=== PATIENT | male | born 1940 | race Caucasian/White ===

== ENCOUNTER → 2016-12-19 | Outpatient (CLI) | payer MEDICARE, BC ==
[~2016-12-19] MED LIST: ASPI-110 PO; ASPI81CH CHEW; ATOR1TAB18 PO; BENZ100 PO; CARV12.52 PO; COMMODE 3-IN-11 MIS; Cefuroxime PO; FURO40TA PO; GETGO ROLLING W1 MI1; LACT PO; LEVO112T2 PO; LIPI80TA PO; LISI-519 PO; MAGO400T PO; MIRTA15 PO; PLAV75TA29 PO; POTA-163 PO; POTA10TA8 PO; PROM25TA10 PO; PROT40TA PO; REME15TA PO; Shower Chair; VANC500I3 PO; VITA10002 PO; WHEEMIS3
[2016-12-19 13:26] LABS: BICARBONATE 29.2 MEQ/L (21.0-32.0)
== END ==
LOC: CLAB 12:43
PROVIDERS: ATTEND Internal Medicine Interventional Cardiology
DX: I25.5 Ischemic cardiomyopathy (principal)
CPT/HCPCS: 36415; 80048

== ENCOUNTER → 2017-02-26 | Outpatient (CLI) | payer MEDICARE, BC ==
[2017-02-26 13:52] LABS: BICARBONATE 28.6 MEQ/L (21.0-32.0); POTASSIUM 4.4 MEQ/L (3.5-5.1)
== END ==
LOC: CLAB 13:00
PROVIDERS: ATTEND Internal Medicine Interventional Cardiology
DX: I50.9 Heart failure, unspecified (principal)
CPT/HCPCS: 36415; 80048

== ENCOUNTER 2017-04-24 22:41 | Emergency (ER) | payer MEDICARE, BC ==
[~2017-04-24 22:41] MED LIST changes: -ASPI81CH CHEW; -ATOR1TAB18 PO; -BENZ100 PO; -Cefuroxime PO; -LISI-519 PO; -MIRTA15 PO; -POTA-163 PO; -PROM25TA10 PO
[2017-04-24 22:47] VITALS: BP 148/95; PULSE 158; RESP 32; O2SAT 98
[2017-04-24] MEDS ORDERED: POTA-163 PO (22:59)
[2017-04-24 23:00] VITALS: BP 162/104; PULSE 152; RESP 28; O2SAT 98
[2017-04-24] MEDS ORDERED: MIRTA15 PO (23:02)
[2017-04-24] MEDS ORDERED: ASPI81CH CHEW (23:02)
[2017-04-24] MEDS ORDERED: ATOR1TAB18 PO (23:02)
[2017-04-24] MEDS ORDERED: LISI-519 PO (23:02)
[2017-04-24] MEDS ORDERED: PROM25TA10 PO (23:03)
--- NOTE | 2017-04-24 23:09 | PD ---
HPI Chief Complaint: General Weakness Time Seen by Provider: 23:04 Travel History International Travel<30 days: No Contact w/Intl Traveler<30days: No Traveled to known affect area: No History of Present Illness HPI This patient complains of generalized weakness. Duration one day. Severity is moderate. He has no chest pain or palpitations or syncope or headache. Symptoms have no alleviating factors. He arrives in [facility] with RVR with a rate of 160. He has a defibrillator but has not fired. PFSH Past Medical History Arthritis: No Asthma: No Autoimmune Disease: No Anxiety: No Depression: No Heart Rhythm Problems: Yes Cancer: Yes (Skin) Cardiovascular Problems: Yes (GA) High Cholesterol: Yes Chemotherapy: No Chest Pain: Yes Congestive Heart Failure: Yes COPD: No Cerebrovascular Accident: No Diabetes: Yes (DIET CONTROLLED) Patient Takes Glucophage: No Endocrine: Yes Gastrointestinal Disorders: Yes GERD: No Genitourinary: Yes (INCONTINENCE) Headaches: Yes Hiatal Hernia: No Hypertension: Yes Immune Disorder: No Implanted Vascular Access Dvce: Yes Kidney Stones: No Musculoskeletal: No Neurologic: No Psychiatric: No Reproductive: No Respiratory: Yes Migraines: No Radiation Therapy: No Renal Failure: No Seizures: No Sickle Cell Disease: No Sleep Apnea: No Thyroid Disease: No Ulcer: No Past Surgical History Abdominal Surgery: Yes (APPENDECTOMY) AICD: Yes (04/2016) Arteriovenous Shunt: No Cardiac Surgery: Yes (CABG X4// AICD 04/2016) Coronary Artery Bypass Graft: Yes Coronary Stent: Yes ("ABOUT 20 YRS AGO") Ear Surgery: No Endocrine Surgery: Yes (GALL BLADDER) Eye Surgery: Yes (CATARACTS) Genitourinary Surgery: No Gynecologic Surgery: No Insulin Pump: No Joint Replacement: No Neurologic Surgery: Yes (GRAPHICS SOFTWARE ENGINEER Shunt) Oral Surgery: No Pacemaker: No Thoracic Surgery: No Other Surgery: Yes Social History Alcohol Use: No Tobacco Use: No (QUIT 35 YRS AGO) Substance Use: No Allergies-Medications (Allergen,Severity, Reaction): Coded Allergies: *MDRO Multi-Drug Resistant Organism (Verified Adverse Reaction, Unknown, ) ESBL K. 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) Reported Meds & Prescriptions Reported Meds & Active Scripts Active Vitamin B-12 (Cyanocobalamin) 1,000 Mcg Tab 1,000 Mcg PO DAILY Levothyroxine (Levothyroxine Sodium) 112 Mcg Tab 112 Mcg PO DAILY Furosemide 40 Mg Tab 40 Mg PO DAILY Plavix (Clopidogrel Bisulfate) 75 Mg Tab 75 Mg PO DAILY Carvedilol 12.5 Mg Tab 12.5 Mg PO BID Reported Phenergan (Promethazine HCl) 25 Mg Tablet 25 Mg PO HS Lisinopril 5 Mg Tab 5 Mg PO HS Mirtazapine 15 Mg Tab 15 Mg PO HS Atorvastatin (Atorvastatin Calcium) 80 Mg Tab 80 Mg PO HS Aspirin 81 Mg Chew 81 Mg CHEW HS Potassium Chloride ER (Potassium Chloride) 20 Meq Tab 20 Meq PO BID Review of Systems General / Constitutional: No: Fever Eyes: No: Visual changes HENT: No: Headaches Cardiovascular: Positive: Irregular Rhythm, Tachycardia, No: Chest Pain or Discomfort Respiratory: No: Shortness of Breath Gastrointestinal: No: Abdominal Pain Genitourinary: No: Dysuria Musculoskeletal: Positive: Weakness, No: Pain Skin: No Rash Neurologic: Positive: Weakness Psychiatric: No: Depression Endocrine: No: Polydipsia Hematologic/Lymphatic: No: Easy Bruising Physical Exam Narrative GENERAL: Well-nourished, well-developed patient in no apparent distress. SKIN: Focused skin assessment reveals no rash and nodules. Skin is Warm and dry. HEAD: Atraumatic. Normocephalic. EYES: Pupils equal and round. No scleral icterus. No injection or drainage. ENT: No nasal bleeding or discharge. Mucous membranes pink and moist. NECK: Trachea midline. No JVD. CARDIOVASCULAR: Irregularly irregular rhythm. No murmur appreciated. Heart rate 160 RESPIRATORY: No accessory muscle use. Clear to auscultation. Breath sounds equal bilaterally. GASTROINTESTINAL: Abdomen soft, non-tender, nondistended. Hepatic and splenic margins not palpable. MUSCULOSKELETAL: No obvious deformities. No clubbing. No cyanosis. No edema. NEUROLOGICAL: Awake and alert. No obvious cranial nerve deficits. Motor grossly within normal limits. Normal speech. PSYCHIATRIC: Appropriate mood and affect; insight and judgment normal. Data Data Last Documented VS Vital Signs Date Time Temp Pulse Resp B/P Pulse Ox O2 Delivery O2 Flow Rate FiO2 04/25/17 01:35 136 20 147/78 98 Nasal Cannula 2 Orders Iv Access Insert/Monitor (04/24/17 23:04) Complete Blood Count With Diff (04/24/17 23:04) Basic Metabolic Panel (Bmp) (04/24/17 23:04) Prothrombin Time / Inr (Pt) (04/24/17 23:04) Act Partial Throm Time (Ptt) (04/24/17 23:04) Electrocardiogram (04/24/17 ) Diltiazem Inj (Cardizem Inj) (04/24/17 23:15) Sodium Chlorid 0.9% 500 Ml Inj (Ns 500 M (04/25/17 01:30) Diltiazem Inj (Cardizem Inj) (04/25/17 01:30) Labs Laboratory Tests Test 04/24/17 23:10 White Blood Count 15.2 TH/MM3 Red Blood Count 4.68 MIL/MM3 Hemoglobin 13.6 GM/DL Hematocrit 41.6 % Mean Corpuscular Volume 88.9 FL Mean Corpuscular Hemoglobin 29.1 PG Mean Corpuscular Hemoglobin 32.7 % Concent Red Cell Distribution Width 16.6 % Platelet Count 129 TH/MM3 Mean Platelet Volume 12.0 FL Neutrophils (%) (Auto) 74.3 % Lymphocytes (%) (Auto) 12.9 % Monocytes (%) (Auto) 12.3 % Eosinophils (%) (Auto) 0.0 % Basophils (%) (Auto) 0.5 % Neutrophils # (Auto) 11.3 TH/MM3 Lymphocytes # (Auto) 2.0 TH/MM3 Monocytes # (Auto) 1.9 TH/MM3 Eosinophils # (Auto) 0.0 TH/MM3 Basophils # (Auto) 0.1 TH/MM3 CBC Comment DIFF FINAL Differential Comment Prothrombin Time 16.7 SEC Prothromb Time International 1.5 RATIO Ratio Activated Partial 24.5 SEC Thromboplast Time Sodium Level 141 MEQ/L Potassium Level 5.1 MEQ/L Chloride Level 110 MEQ/L Carbon Dioxide Level 16.1 MEQ/L Anion Gap 15 MEQ/L Blood Urea Nitrogen 52 MG/DL Creatinine 2.14 MG/DL Estimat Glomerular Filtration 30 ML/MIN Rate Random Glucose 214 MG/DL Calcium Level 8.4 MG/DL [facility] Medical Decision Making Medical Screen Exam Complete: Yes Emergency Medical Condition: Yes Medical Record Reviewed: Yes Differential Diagnosis A. fib with RVR, SVT, A. fib Narrative Course I have reviewed the patient's electronic medical record. I reviewed his discharge summary from rehabilitation which was 6 months ago. He is very complicated medical history with coronary disease and coronary bypass grafting and a defibrillator and cardiomyopathy and also has history of NPH with ventricular shunt Patient is not having any headache or specific neurologic complaint His neurologic exam is normal He is in A. fib with RVR Extended cardiac monitoring reveals A. fib with a rate of 160 I reviewed his EKG which shows A. fib with RVR IV placed I gave him 20 mg IV Cardizem Heart rate improved and went down into the 120s CBC normal Metabolic profile shows some azotemia I gave him some normal saline IV bolus I gave him a second dose of 15 mg IV Cardizem On recheck he is feeling much improved and wants to go home. He feels fine he says. His heart rate is now regular and rate of 100 I've advised him to call his primary physician and drawer liner morning to set up follow-up times and return if he worsens. Critical Care Narrative Aggregate critical care time was 40 minutes. Time to perform other separately billable procedures was not included in the critical care time. My time did not include minutes spent treating any other patients simultaneously or on activities that did not directly contribute to the patient's treatment. The services I provided to this patient were to treat and/or prevent clinically significant deterioration that could result in: Cardiopulmonary arrest, myocardial injury, pulmonary edema I provided critical care services requiring my management, as noted below: Chart data review, documentation time, medication orders and management, vital sign assessments/reviewing monitor data, ordering and reviewing lab tests, ordering and interpreting/reviewing x-rays and diagnostic studies, care of the patient and discussion of the patient with the admitting physicians. Diagnosis Primary Impression: Atrial fibrillation with RVR Additional Impressions: Renal insufficiency Dehydration, mild Additional Instructions: Call primary physician and drawer liner for follow-up Return if you worsen Med/Other Pt SpecificInfo: Other Disposition: DISCHARGE HOME Condition: Stable Reed Hugo MD Apr 24, 2017 23:08
[2017-04-24 23:15] VITALS: BP 163/76; PULSE 102; RESP 28; O2SAT 94
[2017-04-24] MEDS ORDERED: DILTIAZEM HCL 25 MG/5 ML VIAL IV ONE (23:15)
[2017-04-24 23:25] LABS: AUTOMATED NEUTROPHIL # 11.3 TH/MM3 (1.8-7.7); BASOPHIL # 0.1 TH/MM3 (0-0.2); BASOPHIL % 0.5 % (0.0-2.0); HEMATOCRIT 41.6 % (39.0-51.0); HEMO FLAGS DIFF FINAL; LYMPH % 12.9 % (9.0-44.0); MEAN CELL VOLUME 88.9 FL (80.0-100.0); MEAN CORPUSCULAR HEMOGLOBIN 29.1 PG (27.0-34.0); MEAN CORPUSCULAR HGB CONC 32.7 % (32.0-36.0); MONO % 12.3 % (0.0-8.0); NEUT % 74.3 % (16.0-70.0); PLATELET COUNT 129 TH/MM3 (150-450); RED BLOOD COUNT 4.68 MIL/MM3 (4.50-5.90); RED CELL DISTRIBUTION WIDTH 16.6 % (11.6-17.2); WHITE BLOOD COUNT 15.2 TH/MM3 (4.0-11.0)
[2017-04-24 23:36] LABS: APTT (PATIENT) 24.5 SEC (24.3-30.1); INTERNATIONAL NORMALIZED RATIO 1.5 RATIO; PROTHROMBIN TIME - PATIENT 16.7 SEC (9.8-11.6)
[2017-04-24 23:40] VITALS: BP 123/76; PULSE 103; RESP 24; O2SAT 98
[2017-04-24 23:42] LABS: BICARBONATE 16.1 MEQ/L (21.0-32.0); POTASSIUM 5.1 MEQ/L (3.5-5.1)
[2017-04-25 00:15] VITALS: BP 125/94; PULSE 102; RESP 16; O2SAT 98
[2017-04-25] MEDS ORDERED: SODIUM CHLORID 0.9% 500 ML INJ 500 ML IV SCH (01:30)
[2017-04-25] MEDS ORDERED: DILTIAZEM HCL 25 MG/5 ML VIAL IV ONE (01:30)
[2017-04-25 01:35] VITALS: BP 147/78; PULSE 136; RESP 20; O2SAT 98
--- NOTE | 2017-04-25 15:27 | EKG ---
Date Performed: 04/24/2017 Time Performed: 22:48:15 PTAGE: 77 years EKG: ATRIAL FIBRILLATION WITH RAPID VENTRICULAR RESPONSE MODERATE INTRAVENTRICULAR CONDUCTION DE LAY NONSPECIFIC ST & T-WAVE ABNORMALITY Compared to previous tracing, the patient has developed atria l fibrillation with a rapid ventricular response. The associated inferolateral ST segment changes are new. Clinical correlation is advised ABNORMAL ECG PREVIOUS TRACING : 09/24/2016 16.55 DOCTOR: Rupali Eaton Interpretating Date/Time 04/25/2017 15:26:27
== END 2017-04-25 03:17 | disposition home or self-care (01) ==
LOC: NEPC 22:41
DX: I48.91 Unspecified atrial fibrillation (principal); R00.0 Tachycardia, unspecified; N28.9 Disorder of kidney and ureter, unspecified; E86.0 Dehydration; E78.00 Pure hypercholesterolemia, unspecified; I25.2 Old myocardial infarction; I50.9 Heart failure, unspecified; E11.9 Type 2 diabetes mellitus without complications; I10 Essential (primary) hypertension
CPT/HCPCS: 80048; 85025; 85610; 85730; 93005; 96361; 96374; 96376; 99291; J7040

== ENCOUNTER 2017-04-25 11:58 | Inpatient (IN) | payer MEDICARE, BC ==
[2017-04-25] VITALS (7 sets, daily range): BP systolic 123–152; BP diastolic 81–98; PULSE 87–99; RESP 20–30; TEMP 98.1–99; O2SAT 96–100
[~2017-04-25] VITALS: Ht 190.5 cm; Wt 98.5 kg
[~2017-04-25 11:58] MED LIST changes: -ASPI-110 PO; +ASPI81CH CHEW; +ATOR1TAB18 PO; -COMMODE 3-IN-11 MIS; -GETGO ROLLING W1 MI1; -LACT PO; -LIPI80TA PO; +LISI-519 PO; -MAGO400T PO; +MIRTA15 PO; +POTA-163 PO; -POTA10TA8 PO; +PROM25TA10 PO; -PROT40TA PO; -REME15TA PO; -Shower Chair; -VANC500I3 PO; -WHEEMIS3
--- NOTE | 2017-04-25 12:12 | PD ---
HPI Chief Complaint: Cardiac Complaint Time Seen by Provider: 12:08 Travel History International Travel<30 days: No Contact w/Intl Traveler<30days: No Traveled to known affect area: No History of Present Illness HPI PATIENT ARRIVES C/O DEFIBRILLATOR GOING OFF TODAY JUST ABOUT 1 HOUR AGO. CARDIO IS DR TRIPP.....PT HAD JUST BEEN EVALUATED WITH LABS BUT WITHOUT IMAGING THIS MORNING AND WAS D/C FROM ER AT AROUND 4 OR 5AM. PRESENTATION THEN WAS FOR GEN WEAKNESS, DENIED FEVER/COUGH/CP/ABD PAIN/THROAT PAIN/RUNNY NOSE/ESTEBAN/N /V/D AT THIS TIME. ALSO NO PAIN CURRENTLY EITHER. PFSH Past Medical History Hx Anticoagulant Therapy: Yes (PLAVIX) Arthritis: No Asthma: No Autoimmune Disease: No Anxiety: No Depression: No Heart Rhythm Problems: Yes Cancer: Yes (Skin) Cardiovascular Problems: Yes (DEFIB IN PLACE) High Cholesterol: Yes Chemotherapy: No Chest Pain: Yes Congestive Heart Failure: Yes COPD: No Cerebrovascular Accident: No Diabetes: Yes (DIET CONTROLLED) Endocrine: Yes Gastrointestinal Disorders: Yes GERD: No Genitourinary: Yes (INCONTINENCE) Headaches: Yes Hiatal Hernia: No Hypertension: Yes Immune Disorder: No Implanted Vascular Access Dvce: Yes Kidney Stones: No Musculoskeletal: No Neurologic: No Psychiatric: No Reproductive: No Respiratory: Yes Migraines: No Radiation Therapy: No Renal Failure: No Seizures: No Sickle Cell Disease: No Sleep Apnea: No Thyroid Disease: No Ulcer: No Past Surgical History Abdominal Surgery: Yes (APPENDECTOMY) AICD: Yes (04/2016) Arteriovenous Shunt: No Cardiac Surgery: Yes (CABG X4// AICD 04/2016) Coronary Artery Bypass Graft: Yes Coronary Stent: Yes ("ABOUT 20 YRS AGO") Ear Surgery: No Endocrine Surgery: Yes (GALL BLADDER) Eye Surgery: Yes (CATARACTS) Genitourinary Surgery: No Gynecologic Surgery: No Insulin Pump: No Joint Replacement: No Neurologic Surgery: Yes (MULTIPLE GAMES DEALER Shunt) Oral Surgery: No Pacemaker: No Thoracic Surgery: No Other Surgery: Yes Social History Alcohol Use: No Tobacco Use: No (QUIT 35 YRS AGO) Substance Use: No Allergies-Medications (Allergen,Severity, Reaction): Coded Allergies: *MDRO Multi-Drug Resistant Organism (Verified Adverse Reaction, Unknown, ) ESBL K. 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) Reported Meds & Prescriptions Reported Meds & Active Scripts Active Vitamin B-12 (Cyanocobalamin) 1,000 Mcg Tab 1,000 Mcg PO DAILY Levothyroxine (Levothyroxine Sodium) 112 Mcg Tab 112 Mcg PO DAILY Furosemide 40 Mg Tab 40 Mg PO DAILY Plavix (Clopidogrel Bisulfate) 75 Mg Tab 75 Mg PO DAILY Carvedilol 12.5 Mg Tab 12.5 Mg PO BID Reported Phenergan (Promethazine HCl) 25 Mg Tablet 25 Mg PO HS Lisinopril 5 Mg Tab 5 Mg PO HS Mirtazapine 15 Mg Tab 15 Mg PO HS Atorvastatin (Atorvastatin Calcium) 80 Mg Tab 80 Mg PO HS Aspirin 81 Mg Chew 81 Mg CHEW HS Potassium Chloride ER (Potassium Chloride) 20 Meq Tab 20 Meq PO BID Review of Systems Except as stated in HPI: all other systems reviewed are Neg Cardiovascular: Positive: Palpitations (AND DEFIB 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 HEAD: Atraumatic. Normocephalic. EYES: Pupils equal and round. No scleral icterus. No injection or drainage. ENT: No nasal bleeding or discharge. Mucous membranes pink and moist. NECK: Trachea midline. No JVD. CARDIOVASCULAR: IRREGULAR rhythm. CONTROLLED RATE. RESPIRATORY: No accessory muscle use. Clear to auscultation. Breath sounds equal bilaterally. GASTROINTESTINAL: Abdomen soft, non-tender, nondistended. Hepatic and splenic margins not palpable. MUSCULOSKELETAL: Extremities without clubbing, cyanosis, or edema. No obvious deformities. NEUROLOGICAL: Awake and alert. No obvious cranial nerve deficits. Motor grossly within normal limits. Five out of 5 muscle strength in the arms and legs. Normal speech. PSYCHIATRIC: Appropriate mood and affect; insight and judgment normal. Data Data Last Documented VS Vital Signs Date Time Temp Pulse Resp B/P Pulse Ox O2 Delivery O2 Flow Rate FiO2 04/25/17 12:49 93 22 133/81 98 Nasal Cannula 2 04/25/17 12:05 99.0 Orders Electrocardiogram (04/25/17 12:32) Complete Blood Count With Diff (04/25/17 12:32) Comprehensive Metabolic Panel (04/25/17 12:32) Ckmb (Isoenzyme) Profile (04/25/17 12:32) Troponin I (04/25/17 12:32) B-Type Natriuretic Peptide (04/25/17 12:32) Prothrombin Time / Inr (Pt) (04/25/17 12:32) Act Partial Throm Time (Ptt) (04/25/17 12:32) Chest, Single Ap (04/25/17 12:32) Iv Access Insert/Monitor (04/25/17 12:32) Ecg Monitoring (04/25/17 12:32) Oximetry (04/25/17 12:32) CKMB (04/25/17 12:30) CKMB% (04/25/17 12:30) Lactic Acid Sepsis Protocol (04/25/17 13:37) Pneumococcal Urinary Antigen (04/25/17 13:37) Influenzae A/B Antigen (04/25/17 13:37) Legionella Urinary Antigen (04/25/17 13:37) Sputum Culture And Gram Stain (04/25/17 13:37) Ceftriaxone Inj (Rocephin Inj) (04/25/17 13:45) Azithromycin Inj (Zithromax Inj) (04/25/17 13:45) Urinalysis - C+S If Indicated (04/25/17 13:37) Blood Culture (04/25/17 14:11) Admit Order (Ed Use Only) (04/25/17 14:35) Labs Laboratory Tests Test 04/25/17 04/25/17 04/25/17 12:30 14:00 14:20 White Blood Count 17.0 TH/MM3 Red Blood Count 4.77 MIL/MM3 Hemoglobin 14.0 GM/DL Hematocrit 42.4 % Mean Corpuscular Volume 88.9 FL Mean Corpuscular Hemoglobin 29.3 PG Mean Corpuscular Hemoglobin 33.0 % Concent Red Cell Distribution Width 16.7 % Platelet Count 118 TH/MM3 Mean Platelet Volume 12.1 FL Neutrophils (%) (Auto) 77.9 % Lymphocytes (%) (Auto) 12.0 % Monocytes (%) (Auto) 9.4 % Eosinophils (%) (Auto) 0.2 % Basophils (%) (Auto) 0.5 % Neutrophils # (Auto) 13.2 TH/MM3 Lymphocytes # (Auto) 2.0 TH/MM3 Monocytes # (Auto) 1.6 TH/MM3 Eosinophils # (Auto) 0.0 TH/MM3 Basophils # (Auto) 0.1 TH/MM3 CBC Comment DIFF FINAL Differential Comment Prothrombin Time 17.2 SEC Prothromb Time International 1.5 RATIO Ratio Activated Partial 24.9 SEC Thromboplast Time Sodium Level 138 MEQ/L Potassium Level 5.0 MEQ/L Chloride Level 107 MEQ/L Carbon Dioxide Level 15.7 MEQ/L Anion Gap 15 MEQ/L Blood Urea Nitrogen 55 MG/DL Creatinine 2.04 MG/DL Random Glucose 234 MG/DL Calcium Level 8.6 MG/DL Total Bilirubin 3.5 MG/DL Aspartate Amino Transf 1127 U/L (AST/SGOT) Alanine Aminotransferase 1154 U/L (ALT/SGPT) Alkaline Phosphatase 149 U/L Total Creatine Kinase 362 U/L Creatine Kinase MB 5.2 NG/ML Creatine Kinase MB % 1.4 % Troponin I 0.05 NG/ML B-Type Natriuretic Peptide 1326 PG/ML Total Protein 6.4 GM/DL Albumin 3.6 GM/DL Urine Color YELLOW Urine Turbidity CLEAR Urine pH 5.5 Urine Specific [place] 1.023 Urine Protein 30 mg/dL Urine Glucose (UA) NEG mg/dL Urine Ketones NEG mg/dL Urine Occult Blood SMALL Urine Nitrite NEG Urine Bilirubin NEG Urine Urobilinogen LESS THAN 2.0 MG/DL Urine Leukocyte Esterase NEG Urine RBC LESS THAN 1 /hpf Urine WBC 1 /hpf Urine Bacteria RARE /hpf Microscopic Urinalysis Comment CULT NOT INDICATED Lactic Acid Level 3.5 mmol/L MDM Medical Decision Making Medical Screen Exam Complete: Yes Emergency Medical Condition: Yes Medical Record Reviewed: Yes Interpretation(s) NSR, 92, Q WAVE FOUND ON III/AVF BUT NO ACUTE STEMI PATTERN NOTED Differential Diagnosis DYSRHYTHMIAS V PULM EDEMA V PNA V DC V Narrative Course WITH ELEV WBC 17K, NEUTROPHILIA, RLL INFILTRATE NOTED ON CXR AND PT C/O GENERALIZED WEAKNESS I CONCLUDE THAT PNA IS THE CAUSE OF PATIENT'S MAIN COMPLAINTS...HIS DEFIBRILLATOR FIRING WILL BE ADDRESSED WITH INTERROGATION HOWEVER FAMILY NOR PATIENT KNOW WHAT BRAND THE DEFIBRILLATOR WAS AND I'VE BEEN UNSUCCESFUL AT LOCATING IT....PT STATES CARDIO IS DR TRIPP...WILL RECC ADMISSION FOR PNA AND INTERROGATION Critical Care Narrative CRITICAL CARE NOTE: With evaluation of the patient, labs, EKG, receipt of radiologic studies, administration of medications, reevaluation the patient and discussion of the patient with the admitting physicians, the total critical care time was [45] minutes. Time to perform other separately billable procedures was not included in the critical care time. Diagnosis Primary Impression: RLL PNEUMONIA Additional Impression: S/P DEFIBRILLATOR DISCHARGE Admitting Information Admitting Physician Requests: Admit Condition: Stable Paul Clemente MD Apr 25, 2017 12:12
[2017-04-25 12:56] LABS: AUTOMATED NEUTROPHIL # 13.2 TH/MM3 (1.8-7.7); BASOPHIL # 0.1 TH/MM3 (0-0.2); BASOPHIL % 0.5 % (0.0-2.0); EOSINOPHIL % 0.2 % (0.0-4.0); HEMATOCRIT 42.4 % (39.0-51.0); HEMO FLAGS DIFF FINAL; MEAN CELL VOLUME 88.9 FL (80.0-100.0); MEAN CORPUSCULAR HEMOGLOBIN 29.3 PG (27.0-34.0); MONO % 9.4 % (0.0-8.0); NEUT % 77.9 % (16.0-70.0); PLATELET COUNT 118 TH/MM3 (150-450); RED BLOOD COUNT 4.77 MIL/MM3 (4.50-5.90); RED CELL DISTRIBUTION WIDTH 16.7 % (11.6-17.2)
[2017-04-25 13:06] LABS: APTT (PATIENT) 24.9 SEC (24.3-30.1); INTERNATIONAL NORMALIZED RATIO 1.5 RATIO; PROTHROMBIN TIME - PATIENT 17.2 SEC (9.8-11.6)
--- NOTE | 2017-04-25 13:06 | RADRPT ---
EXAM DATE/TIME: 04/25/2017 12:30 [place] COMPARISON: CHEST SINGLE AP, October 04, 2016, 12:35. INDICATIONS : Chest pain and weakness. MEDICAL HISTORY : Hypertension. Congestive heart failure. Myocardial infarction. Diabetes. Irregular heartbeat. SURGICAL HISTORY : CABG. Defibrillator. 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 ENCOUNTER: Initial ACUITY: 1 day PAIN SCORE: 6/10 LOCATION: Bilateral chest FINDINGS: Stable dual-lead AICD device. Redemonstration of TEST AUTOMATION ARCHITECT shunt tubing in the right hemithorax. Median ster notomy wires with stable enlargement of the cardiac silhouette. Small right pleural effusion with ass ociated airspace disease in the right lower lobe. Likely trace left pleural effusion. Remainder of ex am is unchanged. CONCLUSION: 1. Cardiomegaly with trace positive fluid balance. 2. Trace left pleural effusion and small right pleural effusion with associated right lower lobe airs pace disease. Vaughn Javier MD on April 25, 2017 at 13:02 Board Certified Radiologist. This report was verified electronically.
[2017-04-25 13:24] LABS: ANION GAP 15 MEQ/L (5-15); BICARBONATE 15.7 MEQ/L (21.0-32.0); BLOOD UREA NITROGEN 55 MG/DL (7-18); CHLORIDE 107 MEQ/L (98-107); SODIUM (NA) 138 MEQ/L (136-145)
[2017-04-25 13:31] LABS: ALKALINE PHOSPHATASE 149 U/L (45-117); ALT (GPT) 1154 U/L (12-78); AST (GOT) 1127 U/L (15-37); CREATINE KINASE 362 U/L (39-308); TOTAL BILIRUBIN ADULT 3.5 MG/DL (0.2-1.0)
[2017-04-25 13:43] LABS: CKMB 5.2 NG/ML (0.5-3.6)
[2017-04-25] MEDS ORDERED: AZITHROMYCIN INJ 500 MG in SODIUM CHLOR 0.9% 250 ML INJ 250 ML IV ONE (13:45)
[2017-04-25] MEDS ORDERED: cefTRIAXone INJ 2,000 MG in SODIUM CHLORIDE 0.9% INJ 100 ML IV ONE (13:45)
[2017-04-25 14:59] LABS: BACTERIA, URINE RARE /hpf; BLOOD, URINE SMALL (NEG); COMMENT (UR) CULT NOT INDICATED; CULTURE IF INDICATED CULT NOT INDICATED; GLUCOSE,URINE NEG (NEG); KETONE, URINE NEG (NEG); NITRITE,URINE NEG (NEG); PH, URINE 5.5 (5.0-8.5); URINE COLOR YELLOW (YELLW/STRAW)
[2017-04-25] MEDS ORDERED: MAGNESIUM HYDROXIDE SUSP 30 ML CUP PO PRN (15:45)
[2017-04-25] MEDS ORDERED: NALOXONE HCL 0.4 MG/ML AMP IV PRN (15:45)
[2017-04-25] MEDS ORDERED: LACTULOSE SYRUP 20 GM/30 ML CUP PO PRN (15:45)
[2017-04-25] MEDS ORDERED: BISACODYL 10 MG SUPP RECTAL PRN (15:45)
[2017-04-25] MEDS ORDERED: SENNOSIDES 8.6 MG TAB PO PRN (15:45)
[2017-04-25] MEDS ORDERED: ONDANSETRON HCL 4 MG/2 ML VIAL IVP PRN (15:45)
[2017-04-25] MEDS ORDERED: SODIUM CHLORIDE 0.9% FLUSH 10 ML FLUSH IV FLUSH PRN (15:45)
[2017-04-25] MEDS ORDERED: ACETAMINOPHEN 325 MG TAB PO PRN (15:45)
--- NOTE | 2017-04-25 16:23 | PD.PN.STU ---
Subjective Remarks The patient is a 77 year old male with history of CHF presenting to the ER with SOB after his defibrillator went off. The patient states it felt like he got kicked in the chest when it went off. He did not pass out when this event occurred. He did not fall or hit his head. The patient reports SOB was occurring a few days prior to his device going off today. He states that he currently has SOB and a mild cough. It is a nonproductive cough at the moment and is not causing chest discomfort. He denies chest pain, diaphoresis, visual changes, headache, abdominal pain, or fevers at this time. Also he denies any new weakness in his extremities. The patient seems to be SOB still and in distress. The patient's is in the room facilitating the history. 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) Reported Meds & Prescriptions Reported Meds & Active Scripts Active Vitamin B-12 (Cyanocobalamin) 1,000 Mcg Tab 1,000 Mcg PO DAILY Levothyroxine (Levothyroxine Sodium) 112 Mcg Tab 112 Mcg PO DAILY Furosemide 40 Mg Tab 40 Mg PO DAILY Plavix (Clopidogrel Bisulfate) 75 Mg Tab 75 Mg PO DAILY Carvedilol 12.5 Mg Tab 12.5 Mg PO BID Reported Phenergan (Promethazine HCl) 25 Mg Tablet 25 Mg PO HS Lisinopril 5 Mg Tab 5 Mg PO HS Mirtazapine 15 Mg Tab 15 Mg PO HS Atorvastatin (Atorvastatin Calcium) 80 Mg Tab 80 Mg PO HS Aspirin 81 Mg Chew 81 Mg CHEW HS Potassium Chloride ER (Potassium Chloride) 20 Meq Tab 20 Meq PO BID Objective Vitals Physical Exam: General: Agitated and dyspnea HEENT: No conjunctival changes, EYE: Extraocular movements intact Cardiovascular: s1 and s2 appreciated, RRR, No JVD, no heaves or thrills Pulmonary: Clear lungs bilaterally, labored breathing Abdominal: No pain on light palpation in all 4 quadrants, no rebound or guarding Extremities: No edema present, posterior tibal pulses palpated bilaterally Psych: Cooperative Vital Signs Date Time Temp Pulse Resp B/P Pulse Ox O2 Delivery O2 Flow Rate FiO2 04/25/17 15:00 98 22 152/98 98 Nasal Cannula 2 04/25/17 12:49 93 22 133/81 98 Nasal Cannula 2 04/25/17 12:10 97 25 123/84 96 Nasal Cannula 2 04/25/17 12:05 99.0 99 30 141/94 99 Room Air Result Diagram: 04/25/17 1230 04/25/17 1230 Imaging RLL pneumonia on CXR A/P Assessment and Plan Diagnostic Impression 1. Acute exacerbation of CHF 2. AICD firing 3. Old inferior ID on EKG 4. HTN 5. Acute Renal Failure- Prerenal 6. Shock liver 7. anticoagulation not at goal 8. Leukocytosis 9. Thrombocytopenia 10. RLL pneumonia Plan Labs Reviewed EKG reviewed CXR reviewed IV ABX (Ceftriaxone & azithromycin) for RLL pneumonia probable Cardiology Consult for AICD & CHF Awaiting Urine Cultures Continue Home medications Lasix Patient seen and examined as above with medical student RN at bedside Chart reviewed including medications labs and radiological data and notes some of the previous notes records reviewed Discussed with the ER physician Above note and plan of care reviewed with medical student Discussed with patient and at bedside in detail Will continue antibiotic for probable pneumonia Repeat chest x-ray AP lateral in the morning Continue home medication including Lasix Cardiology consult Labs for morning Will monitor LFTs. Transaminitis may be a congestive hepatopathy Condition guarded prognosis guarded Marco Wheeler Apr 25, 2017 16:23 Enrico Ha MD Apr 25, 2017 17:04
[2017-04-25 16:43] LABS: LACTIC ACID GHOST NOT REPORTABLE
[2017-04-25] MEDS: PANTOPRAZOLE SOD 20 MG DELAYED RELEASE TAB PO SCH (18:18)
[2017-04-25] MEDS: CYANOCOBALAMIN 1,000 MCG TAB PO SCH (18:18)
[2017-04-25] MEDS: CLOPIDOGREL 75 MG TAB PO SCH (18:18)
[2017-04-25] MEDS: FUROSEMIDE 40 MG TAB PO SCH (18:18)
[2017-04-25] MEDS: LEVOTHYROXINE SODIUM 112 MCG TAB PO SCH (20:00)
--- NOTE | 2017-04-25 20:24 | MB ---
cc: PALOMO SIMENTAL DATE OF CONSULTATION: 04/25/2017. REASON FOR CONSULTATION: HISTORY OF PRESENT ILLNESS: Mr. Reilly is a 77-year-old white male with a history of congestive heart failure, coronary artery disease, myocardial infarction, coronary artery bypass, ischemic cardiomyopathy and a [employer] defibrillator placement. He was shocked by his defibrillator this morning. He has had increased shortness of breath and generalized weakness recently. He denies any chest pain. He was seen in the emergency room and was diagnosed with pneumonia. Evaluation of the defibrillator shows atrial tachycardia in the 190s and this was converted to sinus rhythm with an ICD shock. PAST MEDICAL HISTORY: Past medical history is positive for: 1. Congestive heart failure. 2. Coronary artery disease. 3. Inferior wall myocardial infarction. 4. Right coronary artery stenting. 5. Coronary bypass. 6. Ischemic cardiomyopathy. 7. Atrial flutter. 8. Ventricular tachycardia arrest. 9. Diabetes mellitus. 10. Hydrocephalus status post shunt placement. 11. [employer] dual-chamber defibrillator placement. 12. Dyslipidemia. 13. Moderate mitral regurgitation. 14. Mild tricuspid regurgitation. 15. Resolute stent placement to the right coronary artery in 03/2016. MEDICATIONS AT HOME: 1. Aspirin. 2. Plavix. 3. Carvedilol. 4. Klor-Con. 5. Synthroid. 6. Furosemide. 7. Lisinopril. 8. Mirtazapine. 9. Atorvastatin. 10. Vitamin B12. 11. Magnesium. ALLERGIES: NONE. SOCIAL HISTORY: The patient does not smoke but did smoke in the past. He does not drink alcohol. He is . FAMILY HISTORY: Family history is positive for heart disease. REVIEW OF SYSTEMS: The review of systems is otherwise negative. PHYSICAL EXAMINATION: VITAL SIGNS: Blood pressure 123/85, pulse 95 and regular. HEAD, EYES, EARS, NOSE, THROAT: Negative. NECK: 2+ carotid upstrokes, no bruits. LUNGS: Clear. HEART: Regular rate and rhythm with no murmurs, rubs or gallops. ABDOMEN: Abdomen soft. No bruits. EXTREMITIES: With mild edema. 1+ distal pulses. NEUROLOGIC: Grossly nonfocal. EKGS: EKG was reviewed and showed normal sinus rhythm, left atrial enlargement, interventricular conduction delay and old inferior wall myocardial infarction. LABS: Hemoglobin 14.0. Potassium 5.0, creatinine 2.04 (His baseline was 1.2). AST 1127, ALT 1154. CK 362. CK-MB 5.2. Troponin 0.05. BNP 1326. INTERROGATION OF THE DEFIBRILLATOR: Episodes of atrial tachycardia at the rate of 190 beats per minute treated with attempted therapy with ATP and eventual cardioversion with a single ICD shock. There was normal function of the defibrillator. DIAGNOSIS: 1. ICD shock. 2. Acute exacerbation of chronic systolic congestive heart failure. 3. Ischemic cardiomyopathy with moderate left ventricular systolic function (an ejection fraction of 35%). 4. Coronary artery disease with history of myocardial infarction and coronary bypass and coronary stenting. 5. Acute renal insufficiency. 6. Paroxysmal atrial tachycardia. 7. Paroxysmal atrial flutter. 8. History of ventricular tachycardia. 9. Diabetes mellitus. 10. History of hydrocephalus, status post shunt placement. 11. Normal function of [employer] dual-chamber defibrillator. DISPOSITION: Mr. Reilly will monitored on telemetry. He was appropriately shocked for fast atrial tachycardia. His and is consistent with acute congestive heart failure. He has had significant exacerbation of his renal function. I recommend renal evaluation. I will follow him for cardiology during his hospitalization. Will also see him back for follow up in our office as an outpatient after discharge. MD CARLOS Baugh/BRIGIDO /7:27 PM /8:12 PM
[2017-04-25] MEDS: PROMETHAZINE HCL 25 MG TAB PO SCH (21:11)
[2017-04-25] MEDS: DOCUSATE SODIUM 50 MG/SENNA 8.6 MG TAB PO SCH (21:11)
[2017-04-25] MEDS: HEPARIN SODIUM - SQ 10,000 UNITS/ML VIAL SQ SCH (21:11)
[2017-04-25] MEDS: CARVEDILOL 12.5 MG TAB PO SCH (21:11)
[2017-04-25] MEDS: ASPIRIN 81 MG CHEW TAB CHEW SCH (21:11)
[2017-04-25] MEDS: MIRTAZAPINE 15 MG TAB PO SCH (21:12)
[2017-04-25] MEDS: LISINOPRIL 5 MG TAB PO SCH (21:12)
[2017-04-25] MEDS: SODIUM CHLORIDE 0.9% FLUSH 10 ML FLUSH IV FLUSH SCH (21:12)
[2017-04-25] MEDS: ATORVASTATIN 80 MG TAB PO SCH (21:12)
[2017-04-25] MEDS: POTASSIUM CHLORIDE 20 MEQ CONTROLLED RELEASE TAB PO SCH (21:12)
[2017-04-25] MEDS ORDERED: SODIUM CHLOR 0.9% 1000 ML INJ 1,000 ML IV ONE (23:30)
[2017-04-26] VITALS (14 sets, daily range): BP systolic 93–139; BP diastolic 59–89; PULSE 64–80; RESP 18–32; TEMP 97.2–98; O2SAT 91–100
[2017-04-26 02:37] LABS: AUTOMATED NEUTROPHIL # 10.8 TH/MM3 (1.8-7.7); BASOPHIL # 0.1 TH/MM3 (0-0.2); BASOPHIL % 0.5 % (0.0-2.0); EOSINOPHIL % 0.1 % (0.0-4.0); HEMATOCRIT 39.5 % (39.0-51.0); LYMPH % 11.9 % (9.0-44.0); LYMPHOCYTE # 1.6 TH/MM3 (1.0-4.8); MEAN CELL VOLUME 88.5 FL (80.0-100.0); MEAN CORPUSCULAR HEMOGLOBIN 29.1 PG (27.0-34.0); MEAN CORPUSCULAR HGB CONC 32.9 % (32.0-36.0); MONO % 9.6 % (0.0-8.0); NEUT % 77.9 % (16.0-70.0); PLATELET COUNT 85 TH/MM3 (150-450); RED BLOOD COUNT 4.46 MIL/MM3 (4.50-5.90); RED CELL DISTRIBUTION WIDTH 16.7 % (11.6-17.2); WHITE BLOOD COUNT 13.8 TH/MM3 (4.0-11.0)
[2017-04-26 02:39] LABS: HEMO FLAGS AUTO DIFF
[2017-04-26 02:48] LABS: MAGNESIUM 2.1 MG/DL (1.5-2.5); POTASSIUM 4.6 MEQ/L (3.5-5.1)
[2017-04-26 03:11] LABS: BANDS 2 % (0-6); CORRECTED NUCLEATED RBC 1 /100 WBC (0-0); NEUTROPHIL # MANUAL DIFF 11.3 TH/MM3 (1.8-7.7); POLYS (SEG NEUTROPHILS) 80 % (16-70); WBC DIFF SAMPLE 100
[2017-04-26 03:12] LABS: SCAN/DIFF FINAL DIFF MANUAL
[2017-04-26 03:13] LABS: PLATELET ESTIMATE SMEAR LOW (NORMAL); PLATELET MORPHOLOGY ENLARGED (NORMAL)
[2017-04-26] MEDS: LEVOTHYROXINE SODIUM 112 MCG TAB PO SCH (05:22)
[2017-04-26] MEDS: CARVEDILOL 12.5 MG TAB PO SCH ×2 (08:14→20:38)
[2017-04-26] MEDS: PANTOPRAZOLE SOD 20 MG DELAYED RELEASE TAB PO SCH (08:14)
[2017-04-26] MEDS: POTASSIUM CHLORIDE 20 MEQ CONTROLLED RELEASE TAB PO SCH ×2 (08:14→20:41)
[2017-04-26] MEDS: DOCUSATE SODIUM 50 MG/SENNA 8.6 MG TAB PO SCH ×2 (08:15→20:39)
[2017-04-26] MEDS: HEPARIN SODIUM - SQ 10,000 UNITS/ML VIAL SQ SCH ×2 (08:15→20:39)
[2017-04-26] MEDS: CYANOCOBALAMIN 1,000 MCG TAB PO SCH (08:15)
[2017-04-26] MEDS: FUROSEMIDE 40 MG TAB PO SCH (08:15)
[2017-04-26] MEDS: CLOPIDOGREL 75 MG TAB PO SCH (08:15)
[2017-04-26] MEDS: SODIUM CHLORIDE 0.9% FLUSH 10 ML FLUSH IV FLUSH SCH ×2 (08:23→20:38)
--- NOTE | 2017-04-26 08:46 | HHI.PR ---
Subjective Subjective Remarks Resting in bed dosing Responds to verbal stimuli short answers Skin is pale Afebrile Requesting to be left alone (Zahida Calderon) Review of Systems Constitutional Constitutional: Fatigue Constitutional Remarks Unable to assess except for vague answers to some symptoms. Denies any chest pain. Took oxygen off and states doesn't need it now. (Zahida Calderon) Vitals/Results Intake & Output 04/25/17 04/25/17 04/26/17 15:00 23:00 07:00 Intake Total 242 ml 850 ml Output Total 325 ml 300 ml Balance -83 ml 550 ml Intake Oral 240 ml 360 ml IV Total 2 ml 490 ml Output Urine Total 325 ml 300 ml # Bowel Movements 0 Vital Signs Vital Signs Date Time Temp Pulse Resp B/P Pulse Ox O2 Delivery O2 Flow Rate FiO2 04/26/17 08:00 97.4 76 18 109/89 97 04/26/17 04:21 Room Air 04/26/17 04:00 97.4 71 20 139/89 94 04/26/17 00:12 97.7 80 20 123/81 98 04/26/17 00:00 Room Air 04/25/17 20:10 87 04/25/17 20:00 Room Air 04/25/17 20:00 98.3 88 20 152/90 100 04/25/17 16:20 95 24 96 04/25/17 16:06 98.1 89 22 123/85 99 04/25/17 15:00 98 22 152/98 98 Nasal Cannula 2 04/25/17 12:49 93 22 133/81 98 Nasal Cannula 2 04/25/17 12:10 97 25 123/84 96 Nasal Cannula 2 04/25/17 12:05 99.0 99 30 141/94 99 Room Air (Zahida Calderon) CBC/BMP: 04/26/17 0218 04/26/17 0218 Lab Results Laboratory Tests Test 04/25/17 04/25/17 04/25/17 04/25/17 12:30 14:00 14:20 21:31 White Blood Count 17.0 TH/MM3 Red Blood Count 4.77 MIL/MM3 Hemoglobin 14.0 GM/DL Hematocrit 42.4 % Mean Corpuscular Volume 88.9 FL Mean Corpuscular Hemoglobin 29.3 PG Mean Corpuscular Hemoglobin 33.0 % Concent Red Cell Distribution Width 16.7 % Platelet Count 118 TH/MM3 Mean Platelet Volume 12.1 FL Neutrophils (%) (Auto) 77.9 % Lymphocytes (%) (Auto) 12.0 % Monocytes (%) (Auto) 9.4 % Eosinophils (%) (Auto) 0.2 % Basophils (%) (Auto) 0.5 % Neutrophils # (Auto) 13.2 TH/MM3 Lymphocytes # (Auto) 2.0 TH/MM3 Monocytes # (Auto) 1.6 TH/MM3 Eosinophils # (Auto) 0.0 TH/MM3 Basophils # (Auto) 0.1 TH/MM3 CBC Comment DIFF FINAL Differential Comment Prothrombin Time 17.2 SEC Prothromb Time International 1.5 RATIO Ratio Activated Partial 24.9 SEC Thromboplast Time Sodium Level 138 MEQ/L Potassium Level 5.0 MEQ/L Chloride Level 107 MEQ/L Carbon Dioxide Level 15.7 MEQ/L Anion Gap 15 MEQ/L Blood Urea Nitrogen 55 MG/DL Creatinine 2.04 MG/DL Random Glucose 234 MG/DL Calcium Level 8.6 MG/DL Total Bilirubin 3.5 MG/DL Aspartate Amino Transf 1127 U/L (AST/SGOT) Alanine Aminotransferase 1154 U/L (ALT/SGPT) Alkaline Phosphatase 149 U/L Total Creatine Kinase 362 U/L Creatine Kinase MB 5.2 NG/ML Creatine Kinase MB % 1.4 % Troponin I 0.05 NG/ML B-Type Natriuretic Peptide 1326 PG/ML Total Protein 6.4 GM/DL Albumin 3.6 GM/DL Urine Color YELLOW Urine Turbidity CLEAR Urine pH 5.5 Urine Specific [place] 1.023 Urine Protein 30 mg/dL Urine Glucose (UA) NEG mg/dL Urine Ketones NEG mg/dL Urine Occult Blood SMALL Urine Nitrite NEG Urine Bilirubin NEG Urine Urobilinogen LESS THAN 2.0 MG/DL Urine Leukocyte Esterase NEG Urine RBC LESS THAN 1 /hpf Urine WBC 1 /hpf Urine Bacteria RARE /hpf Microscopic Urinalysis Comment CULT NOT INDICATED Lactic Acid Level 3.5 mmol/L 5.9 mmol/L Test 04/26/17 04/26/17 02:18 08:02 White Blood Count 13.8 TH/MM3 Red Blood Count 4.46 MIL/MM3 Hemoglobin 13.0 GM/DL Hematocrit 39.5 % Mean Corpuscular Volume 88.5 FL Mean Corpuscular Hemoglobin 29.1 PG Mean Corpuscular Hemoglobin 32.9 % Concent Red Cell Distribution Width 16.7 % Platelet Count 85 TH/MM3 Mean Platelet Volume 12.1 FL Neutrophils (%) (Auto) 77.9 % Lymphocytes (%) (Auto) 11.9 % Monocytes (%) (Auto) 9.6 % Eosinophils (%) (Auto) 0.1 % Basophils (%) (Auto) 0.5 % Neutrophils # (Auto) 10.8 TH/MM3 Lymphocytes # (Auto) 1.6 TH/MM3 Monocytes # (Auto) 1.3 TH/MM3 Eosinophils # (Auto) 0.0 TH/MM3 Basophils # (Auto) 0.1 TH/MM3 CBC Comment AUTO DIFF Differential Total Cells 100 Counted Neutrophils % (Manual) 80 % Band Neutrophils % 2 % Lymphocytes % 16 % Monocytes % 2 % Neutrophils # (Manual) 11.3 TH/MM3 Nucleated Red Blood Cells 1 /100 WBC Differential Comment FINAL DIFF MANUAL Platelet Estimate LOW Platelet Morphology Comment ENLARGED Sodium Level 140 MEQ/L Potassium Level 4.6 MEQ/L Chloride Level 108 MEQ/L Carbon Dioxide Level 21.0 MEQ/L Anion Gap 11 MEQ/L Blood Urea Nitrogen 58 MG/DL Creatinine 1.95 MG/DL Estimat Glomerular Filtration 33 ML/MIN Rate Random Glucose 211 MG/DL Lactic Acid Level 3.2 mmol/L 2.5 mmol/L Calcium Level 8.4 MG/DL Phosphorus Level 3.2 MG/DL Magnesium Level 2.1 MG/DL Microbiology Microbiology 04/25/17 Legionella Antigen - Final, Complete PRESUMPTIVE NEGATIVE FOR LEGIONELLA P... 04/25/17 Streptococcus pneumoniae Antigen (M - Final, Complete PRESUMPTIVE NEGATIVE FOR STREPTOCOCCU... 04/25/17 Aerobic Blood Culture, Received Pending 04/25/17 Anaerobic Blood Culture, Received Pending 04/25/17 Aerobic Blood Culture, Received Pending 04/25/17 Anaerobic Blood Culture, Received Pending Current Medications Administered Medications Medications (Trade) Dose Ordered Sig/Saad Route PRN Reason Start Time Stop Time Status Last Admin Dose Admin Sodium Chloride (NS Flush) 2 ml BID IV FLUSH 04/25/17 21:00 04/25/17 21:12 Senna/Docusate Sodium (Coretta-Colace) 1 tab BID PO 04/25/17 21:00 04/25/17 21:11 Aspirin (Aspirin Chew) 81 mg HS CHEW 04/25/17 21:00 04/25/17 21:11 Atorvastatin Calcium (Lipitor) 80 mg HS PO 04/25/17 21:00 04/25/17 21:12 Carvedilol (Coreg) 12.5 mg BID PO 04/25/17 21:00 04/25/17 21:11 Clopidogrel Bisulfate (Plavix) 75 mg DAILY PO 04/25/17 17:00 04/25/17 18:18 Cyanocobalamin (Vitamin B12) 1,000 mcg DAILY PO 04/25/17 17:00 04/25/17 18:18 Furosemide (Lasix) 40 mg DAILY PO 04/25/17 17:00 04/25/17 18:18 Levothyroxine Sodium (Synthroid) 112 mcg DAILY@06 PO 04/25/17 20:00 04/26/17 05:22 Lisinopril (Prinivil) 5 mg HS PO 04/25/17 21:00 04/25/17 21:12 Mirtazapine (Remeron) 15 mg HS PO 04/25/17 21:00 04/25/17 21:12 Potassium Chloride (KCl) 20 meq BID PO 04/25/17 21:00 04/25/17 21:12 Promethazine HCl (Phenergan) 25 mg HS PO 04/25/17 21:00 04/25/17 21:11 Pantoprazole Sodium (Protonix) 20 mg DAILY PO 04/25/17 17:15 04/25/17 18:18 Heparin Sodium (Porcine) 5000 units 5,000 units Q12HR SQ 04/25/17 21:00 04/25/17 21:11 Sodium Chloride (NS 1000 ml Inj) 1,000 ml @ 70 mls/hr [id number] ONCE IV 04/25/17 23:30 04/26/17 13:47 04/25/17 23:29 (Zahida Calderon) Physical Exam General General Appearance: Well Developed, Comfortable, Pale (Zahida Calderon) Eyes Eye Exam: Pupils Equal (Zahida Calderon) Ears & Nose Ears & Nose Exam: Nasal Mucosa [place] (pale) (Zahida Calderon) Throat Throat Exam: Oral Mucosa [place] & Moist (pale) (Zahida Calderon. UNBUNDLER) Neck Neck Exam: Neck Supple (Zahida Calderon. UNBUNDLER) Pulmonary Resp Exam: Decreased Bases, Diminished Breath Sounds, Poor Inspiratory Effort ( low volumes) (Zahida Calderon. UNBUNDLER) Cardiology CV Exam: Normal Sinus Rhythm (normal sinus rhythm now), Arrhythmia (on admission) CV Remarks Telemetry (Zahida Calderon. UNBUNDLER) Gastrointestinal/Abdomen GI Exam: Soft, Non-Tender, Bowel Sounds Hypoactive (soft but active) (Zahida Calderon. UNBUNDLER) Musculoskeletal MS Exam: Joints Intact, Atrophy (Zahida Calderon. UNBUNDLER) Integumentary Skin Exam: Clear, Warm, Dry, Intact (Zahida Calderon. UNBUNDLER) Extremeties Extremities Exam: No Edema (minimal trace), Pedal Pulses Palpable (extremities warm) (Zahida Calderon. UNBUNDLER) Neurologic Neuro Exam: Awake Neuro Remarks Speech is slow, probable mild altered mental status, disoriented to place and situation (Zahida Calderon. UNBUNDLER) Assessment/Plan Assessment/Plan Vital signs monitored, normal trends for now Labs monitored noted elevated BNP level has significant cardiac vascular disease Lactic acid level decreased to 3.2, will monitor to continue to trend down Pneumonia, leukocytosis is responding to antibiotic therapy decreased 13.8 Continue empiric antibiotic, oxygen as needed,(currently patient has taken off) , and says he did needed Atrial tachycardia 190s on adm., ICD shock X 1, converted to SR, patient denies any chest pain Acute exacerbation of chronic systolic congestive heart failure. Appreciate cardiac input with medical management Ischemic cardiomyopathy with moderate left ventricular systolic function (an ejection fraction of 35%). Appreciate cardiology consult and assistance with medical management Coronary artery disease with history of myocardial infarction and coronary bypass and coronary stenting., Normal function of [employer] dual-chamber defibrillator. Acute renal insufficiency. Gentle hydration, mucous membranes are still dry we' ll continue to maintain fluids for now but monitor for any acute shortness of breath or symptoms of heart failure Diabetes mellitus, Accu-Cheks before meals and at bedtime with sliding scale, monitor blood sugars and insulin management History of hydrocephalus, status post shunt placement., Medical management Patient does have pleasant confusion state , speech is slow, affect flat and requested not to be bothered. Will monitor obvious symptoms with this treatment regimen (Zahida Calderon) Assessment/Plan pt seen and examined as above labs and meds reviewed marie cardiology input jack pt and at bedside jack chávez about plan of care plan for nephrology consult [facility] activity jack rn (Enrico Ha MD) Zahida Calderon Apr 26, 2017 08:46 Enrico Ha MD Apr 26, 2017 09:55
[2017-04-26] MEDS ORDERED: PNEUMOCOCCAL POLYVALENT INJ 25 MCG/0.5 ML SYR IM ONE (10:00)
[2017-04-26] MEDS ORDERED: INFLUENZA VIRUS VACCINE (QUADRIVALENT) 0.5 ML SYR IM ONE (10:00)
[2017-04-26] MEDS: RESP: ALBUTEROL 2.5 MG/IPRATROPIUM 0.5 MG NEB (PRN) NEB (15:13)
[2017-04-26] MEDS: AZITHROMYCIN INJ 500 MG in SODIUM CHLOR 0.9% 250 ML INJ 250 ML IV SCH (15:29)
[2017-04-26] MEDS: cefTRIAXone INJ 1,000 MG in SODIUM CHLORIDE 0.9% INJ 100 ML IV SCH (15:30)
--- NOTE | 2017-04-26 16:23 | EKG ---
Date Performed: 04/25/2017 Time Performed: 12:56:20 PTAGE: 77 years EKG: Sinus rhythm POSSIBLE LEFT ATRIAL ENLARGEMENT INTRAVENTRICULAR CONDUCTION DELAY POSSIBLE INFERIOR MYOCARDIAL INFA RCTION ABNORMAL ECG Compared to PREVIOUS TRACING , patient has now converted to sinus rhythm. PREVIOUS TRACIN 7 [id number] DOCTOR: Nita Steiner Interpretating Date/Time 04/26/2017 16:22:39
--- NOTE | 2017-04-26 16:24 | PD.CONS ---
HPI Consult Requested By Reason for Consult Acute renal insufficiency. Primary Care Physician Odette Marques M.D. History of Present Illness This patient is a 77-year-old male with a history of multiple medical problems including a history of ischemic heart disease an ejection fraction said to be 35 %, congestive heart failure, atrial flutter, defibrillator placement present with a history of increasing shortness of breath and history of defibrillator firing. On reviewing previous records patient's serum creatinine level has been fluctuating over the last several months noted to have been 1.25 back in February, with a previous level of 1.10 December 2016. On presentation on this occasion creatinine level was 2.14 improving to 1.95 date of consultation. Patient indicated that his shortness of breath has improved since admission. Denies using NSAIDs for analgesia. Indicating that he has had urinary hesitancy and mentioned that his urine has been somewhat pink a few days prior to admission. He follows with Dr. Barksdale the urologist as an outpatient. Specific urological records not available to me. Review of Systems Constitutional: DENIES: Diaphoretic episodes, Fatigue, Fever, Weight gain, Weight loss, Chills, Dizziness, Change in appetite, Night Sweats Eyes: DENIES: Blurred vision, Diplopia, Eye inflammation, Eye pain, Vision loss , Photosensitivity, Double Vision Cardiovascular: COMPLAINS OF: Dyspnea on Exertion, Lower Extremity Edema, DENIES: Chest pain, Palpitations, Syncope, PND, Orthopnea, Claudication Gastrointestinal: DENIES: Abdominal pain, Black stools, Bloody stools, Constipation, Diarrhea, Nausea, Vomiting, Difficulty Swallowing, Anorexia Genitourinary: COMPLAINS OF: Hematuria, DENIES: Urinary frequency, Urinary incontinence, Urgency, Dysuria, Nocturia, Penile Discharge, Testicular Pain, Testicular Swelling Musculoskeletal: COMPLAINS OF: Joint pain, DENIES: Muscle aches, Stiffness, Joint Swelling, Back pain, Neck pain Psychiatric: DENIES: Anxiety, Confusion Past Family Social History Allergies: Coded Allergies: *MDRO Multi-Drug Resistant Organism (Verified Adverse Reaction, Unknown, ) ESBL K. 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 Reported Medications Reported Meds & Active Scripts Active Vitamin B-12 (Cyanocobalamin) 1,000 Mcg Tab 1,000 Mcg PO DAILY Levothyroxine (Levothyroxine Sodium) 112 Mcg Tab 112 Mcg PO DAILY Furosemide 40 Mg Tab 40 Mg PO DAILY Plavix (Clopidogrel Bisulfate) 75 Mg Tab 75 Mg PO DAILY Carvedilol 12.5 Mg Tab 12.5 Mg PO BID Reported Phenergan (Promethazine HCl) 25 Mg Tablet 25 Mg PO HS Lisinopril 5 Mg Tab 5 Mg PO HS Mirtazapine 15 Mg Tab 15 Mg PO HS Atorvastatin (Atorvastatin Calcium) 80 Mg Tab 80 Mg PO HS Aspirin 81 Mg Chew 81 Mg CHEW HS Potassium Chloride ER (Potassium Chloride) 20 Meq Tab 20 Meq PO BID Active Ordered Medications Current Medications Ceftriaxone Sodium 2000 mg/ Sodium Chloride 100 ml @ 200 mls/hr ONCE ONCE IV Last administered on 04/25/17 14:44; Start 04/25/17 at 13:45; Stop 04/25/17 at 14:14; Status DC Azithromycin/ Sodium Chloride (Zithromax Inj/ NS 250 ml Inj) 250 ml @ 250 mls/ hr ONCE ONCE IV Last administered on 04/25/17 14:56; Start 04/25/17 at 13:45 ; Stop 04/25/17 at 14:44; Status DC Sodium Chloride (NS Flush) 2 ml UNSCH PRN IV FLUSH FLUSH AFTER USING IV ACCESS ; Start 04/25/17 at 15:45 Sodium Chloride (NS Flush) 2 ml BID IV FLUSH Last administered on 04/25/17 21: 12; Start 04/25/17 at 21:00 Acetaminophen (Tylenol) 650 mg Q4H PRN PO TEMP > 100.4; Start 04/25/17 at 15:45 Ondansetron HCl (Zofran Inj) 4 mg Q6H PRN IVP NAUSEA OR VOMITING; Start at 15:45 Naloxone HCl (Narcan Inj) 0.4 mg UNSCH PRN IV SEE LABEL COMMENTS; Start at 15:45 Senna/Docusate Sodium (Coretta-Colace) 1 tab BID PO Last administered on 08:15; Start 04/25/17 at 21:00 Magnesium Hydroxide (Milk Of Magnesia Liq) 30 ml Q12H PRN PO MILD - MODERATE CONSTIPATION; Start 04/25/17 at 15:45 Sennosides (Senokot) 17.2 mg Q12H PRN PO MODERATE - SEVERE CONSTIPATION; Start 04/25/17 at 15:45 Bisacodyl (Dulcolax Supp) 10 mg DAILY PRN RECTAL SEVERE CONSITIPATION; Start at 15:45 Lactulose (Lactulose Liq) 30 ml DAILY PRN PO SEVERE CONSITIPATION; Start at 15:45 Aspirin (Aspirin Chew) 81 mg HS CHEW Last administered on 04/25/17 21:11; Start 04/25/17 at 21:00 Atorvastatin Calcium (Lipitor) 80 mg HS PO Last administered on 04/25/17 21:12 ; Start 04/25/17 at 21:00 Carvedilol (Coreg) 12.5 mg BID PO Last administered on 04/26/17 08:14; Start 04/25/17 at 21:00 Clopidogrel Bisulfate (Plavix) 75 mg DAILY PO Last administered on 04/26/17 08 :15; Start 04/25/17 at 17:00 Cyanocobalamin (Vitamin B12) 1,000 mcg DAILY PO Last administered on 04/26/17 08:15; Start 04/25/17 at 17:00 Furosemide (Lasix) 40 mg DAILY PO Last administered on 04/26/17 08:15; Start 04/25/17 at 17:00 Levothyroxine Sodium (Synthroid) 112 mcg DAILY@06 PO Last administered on 05:22; Start 04/25/17 at 20:00 Lisinopril (Prinivil) 5 mg HS PO Last administered on 04/25/17 21:12; Start at 21:00 Mirtazapine (Remeron) 15 mg HS PO Last administered on 04/25/17 21:12; Start 04/25/17 at 21:00 Potassium Chloride (KCl) 20 meq BID PO Last administered on 04/26/17 08:14; Start 04/25/17 at 21:00 Promethazine HCl 25 mg 25 mg HS PO Last administered on 04/25/17 21:11; Start 04/25/17 at 21:00 Ceftriaxone Sodium 1000 mg/ Sodium Chloride 100 ml @ 200 mls/hr Q24H IV Last administered on 04/26/17 15:30; Start 04/26/17 at 14:00 Azithromycin/ Sodium Chloride (Zithromax Inj/ NS 250 ml Inj) 250 ml @ 250 mls/ hr Q24H IV Last administered on 04/26/17 15:29; Start 04/26/17 at 15:00 Pantoprazole Sodium (Protonix) 20 mg DAILY PO Last administered on 04/26/17 08 :14; Start 04/25/17 at 17:15 Heparin Sodium (Porcine) (Heparin Inj) 5,000 units Q12HR SQ Last administered on 04/26/17 08:15; Start 04/25/17 at 21:00 Pneumococcal Polyvalent Vaccine (Pneumovax-23 Inj) 25 mcg ONCE ONCE IM Last administered on 04/26/17 08:25; Start 04/26/17 at 10:00; Stop 04/26/17 at 10:01 ; Status DC Influenza Virus Vaccine 0.5 ml 0.5 ml ONCE ONCE IM ; Start 04/26/17 at 10:00; Stop 04/26/17 at 10:01; Status DC Sodium Chloride (NS 1000 ml Inj) 1,000 ml @ 70 mls/hr [id number] ONCE IV Last administered on 04/25/17 23:29; Start 04/25/17 at 23:30; Stop 04/26/17 at 13:47 ; Status DC Albuterol/ Ipratropium (Duoneb Neb) 1 ampule Q4HR NEB PRN NEB SHOB/WHEEZING Last administered on 04/26/17 15:13; Start 04/26/17 at 14:45 Family History Noncontributory to current complaint. Social History As per H&P. Physical Exam Vital Signs Vital Signs Date Time Temp Pulse Resp B/P Pulse Ox O2 Delivery O2 Flow Rate FiO2 04/26/17 15:13 91 Nasal Cannula 2.00 04/26/17 13:38 98 Nasal Cannula 2.00 04/26/17 12:00 97.5 70 18 122/75 97 04/26/17 08:38 Nasal Cannula 2.00 04/26/17 08:38 73 04/26/17 08:00 97.4 76 18 109/89 97 6/23/17 04:21 Room Air 04/26/17 04:00 97.4 71 20 139/89 94 04/26/17 00:12 97.7 80 20 123/81 98 04/26/17 00:00 Room Air 04/25/17 20:10 87 04/25/17 20:00 Room Air 04/25/17 20:00 98.3 88 20 152/90 100 04/25/17 16:20 95 24 96 Physical Exam GENERAL: Elderly somewhat debilitated appearing male lying in bed not in respiratory distress currently. SKIN: Warm and dry. HEAD: Normocephalic. EYES: No scleral icterus. No injection or drainage. NECK: Supple, trachea midline. No JVD or lymphadenopathy. CARDIOVASCULAR: Regular rate and rhythm without murmurs, gallops, or rubs. RESPIRATORY: Breath sounds equal bilaterally. No accessory muscle use. GASTROINTESTINAL: Abdomen soft, non-tender, nondistended. MUSCULOSKELETAL: No cyanosis, 1+ pitting edema ankles and feet. BACK: . No CVA tenderness. Laboratory Laboratory Tests Test 04/25/17 04/26/17 04/26/17 21:31 02:18 08:02 Lactic Acid Level 5.9 3.2 2.5 White Blood Count 13.8 Red Blood Count 4.46 Hemoglobin 13.0 Hematocrit 39.5 Mean Corpuscular Volume 88.5 Mean Corpuscular Hemoglobin 29.1 Mean Corpuscular Hemoglobin 32.9 Concent Red Cell Distribution Width 16.7 Platelet Count 85 Mean Platelet Volume 12.1 Neutrophils (%) (Auto) 77.9 Lymphocytes (%) (Auto) 11.9 Monocytes (%) (Auto) 9.6 Eosinophils (%) (Auto) 0.1 Basophils (%) (Auto) 0.5 Neutrophils # (Auto) 10.8 Lymphocytes # (Auto) 1.6 Monocytes # (Auto) 1.3 Eosinophils # (Auto) 0.0 Basophils # (Auto) 0.1 CBC Comment AUTO DIFF Differential Total Cells 100 Counted Neutrophils % (Manual) 80 Band Neutrophils % 2 Lymphocytes % 16 Monocytes % 2 Neutrophils # (Manual) 11.3 Nucleated Red Blood Cells 1 Differential Comment FINAL DIFF MANUAL Platelet Estimate LOW Platelet Morphology Comment ENLARGED Sodium Level 140 Potassium Level 4.6 Chloride Level 108 Carbon Dioxide Level 21.0 Anion Gap 11 Blood Urea Nitrogen 58 Creatinine 1.95 Estimat Glomerular Filtration 33 Rate Random Glucose 211 Calcium Level 8.4 Phosphorus Level 3.2 Magnesium Level 2.1 Date/Time Procedure Status Source Growth 04/25/17 14:20 Aerobic Blood Culture - Preliminary Resulted Blood Peripheral NO GROWTH IN 1 DAY 04/25/17 14:20 Anaerobic Blood Culture - Preliminary Resulted Blood Peripheral NO GROWTH IN 1 DAY 04/25/17 14:00 Legionella Antigen - Final Complete Urine Random Urine PRESUMPTIVE NEGATIVE FOR LEGIONELLA P... 04/25/17 14:00 Streptococcus pneumoniae Antigen (M - Final Complete Urine Random Urine PRESUMPTIVE NEGATIVE FOR STREPTOCOCCU... Result Diagram: 04/26/17 0218 04/26/17 0218 Imaging Last 48 hours Impressions Chest X-Ray 04/25/17 1232 Signed Impressions: Service Date/Time: , April 25, 2017 12:30 - CONCLUSION: 1. Cardiomegaly with trace positive fluid balance. 2. Trace left pleural effusion and small right pleural effusion with associated right lower lobe airspace disease. Vaughn Javier MD Assessment and Plan Problem List: (1) Acute kidney injury Plan: Suspect acute on chronic renal sufficiency. The acute component I believe may be related to cardiac decompensation with a component of cardiorenal syndrome. Patient's creatinine level has improved since of presentation. Would continue diuresis and will increase furosemide to twice a day dosing. Continue INDIRA inhibitor for the present pending review of renal indices. Is indicated for afterload reduction. Renal ultrasound to exclude occult obstruction. The patient was counseled regarding status of his renal function and pathogenesis as well as need to avoid NSAIDs for analgesia in the future in view of his history of congestive heart failure. Medications should be adjusted for the patient's estimated GFR if clinically indicated. Avoid agents with significant potential for nephrotoxicity possible including NSAIDs for analgesia, iodine contrast agents. Gadolinium is contraindicated if the GFR is below 30. (2) CHF (congestive heart failure) Plan: As above. (3) Diabetes Plan: Management per primary care physician. Beth Becerril MD Apr 26, 2017 16:24
--- NOTE | 2017-04-26 18:09 | PD.CARD.PN ---
Subjective Subjective Remarks Increased dyspnea, no CP this PM, CXR c/w pneumonia Objective Medications Current Medications Medications (Trade) Dose Ordered Sig/Saad Route Start Time Stop Time Status Last Admin (NS Flush) 2 ml UNSCH PRN IV FLUSH 04/25/17 15:45 (NS Flush) 2 ml BID IV FLUSH 04/25/17 21:00 04/25/17 21:12 (Tylenol) 650 mg Q4H PRN PO 04/25/17 15:45 (Zofran Inj) 4 mg Q6H PRN IVP 04/25/17 15:45 (Narcan Inj) 0.4 mg UNSCH PRN IV 04/25/17 15:45 (Coretta-Colace) 1 tab BID PO 04/25/17 21:00 04/26/17 08:15 (Milk Of Magnesia Liq) 30 ml Q12H PRN PO 04/25/17 15:45 (Senokot) 17.2 mg Q12H PRN PO 04/25/17 15:45 (Dulcolax Supp) 10 mg DAILY PRN RECTAL 04/25/17 15:45 (Lactulose Liq) 30 ml DAILY PRN PO 04/25/17 15:45 (Aspirin Chew) 81 mg HS CHEW 04/25/17 21:00 04/25/17 21:11 (Lipitor) 80 mg HS PO 04/25/17 21:00 04/25/17 21:12 (Coreg) 12.5 mg BID PO 04/25/17 21:00 04/26/17 08:14 (Plavix) 75 mg DAILY PO 04/25/17 17:00 04/26/17 08:15 (Vitamin B12) 1,000 mcg DAILY PO 04/25/17 17:00 04/26/17 08:15 (Synthroid) 112 mcg DAILY@06 PO 04/25/17 20:00 04/26/17 05:22 (Prinivil) 5 mg HS PO 04/25/17 21:00 04/25/17 21:12 (Remeron) 15 mg HS PO 04/25/17 21:00 04/25/17 21:12 (KCl) 20 meq BID PO 04/25/17 21:00 04/26/17 08:14 Promethazine HCl 25 mg 25 mg HS PO 04/25/17 21:00 04/25/17 21:11 Ceftriaxone Sodium 1000 mg/ Sodium Chloride 100 ml @ 200 mls/hr Q24H IV 04/26/17 14:00 04/26/17 15:30 (Zithromax Inj/ NS 250 ml Inj) 250 ml @ 250 mls/hr Q24H IV 04/26/17 15:00 04/26/17 15:29 (Protonix) 20 mg DAILY PO 04/25/17 17:15 04/26/17 08:14 (Heparin Inj) 5,000 units Q12HR SQ 04/25/17 21:00 04/26/17 08:15 (Lasix) 40 mg BID PO 04/26/17 21:00 Vital Signs / I&O Vital Signs Date Time Temp Pulse Resp B/P Pulse Ox O2 Delivery O2 Flow Rate FiO2 04/26/17 17:45 98 Simple Mask 6.00 04/26/17 17:30 98 Simple Mask 6.00 04/26/17 16:00 98.0 68 18 129/82 100 04/26/17 15:14 74 32 93/60 98 04/26/17 15:13 91 Nasal Cannula 2.00 04/26/17 13:38 98 Nasal Cannula 2.00 04/26/17 12:00 97.5 70 18 122/75 97 04/26/17 08:38 Nasal Cannula 2.00 04/26/17 08:38 73 04/26/17 08:00 97.4 76 18 109/89 97 04/26/17 04:21 Room Air 04/26/17 04:00 97.4 71 20 139/89 94 04/26/17 00:12 97.7 80 20 123/81 98 04/26/17 00:00 Room Air 04/25/17 20:10 87 04/25/17 20:00 Room Air 04/25/17 20:00 98.3 88 20 152/90 100 I/O 04/25/17 04/25/17 04/25/17 04/26/17 04/26/17 04/26/17 07:00 15:00 23:00 07:00 15:00 23:00 Intake Total 242 ml 850 ml 480 ml 127 ml Output Total 325 ml 300 ml 325 ml Balance -83 ml 550 ml 155 ml 127 ml Intake Oral 240 ml 360 ml 480 ml IV Total 2 ml 490 ml 127 ml Output Urine Total 325 ml 300 ml 325 ml # Bowel Movements 0 0 Physical Exam GENERAL: In mild resp distress SKIN: Warm and dry. HEAD: Normocephalic. EYES: No scleral icterus. No injection or drainage. NECK: Supple, trachea midline. No JVD or lymphadenopathy. CARDIOVASCULAR: Regular rate and rhythm without murmurs, gallops, or rubs. RESPIRATORY: Breath sounds equal bilaterally. No accessory muscle use. Decreased BS at bases, few rhonchi. GASTROINTESTINAL: Abdomen soft, non-tender, nondistended. MUSCULOSKELETAL: No cyanosis, or edema. Laboratory Laboratory Tests Test 04/25/17 04/26/17 04/26/17 21:31 02:18 08:02 Lactic Acid Level 5.9 mmol/L 3.2 mmol/L 2.5 mmol/L White Blood Count 13.8 TH/MM3 Red Blood Count 4.46 MIL/MM3 Hemoglobin 13.0 GM/DL Hematocrit 39.5 % Mean Corpuscular Volume 88.5 FL Mean Corpuscular Hemoglobin 29.1 PG Mean Corpuscular Hemoglobin 32.9 % Concent Red Cell Distribution Width 16.7 % Platelet Count 85 TH/MM3 Mean Platelet Volume 12.1 FL Neutrophils (%) (Auto) 77.9 % Lymphocytes (%) (Auto) 11.9 % Monocytes (%) (Auto) 9.6 % Eosinophils (%) (Auto) 0.1 % Basophils (%) (Auto) 0.5 % Neutrophils # (Auto) 10.8 TH/MM3 Lymphocytes # (Auto) 1.6 TH/MM3 Monocytes # (Auto) 1.3 TH/MM3 Eosinophils # (Auto) 0.0 TH/MM3 Basophils # (Auto) 0.1 TH/MM3 CBC Comment AUTO DIFF Differential Total Cells 100 Counted Neutrophils % (Manual) 80 % Band Neutrophils % 2 % Lymphocytes % 16 % Monocytes % 2 % Neutrophils # (Manual) 11.3 TH/MM3 Nucleated Red Blood Cells 1 /100 WBC Differential Comment FINAL DIFF MANUAL Platelet Estimate LOW Platelet Morphology Comment ENLARGED Sodium Level 140 MEQ/L Potassium Level 4.6 MEQ/L Chloride Level 108 MEQ/L Carbon Dioxide Level 21.0 MEQ/L Anion Gap 11 MEQ/L Blood Urea Nitrogen 58 MG/DL Creatinine 1.95 MG/DL Estimat Glomerular Filtration 33 ML/MIN Rate Random Glucose 211 MG/DL Calcium Level 8.4 MG/DL Phosphorus Level 3.2 MG/DL Magnesium Level 2.1 MG/DL Imaging Last Impressions Chest X-Ray 04/25/17 1232 Signed Impressions: Service Date/Time: April 12:30 - CONCLUSION: 1. Cardiomegaly with trace positive fluid balance. 2. Trace left pleural effusion and small right pleural effusion with associated right lower lobe airspace disease. Vaughn Javier MD Assessment and Plan Problem List: (1) CHF (congestive heart failure) (2) Ischemic cardiomyopathy (3) Renal insufficiency (4) CAD (coronary artery disease) (5) ICD (implantable cardioverter-defibrillator) discharge (6) Atrial tachycardia (7) S/P MALLET CUTTER shunt Assessment and Plan Continue tx for CHF including diuresis. Continue tx for suspected pneumonia. Continue monitoring, recent shock for AT. Monitor renal fx, seen by Dr. Becerril, renal insufficiency felt to be related to cardiorenal syndrome rather than dehydration. Increase activity. Josesito Jimenez MD Apr 26, 2017 18:09
[2017-04-26 18:29] LABS: BLOOD GAS BASE EXCESS -11.3 mmol/L (-2-2); BLOOD GAS CARBOXYHEMOGLOBIN 1.2 % (0-4); BLOOD GAS HCO3 13 mmol/L (22-26); BLOOD GAS METHEMOGLOBIN 0.9 % (0-2); BLOOD GAS O2 HGB SATURATION 96 % (90-100); BLOOD GAS OXYGEN CONTENT 18.2 Vol % (12.0-20.0); BLOOD GAS PCO2 20 mmHg (38-42); BLOOD GAS PO2 127 mmHg (61-120); BLOOD GAS TOTAL HGB 13.3 G/DL (12.0-16.0); TEMP CORR TO 98.6
[2017-04-26 18:30] LABS: CRITICAL VALUE YES; DRAW SITE RT RADIAL; LITER FLOW 6 L/M; NUMBER OF ARTERIAL PUNCTURES 2; OXYGEN DEVICE SM; STAT YES; ULNAR PULSE PRESENT
[2017-04-26] MEDS ORDERED: FUROSEMIDE 20 MG/2 ML VIAL IV PUSH ONE (18:30)
--- NOTE | 2017-04-26 18:42 | RADRPT ---
EXAM DATE/TIME: 04/26/2017 17:34 [facility] COMPARISON: CHEST SINGLE AP, April 25, 2017, 12:30. INDICATIONS : Short of breath MEDICAL HISTORY : Hypertension. Congestive heart failure. Myocardial infarction. Diabetes SURGICAL HISTORY : CABG. ASTRO TECHNICIAN shunt ENCOUNTER: Subsequent ACUITY: 3 days PAIN SCORE: Non-responsive. LOCATION: Bilateral chest FINDINGS: A single portable frontal view of the chest shows enlargement of the right pleural effusion. A tiny l eft effusion is stable. A right basilar consolidation is stable. Heart is moderately enlarged. Dual-l ead pacing device overlies the left chest. Median sternotomy wires and right-sided catheter likely re lated to a ASTRO TECHNICIAN shunt noted. CONCLUSION: 1. Slight increase in the right pleural effusion. 2. Stable tiny left effusion. 3. Stable right lower lobe infiltrate. 4. Cardiomegaly. Deon Huynh Jr., MD on April 26, 2017 at 18:39 Board Certified Radiologist. This report was verified electronically.
--- NOTE | 2017-04-26 18:53 | PD.CONS ---
HPI Service Critical Care Medicine Consult Requested By [facility] Reason for Consult Hypoxemic Respiratory Failure Primary Care Physician Odette Marques M.D. History of Present Illness 77 y/o man with long-0standing ischemic cardiomyopathy presented through ED with severe SOB. ICD has shocked him once for SVT at 190. Patient is lethargic now and labs consistent with decompensated systolic failure, including hepatic dysfunction and accumulating base deficit. Although heart failure is operative at present the right lower lung process appears to be pneumonia, considerably exacerbating his distress. Review of Systems Endocrine: DENIES: Heat/cold intolerance, Polydipsia, Polyuria, Polyphagia Respiratory: COMPLAINS OF: Shortness of breath Cardiovascular: COMPLAINS OF: Palpitations, Lower Extremity Edema, Orthopnea Musculoskeletal: DENIES: Joint pain, Muscle aches, Stiffness, Joint Swelling, Back pain, Neck pain Integumentary: DENIES: Abnormal pigmentation, Nail changes, Pruritus, Rash Hematologic/lymphatic: DENIES: Bruising, Lymphadenopathy Immunologic/allergic: DENIES: Eczema, Urticaria Past Family Social History Allergies: Coded Allergies: *MDRO Multi-Drug Resistant Organism (Verified Adverse Reaction, Unknown, ) ESBL K. 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) Past Medical History Past Medical History Hx Anticoagulant Therapy: Yes (PLAVIX) Arthritis: No Asthma: No Autoimmune Disease: No Anxiety: No Depression: No Heart Rhythm Problems: Yes Cancer: Yes (Skin) Cardiovascular Problems: Yes (DEFIB IN PLACE) High Cholesterol: Yes Chemotherapy: No Chest Pain: Yes Congestive Heart Failure: Yes COPD: No Cerebrovascular Accident: No Diabetes: Yes (DIET CONTROLLED) Endocrine: Yes Gastrointestinal Disorders: Yes GERD: No Genitourinary: Yes (INCONTINENCE) Headaches: Yes Hiatal Hernia: No Hypertension: Yes Immune Disorder: No Implanted Vascular Access Dvce: Yes Kidney Stones: No Musculoskeletal: No Neurologic: No Psychiatric: No Reproductive: No Respiratory: Yes Migraines: No Radiation Therapy: No Renal Failure: No Seizures: No Sickle Cell Disease: No Sleep Apnea: No Thyroid Disease: No Ulcer: No Past Surgical History Abdominal Surgery: Yes (APPENDECTOMY) AICD: Yes (04/2016) Arteriovenous Shunt: No Cardiac Surgery: Yes (CABG X4// AICD 04/2016) Coronary Artery Bypass Graft: Yes Coronary Stent: Yes ("ABOUT 20 YRS AGO") Ear Surgery: No Endocrine Surgery: Yes (GALL BLADDER) Eye Surgery: Yes (CATARACTS) Genitourinary Surgery: No Gynecologic Surgery: No Insulin Pump: No Joint Replacement: No Neurologic Surgery: Yes (INTAKE WORKER Shunt) Oral Surgery: No Pacemaker: No Thoracic Surgery: No Other Surgery: Yes Social History Alcohol Use: No Tobacco Use: No (QUIT 35 YRS AGO) Substance Use: No Allergies-Medications Allergies-Medications (Allergen,Severity, Reaction): Coded Allergies: *MDRO Multi-Drug Resistant Organism (Verified Adverse Reaction, Unknown, ) ESBL K. 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) Reported Meds & Prescriptions Reported Meds & Active Scripts Active Vitamin B-12 (Cyanocobalamin) 1,000 Mcg Tab 1,000 Mcg PO DAILY Levothyroxine (Levothyroxine Sodium) 112 Mcg Tab 112 Mcg PO DAILY Furosemide 40 Mg Tab 40 Mg PO DAILY Plavix (Clopidogrel Bisulfate) 75 Mg Tab 75 Mg PO DAILY Carvedilol 12.5 Mg Tab 12.5 Mg PO BID Reported Phenergan (Promethazine HCl) 25 Mg Tablet 25 Mg PO HS Lisinopril 5 Mg Tab 5 Mg PO HS Mirtazapine 15 Mg Tab 15 Mg PO HS Atorvastatin (Atorvastatin Calcium) 80 Mg Tab 80 Mg PO HS Aspirin 81 Mg Chew 81 Mg CHEW HS Potassium Chloride ER (Potassium Chloride) 20 Meq Tab 20 Meq PO BID Physical Exam Vital Signs Vital Signs Date Time Temp Pulse Resp B/P Pulse Ox O2 Delivery O2 Flow Rate FiO2 04/26/17 18:00 99 Simple Mask 6.00 04/26/17 18:00 73 102/59 99 04/26/17 17:45 98 Simple Mask 6.00 04/26/17 17:30 98 Simple Mask 6.00 04/26/17 16:00 98.0 68 18 129/82 100 04/26/17 15:14 74 32 93/60 98 04/26/17 15:13 91 Nasal Cannula 2.00 04/26/17 13:38 98 Nasal Cannula 2.00 04/26/17 12:00 97.5 70 18 122/75 97 04/26/17 08:38 Nasal Cannula 2.00 04/26/17 08:38 73 04/26/17 08:00 97.4 76 18 109/89 97 04/26/17 04:21 Room Air 04/26/17 04:00 97.4 71 20 139/89 94 04/26/17 00:12 97.7 80 20 123/81 98 04/26/17 00:00 Room Air 04/25/17 20:10 87 04/25/17 20:00 Room Air 04/25/17 20:00 98.3 88 20 152/90 100 Physical Exam P 88, BP 102/60, R 22, Sats 88% Head: Normal. Neck: Supple, airway unobstructed. Lungs: Clear aside from light wheezes right side. Heart: NL S1S2, + JVD. Abdomen: Benign, soft. Extremities: Well perfused. 1+ edema lower legs. Neuro: Anxious. Follows commands. Laboratory Laboratory Tests Test 04/25/17 04/26/17 04/26/17 04/26/17 21:31 02:18 08:02 18:20 Lactic Acid Level 5.9 3.2 2.5 White Blood Count 13.8 Red Blood Count 4.46 Hemoglobin 13.0 Hematocrit 39.5 Mean Corpuscular Volume 88.5 Mean Corpuscular Hemoglobin 29.1 Mean Corpuscular Hemoglobin 32.9 Concent Red Cell Distribution Width 16.7 Platelet Count 85 Mean Platelet Volume 12.1 Neutrophils (%) (Auto) 77.9 Lymphocytes (%) (Auto) 11.9 Monocytes (%) (Auto) 9.6 Eosinophils (%) (Auto) 0.1 Basophils (%) (Auto) 0.5 Neutrophils # (Auto) 10.8 Lymphocytes # (Auto) 1.6 Monocytes # (Auto) 1.3 Eosinophils # (Auto) 0.0 Basophils # (Auto) 0.1 CBC Comment AUTO DIFF Differential Total Cells 100 Counted Neutrophils % (Manual) 80 Band Neutrophils % 2 Lymphocytes % 16 Monocytes % 2 Neutrophils # (Manual) 11.3 Nucleated Red Blood Cells 1 Differential Comment FINAL DIFF MANUAL Platelet Estimate LOW Platelet Morphology Comment ENLARGED Sodium Level 140 Potassium Level 4.6 Chloride Level 108 Carbon Dioxide Level 21.0 Anion Gap 11 Blood Urea Nitrogen 58 Creatinine 1.95 Estimat Glomerular Filtration 33 Rate Random Glucose 211 Calcium Level 8.4 Phosphorus Level 3.2 Magnesium Level 2.1 Blood Gas Puncture Site RT RADIAL Blood Gas Patient Temperature 98.6 Blood Gas HCO3 13 Blood Gas Base Excess -11.3 Blood Gas Oxygen Saturation 96 Arterial Blood pH 7.41 Arterial Blood Partial 20 Pressure CO2 Arterial Blood Partial 127 Pressure O2 Arterial Blood Oxygen Content 18.2 Arterial Blood 1.2 Carboxyhemoglobin Arterial Blood Methemoglobin 0.9 Blood Gas Hemoglobin 13.3 Oxygen Delivery Device SM Blood Gas Liter Flow 6 Date/Time Procedure Status Source Growth 04/25/17 14:20 Aerobic Blood Culture - Preliminary Resulted Blood Peripheral NO GROWTH IN 1 DAY 04/25/17 14:20 Anaerobic Blood Culture - Preliminary Resulted Blood Peripheral NO GROWTH IN 1 DAY 04/25/17 14:00 Legionella Antigen - Final Complete Urine Random Urine PRESUMPTIVE NEGATIVE FOR LEGIONELLA P... 04/25/17 14:00 Streptococcus pneumoniae Antigen (M - Final Complete Urine Random Urine PRESUMPTIVE NEGATIVE FOR STREPTOCOCCU... Result Diagram: 04/26/1721704/26/17217 Assessment and Plan Assessment and Plan Assessment: 1. Hypoxemic Respiratory Failure. 2. Acute on chronic systolic heart failure. 3. CKD with TRAM. 4. Right lower lobe pneumonia.. 5. SVT. 6. ICD with shock X 1 for SVT 190. Plan: 1. NRBM 100%. 2. Aggressive iv diuretic therapy. 3. Broad abx coverage pending cultures. 4. Chemical GI Px. 5. Chemical DVT Px. 6. Strict I&O. 7. PT. Overall impression: Critically ill with exacerbated systolic heart failure compounded by pneumonia. It will be tough to keep him off a ventilator. LFTs, bicarb consistent with shock state. He may require short-term milrinone if perfusion does not improve, but reluctant to use inotrope after recent SVT. Follow closely. Prognosis guarded. Critical care 44 mins Ant Green MD Apr 26, 2017 18:53
[2017-04-26] MEDS: FUROSEMIDE 40 MG/4 ML VIAL IV PUSH SCH (20:38)
[2017-04-26] MEDS: PROMETHAZINE HCL 25 MG TAB PO SCH (20:39)
[2017-04-26] MEDS: ATORVASTATIN 80 MG TAB PO SCH (20:39)
[2017-04-26] MEDS: ASPIRIN 81 MG CHEW TAB CHEW SCH (20:39)
[2017-04-26] MEDS: LISINOPRIL 5 MG TAB PO SCH (20:39)
[2017-04-26] MEDS: MIRTAZAPINE 15 MG TAB PO SCH (20:39)
[2017-04-26] MEDS ORDERED: FUROSEMIDE 40 MG TAB PO SCH (21:00)
[2017-04-26] MEDS ORDERED: CHLORHEXIDINE GLUCONATE 2 % 1 PACK (2 CLOTHS)(extra cloths) TOPICAL PRN (23:45)
[2017-04-27] VITALS (15 sets, daily range): BP systolic 101–130; BP diastolic 60–86; PULSE 30–72; RESP 18–28; TEMP 96.8–98; O2SAT 96–100
--- NOTE | 2017-04-27 00:13 | RADRPT ---
EXAM DATE/TIME: 04/26/2017 22:33 [facility] COMPARISON: No previous studies available for comparison. INDICATIONS : Increased BUN/Creatinine. MEDICAL HISTORY : Myocardial infarction. Congestive heart failure. Hypercholesterolemia. Headaches. Coronary artery dis ease. Anticoagulant therapy, Plavix. Afib. Hypertension. Gall bladder disease. Diabetes. Measles. Blo od transfusion. C.diff. VRE. SURGICAL HISTORY : CABG. Coronary artery stent. Cholecystectomy. Internal defibrillator. Appendectomy. MINIATURE TRAIN DRIVER shunt. Eye angeline ольга. ENCOUNTER: Initial ACUITY: 1 day PAIN SCORE: 0/10 LOCATION: Bilateral flank MEASUREMENTS: RIGHT KIDNEY: 11.5 x 5.5 x 5.6 cm LEFT KIDNEY: 12.8 x 5.3 x 5.8 cm FINDINGS: Kidneys are slightly increased in echogenicity. No mass or hydronephrosis. Echogenic focus in left ki dney lower pole measures 12 mm and may be related nonobstructing calculus. Simple cyst upper pole anurag sures 12 x 12 x 12 mm. Bilateral pleural effusions. Urinary bladder unremarkable. No masses identifie d. CONCLUSION: 1. Echogenic kidneys which can be seen with medical renal disease. 2. Possible nonobstructing calculus in the lower pole left kidney measuring 12 mm. 3. Simple cyst left kidney. 4. Bilateral pleural effusions. Cortez Jung MD on April 27, 2017 at 0:10 Board Certified Radiologist. This report was verified electronically.
[2017-04-27] MEDS: CHLORHEXIDINE GLUCONATE 2 % 1 PACK (2 CLOTHS)(taper/protocol) TOPICAL SCH (04:00)
[2017-04-27] MEDS: LEVOTHYROXINE SODIUM 112 MCG TAB PO SCH (06:04)
--- NOTE | 2017-04-27 07:51 | PD.CARD.PN ---
Subjective Subjective Remarks Breathing better today. Slept well. Denies CP. Objective Medications Current Medications Medications (Trade) Dose Ordered Sig/Saad Route PRN Reason Start Time Stop Time Status Last Admin Dose Admin Sodium Chloride (NS Flush) 2 ml UNSCH PRN IV FLUSH FLUSH AFTER USING IV ACCESS 04/25/17 15:45 04/26/17 20:38 Sodium Chloride (NS Flush) 2 ml BID IV FLUSH 04/25/17 21:00 04/26/17 20:38 Acetaminophen (Tylenol) 650 mg Q4H PRN PO TEMP > 100.4 04/25/17 15:45 Ondansetron HCl (Zofran Inj) 4 mg Q6H PRN IVP NAUSEA OR VOMITING 04/25/17 15:45 Naloxone HCl (Narcan Inj) 0.4 mg UNSCH PRN IV SEE LABEL COMMENTS 04/25/17 15:45 Senna/Docusate Sodium (Coretta-Colace) 1 tab BID PO 04/25/17 21:00 04/26/17 20:39 Magnesium Hydroxide (Milk Of Magnesia Liq) 30 ml Q12H PRN PO MILD - MODERATE CONSTIPATION 04/25/17 15:45 Sennosides (Senokot) 17.2 mg Q12H PRN PO MODERATE - SEVERE CONSTIPATION 04/25/17 15:45 Bisacodyl (Dulcolax Supp) 10 mg DAILY PRN RECTAL SEVERE CONSITIPATION 04/25/17 15:45 Lactulose (Lactulose Liq) 30 ml DAILY PRN PO SEVERE CONSITIPATION 04/25/17 15:45 Aspirin (Aspirin Chew) 81 mg HS CHEW 04/25/17 21:00 04/26/17 20:39 Atorvastatin Calcium (Lipitor) 80 mg HS PO 04/25/17 21:00 04/26/17 20:39 Carvedilol (Coreg) 12.5 mg BID PO 04/25/17 21:00 04/26/17 20:38 Clopidogrel Bisulfate (Plavix) 75 mg DAILY PO 04/25/17 17:00 04/26/17 08:15 Cyanocobalamin (Vitamin B12) 1,000 mcg DAILY PO 04/25/17 17:00 04/26/17 08:15 Levothyroxine Sodium (Synthroid) 112 mcg DAILY@06 PO 04/25/17 20:00 04/27/17 06:04 Lisinopril (Prinivil) 5 mg HS PO 04/25/17 21:00 04/26/17 20:39 Mirtazapine (Remeron) 15 mg HS PO 04/25/17 21:00 04/26/17 20:39 Potassium Chloride (KCl) 20 meq BID PO 04/25/17 21:00 04/26/17 20:41 Promethazine HCl 25 mg 25 mg HS PO 04/25/17 21:00 04/26/17 20:39 Ceftriaxone Sodium 1000 mg/ Sodium Chloride 100 ml @ 200 mls/hr Q24H IV 04/26/17 14:00 04/26/17 15:30 Azithromycin/ Sodium Chloride (Zithromax Inj/ NS 250 ml Inj) 250 ml @ 250 mls/hr Q24H IV 04/26/17 15:00 04/26/17 15:29 Pantoprazole Sodium (Protonix) 20 mg DAILY PO 04/25/17 17:15 04/26/17 08:14 Heparin Sodium (Porcine) (Heparin Inj) 5,000 units Q12HR SQ 04/25/17 21:00 04/26/17 20:39 Furosemide (Lasix Inj) 40 mg Q12H IV PUSH 04/26/17 20:00 04/26/17 20:38 Miscellaneous Information Patient in critical care unit? Ass... [id number] .XX 04/26/17 23:45 04/26/17 23:45 Chlorhexidine Gluconate (Chlorhexidine 2% Cloth) 3 pack DAILY@04 TOPICAL 04/27/17 04:00 05/01/17 04:01 04/27/17 04:00 Chlorhexidine Gluconate (Chlorhexidine 2% Cloth) 3 pack UNSCH PRN TOPICAL HYGIENIC CARE 04/26/17 23:45 05/01/17 23:44 Vital Signs / I&O Vital Signs Date Time Temp Pulse Resp B/P Pulse Ox O2 Delivery O2 Flow Rate FiO2 04/27/17 06:00 65 04/27/17 04:00 97.8 30 28 124/72 99 04/27/17 04:00 100 Nasal Cannula 3.00 04/27/17 04:00 62 04/27/17 02:00 63 04/27/17 00:00 58 04/27/17 00:00 99 Nasal Cannula 3.00 04/27/17 00:00 98.0 58 18 103/60 98 04/26/17 22:00 64 04/26/17 21:00 100 Nasal Cannula 3.00 04/26/17 20:52 100 Nasal Cannula 3.00 04/26/17 20:00 97.2 64 19 102/60 99 04/26/17 20:00 99 Simple Mask 5.00 04/26/17 20:00 64 04/26/17 18:30 Simple Mask 4.00 04/26/17 18:00 99 Simple Mask 6.00 04/26/17 18:00 73 102/59 99 04/26/17 17:45 98 Simple Mask 6.00 04/26/17 17:30 98 Simple Mask 6.00 04/26/17 16:00 98.0 68 18 129/82 100 04/26/17 15:14 74 32 93/60 98 04/26/17 15:13 91 Nasal Cannula 2.00 04/26/17 13:38 98 Nasal Cannula 2.00 04/26/17 12:00 97.5 70 18 122/75 97 04/26/17 08:38 Nasal Cannula 2.00 04/26/17 08:38 73 04/26/17 08:00 97.4 76 18 109/89 97 I/O 04/26/17 04/26/17 04/26/17 04/27/17 04/27/17 04/27/17 07:00 15:00 23:00 07:00 15:00 23:00 Intake Total 850 ml 480 ml 227 ml 100 ml Output Total 300 ml 325 ml 250 ml 1450 ml Balance 550 ml 155 ml -23 ml -1350 ml Intake Oral 360 ml 480 ml 100 ml 100 ml IV Total 490 ml 127 ml 0 ml Output Urine Total 300 ml 325 ml 250 ml 1450 ml # Bowel Movements 0 0 0 0 Physical Exam VSS, afebrile. No JVD Lungs CTA. decreased BS at bases. Heart RRR Ext: No C/C/E Neuro: non-focal. Laboratory Laboratory Tests Test 04/26/17 04/26/17 04/26/17 08:02 18:20 18:40 Lactic Acid Level 2.5 mmol/L Blood Gas Puncture Site RT RADIAL Blood Gas Patient Temperature 98.6 Blood Gas HCO3 13 mmol/L Blood Gas Base Excess -11.3 mmol/L Blood Gas Oxygen Saturation 96 % Arterial Blood pH 7.41 Arterial Blood Partial 20 mmHg Pressure CO2 Arterial Blood Partial 127 mmHg Pressure O2 Arterial Blood Oxygen Content 18.2 Vol % Arterial Blood 1.2 % Carboxyhemoglobin Arterial Blood Methemoglobin 0.9 % Blood Gas Hemoglobin 13.3 G/DL Oxygen Delivery Device SM Blood Gas Liter Flow 6 L/M Nasal Screen MRSA (PCR) MRSA NOT DETECTED Imaging Last 48 hours Impressions Renal Ultrasound 04/26/17 0000 Signed Impressions: Service Date/Time: Wednesday, April 26, 2017 22:33 - CONCLUSION: 1. Echogenic kidneys which can be seen with medical renal disease. 2. Possible nonobstructing calculus in the lower pole left kidney measuring 12 mm. 3. Simple cyst left kidney. 4. Bilateral pleural effusions. Cortez Jung MD Chest X-Ray 04/26/17 0000 Signed Impressions: Service Date/Time: Wednesday, April 26, 2017 17:34 - CONCLUSION: 1. Slight increase in the right pleural effusion. 2. Stable tiny left effusion. 3. Stable right lower lobe infiltrate. 4. Cardiomegaly. Deon Huynh Jr., MD Chest X-Ray 04/25/17 1232 Signed Impressions: Service Date/Time: April 12:30 - CONCLUSION: 1. Cardiomegaly with trace positive fluid balance. 2. Trace left pleural effusion and small right pleural effusion with associated right lower lobe airspace disease. Vaughn Javier MD Assessment and Plan Problem List: (1) CHF (congestive heart failure) Assessment and Plan: Improving (2) Ischemic cardiomyopathy (3) Renal insufficiency (4) CAD (coronary artery disease) (5) ICD (implantable cardioverter-defibrillator) discharge (6) Atrial tachycardia (7) S/P APPRAISAL ANALYST shunt Assessment and Plan CHF improving. Patient more comfortable today. Continue IV diuresis. Follow renal function. Rx underlying infection. Following with you over weekend. Mynor Flores MD Apr 27, 2017 07:51
--- NOTE | 2017-04-27 08:00 | HHI.CCPN ---
Subjective Remarks/Hospital Course 77 y/o man with long-standing ischemic cardiomyopathy presented through ED with severe SOB. ICD has shocked him once for SVT at 190. Patient is lethargic now and labs consistent with decompensated systolic failure, including hepatic dysfunction and accumulating base deficit. Although heart failure is operative at present the right lower lung process appears to be pneumonia, considerably exacerbating his distress. SUBJ 04/27: Patient feels like his breathing has improved subjectively. He is on nasal cannula. Remains slightly lethargic. No ICD discharge. Bedside ultrasound shows small pleural effusion on the right side with consolidation. Currently receiving Rocephin and azithromycin Objective Vital Signs Date Time Temp Pulse Resp B/P Pulse Ox O2 Delivery O2 Flow Rate FiO2 04/27/17 06:00 65 04/27/17 04:00 97.8 28 124/72 99 04/27/17 04:00 Nasal Cannula 3.00 Intake and Output 04/26/17 04/26/17 04/27/17 08:00 16:00 00:00 Intake Total 850 ml 607 ml 100 ml Output Total 300 ml 325 ml 250 ml Balance 550 ml 282 ml -150 ml Result Diagram: 04/26/17 0218 04/26/17 0218 Other Results Microbiology Date/Time Procedure Status Source Growth 04/25/17 14:00 Legionella Antigen - Final Complete Urine Random Urine PRESUMPTIVE NEGATIVE FOR LEGIONELLA P... 04/25/17 14:00 Streptococcus pneumoniae Antigen (M - Final Complete Urine Random Urine PRESUMPTIVE NEGATIVE FOR STREPTOCOCCU... Laboratory Tests Test 04/26/17 18:20 Blood Gas Puncture Site RT RADIAL Blood Gas Patient Temperature 98.6 Blood Gas HCO3 13 mmol/L (22-26) Blood Gas Base Excess -11.3 mmol/L (-2-2) Blood Gas Oxygen Saturation 96 % (90-100) Arterial Blood pH 7.41 (7.380-7.420) Arterial Blood Partial 20 mmHg (38-42) Pressure CO2 Arterial Blood Partial 127 mmHg Pressure O2 (61-120) Arterial Blood Oxygen Content 18.2 Vol % (12.0-20.0) Arterial Blood 1.2 % (0-4) Carboxyhemoglobin Arterial Blood Methemoglobin 0.9 % (0-2) Blood Gas Hemoglobin 13.3 G/DL (12.0-16.0) Oxygen Delivery Device SM Blood Gas Liter Flow 6 L/M Objective Remarks GEN: Elderly male lying in bed Head: Normal. Neck: Supple, airway unobstructed. Lungs: Mild wheezes right side. Bedside ultrasound shows small right effusion and consolidation Heart: NL S1S2, + JVD. Abdomen: Benign, soft. Extremities: Well perfused. 1+ edema lower legs. Neuro: Awake alert oriented no focal deficits A/P Assessment and Plan Assessment: Hypoxemic Respiratory Failure. Acute on chronic systolic heart failure. CKD with TRAM. Right lower lobe pneumonia.. SVT. ICD with shock X 1 for SVT 190. Plan: -NRBM 100%-currently weaned down to nasal cannula -Aggressive iv diuretic therapy. IV Lasix 40 mg every 12 -Broad abx coverage pending cultures with Rocephin and azithromycin -PT OOB, EzPAP, Acapella, -Heart healthy diet -Out of bed up to chair -Check CBC CMP today, check CXR -Bedside ultrasound shows small right pleural effusion and right consolidation -Chemical GI Px. Chemical DVT Px. -Strict I&O. -Hold lisinopril due to TRAM Overall impression: Critically ill with exacerbated systolic heart failure compounded by pneumonia bicarb consistent with shock state. Consider short-term milrinone if perfusion does not improve, but recent SVT. Follow closely. Prognosis guarded. Level 2 CCM will continue to follow with primary service Larisa Wilde MD Apr 27, 2017 08:00
[2017-04-27] MEDS: DOCUSATE SODIUM 50 MG/SENNA 8.6 MG TAB PO SCH ×2 (08:29→20:27)
[2017-04-27] MEDS: CYANOCOBALAMIN 1,000 MCG TAB PO SCH (08:29)
[2017-04-27] MEDS: FUROSEMIDE 40 MG/4 ML VIAL IV PUSH SCH ×3 (08:29→20:25)
[2017-04-27] MEDS: CLOPIDOGREL 75 MG TAB PO SCH (08:29)
[2017-04-27] MEDS: PANTOPRAZOLE SOD 20 MG DELAYED RELEASE TAB PO SCH (08:29)
[2017-04-27] MEDS: SODIUM CHLORIDE 0.9% FLUSH 10 ML FLUSH IV FLUSH SCH ×2 (08:29→20:27)
[2017-04-27] MEDS: POTASSIUM CHLORIDE 20 MEQ CONTROLLED RELEASE TAB PO SCH ×2 (08:29→20:26)
[2017-04-27] MEDS: CARVEDILOL 12.5 MG TAB PO SCH ×2 (08:29→20:27)
[2017-04-27] MEDS: HEPARIN SODIUM - SQ 10,000 UNITS/ML VIAL SQ SCH ×2 (08:30→20:26)
--- NOTE | 2017-04-27 08:32 | RADRPT ---
EXAM DATE/TIME: 04/27/2017 08:11 [facility] COMPARISON: CHEST SINGLE AP, April 26, 2017, 17:34. INDICATIONS : Short of breath. MEDICAL HISTORY : Hypertension. Congestive heart failure. Myocardial infarction. Diabetes. SURGICAL HISTORY : CABG. LABORATORY ANALYST shunt ENCOUNTER: [facility]ela ACUITY: 4 - 6 days PAIN SCORE: 0/10 LOCATION: Bilateral chest FINDINGS: A single view of the chest demonstrates no significant changes with the appearance of the heart or georgi ngs. There is a small right-sided effusion which is stable. The left lung is clear. There is some ate lectasis in the right lung base. The heart size is stable. There is no evidence of pneumothorax. The pacemaker is overlying the left chest. There is evidence of previous cardiothoracic surgery.. CONCLUSION: No significant interval change. Ryan Infante MD on April 27, 2017 at 8:29 Board Certified Radiologist. This report was verified electronically.
--- NOTE | 2017-04-27 11:43 | HHI.NPPN ---
Subjective History of Present Illness This patient is a 77-year-old male with a history of multiple medical problems including a history of ischemic heart disease an ejection fraction said to be 35 %, congestive heart failure, atrial flutter, defibrillator placement present with a history of increasing shortness of breath and history of defibrillator firing. On reviewing previous records patient's serum creatinine level has been fluctuating over the last several months noted to have been 1.25 back in February, with a previous level of 1.10 December 2016. On presentation on this occasion creatinine level was 2.14 improving to 1.95 date of consultation. Patient indicated that his shortness of breath has improved since admission. Denies using NSAIDs for analgesia. Indicating that he has had urinary hesitancy and mentioned that his urine has been somewhat pink a few days prior to admission. He follows with Dr. Friedman, urology, as an outpatient. Specific urological records not available to me. Interval History The patient states he is feeling much better today. Sitting up in chair. present in the room. No new complaints. (Candida Rooney) Objective Data Data 04/26/17 04/27/17 19:00 07:00 Intake Total 607 ml 200 ml Output Total 325 ml 1700 ml Balance 282 ml -1500 ml Intake Oral 480 ml 200 ml IV Total 127 ml 0 ml Output Urine Total 325 ml 1700 ml # Bowel Movements 0 0 Vital Signs Date Time Temp Pulse Resp B/P Pulse Ox O2 Delivery O2 Flow Rate FiO2 04/27/17 10:00 72 04/27/17 08:28 96 04/27/17 08:00 96.8 71 22 130/86 98 04/27/17 08:00 97 Room Air 04/27/17 08:00 71 04/27/17 06:00 65 04/27/17 04:00 97.8 30 28 124/72 99 04/27/17 04:00 100 Nasal Cannula 3.00 04/27/17 04:00 62 04/27/17 02:00 63 04/27/17 00:00 58 04/27/17 00:00 99 Nasal Cannula 3.00 04/27/17 00:00 98.0 58 18 103/60 98 04/26/17 22:00 64 04/26/17 21:00 100 Nasal Cannula 3.00 04/26/17 20:52 100 Nasal Cannula 3.00 04/26/17 20:00 97.2 64 19 102/60 99 04/26/17 20:00 99 Simple Mask 5.00 04/26/17 20:00 64 04/26/17 18:30 Simple Mask 4.00 04/26/17 18:00 99 Simple Mask 6.00 04/26/17 18:00 73 102/59 99 04/26/17 17:45 98 Simple Mask 6.00 04/26/17 17:30 98 Simple Mask 6.00 04/26/17 16:00 98.0 68 18 129/82 100 04/26/17 15:14 74 32 93/60 98 04/26/17 15:13 91 Nasal Cannula 2.00 04/26/17 13:38 98 Nasal Cannula 2.00 04/26/17 12:00 97.5 70 18 122/75 97 (Candida Rooney) -: 04/26/17 0218 04/26/17 0218 Imaging Last Impressions Chest X-Ray 04/27/17 0000 Signed Impressions: Service Date/Time: Thursday, April 27, 2017 08:11 - CONCLUSION: No significant interval change. Ryan Infante MD Renal Ultrasound 04/26/17 0000 Signed Impressions: Service Date/Time: Wednesday, April 26, 2017 22:33 - CONCLUSION: 1. Echogenic kidneys which can be seen with medical renal disease. 2. Possible nonobstructing calculus in the lower pole left kidney measuring 12 mm. 3. Simple cyst left kidney. 4. Bilateral pleural effusions. Cortez Jung MD Medication Review Current Medications Medications (Trade) Dose Ordered Sig/Saad Route Start Time Stop Time Status Last Admin (NS Flush) 2 ml UNSCH PRN IV FLUSH 04/25/17 15:45 04/26/17 20:38 (NS Flush) 2 ml BID IV FLUSH 04/25/17 21:00 04/27/17 08:29 (Tylenol) 650 mg Q4H PRN PO 04/25/17 15:45 (Zofran Inj) 4 mg Q6H PRN IVP 04/25/17 15:45 (Narcan Inj) 0.4 mg UNSCH PRN IV 04/25/17 15:45 (Coretta-Colace) 1 tab BID PO 04/25/17 21:00 04/27/17 08:29 (Milk Of Magnesia Liq) 30 ml Q12H PRN PO 04/25/17 15:45 (Senokot) 17.2 mg Q12H PRN PO 04/25/17 15:45 (Dulcolax Supp) 10 mg DAILY PRN RECTAL 04/25/17 15:45 (Lactulose Liq) 30 ml DAILY PRN PO 04/25/17 15:45 (Aspirin Chew) 81 mg HS CHEW 04/25/17 21:00 04/26/17 20:39 (Lipitor) 80 mg HS PO 04/25/17 21:00 04/26/17 20:39 (Coreg) 12.5 mg BID PO 04/25/17 21:00 04/27/17 08:29 (Plavix) 75 mg DAILY PO 04/25/17 17:00 04/27/17 08:29 (Vitamin B12) 1,000 mcg DAILY PO 04/25/17 17:00 04/27/17 08:29 (Synthroid) 112 mcg DAILY@06 PO 04/25/17 20:00 04/27/17 06:04 (Prinivil) 5 mg HS PO 04/25/17 21:00 Hold 04/26/17 20:39 (Remeron) 15 mg HS PO 04/25/17 21:00 04/26/17 20:39 (KCl) 20 meq BID PO 04/25/17 21:00 04/27/17 08:29 Promethazine HCl 25 mg 25 mg HS PO 04/25/17 21:00 04/26/17 20:39 Ceftriaxone Sodium 1000 mg/ Sodium Chloride 100 ml @ 200 mls/hr Q24H IV 04/26/17 14:00 04/26/17 15:30 (Zithromax Inj/ NS 250 ml Inj) 250 ml @ 250 mls/hr Q24H IV 04/26/17 15:00 04/26/17 15:29 (Protonix) 20 mg DAILY PO 04/25/17 17:15 04/27/17 08:29 (Heparin Inj) 5,000 units Q12HR SQ 04/25/17 21:00 04/26/17 20:39 (Lasix Inj) 40 mg Q12H IV PUSH 04/26/17 20:00 04/27/17 08:45 Miscellaneous Information Patient in critical care unit? Ass... Q361D .XX 04/26/17 23:45 04/26/17 23:45 (Chlorhexidine 2% Cloth) 3 pack DAILY@04 TOPICAL 04/27/17 04:00 05/01/17 04:01 04/27/17 04:00 (Chlorhexidine 2% Cloth) 3 pack UNSCH PRN TOPICAL 04/26/17 23:45 05/01/17 23:44 (Candida Rooney) Physical Exam General Appearance: Well Developed, Comfortable (Candida Rooney PA) Eyes Eye Exam: Pupils Equal (Candida Rooney) Ears & Nose Ears & Nose Exam: Nasal Mucosa Tularosa (Candida Rooney PA) Throat Throat Exam: Oral Mucosa [place] & Moist (Candida Rooney PA) Neck Neck Exam: Neck Supple (Candida Rooney PA) Pulmonary Resp Exam: Decreased Bases, Diminished Breath Sounds (Candida Rooney) Cardiology CV Exam: Regular, Normal Sinus Rhythm (Candida Rooney) Gastrointestinal/Abdomen GI Exam: Soft, Non-Tender (Candida Rooney PA) Musculoskeletal MS Exam: Joints Intact (Candida Rooney) Integumentary Skin Exam: Clear, Warm (Candida Rooney PA) Extremeties Extremities Exam: Trace Edema (Candida Rooney PA) Neurologic Neuro Exam: Alert, Awake (Candida Rooney) Psychiatric Psych Exam: Appropriate Responses (Candida Rooney) Assessment/Plan Problem List: (1) Acute kidney injury Plan: Suspect acute on chronic renal sufficiency. The acute component I believe may be related to cardiac decompensation with a component of cardiorenal syndrome. Patient's creatinine level has improved since of presentation. Would continue diuresis and will increase furosemide to twice a day dosing. Continue INDIRA inhibitor for the present pending review of renal indices which indicated for afterload reduction. Renal US reviewed and showed no obstruction Labs pending at time of rounding. UOP improved The patient was counseled regarding status of his renal function and pathogenesis as well as need to avoid NSAIDs for analgesia in the future in view of his history of congestive heart failure. Medications should be adjusted for the patient's estimated GFR if clinically indicated. Avoid agents with significant potential for nephrotoxicity possible including NSAIDs for analgesia, iodine contrast agents. Gadolinium is contraindicated if the GFR is below 30. (2) CHF (congestive heart failure) Plan: Continue on diuretics as ordered (3) Diabetes Plan: Management per primary care physician. (Candida Rooeny) Plan Continue diuresis as ordered. Creatinine level is slowly improving. Component of cardiorenal syndrome is considered to be present at this time. Patient also has a vitamin D deficiency with secondary hyperparathyroidism. Vitamin D supplementation as ordered. The exam, history, and the medical decision-making described in the above note were completed with the assistance of the CON. I reviewed and agree with the findings presented. I attest that I had a [id number] encounter with the patient on the same day, and personally performed and documented my assessment and findings in the medical record. (Beth Becerril MD) Candida Rooney Apr 27, 2017 11:43 Beth Becerril MD Apr 27, 2017 19:25
--- NOTE | 2017-04-27 12:18 | HHI.PR ---
Subjective Subjective Remarks Awake alert Sitting up in chair today in the ICU setting side Respirations between 18 and 24 during my assessment Skin color pale (Zahida Calderon) Review of Systems Constitutional Constitutional: Fatigue Constitutional Remarks 10 point ROS done. Active diuresis, much more alert today in conversational, in the ICU setting positives noted (Zahida Calderon) Pulmonary Respiratory: Coughing (occasional), Shortness of Breath (mild and with exertion ) (Zahida Calderon) Genitourinary Remarks [place] with active diuresis (Zahida Calderon) Musculoskeletal MS: Weakness (gradual improvement), Swelling (mild lower extremity edema) ( Zahida Calderon) Psychiatric Psychiatric: Normal Mood, Anxiety (mild) (Zahida Calderon) Vitals/Results Intake & Output 04/26/17 04/26/17 04/27/17 15:00 23:00 07:00 Intake Total 480 ml 227 ml 100 ml Output Total 325 ml 250 ml 1450 ml Balance 155 ml -23 ml -1350 ml Intake Oral 480 ml 100 ml 100 ml IV Total 127 ml 0 ml Output Urine Total 325 ml 250 ml 1450 ml # Bowel Movements 0 0 0 Vital Signs Vital Signs Date Time Temp Pulse Resp B/P Pulse Ox O2 Delivery O2 Flow Rate FiO2 04/27/17 10:00 72 04/27/17 08:28 96 04/27/17 08:00 96.8 71 22 130/86 98 04/27/17 08:00 97 Room Air 04/27/17 08:00 71 04/27/17 06:00 65 04/27/17 04:00 97.8 30 28 124/72 99 04/27/17 04:00 100 Nasal Cannula 3.00 04/27/17 04:00 62 04/27/17 02:00 63 04/27/17 00:00 58 04/27/17 00:00 99 Nasal Cannula 3.00 04/27/17 00:00 98.0 58 18 103/60 98 04/26/17 22:00 64 04/26/17 21:00 100 Nasal Cannula 3.00 04/26/17 20:52 100 Nasal Cannula 3.00 04/26/17 20:00 97.2 64 19 102/60 99 04/26/17 20:00 99 Simple Mask 5.00 04/26/17 20:00 64 04/26/17 18:30 Simple Mask 4.00 04/26/17 18:00 99 Simple Mask 6.00 04/26/17 18:00 73 102/59 99 04/26/17 17:45 98 Simple Mask 6.00 04/26/17 17:30 98 Simple Mask 6.00 04/26/17 16:00 98.0 68 18 129/82 100 04/26/17 15:14 74 32 93/60 98 04/26/17 15:13 91 Nasal Cannula 2.00 04/26/17 13:38 98 Nasal Cannula 2.00 (Zahida Calderon) CBC/BMP: 04/26/17 0218 04/26/17 0218 Lab Results Laboratory Tests Test 04/26/17 04/26/17 18:20 18:40 Blood Gas Puncture Site RT RADIAL Blood Gas Patient Temperature 98.6 Blood Gas HCO3 13 mmol/L Blood Gas Base Excess -11.3 mmol/L Blood Gas Oxygen Saturation 96 % Arterial Blood pH 7.41 Arterial Blood Partial 20 mmHg Pressure CO2 Arterial Blood Partial 127 mmHg Pressure O2 Arterial Blood Oxygen Content 18.2 Vol % Arterial Blood 1.2 % Carboxyhemoglobin Arterial Blood Methemoglobin 0.9 % Blood Gas Hemoglobin 13.3 G/DL Oxygen Delivery Device SM Blood Gas Liter Flow 6 L/M Nasal Screen MRSA (PCR) MRSA NOT DETECTED Imaging Remarks Last Impressions Chest X-Ray 04/27/17 0000 Signed Impressions: Service Date/Time: Thursday, April 27, 2017 08:11 - CONCLUSION: No significant interval change. Ryan Infante MD Renal Ultrasound 04/26/17 0000 Signed Impressions: Service Date/Time: Wednesday, April 26, 2017 22:33 - CONCLUSION: 1. Echogenic kidneys which can be seen with medical renal disease. 2. Possible nonobstructing calculus in the lower pole left kidney measuring 12 mm. 3. Simple cyst left kidney. 4. Bilateral pleural effusions. Cortez Jung MD Current Medications Administered Medications Medications (Trade) Dose Ordered Sig/Saad Route PRN Reason Start Time Stop Time Status Last Admin Dose Admin Sodium Chloride (NS Flush) 2 ml UNSCH PRN IV FLUSH FLUSH AFTER USING IV ACCESS 04/25/17 15:45 04/26/17 20:38 Sodium Chloride (NS Flush) 2 ml BID IV FLUSH 04/25/17 21:00 04/27/17 08:29 Senna/Docusate Sodium (Coretta-Colace) 1 tab BID PO 04/25/17 21:00 04/27/17 08:29 Aspirin (Aspirin Chew) 81 mg HS CHEW 04/25/17 21:00 04/26/17 20:39 Atorvastatin Calcium (Lipitor) 80 mg HS PO 04/25/17 21:00 04/26/17 20:39 Carvedilol (Coreg) 12.5 mg BID PO 04/25/17 21:00 04/27/17 08:29 Clopidogrel Bisulfate (Plavix) 75 mg DAILY PO 04/25/17 17:00 04/27/17 08:29 Cyanocobalamin (Vitamin B12) 1,000 mcg DAILY PO 04/25/17 17:00 04/27/17 08:29 Levothyroxine Sodium (Synthroid) 112 mcg DAILY@06 PO 04/25/17 20:00 04/27/17 06:04 Lisinopril (Prinivil) 5 mg HS PO 04/25/17 21:00 Hold 04/26/17 20:39 Mirtazapine (Remeron) 15 mg HS PO 04/25/17 21:00 04/26/17 20:39 Potassium Chloride (KCl) 20 meq BID PO 04/25/17 21:00 04/27/17 08:29 Promethazine HCl 25 mg 25 mg HS PO 04/25/17 21:00 04/26/17 20:39 Ceftriaxone Sodium 1000 mg/ Sodium Chloride 100 ml @ 200 mls/hr Q24H IV 04/26/17 14:00 04/26/17 15:30 Azithromycin/ Sodium Chloride (Zithromax Inj/ NS 250 ml Inj) 250 ml @ 250 mls/hr Q24H IV 04/26/17 15:00 04/26/17 15:29 Pantoprazole Sodium (Protonix) 20 mg DAILY PO 04/25/17 17:15 04/27/17 08:29 Heparin Sodium (Porcine) (Heparin Inj) 5,000 units Q12HR SQ 04/25/17 21:00 04/26/17 20:39 Furosemide (Lasix Inj) 40 mg Q12H IV PUSH 04/26/17 20:00 04/27/17 08:45 Miscellaneous Information Patient in critical care unit? Ass... Q361D .XX 04/26/17 23:45 04/26/17 23:45 Chlorhexidine Gluconate (Chlorhexidine 2% Cloth) 3 pack DAILY@04 TOPICAL 04/27/17 04:00 05/01/17 04:01 04/27/17 04:00 (Zahida Calderon) Physical Exam General General Appearance: Well Developed, Comfortable (Zahida CalderonP) Eyes Eye Exam: Pupils Equal (Zahida Calderon) Ears & Nose Ears & Nose Exam: Nasal Mucosa [place] (Zahida CalderonP) Throat Throat Exam: Oral Mucosa [place] & Moist (Zahida CalderonP) Neck Neck Exam: Neck Supple (Zahida CalderonP) Pulmonary Resp Exam: Decreased Bases, Diminished Breath Sounds, Poor Inspiratory Effort ( low volumes) (Zahida CalderonP) Cardiology CV Exam: Regular, Normal Sinus Rhythm CV Remarks ECG monitoring (Zahida CalderonP) Gastrointestinal/Abdomen GI Exam: Soft, Non-Tender (Zahida CalderonP) Genitourinary Exam: Clear Urine (orange clear via [place]) (Zahida CalderonP) Musculoskeletal MS Exam: Joints Intact (Zahida Calderon) Integumentary Skin Exam: Clear, Warm (Zahida Calderon) Extremeties Extremities Exam: Trace Edema (Zahida CalderonP) Neurologic Neuro Exam: Alert, Awake Neuro Remarks Speech is slow, much clear, she responsive today to verbal stimuli, AMS has resolved (Zahida CalderonP) Psychiatric Psych Exam: Appropriate Responses (Zahida Calderon) Assessment/Plan Assessment/Plan Assessment/Plan Vital signs monitored, respiratory rate shows low volumes and labile respirations dependent on any activity Labs monitored noted elevated BNP level, Lactic acid level decreased to 3.2, currently receiving IV Lasix with active diuresis, proximally 500 cc in [place] bag from this a.m. Pneumonia, leukocytosis is responding to antibiotic therapy decreased 13.8 Continue empiric antibiotic, oxygen O2 per nasal cannula, duo nebs Blood cultures show no growth so far Atrial tachycardia 190s on adm., ICD shock X 1, converted to SR, patient denies any chest pain. Continuous monitoring sinus rhythm Acute exacerbation of chronic systolic congestive heart failure. Appreciate cardiac input with medical management. Patient placed on IV Lasix 40 every 12, active diuresis Sided to monitor in ICU setting for closer observation. in room. A still feeling fairly weak but breathing much better over the past 12 hours. Still has decreased breath sounds in right mid and lower base. Ischemic cardiomyopathy with moderate left ventricular systolic function (an ejection fraction of 35%). Appreciate cardiology consult and assistance with medical management Coronary artery disease with history of myocardial infarction and coronary bypass and coronary stenting., Normal function of [employer] dual-chamber defibrillator. Pending treated for CHF Acute renal insufficiency. Gentle hydration, mucous membranes are still dry we' ll continue to maintain fluids for now but monitor for any acute shortness of breath or symptoms of heart failure Diabetes mellitus, added back Accu-Cheks before meals and at bedtime with sliding scale, monitor blood sugars and insulin management. Hyperglycemia noted History of hydrocephalus, status post shunt placement., Medical management Patient does have pleasant confusion state , speech is slow, affect flat and requested not to be bothered. Will monitor obvious symptoms with this treatment regimen Bowel regimen, patient thinks he has had no BM in 3-4 days will add MiraLAX today Discussed with patient and his Discussed with nurse Discussed with Dr. Ha, patient seen on his behalf (Zahida Calderon) Assessment/Plan Patient seen and examined as above Plan of care discussed with [facility] Labs and medications and x-ray report reviewed Discussed with patient Condition guarded prognosis guarded (Enrico Ha MD) Zahida Calderon Apr 27, 2017 12:18 Enrico Ha MD Apr 27, 2017 13:21
[2017-04-27 12:21] LABS: AUTOMATED NEUTROPHIL # 6.8 TH/MM3 (1.8-7.7); BASOPHIL % 0.3 % (0.0-2.0); EOSINOPHIL # 0.4 TH/MM3 (0-0.4); EOSINOPHIL % 4.4 % (0.0-4.0); HEMATOCRIT 41.8 % (39.0-51.0); HEMO FLAGS DIFF FINAL; LYMPH % 16.1 % (9.0-44.0); LYMPHOCYTE # 1.6 TH/MM3 (1.0-4.8); MEAN CELL VOLUME 92.4 FL (80.0-100.0); MEAN CORPUSCULAR HEMOGLOBIN 29.1 PG (27.0-34.0); MEAN CORPUSCULAR HGB CONC 31.6 % (32.0-36.0); MONO % 9.4 % (0.0-8.0); NEUT % 69.8 % (16.0-70.0); PLATELET COUNT 100 TH/MM3 (150-450); RED BLOOD COUNT 4.52 MIL/MM3 (4.50-5.90); RED CELL DISTRIBUTION WIDTH 17.5 % (11.6-17.2); WHITE BLOOD COUNT 9.8 TH/MM3 (4.0-11.0)
[2017-04-27] MEDS ORDERED: GLUCAGON 1 MG/ML VIAL OTHER PRN (12:30)
[2017-04-27] MEDS ORDERED: DEXTROSE 50% IN WATER 50 ML VIAL(D50) IV PRN (12:30)
[2017-04-27] MEDS: cefTRIAXone INJ 1,000 MG in SODIUM CHLORIDE 0.9% INJ 100 ML IV SCH (13:31)
[2017-04-27] MEDS: POLYETHYLENE GLYCOL 17 GM PKG PO SCH (13:31)
[2017-04-27 13:38] LABS: BLOOD UREA NITROGEN 52 MG/DL (7-18); GLOMERULAR FILTRATION RATE 36 ML/MIN (>89)
[2017-04-27 13:39] LABS: ALKALINE PHOSPHATASE 165 U/L (45-117); ALT (GPT) 1077 U/L (12-78); ANION GAP 9 MEQ/L (5-15); AST (GOT) 471 U/L (15-37); BICARBONATE 21.7 MEQ/L (21.0-32.0); CHLORIDE 108 MEQ/L (98-107); MAGNESIUM 2.2 MG/DL (1.5-2.5); POTASSIUM 4.4 MEQ/L (3.5-5.1); SODIUM (NA) 139 MEQ/L (136-145); TOTAL BILIRUBIN ADULT 1.4 MG/DL (0.2-1.0)
[2017-04-27] MEDS: AZITHROMYCIN INJ 500 MG in SODIUM CHLOR 0.9% 250 ML INJ 250 ML IV SCH (16:39)
[2017-04-27] MEDS: INSULIN NovoLIN REGULAR SUPPLEMENTAL SCALE SQ SCH ×2 (16:40→20:27)
[2017-04-27] MEDS: RESP: ALBUTEROL 2.5 MG/IPRATROPIUM 0.5 MG NEB (PRN) NEB (17:32)
[2017-04-27] MEDS: ASPIRIN 81 MG CHEW TAB CHEW SCH (20:25)
[2017-04-27] MEDS: PROMETHAZINE HCL 25 MG TAB PO SCH (20:26)
[2017-04-27] MEDS: ATORVASTATIN 80 MG TAB PO SCH (20:26)
[2017-04-27] MEDS: MIRTAZAPINE 15 MG TAB PO SCH (20:27)
[2017-04-27] MEDS ORDERED: ERGOCALCIFEROL (VIT D2) 50,000 UNIT CAP PO SCH (21:00)
[2017-04-28] VITALS (9 sets, daily range): BP systolic 100–114; BP diastolic 62–70; PULSE 67–75; RESP 18–26; TEMP 97–97.7; O2SAT 88–98
[2017-04-28] MEDS: CHLORHEXIDINE GLUCONATE 2 % 1 PACK (2 CLOTHS)(taper/protocol) TOPICAL SCH (04:00)
[2017-04-28 05:47] LABS: AUTOMATED NEUTROPHIL # 6.3 TH/MM3 (1.8-7.7); BASOPHIL # 0.1 TH/MM3 (0-0.2); BASOPHIL % 0.6 % (0.0-2.0); EOSINOPHIL # 0.5 TH/MM3 (0-0.4); EOSINOPHIL % 4.9 % (0.0-4.0); LYMPH % 21.1 % (9.0-44.0); LYMPHOCYTE # 2.1 TH/MM3 (1.0-4.8); MEAN CELL VOLUME 88.9 FL (80.0-100.0); MEAN CORPUSCULAR HEMOGLOBIN 29.5 PG (27.0-34.0); MEAN CORPUSCULAR HGB CONC 33.1 % (32.0-36.0); MONO % 10.9 % (0.0-8.0); NEUT % 62.5 % (16.0-70.0); PLATELET COUNT 82 TH/MM3 (150-450); RED CELL DISTRIBUTION WIDTH 16.9 % (11.6-17.2); WHITE BLOOD COUNT 10.1 TH/MM3 (4.0-11.0)
[2017-04-28 05:55] LABS: HEMO FLAGS AUTO DIFF
[2017-04-28] MEDS: INSULIN NovoLIN REGULAR SUPPLEMENTAL SCALE SQ SCH ×4 (06:02→21:00)
[2017-04-28] MEDS: LEVOTHYROXINE SODIUM 112 MCG TAB PO SCH (06:02)
--- NOTE | 2017-04-28 06:21 | RADRPT ---
EXAM DATE/TIME: 04/28/2017 05:13 [place] COMPARISON: CHEST SINGLE AP, April 27, 2017, 8:11. INDICATIONS : Shortness of breath, possible pulmonary disease. MEDICAL HISTORY : Hypertension. Congestive heart failure. Myocardial infarction. Diabetes SURGICAL HISTORY : CABG. PATIENT CARE shunt ENCOUNTER: Subsequent ACUITY: 4 - 6 days PAIN SCORE: Non-responsive. LOCATION: Bilateral chest FINDINGS: A single view of the chest demonstrates small right pleural effusion and bibasilar atelectasis. Left- sided defibrillator is stable in position. Cardiomegaly and previous CABG. Osseous structures are in tact. CONCLUSION: 1. Small right pleural effusion and right basilar atelectasis. 2. Cardiomegaly and previous CABG. Cortez Jung MD on April 28, 2017 at 6:18 Board Certified Radiologist. This report was verified electronically.
[2017-04-28 06:26] LABS: ALKALINE PHOSPHATASE 153 U/L (45-117); ALT (GPT) 855 U/L (12-78); ANION GAP 9 MEQ/L (5-15); AST (GOT) 300 U/L (15-37); BLOOD UREA NITROGEN 46 MG/DL (7-18); CHLORIDE 106 MEQ/L (98-107); GLOMERULAR FILTRATION RATE 42 ML/MIN (>89); POTASSIUM 4.2 MEQ/L (3.5-5.1); SODIUM (NA) 142 MEQ/L (136-145); TOTAL BILIRUBIN ADULT 1.3 MG/DL (0.2-1.0)
[2017-04-28 06:35] LABS: OVALOCYTES 2+ (NORMAL); PLATELET ESTIMATE SMEAR LOW (NORMAL); PLATELET MORPHOLOGY NORMAL (NORMAL); SCAN/DIFF AUTO DIFF CONFIRMED
--- NOTE | 2017-04-28 07:09 | PD.CARD.PN ---
Subjective Subjective Remarks Had a good night. No CP or SOB. Objective Medications Current Medications Medications (Trade) Dose Ordered Sig/Saad Route PRN Reason Start Time Stop Time Status Last Admin Dose Admin Sodium Chloride (NS Flush) 2 ml UNSCH PRN IV FLUSH FLUSH AFTER USING IV ACCESS 04/25/17 15:45 04/26/17 20:38 Sodium Chloride (NS Flush) 2 ml BID IV FLUSH 04/25/17 21:00 04/27/17 20:27 Acetaminophen (Tylenol) 650 mg Q4H PRN PO TEMP > 100.4 04/25/17 15:45 Ondansetron HCl (Zofran Inj) 4 mg Q6H PRN IVP NAUSEA OR VOMITING 04/25/17 15:45 Naloxone HCl (Narcan Inj) 0.4 mg UNSCH PRN IV SEE LABEL COMMENTS 04/25/17 15:45 Senna/Docusate Sodium (Coretta-Colace) 1 tab BID PO 04/25/17 21:00 04/27/17 20:27 Magnesium Hydroxide (Milk Of Magnesia Liq) 30 ml Q12H PRN PO MILD - MODERATE CONSTIPATION 04/25/17 15:45 Sennosides (Senokot) 17.2 mg Q12H PRN PO MODERATE - SEVERE CONSTIPATION 04/25/17 15:45 Bisacodyl (Dulcolax Supp) 10 mg DAILY PRN RECTAL SEVERE CONSITIPATION 04/25/17 15:45 Lactulose (Lactulose Liq) 30 ml DAILY PRN PO SEVERE CONSITIPATION 04/25/17 15:45 Aspirin (Aspirin Chew) 81 mg HS CHEW 04/25/17 21:00 04/27/17 20:25 Atorvastatin Calcium (Lipitor) 80 mg HS PO 04/25/17 21:00 04/27/17 20:26 Carvedilol (Coreg) 12.5 mg BID PO 04/25/17 21:00 04/27/17 08:29 Clopidogrel Bisulfate (Plavix) 75 mg DAILY PO 04/25/17 17:00 04/27/17 08:29 Cyanocobalamin (Vitamin B12) 1,000 mcg DAILY PO 04/25/17 17:00 04/27/17 08:29 Levothyroxine Sodium (Synthroid) 112 mcg DAILY@06 PO 04/25/17 20:00 04/28/17 06:02 Lisinopril (Prinivil) 5 mg HS PO 04/25/17 21:00 Hold 04/26/17 20:39 Mirtazapine (Remeron) 15 mg HS PO 04/25/17 21:00 04/27/17 20:27 Potassium Chloride (KCl) 20 meq BID PO 04/25/17 21:00 04/27/17 20:26 Promethazine HCl 25 mg 25 mg HS PO 04/25/17 21:00 04/27/17 20:26 Ceftriaxone Sodium 1000 mg/ Sodium Chloride 100 ml @ 200 mls/hr Q24H IV 04/26/17 14:00 04/27/17 13:31 Azithromycin/ Sodium Chloride (Zithromax Inj/ NS 250 ml Inj) 250 ml @ 250 mls/hr Q24H IV 04/26/17 15:00 04/27/17 16:39 Pantoprazole Sodium (Protonix) 20 mg DAILY PO 04/25/17 17:15 04/27/17 08:29 Heparin Sodium (Porcine) (Heparin Inj) 5,000 units Q12HR SQ 04/25/17 21:00 04/27/17 20:26 Furosemide (Lasix Inj) 40 mg Q12H IV PUSH 04/26/17 20:00 04/27/17 20:25 Miscellaneous Information Patient in critical care unit? Ass... Q361D .XX 04/26/17 23:45 04/26/17 23:45 Chlorhexidine Gluconate (Chlorhexidine 2% Cloth) 3 pack DAILY@04 TOPICAL 04/27/17 04:00 05/01/17 04:01 04/28/17 04:00 Chlorhexidine Gluconate (Chlorhexidine 2% Cloth) 3 pack UNSCH PRN TOPICAL HYGIENIC CARE 04/26/17 23:45 05/01/17 23:44 Dextrose (D50w (Vial) Inj) 50 ml UNSCH PRN IV HYPOGLYCEMIA-SEE COMMENTS 04/27/17 12:30 Glucagon (Glucagon Inj) 1 mg UNSCH PRN OTHER HYPOGLYCEMIA-SEE COMMENTS 04/27/17 12:30 Polyethylene Glycol (Miralax) 17 gm DAILY PO 04/27/17 12:30 04/27/17 13:31 Ergocalciferol (Drisdol) 50,000 units Q7D PO 04/27/17 21:00 04/27/17 20:26 Vital Signs / I&O Vital Signs Date Time Temp Pulse Resp B/P Pulse Ox O2 Delivery O2 Flow Rate FiO2 04/28/17 06:00 75 04/28/17 04:00 73 04/28/17 04:00 97.2 73 26 114/64 97 04/28/17 04:00 Room Air 4.00 04/28/17 02:00 71 04/28/17 00:00 Room Air 4.00 04/28/17 00:00 67 04/28/17 00:00 97.0 70 26 108/62 88 04/27/17 22:00 67 04/27/17 20:48 100 Nasal Cannula 2.00 04/27/17 20:00 97.4 67 27 101/68 99 04/27/17 20:00 67 04/27/17 20:00 Nasal Cannula 4.00 04/27/17 18:00 70 04/27/17 17:00 69 04/27/17 16:00 100 Nasal Cannula 4.00 04/27/17 16:00 97.6 66 23 101/62 97 04/27/17 16:00 66 04/27/17 14:00 67 04/27/17 12:00 99 Nasal Cannula 2.00 04/27/17 12:00 64 04/27/17 12:00 97.9 64 24 110/65 98 04/27/17 10:00 72 04/27/17 08:28 96 04/27/17 08:00 96.8 71 22 130/86 98 04/27/17 08:00 97 Room Air 04/27/17 08:00 71 I/O 04/27/17 04/27/17 04/27/17 04/28/17 04/28/17 04/28/17 07:00 15:00 23:00 07:00 15:00 23:00 Intake Total 100 ml 555 ml 150 ml Output Total 1450 ml 1200 ml 1000 ml 400 ml Balance -1350 ml -645 ml -850 ml -400 ml Intake Oral 100 ml 480 ml 150 ml IV Total 0 ml 75 ml Output Urine Total 1450 ml 1200 ml 1000 ml 400 ml # Bowel Movements 0 0 Physical Exam VSS, afebrile. No JVD Lungs CTA. decreased BS at bases. Heart RRR Ext: No C/C/E Neuro: non-focal. Laboratory Laboratory Tests Test 04/27/17 04/27/17 04/27/17 04/28/17 11:36 11:45 14:02 05:10 White Blood Count 9.8 TH/MM3 10.1 TH/MM3 Red Blood Count 4.52 MIL/MM3 4.50 MIL/MM3 Hemoglobin 13.2 GM/DL 13.3 GM/DL Hematocrit 41.8 % 40.0 % Mean Corpuscular Volume 92.4 FL 88.9 FL Mean Corpuscular Hemoglobin 29.1 PG 29.5 PG Mean Corpuscular Hemoglobin 31.6 % 33.1 % Concent Red Cell Distribution Width 17.5 % 16.9 % Platelet Count 100 TH/MM3 82 TH/MM3 Mean Platelet Volume 11.7 FL 11.9 FL Neutrophils (%) (Auto) 69.8 % 62.5 % Lymphocytes (%) (Auto) 16.1 % 21.1 % Monocytes (%) (Auto) 9.4 % 10.9 % Eosinophils (%) (Auto) 4.4 % 4.9 % Basophils (%) (Auto) 0.3 % 0.6 % Neutrophils # (Auto) 6.8 TH/MM3 6.3 TH/MM3 Lymphocytes # (Auto) 1.6 TH/MM3 2.1 TH/MM3 Monocytes # (Auto) 0.9 TH/MM3 1.1 TH/MM3 Eosinophils # (Auto) 0.4 TH/MM3 0.5 TH/MM3 Basophils # (Auto) 0.0 TH/MM3 0.1 TH/MM3 CBC Comment DIFF FINAL AUTO DIFF Differential Comment AUTO DIFF CONFIRMED Sodium Level 139 MEQ/L 142 MEQ/L Potassium Level 4.4 MEQ/L 4.2 MEQ/L Chloride Level 108 MEQ/L 106 MEQ/L Carbon Dioxide Level 21.7 MEQ/L 27.0 MEQ/L Anion Gap 9 MEQ/L 9 MEQ/L Blood Urea Nitrogen 52 MG/DL 46 MG/DL Creatinine 1.82 MG/DL 1.59 MG/DL Estimat Glomerular Filtration 36 ML/MIN 42 ML/MIN Rate Random Glucose 238 MG/DL 149 MG/DL Calcium Level 8.2 MG/DL 8.4 MG/DL Phosphorus Level 2.4 MG/DL Magnesium Level 2.2 MG/DL Total Bilirubin 1.4 MG/DL 1.3 MG/DL Direct Bilirubin 0.4 MG/DL Aspartate Amino Transf 471 U/L 300 U/L (AST/SGOT) Alanine Aminotransferase 1077 U/L 855 U/L (ALT/SGPT) Alkaline Phosphatase 165 U/L 153 U/L Total Protein 6.3 GM/DL 6.1 GM/DL Albumin 3.2 GM/DL 3.2 GM/DL 25-Hydroxy Vitamin D Total 16.8 ng/ML Complement C3 62 MG/DL Complement C4 24 MG/DL Parathyroid Hormone (Intact) 165.5 PG/ML B-Type Natriuretic Peptide 768 PG/ML Platelet Estimate LOW Platelet Morphology Comment NORMAL Ovalocytes 2+ Imaging Last 48 hours Impressions Chest X-Ray 04/28/17 0600 Signed Impressions: Service Date/Time: Friday, April 28, 2017 05:13 - CONCLUSION: 1. Small right pleural effusion and right basilar atelectasis. 2. Cardiomegaly and previous CABG. Cortez Jung MD Chest X-Ray 04/27/17 0000 Signed Impressions: Service Date/Time: Thursday, April 27, 2017 08:11 - CONCLUSION: No significant interval change. Ryan Infante MD Assessment and Plan Problem List: (1) CHF (congestive heart failure) Assessment and Plan: Compensated. (2) Ischemic cardiomyopathy (3) Renal insufficiency (4) CAD (coronary artery disease) (5) ICD (implantable cardioverter-defibrillator) discharge (6) Atrial tachycardia (7) S/P MANAGEMENT ACCOUNTS MANAGER shunt Assessment and Plan CHF improving. Patient more comfortable today. Ok to change advisor to PO Lasix today. Follow renal function. Rx underlying infection. Dr. Jimenez will be back on Saturday. Mynor Flores MD Apr 28, 2017 07:09
[2017-04-28 07:12] LABS: TOTAL PROTEIN SPE 6.3 GM/DL (6.0-7.6)
[2017-04-28] MEDS: SODIUM CHLORIDE 0.9% FLUSH 10 ML FLUSH IV FLUSH SCH ×2 (08:26→21:28)
[2017-04-28] MEDS: FUROSEMIDE 40 MG/4 ML VIAL IV PUSH SCH (08:26)
[2017-04-28] MEDS: DOCUSATE SODIUM 50 MG/SENNA 8.6 MG TAB PO SCH ×2 (08:27→21:00)
[2017-04-28] MEDS: CLOPIDOGREL 75 MG TAB PO SCH (08:27)
[2017-04-28] MEDS: CARVEDILOL 12.5 MG TAB PO SCH ×2 (08:27→21:28)
[2017-04-28] MEDS: HEPARIN SODIUM - SQ 10,000 UNITS/ML VIAL SQ SCH ×2 (08:27→21:29)
[2017-04-28] MEDS: PANTOPRAZOLE SOD 20 MG DELAYED RELEASE TAB PO SCH (08:28)
[2017-04-28] MEDS: POTASSIUM CHLORIDE 20 MEQ CONTROLLED RELEASE TAB PO SCH ×2 (08:28→21:28)
[2017-04-28] MEDS: POLYETHYLENE GLYCOL 17 GM PKG PO SCH (08:28)
[2017-04-28] MEDS: CYANOCOBALAMIN 1,000 MCG TAB PO SCH (08:28)
--- NOTE | 2017-04-28 10:09 | HHI.CCPN ---
Subjective Remarks/Hospital Course 77 y/o man with long-standing ischemic cardiomyopathy presented through ED with severe SOB. ICD has shocked him once for SVT at 190. Patient is lethargic now and labs consistent with decompensated systolic failure, including hepatic dysfunction and accumulating base deficit. Although heart failure is operative at present the right lower lung process appears to be pneumonia, considerably exacerbating his distress. SUBJ 04/27: Patient feels like his breathing has improved subjectively. He is on nasal cannula. Remains slightly lethargic. No ICD discharge. Bedside ultrasound shows small pleural effusion on the right side with consolidation. Currently receiving Rocephin and azithromycin 04/28: Continued to improve clinically urine output excellent. Breathing comfortably on nasal cannula with good oxygen saturation. Creatinine trending down. Objective Vital Signs Date Time Temp Pulse Resp B/P Pulse Ox O2 Delivery O2 Flow Rate FiO2 04/28/17 06:00 75 04/28/17 04:00 97.2 26 114/64 97 04/28/17 04:00 Room Air 4.00 Intake and Output 04/27/17 04/27/17 04/28/17 08:00 16:00 00:00 Intake Total 100 ml 555 ml 150 ml Output Total 1450 ml 1200 ml 1000 ml Balance -1350 ml -645 ml -850 ml Result Diagram: 04/28/17 0510 04/28/17 0510 Other Results Microbiology Date/Time Procedure Status Source Growth 04/25/17 14:00 Legionella Antigen - Final Complete Urine Random Urine PRESUMPTIVE NEGATIVE FOR LEGIONELLA P... 04/25/17 14:00 Streptococcus pneumoniae Antigen (M - Final Complete Urine Random Urine PRESUMPTIVE NEGATIVE FOR STREPTOCOCCU... Objective Remarks GEN: Elderly male lying in bed, no acute distress Head: Normal. Neck: Supple, airway unobstructed. Lungs: Mild wheezes right side. Bedside ultrasound shows small right effusion and consolidation Heart: NL S1S2, + JVD. Abdomen: Benign, soft. Extremities: Well perfused. 1+ edema lower legs. Neuro: Awake alert oriented no focal deficits A/P Assessment and Plan Assessment: Hypoxemic Respiratory Failure, improving Acute on chronic systolic heart failure. CKD with TRAM. Right lower lobe pneumonia.. SVT. ICD with shock X 1 for SVT 190. Plan: -Good oxygen saturation on nasal cannula -Aggressive iv diuretic therapy. IV Lasix 40 mg every 12, change to by mouth Lasix -Broad abx coverage with Rocephin and azithromycin. Cultures negative to date -PT OOB, EzPAP, Acapella, -Heart healthy diet -Check CMP AM -Bedside ultrasound shows small right pleural effusion and right consolidation -Chemical GI Px. Chemical DVT Px. -Strict I&O. -Hold lisinopril due to TRAM Level 2 CCM will sign off. Re consult if needed. Transfer to Med surg with Tele Larisa Wilde MD Apr 28, 2017 10:09
--- NOTE | 2017-04-28 12:15 | HHI.PR ---
Subjective Subjective Remarks Resting in bed dosing, responds to verbal stimuli Lung volumes much more controlled, no shortness of breath, occasional wheeze noted Febrile Review of Systems Constitutional Constitutional: Fatigue Constitutional Remarks 10 point ROS done. Active diuresis, much more alert today in conversational, in the ICU setting positives noted Pulmonary Respiratory: Coughing (occasional), Shortness of Breath (controlled), Wheezing (mild expiratory) Genitourinary Remarks [place] with active diuresis Musculoskeletal MS: Weakness (gradual improvement), Swelling (mild lower extremity edema) Psychiatric Psychiatric: Normal Mood, Anxiety (mild) Vitals/Results Intake & Output 04/27/17 04/27/17 04/28/17 15:00 23:00 07:00 Intake Total 555 ml 150 ml Output Total 1200 ml 1000 ml 400 ml Balance -645 ml -850 ml -400 ml Intake Oral 480 ml 150 ml IV Total 75 ml Output Urine Total 1200 ml 1000 ml 400 ml # Bowel Movements 0 Vital Signs Vital Signs Date Time Temp Pulse Resp B/P Pulse Ox O2 Delivery O2 Flow Rate FiO2 04/28/17 06:00 75 04/28/17 04:00 73 04/28/17 04:00 97.2 73 26 114/64 97 04/28/17 04:00 Room Air 4.00 04/28/17 02:00 71 04/28/17 00:00 Room Air 4.00 04/28/17 00:00 67 04/28/17 00:00 97.0 70 26 108/62 88 04/27/17 22:00 67 04/27/17 20:48 100 Nasal Cannula 2.00 04/27/17 20:00 97.4 67 27 101/68 99 04/27/17 20:00 67 04/27/17 20:00 Nasal Cannula 4.00 04/27/17 18:00 70 04/27/17 17:00 69 04/27/17 16:00 100 Nasal Cannula 4.00 04/27/17 16:00 97.6 66 23 101/62 97 04/27/17 16:00 66 04/27/17 14:00 67 CBC/BMP: 04/28/17 0510 04/28/17 0510 Lab Results Laboratory Tests Test 04/27/17 04/28/17 14:02 05:10 B-Type Natriuretic Peptide 768 PG/ML White Blood Count 10.1 TH/MM3 Red Blood Count 4.50 MIL/MM3 Hemoglobin 13.3 GM/DL Hematocrit 40.0 % Mean Corpuscular Volume 88.9 FL Mean Corpuscular Hemoglobin 29.5 PG Mean Corpuscular Hemoglobin 33.1 % Concent Red Cell Distribution Width 16.9 % Platelet Count 82 TH/MM3 Mean Platelet Volume 11.9 FL Neutrophils (%) (Auto) 62.5 % Lymphocytes (%) (Auto) 21.1 % Monocytes (%) (Auto) 10.9 % Eosinophils (%) (Auto) 4.9 % Basophils (%) (Auto) 0.6 % Neutrophils # (Auto) 6.3 TH/MM3 Lymphocytes # (Auto) 2.1 TH/MM3 Monocytes # (Auto) 1.1 TH/MM3 Eosinophils # (Auto) 0.5 TH/MM3 Basophils # (Auto) 0.1 TH/MM3 CBC Comment AUTO DIFF Differential Comment AUTO DIFF CONFIRMED Platelet Estimate LOW Platelet Morphology Comment NORMAL Ovalocytes 2+ Sodium Level 142 MEQ/L Potassium Level 4.2 MEQ/L Chloride Level 106 MEQ/L Carbon Dioxide Level 27.0 MEQ/L Anion Gap 9 MEQ/L Blood Urea Nitrogen 46 MG/DL Creatinine 1.59 MG/DL Estimat Glomerular Filtration 42 ML/MIN Rate Random Glucose 149 MG/DL Calcium Level 8.4 MG/DL Total Bilirubin 1.3 MG/DL Aspartate Amino Transf 300 U/L (AST/SGOT) Alanine Aminotransferase 855 U/L (ALT/SGPT) Alkaline Phosphatase 153 U/L Total Protein 6.1 GM/DL Albumin 3.2 GM/DL Physical Exam General General Appearance: Well Developed, Comfortable Eyes Eye Exam: Pupils Equal, Pupils Reactive Ears & Nose Ears & Nose Exam: Nasal Mucosa [place] Throat Throat Exam: Oral Mucosa [place] & Moist Neck Neck Exam: Neck Supple Pulmonary Resp Exam: Decreased Bases, Diminished Breath Sounds, Poor Inspiratory Effort ( low volumes) Resp Remarks Mild expiratory wheezes noted, continue by mouth Lasix Cardiology CV Exam: Regular, Normal Sinus Rhythm CV Remarks Telemetry on transfer Gastrointestinal/Abdomen GI Exam: Soft, Non-Tender Genitourinary Exam: Clear Urine (orange clear via [place]) Musculoskeletal MS Exam: Joints Intact Integumentary Skin Exam: Clear, Warm Extremeties Extremities Exam: Trace Edema Neurologic Neuro Exam: Alert, Awake Neuro Remarks Speech is slow, much clear, she responsive today to verbal stimuli, AMS has resolved Psychiatric Psych Exam: Appropriate Responses Assessment/Plan Assessment/Plan Vital signs monitored, much more controlled respiratory rate, adequate volumes, febrile Labs reviewed , acute kidney injury mild improvement, still persist, LFTs have been elevated but decreased trends for now, thrombocytopenia , mild changes but no acute bleeding noted Pneumonia with leukocytosis Continue empiric antibiotic, oxygen O2 per nasal cannula, duo nebs Blood cultures negative so far Atrial tachycardia 190s on adm., ICD shock X 1, converted to SR, patient denies any chest pain. Continuous monitoring sinus rhythm, no acute dysrhythmias noted Acute exacerbation of chronic systolic congestive heart failure. Appreciate cardiac input with medical management. Patient responded well with IV Lasix congestive heart failure stabilized, patient has been transitioned to 40 mg of Lasix by mouth twice a day, continue to monitor strict I&O. We will transfer out of the intensive care setting to telemetry medical floor. Ischemic cardiomyopathy with moderate left ventricular systolic function (an ejection fraction of 35%). Appreciate cardiology consult and assistance with medical management Coronary artery disease with history of myocardial infarction and coronary bypass and coronary stenting., Normal function of [employer] dual-chamber defibrillator. Pending treated for CHF Acute renal insufficiency. Tinea to monitor and hold lisinopril for now Diabetes mellitus, added back Accu-Cheks before meals and at bedtime with sliding scale, monitor blood sugars and insulin management. Hyperglycemia noted History of hydrocephalus, status post shunt placement., Medical management Patient oriented and understands current medical situation, sleeping this a.m. without shortness of breath. Will transition to telemetry medical floor, continued to monitor any changes in his mental status Thrombocytopenia monitor labs, no acute bleeding noted Elevated liver enzymes, trending down on labs, etiology?, monitor, meds? Bowel regimen, MiraLAX started yesterday positive results Discussed with patient Discussed with nurse Discussed with Dr. Ha, patient seen on his behalf Zahida Calderon Apr 28, 2017 12:15
[2017-04-28] MEDS: cefTRIAXone INJ 1,000 MG in SODIUM CHLORIDE 0.9% INJ 100 ML IV SCH (15:15)
[2017-04-28] MEDS: AZITHROMYCIN INJ 500 MG in SODIUM CHLOR 0.9% 250 ML INJ 250 ML IV SCH (15:16)
[2017-04-28] MEDS: RESP: ALBUTEROL 2.5 MG/IPRATROPIUM 0.5 MG NEB (SCH) NEB ×3 (15:49→23:34)
[2017-04-28 16:40] LABS: BLOOD GAS BASE EXCESS -0.8 mmol/L (-2-2); BLOOD GAS CARBOXYHEMOGLOBIN 1.3 % (0-4); BLOOD GAS HCO3 22 mmol/L (22-26); BLOOD GAS METHEMOGLOBIN 0.4 % (0-2); BLOOD GAS O2 HGB SATURATION 96 % (90-100); BLOOD GAS OXYGEN CONTENT 17.5 Vol % (12.0-20.0); BLOOD GAS PCO2 26 mmHg (38-42); BLOOD GAS PO2 92 mmHG (61-120); BLOOD GAS TOTAL HGB 12.9 G/DL (12.0-16.0); TEMP CORR TO 98.6
[2017-04-28 16:46] LABS: CRITICAL VALUE YES; FIO2 21 %
[2017-04-28 16:47] LABS: DRAW SITE RT RADIAL; NUMBER OF ARTERIAL PUNCTURES 1; ULNAR PULSE PRESENT
[2017-04-28 16:48] LABS: STAT NO
[2017-04-28] MEDS: FUROSEMIDE 40 MG TAB PO SCH (18:00)
--- NOTE | 2017-04-28 19:30 | HHI.NPPN ---
Subjective History of Present Illness This patient is a 77-year-old male with a history of multiple medical problems including a history of ischemic heart disease an ejection fraction said to be 35 %, congestive heart failure, atrial flutter, defibrillator placement present with a history of increasing shortness of breath and history of defibrillator firing. On reviewing previous records patient's serum creatinine level has been fluctuating over the last several months noted to have been 1.25 back in February, with a previous level of 1.10 December 2016. On presentation on this occasion creatinine level was 2.14 improving to 1.95 date of consultation. Patient indicated that his shortness of breath has improved since admission. Denies using NSAIDs for analgesia. Indicating that he has had urinary hesitancy and mentioned that his urine has been somewhat pink a few days prior to admission. He follows with Dr. Friedman, urology, as an outpatient. Specific urological records not available to me. Interval History Patient resting comfortably and appears alert. No complaints. Objective Data Data 04/27/17 04/28/17 19:00 07:00 Intake Total 555 ml 150 ml Output Total 1200 ml 1400 ml Balance -645 ml -1250 ml Intake Oral 480 ml 150 ml IV Total 75 ml Output Urine Total 1200 ml 1400 ml # Bowel Movements 0 Vital Signs Date Time Temp Pulse Resp B/P Pulse Ox O2 Delivery O2 Flow Rate FiO2 04/28/17 16:00 97.4 70 18 100/63 98 04/28/17 15:57 94 21 04/28/17 12:00 97.7 67 18 114/63 98 04/28/17 12:00 Room Air 4.00 04/28/17 08:00 Room Air 4.00 04/28/17 06:00 75 04/28/17 04:00 73 04/28/17 04:00 97.2 73 26 114/64 97 04/28/17 04:00 Room Air 4.00 04/28/17 02:00 71 04/28/17 00:00 Room Air 4.00 04/28/17 00:00 67 04/28/17 00:00 97.0 70 26 108/62 88 04/27/17 22:00 67 04/27/17 20:48 100 Nasal Cannula 2.00 04/27/17 20:00 97.4 67 27 101/68 99 04/27/17 20:00 67 04/27/17 20:00 Nasal Cannula 4.00 -: 04/28/17 0510 04/28/17 0510 Physical Exam General Appearance: Well Developed, Comfortable Eyes Eye Exam: Pupils Equal, Pupils Reactive Ears & Nose Ears & Nose Exam: Nasal Mucosa [place] Throat Throat Exam: Oral Mucosa [place] & Moist Neck Neck Exam: Neck Supple Pulmonary Resp Exam: Decreased Bases, Diminished Breath Sounds, Poor Inspiratory Effort ( low volumes) Cardiology CV Exam: Regular, Normal Sinus Rhythm Gastrointestinal/Abdomen GI Exam: Soft, Non-Tender Genitourinary Exam: Clear Urine (orange clear via [place]) Musculoskeletal MS Exam: Joints Intact Integumentary Skin Exam: Clear, Warm Extremeties Extremities Exam: Trace Edema Neurologic Neuro Exam: Alert, Awake Psychiatric Psych Exam: Appropriate Responses Assessment/Plan Problem List: (1) Acute kidney injury Plan: Acute on chronic renal insufficiency. Improvement with diuresis consistent with cardiorenal syndrome. Cardiology note reviewed. Agree with change to by mouth diuretics. The patient was counseled regarding status of his renal function and pathogenesis as well as need to avoid NSAIDs for analgesia in the future in view of his history of congestive heart failure. At this point in time we'll sign off. Please call if necessary. Medications should be adjusted for the patient's estimated GFR if clinically indicated. Avoid agents with significant potential for nephrotoxicity possible including NSAIDs for analgesia, iodine contrast agents. Gadolinium is contraindicated if the GFR is below 30. (2) CHF (congestive heart failure) Plan: Continue on diuretics as ordered (3) Diabetes Plan: Management per primary care physician. Plan Continue diuresis as ordered. Creatinine level is slowly improving. Component of cardiorenal syndrome is considered to be present at this time. Patient also has a vitamin D deficiency with secondary hyperparathyroidism. Vitamin D supplementation as ordered. The exam, history, and the medical decision-making described in the above note were completed with the assistance of the PAMan. I reviewed and agree with the findings presented. I attest that I had a [id number] encounter with the patient on the same day, and personally performed and documented my assessment and findings in the medical record. Beth Becerril MD Apr 28, 2017 19:30
[2017-04-28] MEDS: MIRTAZAPINE 15 MG TAB PO SCH (21:27)
[2017-04-28] MEDS: ATORVASTATIN 80 MG TAB PO SCH (21:28)
[2017-04-28] MEDS: PROMETHAZINE HCL 25 MG TAB PO SCH (21:28)
[2017-04-28] MEDS: ASPIRIN 81 MG CHEW TAB CHEW SCH (21:28)
[2017-04-29] VITALS (8 sets, daily range): BP systolic 91–129; BP diastolic 66–98; PULSE 65–94; RESP 16–20; TEMP 97–98.4; O2SAT 95–100
[2017-04-29] MEDS: RESP: ALBUTEROL 2.5 MG/IPRATROPIUM 0.5 MG NEB (SCH) NEB ×6 (03:26→23:26)
[2017-04-29] MEDS: CHLORHEXIDINE GLUCONATE 2 % 1 PACK (2 CLOTHS)(taper/protocol) TOPICAL SCH (04:00)
[2017-04-29] MEDS: LEVOTHYROXINE SODIUM 112 MCG TAB PO SCH (06:18)
[2017-04-29] MEDS: INSULIN NovoLIN REGULAR SUPPLEMENTAL SCALE SQ SCH ×4 (06:18→22:16)
[2017-04-29] MEDS: POLYETHYLENE GLYCOL 17 GM PKG PO SCH (09:00)
[2017-04-29] MEDS: PANTOPRAZOLE SOD 20 MG DELAYED RELEASE TAB PO SCH (10:07)
[2017-04-29] MEDS: FUROSEMIDE 40 MG TAB PO SCH ×2 (10:07→18:00)
[2017-04-29] MEDS: DOCUSATE SODIUM 50 MG/SENNA 8.6 MG TAB PO SCH ×2 (10:07→21:00)
[2017-04-29] MEDS: CYANOCOBALAMIN 1,000 MCG TAB PO SCH (10:07)
[2017-04-29] MEDS: POTASSIUM CHLORIDE 20 MEQ CONTROLLED RELEASE TAB PO SCH ×2 (10:08→22:13)
[2017-04-29] MEDS: CLOPIDOGREL 75 MG TAB PO SCH (10:08)
[2017-04-29] MEDS: CARVEDILOL 12.5 MG TAB PO SCH ×2 (10:08→22:13)
[2017-04-29] MEDS: SODIUM CHLORIDE 0.9% FLUSH 10 ML FLUSH IV FLUSH SCH ×2 (10:08→22:15)
[2017-04-29] MEDS: HEPARIN SODIUM - SQ 10,000 UNITS/ML VIAL SQ SCH (10:09)
--- NOTE | 2017-04-29 13:40 | PD.CARD.PN ---
Subjective Subjective Remarks No CP or SOB, feels much better, no ICD shocks or arrhythmias Objective Medications Current Medications Medications (Trade) Dose Ordered Sig/Saad Route Start Time Stop Time Status Last Admin (NS Flush) 2 ml UNSCH PRN IV FLUSH 04/25/17 15:45 04/26/17 20:38 (NS Flush) 2 ml BID IV FLUSH 04/25/17 21:00 04/29/17 10:08 (Tylenol) 650 mg Q4H PRN PO 04/25/17 15:45 (Zofran Inj) 4 mg Q6H PRN IVP 04/25/17 15:45 (Narcan Inj) 0.4 mg UNSCH PRN IV 04/25/17 15:45 (Coretta-Colace) 1 tab BID PO 04/25/17 21:00 04/29/17 10:07 (Milk Of Magnesia Liq) 30 ml Q12H PRN PO 04/25/17 15:45 (Senokot) 17.2 mg Q12H PRN PO 04/25/17 15:45 (Dulcolax Supp) 10 mg DAILY PRN RECTAL 04/25/17 15:45 (Lactulose Liq) 30 ml DAILY PRN PO 04/25/17 15:45 (Aspirin Chew) 81 mg HS CHEW 04/25/17 21:00 04/28/17 21:28 (Lipitor) 80 mg HS PO 04/25/17 21:00 04/28/17 21:28 (Coreg) 12.5 mg BID PO 04/25/17 21:00 04/29/17 10:08 (Plavix) 75 mg DAILY PO 04/25/17 17:00 04/29/17 10:08 (Vitamin B12) 1,000 mcg DAILY PO 04/25/17 17:00 04/29/17 10:07 (Synthroid) 112 mcg DAILY@06 PO 04/25/17 20:00 04/29/17 06:18 (Prinivil) 5 mg HS PO 04/25/17 21:00 Hold 04/26/17 20:39 (Remeron) 15 mg HS PO 04/25/17 21:00 04/28/17 21:27 (KCl) 20 meq BID PO 04/25/17 21:00 04/29/17 10:08 Promethazine HCl 25 mg 25 mg HS PO 04/25/17 21:00 04/28/17 21:28 Ceftriaxone Sodium 1000 mg/ Sodium Chloride 100 ml @ 200 mls/hr Q24H IV 04/26/17 14:00 04/28/17 15:15 (Zithromax Inj/ NS 250 ml Inj) 250 ml @ 250 mls/hr Q24H IV 04/26/17 15:00 04/28/17 15:16 (Protonix) 20 mg DAILY PO 04/25/17 17:15 04/29/17 10:07 (Heparin Inj) 5,000 units Q12HR SQ 04/25/17 21:00 04/29/17 10:09 Miscellaneous Information Patient in critical care unit? Ass... Q361D .XX 04/26/17 23:45 04/26/17 23:45 (Chlorhexidine 2% Cloth) 3 pack DAILY@04 TOPICAL 04/27/17 04:00 05/01/17 04:01 04/28/17 04:00 (Chlorhexidine 2% Cloth) 3 pack UNSCH PRN TOPICAL 04/26/17 23:45 05/01/17 23:44 (D50w (Vial) Inj) 50 ml UNSCH PRN IV 04/27/17 12:30 (Glucagon Inj) 1 mg UNSCH PRN OTHER 04/27/17 12:30 (Miralax) 17 gm DAILY PO 04/27/17 12:30 04/27/17 13:31 (Drisdol) 50,000 units Q7D PO 04/27/17 21:00 04/27/17 20:26 (Lasix) 40 mg BID@,18 PO 04/28/17 18:00 04/29/17 10:07 Vital Signs / I&O Vital Signs Date Time Temp Pulse Resp B/P Pulse Ox O2 Delivery O2 Flow Rate FiO2 04/29/17 12:00 97.0 66 18 129/72 100 04/29/17 08:00 97.0 67 18 111/75 95 04/29/17 04:00 97.6 66 18 115/70 98 04/29/17 04:00 Room Air 04/29/17 00:00 Room Air 04/29/17 00:00 98.0 65 18 108/98 99 04/28/17 20:15 67 04/28/17 20:00 97.7 69 18 108/70 98 04/28/17 20:00 Room Air 04/28/17 16:00 97.4 70 18 100/63 98 04/28/17 15:57 94 21 I/O 04/28/17 04/28/17 04/28/17 04/29/17 04/29/17 04/29/17 07:00 15:00 23:00 07:00 15:00 23:00 Intake Total 480 ml 240 ml 240 ml Output Total 400 ml 1225 ml 600 ml 700 ml Balance -400 ml -745 ml -360 ml -460 ml Intake Oral 480 ml 240 ml 240 ml IV Total 0 ml Output Urine Total 400 ml 1225 ml 600 ml 700 ml # Bowel Movements 1 1 1 Physical Exam GENERAL: In NAD SKIN: Warm and dry. HEAD: Normocephalic. EYES: No scleral icterus. No injection or drainage. NECK: Supple, trachea midline. No JVD or lymphadenopathy. CARDIOVASCULAR: Regular rate and rhythm without murmurs, gallops, or rubs. RESPIRATORY: Breath sounds equal bilaterally. No accessory muscle use. Clear. GASTROINTESTINAL: Abdomen soft, non-tender, nondistended. MUSCULOSKELETAL: No cyanosis, or edema. Laboratory Laboratory Tests Test 04/28/17 16:24 Blood Gas Puncture Site RT RADIAL Blood Gas Patient Temperature 98.6 Blood Gas HCO3 22 mmol/L Blood Gas Base Excess -0.8 mmol/L Blood Gas Oxygen Saturation 96 % Arterial Blood pH 7.53 Arterial Blood Partial 26 mmHg Pressure CO2 Arterial Blood Partial 92 mmHG Pressure O2 Arterial Blood Oxygen Content 17.5 Vol % Arterial Blood 1.3 % Carboxyhemoglobin Arterial Blood Methemoglobin 0.4 % Blood Gas Hemoglobin 12.9 G/DL Blood Gas Inspired Oxygen 21 % Imaging Last Impressions Chest X-Ray 04/28/17 0600 Signed Impressions: Service Date/Time: Friday, April 28, 2017 05:13 - CONCLUSION: 1. Small right pleural effusion and right basilar atelectasis. 2. Cardiomegaly and previous CABG. Cortez Jung MD Renal Ultrasound 04/26/17 0000 Signed Impressions: Service Date/Time: Wednesday, April 26, 2017 22:33 - CONCLUSION: 1. Echogenic kidneys which can be seen with medical renal disease. 2. Possible nonobstructing calculus in the lower pole left kidney measuring 12 mm. 3. Simple cyst left kidney. 4. Bilateral pleural effusions. 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 Continue tx for CHF including diuresis, switched to PO furosemide. Continue monitoring, recent shock for AT, no recurrence. Monitor renal fx, seen by Dr. Becerril, renal insufficiency felt to be related to cardiorenal syndrome rather than dehydration. Stays in bed, will increase activity today. Josesito Jimenez MD Apr 29, 2017 13:40
[2017-04-29] MEDS: cefTRIAXone INJ 1,000 MG in SODIUM CHLORIDE 0.9% INJ 100 ML IV SCH (14:41)
[2017-04-29] MEDS: AZITHROMYCIN INJ 500 MG in SODIUM CHLOR 0.9% 250 ML INJ 250 ML IV SCH (15:21)
--- NOTE | 2017-04-29 15:47 | HHI.PR ---
Subjective Subjective Remarks no cp no firing of AICD no sob no fever weakness improving wants to get out and be more active per pt, weak, could not ambulate past the door pt. wants to go home Review of Systems Constitutional Constitutional Remarks 12 point ros completed, negative except as noted above Vitals/Results Intake & Output 04/28/17 04/28/17 04/29/17 15:00 23:00 07:00 Intake Total 480 ml 240 ml 240 ml Output Total 1225 ml 600 ml 700 ml Balance -745 ml -360 ml -460 ml Intake Oral 480 ml 240 ml 240 ml IV Total 0 ml Output Urine Total 1225 ml 600 ml 700 ml # Bowel Movements 1 1 1 Vital Signs Vital Signs Date Time Temp Pulse Resp B/P Pulse Ox O2 Delivery O2 Flow Rate FiO2 04/29/17 12:00 97.0 66 18 129/72 100 04/29/17 12:00 Room Air 4.00 21 04/29/17 08:00 97.0 67 18 111/75 95 04/29/17 08:00 Room Air 4.00 21 04/29/17 04:00 97.6 66 18 115/70 98 04/29/17 04:00 Room Air 04/29/17 00:00 Room Air 04/29/17 00:00 98.0 65 18 108/98 99 04/28/17 20:15 67 04/28/17 20:00 97.7 69 18 108/70 98 04/28/17 20:00 Room Air 04/28/17 16:00 97.4 70 18 100/63 98 04/28/17 15:57 94 21 CBC/BMP: 04/28/17 0510 04/28/17 0510 Lab Results Laboratory Tests Test 04/28/17 16:24 Blood Gas Puncture Site RT RADIAL Blood Gas Patient Temperature 98.6 Blood Gas HCO3 22 mmol/L Blood Gas Base Excess -0.8 mmol/L Blood Gas Oxygen Saturation 96 % Arterial Blood pH 7.53 Arterial Blood Partial 26 mmHg Pressure CO2 Arterial Blood Partial 92 mmHG Pressure O2 Arterial Blood Oxygen Content 17.5 Vol % Arterial Blood 1.3 % Carboxyhemoglobin Arterial Blood Methemoglobin 0.4 % Blood Gas Hemoglobin 12.9 G/DL Blood Gas Inspired Oxygen 21 % Physical Exam General General Appearance: Well Developed, Comfortable Eyes Eye Exam: Pupils Equal, Pupils Reactive Ears & Nose Ears & Nose Exam: Nasal Mucosa [place] Throat Throat Exam: Oral Mucosa [place] & Moist Neck Neck Exam: Neck Supple Pulmonary Resp Exam: Decreased Bases, Diminished Breath Sounds, Poor Inspiratory Effort ( low volumes) Cardiology CV Exam: Regular, Normal Sinus Rhythm Gastrointestinal/Abdomen GI Exam: Soft, Non-Tender, Non-Distended Musculoskeletal MS Exam: Joints Intact Integumentary Skin Exam: Clear, Warm, Dry Extremeties Extremities Exam: Pedal Pulses Palpable, Trace Edema Neurologic Neuro Exam: Alert, Awake, Oriented, Speech Clear, Moving All Extremities, No Focal Deficits Psychiatric Psych Exam: Appropriate Responses VTE Prophylaxis VTE Prophylaxis Meds: Heparin PUD Prophylasis PUD Prophylaxis: Protonix Assessment/Plan Assessment/Plan 1. Acute exacerbation of CHF 2. AICD firing 3. 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 HTN 5. Acute Renal Failure- Prerenal 6. Shock liver 7. anticoagulation not at goal 8. Leukocytosis 9. Thrombocytopenia 10. RLL pneumonia 11. DM II Plan CHF, AICD shock, cardiomyopathy (EF 35), CAD continue with PO Lasix, BB INDIRA on hold due to renal dysfunction appreciate card input TRAM appreciate nephrology input renal function improving avoid nephrotoxic agents may resume Lisinopril soon as renal function improves Transaminitis, LFTs trending down, poss. sec. to hepatorenal syndrome from CHF repeat LFTs hold statins for now Liver US Hepatitis profile in am PNA WBC improving change to PO abx cultures negative continue oxygen, duonebs DM II continue with Accu-Cheks before meals and at bedtime with sliding scale History of hydrocephalus, status post shunt placement PT for eval and tx, OOB with assistance Thrombocytopenia Plat stable no bleeding hold Heparin CM consult for dc planning, [facility] vs SN[facility] PT eval, oob with assistance Labs in am SCDs for DVT prophylaxis Heparin on hold for now Poss dc tomorrow home vs snf D/W RN D/W pt D/W Dr. Ha This patient was seen by myself and Dr. Ha, this note is written on his behalf Bridget Kaba Apr 29, 2017 15:47
--- NOTE | 2017-04-29 15:48 | HHI.FF ---
Face to Face Verification Diagnosis: (1) CHF (congestive heart failure) (2) Acute kidney injury (3) Atrial tachycardia Physical Therapy Order: Evaluate and Treat Home Health Nursing Order: Medical education Signs/symptoms of disease process CHF education Nursing assessment with vital signs Sandblast Operator Order: To Evaluate: Support services Order: To Provide: Community services I have seen patient Mac Reilly on 04/29/17. My clinical findings support the need for the requested home health care services because: Patient has SOB Deconditioned w/ increased weakness Need for psychosocial assistance Impaired cognition/judgement I certify that my clinical findings support that this patient is homebound because: Unsteady gait/balance Need for psychosocial assistance Poor cardiac reserve Bridget Kaba [facility] Apr 29, 2017 15:48
[2017-04-29] MEDS: PROMETHAZINE HCL 25 MG TAB PO SCH (21:00)
[2017-04-29] MEDS: ASPIRIN 81 MG CHEW TAB CHEW SCH (22:12)
[2017-04-29] MEDS: MIRTAZAPINE 15 MG TAB PO SCH (22:14)
[2017-04-29] MEDS: CEFUROXIME AXETIL 250 MG TAB PO SCH (22:15)
--- NOTE | 2017-04-29 22:40 | RADRPT ---
EXAM DATE/TIME: 04/29/2017 21:34 [place] COMPARISON: No previous studies available for comparison. INDICATIONS : Increased lab values. MEDICAL HISTORY : Parkinson's. Myocardial infarction. Congestive heart failure. Normal pressure hydrocephalus. CAD. Hyp ercholesterolemia. Chest pain. Afib. Dyspnea. Hematuria. Diabetes. Anticoagulant therapy, Plavix. Cdi ff. VRE (urine). SURGICAL HISTORY : CABG. Coronary artery stent. Pacemaker. [employer] shunt. Appendectomy. Cholecystectomy. Blood transfusions. ENCOUNTER: Initial ACUITY: 4-6 days PAIN SCORE: 4/10 LOCATION: Bilateral upper quadrant MEASUREMENTS: LIVER: 17.4 cm length COMMON DUCT: 2 mm RIGHT KIDNEY: 9.5 x 5.5 x 5.9 cm SPLEEN: 10.9 cm length FINDINGS: LIVER: The liver is mildly prominent with mildly increased echotexture without focal lesion or ductal dilata tion. A small right pleural effusion is noted. COMMON DUCT: No intraluminal mass or stone visualized. GALLBLADDER: Status post cholecystectomy. PANCREAS: The visualized portions are within normal limits. RIGHT KIDNEY: No hydronephrosis, stone or mass. SPLEEN: No focal lesion. CONCLUSION: 1. Status post cholecystectomy. 2. The liver is mildly increased in echogenicity most characteristic of fatty infiltration. The liver is also mildly prominent. 3. Small right pleural effusion. Waldemar Alicia MD on April 29, 2017 at 22:35 Board Certified Radiologist. This report was verified electronically.
[2017-04-30] VITALS: BP 121/74; PULSE 70; RESP 16; TEMP 97.7; O2SAT 96
[2017-04-30 04:00] VITALS: BP 118/76; PULSE 66; RESP 18; TEMP 97.2; O2SAT 97
[2017-04-30] MEDS: CHLORHEXIDINE GLUCONATE 2 % 1 PACK (2 CLOTHS)(taper/protocol) TOPICAL SCH (04:00)
[2017-04-30] MEDS: RESP: ALBUTEROL 2.5 MG/IPRATROPIUM 0.5 MG NEB (SCH) NEB ×3 (04:10→12:37)
[2017-04-30] MEDS: LEVOTHYROXINE SODIUM 112 MCG TAB PO SCH (05:29)
[2017-04-30] MEDS: INSULIN NovoLIN REGULAR SUPPLEMENTAL SCALE SQ SCH ×2 (06:03→12:07)
[2017-04-30 08:00] VITALS: BP 135/71; PULSE 65; RESP 20; TEMP 97.5; O2SAT 94
[2017-04-30 08:14] VITALS: O2SAT 96
[2017-04-30] MEDS: DOCUSATE SODIUM 50 MG/SENNA 8.6 MG TAB PO SCH (09:00)
[2017-04-30] MEDS: POLYETHYLENE GLYCOL 17 GM PKG PO SCH (09:00)
[2017-04-30] MEDS: CLOPIDOGREL 75 MG TAB PO SCH (09:12)
[2017-04-30] MEDS: POTASSIUM CHLORIDE 20 MEQ CONTROLLED RELEASE TAB PO SCH (09:12)
[2017-04-30] MEDS: CARVEDILOL 12.5 MG TAB PO SCH (09:12)
[2017-04-30] MEDS: CYANOCOBALAMIN 1,000 MCG TAB PO SCH (09:12)
[2017-04-30] MEDS: FUROSEMIDE 40 MG TAB PO SCH (09:12)
[2017-04-30] MEDS: PANTOPRAZOLE SOD 20 MG DELAYED RELEASE TAB PO SCH (09:13)
[2017-04-30] MEDS: SODIUM CHLORIDE 0.9% FLUSH 10 ML FLUSH IV FLUSH SCH (09:13)
[2017-04-30 09:16] LABS: ALBUMIN SPE 4.09 GM/DL (3.50-5.00); ALPHA 1 GLOBULIN 0.23 GM/DL (0.11-0.29); ALPHA 2 GLOBULIN 0.67 GM/DL (0.22-1.00); BETA GLOBULINS (SPE) 0.58 GM/DL (0.53-1.03)
[2017-04-30] MEDS: CEFUROXIME AXETIL 250 MG TAB PO SCH (10:29)
[2017-04-30] MEDS ORDERED: BENZONATATE 100 MG CAP PO PRN (10:30)
[2017-04-30 11:07] LABS: ALKALINE PHOSPHATASE 195 U/L (45-117); ALT (GPT) 562 U/L (12-78); ANION GAP 7 MEQ/L (5-15); AST (GOT) 139 U/L (15-37); BICARBONATE 29.6 MEQ/L (21.0-32.0); BLOOD UREA NITROGEN 34 MG/DL (7-18); CHLORIDE 104 MEQ/L (98-107); GLOMERULAR FILTRATION RATE 44 ML/MIN (>89); POTASSIUM 4.4 MEQ/L (3.5-5.1); SODIUM (NA) 141 MEQ/L (136-145); TOTAL BILIRUBIN ADULT 1.4 MG/DL (0.2-1.0)
[2017-04-30 12:00] VITALS: BP 138/90; PULSE 70; RESP 20; TEMP 97.9; O2SAT 96
--- NOTE | 2017-04-30 13:05 | HHI.PR ---
Subjective Subjective Remarks no cp no firing of AICD no sob no fever at times dizzy when getting out of bed and feeling tired pt. deconditioned however he is adamant to go home with hhc tearful, states she will get help from a friend to assist in addition to hhc and pt (Bridget Kaba) Review of Systems Constitutional Constitutional Remarks 12 point ros completed, negative except as noted above (Bridget Kaba) Vitals/Results Intake & Output 04/29/17 04/29/17 04/30/17 15:00 23:00 07:00 Intake Total 480 ml 240 ml Output Total 800 ml 250 ml 200 ml Balance -320 ml -250 ml 40 ml Intake Oral 480 ml 240 ml IV Total 0 ml Output Urine Total 800 ml 250 ml 200 ml # Bowel Movements 1 Vital Signs Vital Signs Date Time Temp Pulse Resp B/P Pulse Ox O2 Delivery O2 Flow Rate FiO2 04/30/17 12:00 97.9 70 20 138/90 96 04/30/17 08:30 Room Air 04/30/17 08:14 96 21 04/30/17 08:00 97.5 65 20 135/71 94 04/30/17 04:00 97.2 66 18 118/76 97 04/30/17 00:00 97.7 70 16 121/74 96 04/29/17 20:12 98 Nasal Cannula 21 04/29/17 20:00 Room Air 3.00 04/29/17 20:00 98.4 74 16 126/77 95 04/29/17 20:00 72 04/29/17 16:00 97.0 94 20 91/66 98 04/29/17 16:00 Room Air (Bridget Kaba) CBC/BMP: 04/28/17 0510 04/30/17 0859 Lab Results Laboratory Tests Test 04/30/17 08:59 Sodium Level 141 MEQ/L Potassium Level 4.4 MEQ/L Chloride Level 104 MEQ/L Carbon Dioxide Level 29.6 MEQ/L Anion Gap 7 MEQ/L Blood Urea Nitrogen 34 MG/DL Creatinine 1.53 MG/DL Estimat Glomerular Filtration 44 ML/MIN Rate Random Glucose 158 MG/DL Calcium Level 8.8 MG/DL Total Bilirubin 1.4 MG/DL Aspartate Amino Transf 139 U/L (AST/SGOT) Alanine Aminotransferase 562 U/L (ALT/SGPT) Alkaline Phosphatase 195 U/L Total Protein 6.6 GM/DL Albumin 3.4 GM/DL Hepatitis A IgM Antibody NEGATIVE Hepatitis B Surface Antigen NEGATIVE Hepatitis B Core IgM Antibody NEGATIVE Hepatitis C Antibody NEGATIVE (Bridget Kaba. SENIOR BIOINFORMATICS SPECIALIST) Physical Exam General General Appearance: Well Developed, Comfortable (Bridget Kaba G. SENIOR BIOINFORMATICS SPECIALIST) Eyes Eye Exam: Pupils Equal, Pupils Reactive (Bridget Kaba. SENIOR BIOINFORMATICS SPECIALIST) Ears & Nose Ears & Nose Exam: Nasal Mucosa [place] (Bridget Kaba G. SENIOR BIOINFORMATICS SPECIALIST) Throat Throat Exam: Oral Mucosa [place] & Moist (Bridget Kaba G. SENIOR BIOINFORMATICS SPECIALIST) Neck Neck Exam: Neck Supple (Bridget Kaba. SENIOR BIOINFORMATICS SPECIALIST) Pulmonary Resp Exam: Decreased Bases, Diminished Breath Sounds, Poor Inspiratory Effort ( low volumes) (Bridget Kaba G. SENIOR BIOINFORMATICS SPECIALIST) Cardiology CV Exam: Regular, Normal Sinus Rhythm (Bridget Kaba G. SENIOR BIOINFORMATICS SPECIALIST) Gastrointestinal/Abdomen GI Exam: Soft, Non-Tender, Non-Distended (Bridget Kaba G. SENIOR BIOINFORMATICS SPECIALIST) Musculoskeletal MS Exam: Joints Intact (Bridget Kaba. SENIOR BIOINFORMATICS SPECIALIST) Integumentary Skin Exam: Clear, Warm, Dry (Bridget Kaba. SENIOR BIOINFORMATICS SPECIALIST) Extremeties Extremities Exam: Pedal Pulses Palpable, Trace Edema (Bridget Kaba G. SENIOR BIOINFORMATICS SPECIALIST) Neurologic Neuro Exam: Alert, Awake, Oriented, Speech Clear, Moving All Extremities, No Focal Deficits (Bridget Kaba G. SENIOR BIOINFORMATICS SPECIALIST) Psychiatric Psych Exam: Appropriate Responses (Bridget Kaba G. SENIOR BIOINFORMATICS SPECIALIST) VTE Prophylaxis VTE Prophylaxis Meds: Heparin (Bridget Kaba G. SENIOR BIOINFORMATICS SPECIALIST) PUD Prophylasis PUD Prophylaxis: Protonix (Bridget Kaba G. SENIOR BIOINFORMATICS SPECIALIST) Assessment/Plan Assessment/Plan 1. Acute exacerbation of CHF 2. AICD firing 3. 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 HTN 5. Acute Renal Failure- Prerenal 6. Shock liver 7. anticoagulation not at goal 8. Leukocytosis 9. Thrombocytopenia 10. RLL pneumonia 11. DM II Plan CHF, AICD shock, cardiomyopathy (EF 35), CAD continue with PO Lasix, BB resume INDIRA appreciate card input TRAM appreciate nephrology input renal function improving avoid nephrotoxic agents ok to resume Lisinopril Transaminitis, LFTs trending down, poss. sec. to hepatorenal syndrome from CHF LFTs trending down hold statins for now Liver US results noted Hepatitis profile negative PNA WBC improving on PO abx cultures negative continue oxygen, duonebs DM II continue with Accu-Cheks before meals and at bedtime with sliding scale History of hydrocephalus, status post shunt placement PT for eval and tx, OOB with assistance Thrombocytopenia Plat stable no bleeding hold Heparin CM consult for dc planning, HHC vs SNF recommended SNF, pt adamant to go home d/w , she will have a friend assist in addition to HHC with PT stable for dc, no sob, no cp, no more shocks from AICD. Discharge home f/u cardiology, PCP diet-heart healthy Activity-as tolerated repeat LFTs in one week D/W RN D/W pt and D/W CM D/W Dr. Ha This patient was seen by myself and Dr. Ha, this note is written on his behalf (Bridget Kaba) Assessment/Plan Vision seen and examined as above next line labs reviewed Plan of care discussed with SENIOR BIOINFORMATICS SPECIALIST Discussed with Patient Agree with above plan of care (Enrico Ha MD) Bridget Kaba Apr 30, 2017 13:05 Enrico Ha MD Apr 30, 2017 13:56
[2017-04-30] MEDS ORDERED: Cefuroxime PO (13:08)
[2017-04-30] MEDS ORDERED: BENZ100 PO (13:08)
--- NOTE | 2017-04-30 13:10 | HHI.DCPOC ---
Discharge Care Plan Diagnosis: (1) PNA (pneumonia) (2) CHF (congestive heart failure) Your Health Problems Are: Chest Pain Shortness of Breath Goals to Promote Your Health * To prevent worsening of your condition and complications * To maintain your health at the optimal level Directions to Meet Your Goals Take your medications as prescribed Follow your dietary instruction Follow activity as directed Keep your appointments as scheduled Take your immunizations and boosters as scheduled If your symptoms worsen call your PCP, if no PCP go to Urgent Care Center or Emergency Room Smoking is Dangerous to Your Health. Avoid second hand smoke Call the 24-hour hour crisis hotline for domestic abuse at Bridget Kaba. [facility] Apr 30, 2017 13:10
--- NOTE | 2017-04-30 13:57 | PD.CARD.PN ---
Subjective Subjective Remarks No CP or SOB, c/o being inactive in bed Objective Medications Current Medications Medications (Trade) Dose Ordered Sig/Saad Route Start Time Stop Time Status Last Admin (NS Flush) 2 ml UNSCH PRN IV FLUSH 04/25/17 15:45 04/26/17 20:38 (NS Flush) 2 ml BID IV FLUSH 04/25/17 21:00 04/30/17 09:13 (Tylenol) 650 mg Q4H PRN PO 04/25/17 15:45 (Zofran Inj) 4 mg Q6H PRN IVP 04/25/17 15:45 (Narcan Inj) 0.4 mg UNSCH PRN IV 04/25/17 15:45 (Coretta-Colace) 1 tab BID PO 04/25/17 21:00 04/29/17 10:07 (Milk Of Magnesia Liq) 30 ml Q12H PRN PO 04/25/17 15:45 (Senokot) 17.2 mg Q12H PRN PO 04/25/17 15:45 (Dulcolax Supp) 10 mg DAILY PRN RECTAL 04/25/17 15:45 (Lactulose Liq) 30 ml DAILY PRN PO 04/25/17 15:45 (Aspirin Chew) 81 mg HS CHEW 04/25/17 21:00 04/29/17 22:12 (Coreg) 12.5 mg BID PO 04/25/17 21:00 04/30/17 09:12 (Plavix) 75 mg DAILY PO 04/25/17 17:00 04/30/17 09:12 (Vitamin B12) 1,000 mcg DAILY PO 04/25/17 17:00 04/30/17 09:12 (Synthroid) 112 mcg DAILY@06 PO 04/25/17 20:00 04/30/17 05:29 (Prinivil) 5 mg HS PO 04/25/17 21:00 Hold 04/26/17 20:39 (Remeron) 15 mg HS PO 04/25/17 21:00 04/29/17 22:14 (KCl) 20 meq BID PO 04/25/17 21:00 04/30/17 09:12 (Phenergan) 25 mg HS PO 04/25/17 21:00 04/28/17 21:28 (Protonix) 20 mg DAILY PO 04/25/17 17:15 04/30/17 09:13 Miscellaneous Information Patient in critical care unit? Ass... Q361D .XX 04/26/17 23:45 04/26/17 23:45 (Chlorhexidine 2% Cloth) 3 pack DAILY@04 TOPICAL 04/27/17 04:00 05/01/17 04:01 04/28/17 04:00 (Chlorhexidine 2% Cloth) 3 pack UNSCH PRN TOPICAL 04/26/17 23:45 05/01/17 23:44 (D50w (Vial) Inj) 50 ml UNSCH PRN IV 04/27/17 12:30 (Glucagon Inj) 1 mg UNSCH PRN OTHER 04/27/17 12:30 (Miralax) 17 gm DAILY PO 04/27/17 12:30 04/27/17 13:31 (Drisdol) 50,000 units Q7D PO 04/27/17 21:00 04/27/17 20:26 (Lasix) 40 mg BID@18 PO 04/28/17 18:00 04/30/17 09:12 (Ceftin) 250 mg Q12HR PO 04/29/17 21:00 04/30/17 10:29 (Tessalon) 100 mg TID PRN PO 04/30/17 10:30 04/30/17 10:29 Vital Signs / I&O Vital Signs Date Time Temp Pulse Resp B/P Pulse Ox O2 Delivery O2 Flow Rate FiO2 04/30/17 12:00 97.9 70 20 138/90 96 04/30/17 08:30 Room Air 04/30/17 08:14 96 21 04/30/17 08:00 97.5 65 20 135/71 94 04/30/17 08:00 65 04/30/17 04:00 97.2 66 18 118/76 97 04/30/17 00:00 97.7 70 16 121/74 96 04/29/17 20:12 98 Nasal Cannula 21 04/29/17 20:00 Room Air 3.00 04/29/17 20:00 98.4 74 16 126/77 95 04/29/17 20:00 72 04/29/17 16:00 97.0 94 20 91/66 98 04/29/17 16:00 Room Air I/O 04/29/17 04/29/17 04/29/17 04/30/17 04/30/17 04/30/17 07:00 15:00 23:00 07:00 15:00 23:00 Intake Total 240 ml 480 ml 240 ml Output Total 700 ml 800 ml 250 ml 200 ml Balance -460 ml -320 ml -250 ml 40 ml Intake Oral 240 ml 480 ml 240 ml IV Total 0 ml Output Urine Total 700 ml 800 ml 250 ml 200 ml # Bowel Movements 1 1 Physical Exam GENERAL: In NAD SKIN: Warm and dry. HEAD: Normocephalic. EYES: No scleral icterus. No injection or drainage. NECK: Supple, trachea midline. No JVD or lymphadenopathy. CARDIOVASCULAR: Regular rate and rhythm without murmurs, gallops, or rubs. RESPIRATORY: Breath sounds equal bilaterally. No accessory muscle use. Clear. GASTROINTESTINAL: Abdomen soft, non-tender, nondistended. MUSCULOSKELETAL: No cyanosis, or edema. Laboratory Laboratory Tests Test 04/30/17 08:59 Sodium Level 141 MEQ/L Potassium Level 4.4 MEQ/L Chloride Level 104 MEQ/L Carbon Dioxide Level 29.6 MEQ/L Anion Gap 7 MEQ/L Blood Urea Nitrogen 34 MG/DL Creatinine 1.53 MG/DL Estimat Glomerular Filtration 44 ML/MIN Rate Random Glucose 158 MG/DL Calcium Level 8.8 MG/DL Total Bilirubin 1.4 MG/DL Aspartate Amino Transf 139 U/L (AST/SGOT) Alanine Aminotransferase 562 U/L (ALT/SGPT) Alkaline Phosphatase 195 U/L Total Protein 6.6 GM/DL Albumin 3.4 GM/DL Hepatitis A IgM Antibody NEGATIVE Hepatitis B Surface Antigen NEGATIVE Hepatitis B Core IgM Antibody NEGATIVE Hepatitis C Antibody NEGATIVE Imaging Last Impressions Liver Ultrasound 04/29/17 0000 Signed Impressions: Service Date/Time: Saturday, April 29, 2017 21:34 - CONCLUSION: 1. Status post cholecystectomy. 2. The liver is mildly increased in echogenicity most characteristic of fatty infiltration. The liver is also mildly prominent. 3. Small right pleural effusion. Waldemar Alicia MD Chest X-Ray 04/28/17 0600 Signed Impressions: Service Date/Time: Friday, April 28, 2017 05:13 - CONCLUSION: 1. Small right pleural effusion and right basilar atelectasis. 2. Cardiomegaly and previous CABG. Cortez Jung MD Renal Ultrasound 04/26/17 0000 Signed Impressions: Service Date/Time: Wednesday, April 26, 2017 22:33 - CONCLUSION: 1. Echogenic kidneys which can be seen with medical renal disease. 2. Possible nonobstructing calculus in the lower pole left kidney measuring 12 mm. 3. Simple cyst left kidney. 4. Bilateral pleural effusions. Cortez Jung MD Assessment and Plan Problem List: (1) CHF (congestive heart failure) (2) Ischemic cardiomyopathy (3) Renal insufficiency (4) CAD (coronary artery disease) (5) ICD (implantable cardioverter-defibrillator) discharge (6) Atrial tachycardia (7) S/P [employer] E[employer]OMIST shunt Assessment and Plan Remains stable. Continue tx for CHF including diuresis with PO furosemide. Continue monitoring, recent shock for AT, no recurrence. Monitor renal fx, seen by Dr. Becerril, renal insufficiency felt to be related to cardiorenal syndrome rather than dehydration, responded to diuresis. Increase activity, recommend PT , d/w pt and his nurse. Josesito Jimenez MD Apr 30, 2017 13:57
[2017-05-01 03:52] LABS: KAPPA/LAMBDA FREE 1.26 (0.26-1.65)
--- NOTE | 2017-05-01 15:55 | HHI.DS ---
Discharge Summary Admission Date Apr 26, 2017 at 18:11 Discharge Date: Apr 30, 2017 Admitting Diagnosis RLL PNA S/P DEFIBRILLATOR DISCHARGE (1) CHF (congestive heart failure) (2) ICD (implantable cardioverter-defibrillator) discharge (3) CAD (coronary artery disease) (4) Diabetes (5) Ischemic cardiomyopathy (6) PNA (pneumonia) (7) Transaminitis (8) Impaired mobility and activities of daily living CBC/BMP: 04/28/17 0510 04/30/17 0859 Significant Findings Laboratory Tests Test 04/28/17 04/30/17 16:24 08:59 Arterial Blood pH 7.53 (7.380-7.420) Arterial Blood Partial 26 mmHg (38-42) Pressure CO2 Blood Urea Nitrogen 34 MG/DL (7-18) Creatinine 1.53 MG/DL (0.60-1.30) Estimat Glomerular Filtration 44 ML/MIN (>89) Rate Random Glucose 158 MG/DL (74-106) Total Bilirubin 1.4 MG/DL (0.2-1.0) Aspartate Amino Transf 139 U/L (15-37) (AST/SGOT) Alanine Aminotransferase 562 U/L (12-78) (ALT/SGPT) Alkaline Phosphatase 195 U/L (45-117) Imaging Last Impressions Liver Ultrasound 04/29/17 0000 Signed Impressions: Service Date/Time: Saturday, April 29, 2017 21:34 - CONCLUSION: 1. Status post cholecystectomy. 2. The liver is mildly increased in echogenicity most characteristic of fatty infiltration. The liver is also mildly prominent. 3. Small right pleural effusion. Waldemar Alicia MD Chest X-Ray 04/28/17 0600 Signed Impressions: Service Date/Time: Friday, April 28, 2017 05:13 - CONCLUSION: 1. Small right pleural effusion and right basilar atelectasis. 2. Cardiomegaly and previous CABG. Cortez Jung MD Renal Ultrasound 04/26/17 0000 Signed Impressions: Service Date/Time: Wednesday, April 26, 2017 22:33 - CONCLUSION: 1. Echogenic kidneys which can be seen with medical renal disease. 2. Possible nonobstructing calculus in the lower pole left kidney measuring 12 mm. 3. Simple cyst left kidney. 4. Bilateral pleural effusions. Cortez Jung MD Hospital Course The patient is a 77 year old male with history of CHF presenting to the ER with SOB after his defibrillator went off. The patient states it felt like he got kicked in the chest when it went off. He did not pass out when this event occurred. He did not fall or hit his head. The patient reported SOB was occurring a few days prior to his device going off today. He stated that he currently had SOB and a mild cough. It was nonproductive cough at the moment and is not causing chest discomfort. He denied chest pain, diaphoresis, visual changes, headache, abdominal pain, or fevers at this time. Also he denied any new weakness in his extremities. The patient seemed to be SOB still and in distress. The patient's is in the room facilitated the history. Was evaluated, laboratory work up done. CXR also showed right lower process consistent with PNA Initially admitted to ICU, CCM consulted. Started on antibiotics. Was diuresed. Cardiology consulted. Initially in TRAM, renal function improved slowly, making urine Was continued on beta blockers. Cardiology recommended to continue diuretics. INDIRA inhibitor put on hold due to renal dysfunction didn't eventually restarted. EF per cardiology report was 35%. Nephrology was consulted to follow renal function. Nephrotoxic agents were avoided. Was noted with transaminitis, possibly secondary to hepatorenal syndrome from CHF. Statins were put on hold. Liver ultrasound done, results noted. Hepatitis profile negative. LFTs started to trend down. Patient was transferred out of ICU, physical therapy was ordered. Patient was changed to oral antibiotics, WBC started trending down. Was continued on oxygen and DuoNeb's when necessary. Blood sugar stable, managed with Accu- Cheks and before meal and bedtime insulin sliding scale Was noted with thrombocytopenia, platelets were followed, no active bleeding. Patient with History of hydrocephalus, status post shunt placement. Therapy assistance with mobility, patient at times dizzy with poor balance. Recommended rehabilitation however he insisted on going home. CM consult for dc planning, HHC vs SNF recommended SNF, pt adamant to go home d/w , she will have a friend assist in addition to HHC with PT stable for dc, no sob, no cp, no more shocks from AICD. Discharged home f/u cardiology, PCP diet-heart healthy Activity-as tolerated repeat LFTs in one week Pt Condition on Discharge: Stable Discharge Disposition: Disch w/ Home Health Serv Discharge Instructions DIET: Follow Instructions for: Heart Healthy Diet Activities you can perform: Weight Bearing as Sherwin Other Activity Instructions: fall precautions Follow up Referrals: Cardiology with Josesito Jimenez MD PCP Follow-up - 1 Week New Medications: Benzonatate (Tessalon Perles) 100 Mg Cap 100 MG PO TID PRN COUGH #21 Ref 0 CAP ([Cefuroxime]) 250 MG TAB 250 MG PO Q12HR Infection #14 Ref 0 TAB Continued Medications: Aspirin (Aspirin) 81 Mg Chew 81 MG CHEW HS Ref 0 TAB Atorvastatin (Atorvastatin) 80 Mg Tab 80 MG PO HS Cholesterol Management #30 Ref 0 TAB Carvedilol (Carvedilol) 12.5 Mg Tab 12.5 MG PO BID #60 Ref 0 TAB Clopidogrel (Plavix) 75 Mg Tab 75 MG PO DAILY Blood Clot Prevention #30 Ref 0 TAB Cyanocobalamin (Vitamin B-12) 1,000 Mcg Tab 1000 MCG PO DAILY #30 TAB Furosemide (Furosemide) 40 Mg Tab 40 MG PO DAILY #30 Ref 0 TAB Levothyroxine (Levothyroxine) 112 Mcg Tab 112 MCG PO DAILY Thyroid #30 Ref 0 TAB Lisinopril (Lisinopril) 5 Mg Tab 5 MG PO HS Blood Pressure Management #30 Ref 0 TAB Mirtazapine (Mirtazapine) 15 Mg Tab 15 MG PO HS Depression Control #30 Ref 0 TAB Potassium Chloride ER (Potassium Chloride ER) 20 Meq Tab 20 MEQ PO BID Electrolyte Replacement #60 Ref 0 TAB Promethazine (Phenergan) 25 Mg Tablet 25 MG PO HS Nausea/Vomiting #1 Ref 0 TAB Bridget Kaba May 01, 2017 15:55
== END 2017-04-30 16:00 | disposition home or self-care (01) | DRG 291 ==
LOC: NEPC 11:58 → NEDA 14:37 → INTOOBSV 14:37 → N04B 16:45 → HIME 04-26 18:09 → OBSVTOIN 04-26 18:11 → N04B 04-28 12:04
PROVIDERS: ADMIT Specialist; ATTEND Specialist
DX: I13.0 Hypertensive heart and chronic kidney disease with heart failure and stage 1 through stage 4 chronic kidney disease, or unspecified chronic kidney disease (principal); J18.9 Pneumonia, unspecified organism; J96.91 Respiratory failure, unspecified with hypoxia; K72.00 Acute and subacute hepatic failure without coma; K76.7 Hepatorenal syndrome; D69.6 Thrombocytopenia, unspecified; N17.9 Acute kidney failure, unspecified; E11.22 Type 2 diabetes mellitus with diabetic chronic kidney disease; G91.2 (Idiopathic) normal pressure hydrocephalus; I50.23 Acute on chronic systolic (congestive) heart failure; I47.1 Supraventricular tachycardia; E11.65 Type 2 diabetes mellitus with hyperglycemia; I08.1 Rheumatic disorders of both mitral and tricuspid valves; I25.5 Ischemic cardiomyopathy; I25.10 Atherosclerotic heart disease of native coronary artery without angina pectoris; E78.5 Hyperlipidemia, unspecified; E03.9 Hypothyroidism, unspecified; N18.9 Chronic kidney disease, unspecified; E55.9 Vitamin D deficiency, unspecified; I25.2 Old myocardial infarction; Z95.1 Presence of aortocoronary bypass graft; Z95.5 Presence of coronary angioplasty implant and graft; Z98.2 Presence of cerebrospinal fluid drainage device; Z95.810 Presence of automatic (implantable) cardiac defibrillator; Z87.891 Personal history of nicotine dependence
CPT/HCPCS: 36600; 71010; 76705; 76775; 76937; 80048; 80053; 80074; 81001; 82248; 82306; 82550; 82552; 82805; 82948; 83605; 83735; 83880; 83883; 83970; 84100; 84165; 84484; 85007; 85025; 85027; 85610; 85730; 86160; 87040; 87449; 87641; 90732; 93005; 94150; 94640; 94664; 94667; 99291; G0378; J0456; J0696; J1644; J1940; J7030; J7050; Q0169

== ENCOUNTER 2017-11-25 13:45 | Emergency (ER) | payer MEDICARE, BC ==
[~2017-11-25] VITALS: Ht 193 cm; Wt 107.0 kg
[~2017-11-25 13:45] MED LIST changes: +ASPI-516 CHEW; -ASPI81CH CHEW; -ATOR1TAB18 PO; +ATOR80TA45 PO; +BENZ100 PO; +Cefuroxime PO
[2017-11-25 14:36] VITALS: PULSE 94; RESP 22; TEMP 98.3; O2SAT 98
[2017-11-25 14:49] VITALS: BP 174/100; PULSE 95
--- NOTE | 2017-11-25 15:21 | PD ---
HPI Chief Complaint: Cardiac Complaint Time Seen by Provider: 14:57 Travel History International Travel<30 days: No Contact w/Intl Traveler<30days: No Traveled to known affect area: No History of Present Illness HPI 77-year-old male presents to the emergency department today after his defibrillator went off about 1:30 PM patient arrived via [facility]. States he has a [employer] pacemaker defibrillator. States he was sitting up eating brunch today when he felt his defibrillator go off. Patient denies chest pain, shortness breath, nausea, vomiting, diarrhea, abdominal pain. States that has fired previously, approximately one year ago. He has had this fire about a year and a half. He follows Dr. Jimenez in cardiology. [facility] Past Medical History Hx Anticoagulant Therapy: Yes Arthritis: No Asthma: No Atrial Fibrillation: Yes Autoimmune Disease: No Anxiety: No Depression: No Heart Rhythm Problems: Yes (a fib) Cancer: No Cardiovascular Problems: Yes High Cholesterol: Yes Chemotherapy: No Chest Pain: Yes Congestive Heart Failure: Yes COPD: No Cerebrovascular Accident: No Diabetes: Yes Patient Takes Glucophage: Yes Diminished Hearing: No Endocrine: No Gastrointestinal Disorders: Yes GERD: No Genitourinary: No Headaches: Yes Hiatal Hernia: No Hypertension: Yes Immune Disorder: No Implanted Vascular Access Dvce: Yes (L CHEST WALL) Kidney Stones: No Musculoskeletal: No Neurologic: Yes Psychiatric: No Reproductive: No Respiratory: Yes Migraines: No Myocardial Infarction: Yes Radiation Therapy: No Renal Failure: No Seizures: No Sickle Cell Disease: No Sleep Apnea: No Thyroid Disease: No Ulcer: No ?: Not Past Surgical History Abdominal Surgery: Yes (gallbladder removal, appendix removal) AICD: Yes Appendectomy: Yes Arteriovenous Shunt: No Cardiac Surgery: Yes (pacer, bypassX4, stent) Cholecystectomy: Yes Coronary Artery Bypass Graft: Yes Coronary Stent: Yes Ear Surgery: No Endocrine Surgery: No Eye Surgery: Yes Genitourinary Surgery: No Gynecologic Surgery: No Insulin Pump: No Joint Replacement: No Neurologic Surgery: Yes (REBAR BENDER shunt) Oral Surgery: Yes Pacemaker: Yes ([employer]) Thoracic Surgery: Yes Other Surgery: Yes Social History Alcohol Use: No Tobacco Use: Yes (35 yrs ago) Substance Use: No Allergies-Medications (Allergen,Severity, Reaction): Coded Allergies: *MDRO Multi-Drug Resistant Organism (Verified Adverse Reaction, Unknown, ) ESBL K. 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) Reported Meds & Prescriptions Reported Meds & Active Scripts Active Carvedilol 25 Mg Tab 25 Mg PO BID 30 Days Vitamin B-12 (Cyanocobalamin) 1,000 Mcg Tab 1,000 Mcg PO DAILY Levothyroxine (Levothyroxine Sodium) 112 Mcg Tab 112 Mcg PO DAILY Furosemide 40 Mg Tab 40 Mg PO DAILY Plavix (Clopidogrel Bisulfate) 75 Mg Tab 75 Mg PO DAILY Carvedilol 12.5 Mg Tab 12.5 Mg PO BID Reported Lisinopril 5 Mg Tab 5 Mg PO HS Mirtazapine 15 Mg Tab 15 Mg PO HS Atorvastatin (Atorvastatin Calcium) 80 Mg Tab 80 Mg PO HS Aspirin 81 Mg Chew 81 Mg CHEW HS Potassium Chloride ER (Potassium Chloride) 20 Meq Tab 20 Meq PO BID Review of Systems Except as stated in HPI: all other systems reviewed are Neg Physical Exam Narrative GENERAL: Well-nourished in no apparent distress, resting comfortably in bed SKIN: Focused skin assessment warm/dry. HEAD: Atraumatic. Normocephalic. EYES: Pupils equal and round. No scleral icterus. No injection or drainage. ENT: No nasal bleeding or discharge. Mucous membranes pink and moist. NECK: Trachea midline. No JVD. CARDIOVASCULAR: Regular rate and rhythm. No murmur appreciated. RESPIRATORY: No accessory muscle use. Clear to auscultation. Breath sounds equal bilaterally. Left chest wall- defib in place without erythema or ecchymosis GASTROINTESTINAL: Abdomen soft, non-tender, nondistended. Hepatic and splenic margins not palpable. No CVA tenderness MUSCULOSKELETAL: No obvious deformities. No clubbing. No cyanosis. No edema. No pedal edema NEUROLOGICAL: Awake and alert. No obvious cranial nerve deficits. Motor grossly within normal limits. Normal speech. PSYCHIATRIC: Appropriate mood and affect; insight and judgment normal. Data Data Last Documented VS Vital Signs Date Time Temp Pulse Resp B/P (MAP) Pulse Ox O2 Delivery O2 Flow Rate FiO2 11/25/17 17:22 11/25/17 14:49 95 11/25/17 14:36 98.3 22 98 Orders Orders Complete Blood Count With Diff (11/25/17 15:15) Comprehensive Metabolic Panel (11/25/17 15:15) Prothrombin Time / Inr (Pt) (11/25/17 15:15) Act Partial Throm Time (Ptt) (11/25/17 15:15) Troponin I (11/25/17 15:15) Electrocardiogram (11/25/17 ) Thyroid Stimulating Hormone (11/25/17 16:11) Ed Discharge Order (11/25/17 16:38) Labs Laboratory Tests Test 11/25/17 15:20 White Blood Count 9.3 TH/MM3 Red Blood Count 4.47 MIL/MM3 Hemoglobin 14.2 GM/DL Hematocrit 41.5 % Mean Corpuscular Volume 92.8 FL Mean Corpuscular Hemoglobin 31.7 PG Mean Corpuscular Hemoglobin Concent 34.2 % Red Cell Distribution Width 14.5 % Platelet Count 194 TH/MM3 Mean Platelet Volume 10.2 FL Neutrophils (%) (Auto) 70.7 % Lymphocytes (%) (Auto) 19.9 % Monocytes (%) (Auto) 5.5 % Eosinophils (%) (Auto) 3.4 % Basophils (%) (Auto) 0.5 % Neutrophils # (Auto) 6.6 TH/MM3 Lymphocytes # (Auto) 1.9 TH/MM3 Monocytes # (Auto) 0.5 TH/MM3 Eosinophils # (Auto) 0.3 TH/MM3 Basophils # (Auto) 0.0 TH/MM3 CBC Comment DIFF FINAL Differential Comment Prothrombin Time 10.5 SEC Prothromb Time International Ratio 1.0 RATIO Activated Partial Thromboplast Time 24.1 SEC Blood Urea Nitrogen 18 MG/DL Creatinine 1.43 MG/DL Random Glucose 190 MG/DL Total Protein 6.6 GM/DL Albumin 3.2 GM/DL Calcium Level 8.6 MG/DL Alkaline Phosphatase 84 U/L Aspartate Amino Transf (AST/SGOT) 31 U/L Alanine Aminotransferase (ALT/SGPT) 16 U/L Total Bilirubin 0.8 MG/DL Sodium Level 143 MEQ/L Potassium Level 5.0 MEQ/L Chloride Level 110 MEQ/L Carbon Dioxide Level 27.5 MEQ/L Anion Gap 6 MEQ/L Estimat Glomerular Filtration Rate 48 ML/MIN Troponin I LESS THAN 0.02 NG/ML Thyroid Stimulating Hormone 3rd Gen 8.630 uIU/ML MDM Medical Decision Making Medical Screen Exam Complete: Yes Emergency Medical Condition: Yes Differential Diagnosis ICD discharge, STEMI, NSTEMI, costochondritis Narrative Course 77-year-old male presents to the emergency department today after his defibrillator went off about 1:30 PM patient arrived via [place]. States he has a [employer] pacemaker defibrillator. States he was sitting up eating brunch today when he felt his defibrillator go off. Patient denies chest pain, shortness breath, nausea, vomiting, diarrhea, abdominal pain. States that has fired previously, approximately one year ago. He has had this fire about a year and a half. He follows Dr. Jimenez in cardiology. Vital signs stable patient slightly tachycardic about 95, blood pressure 175/ 100. Laboratory Tests Test 11/25/17 15:20 White Blood Count 9.3 TH/MM3 Red Blood Count 4.47 MIL/MM3 Hemoglobin 14.2 GM/DL Hematocrit 41.5 % Mean Corpuscular Volume 92.8 FL Mean Corpuscular Hemoglobin 31.7 PG Mean Corpuscular Hemoglobin Concent 34.2 % Red Cell Distribution Width 14.5 % Platelet Count 194 TH/MM3 Mean Platelet Volume 10.2 FL Neutrophils (%) (Auto) 70.7 % Lymphocytes (%) (Auto) 19.9 % Monocytes (%) (Auto) 5.5 % Eosinophils (%) (Auto) 3.4 % Basophils (%) (Auto) 0.5 % Neutrophils # (Auto) 6.6 TH/MM3 Lymphocytes # (Auto) 1.9 TH/MM3 Monocytes # (Auto) 0.5 TH/MM3 Eosinophils # (Auto) 0.3 TH/MM3 Basophils # (Auto) 0.0 TH/MM3 CBC Comment DIFF FINAL Differential Comment Prothrombin Time 10.5 SEC Prothromb Time International Ratio 1.0 RATIO Activated Partial Thromboplast Time 24.1 SEC Blood Urea Nitrogen 18 MG/DL Creatinine 1.43 MG/DL Random Glucose 190 MG/DL Total Protein 6.6 GM/DL Albumin 3.2 GM/DL Calcium Level 8.6 MG/DL Alkaline Phosphatase 84 U/L Aspartate Amino Transf (AST/SGOT) 31 U/L Alanine Aminotransferase (ALT/SGPT) 16 U/L Total Bilirubin 0.8 MG/DL Sodium Level 143 MEQ/L Potassium Level 5.0 MEQ/L Chloride Level 110 MEQ/L Carbon Dioxide Level 27.5 MEQ/L Anion Gap 6 MEQ/L Estimat Glomerular Filtration Rate 48 ML/MIN Troponin I LESS THAN 0.02 NG/ML Thyroid Stimulating Hormone 3rd Gen 8.630 uIU/ML Does not appear that patient had a cardiac event today other than an episode of SVT according to the [employer] rep. It appears that his episode had a heart rate of 222 bpm and was promptly defibrillated into sinus rhythm. Patient continues to be pain-free and denies shortness of breath. Dr. Jacques and I had an extensive discussion with the patient and regarding the cause of this. TSH ordered to evaluate for thyroid function as he does take levothyroxine. I advised them to follow up with the primary care physician regarding this finding. I spoke with Dr. Murdock nurse Bisi, RAÚL she states that he will be seen in the office tomorrow or Saturday. We will increase his carvedilol to 25 BID. I advised patient to return to the emergency department for worsening or persistent symptoms. Follow-up with a dry yard worker this week. Follow-up with primary care physician within a few days. Diagnosis Primary Impression: ICD (implantable cardioverter-defibrillator) discharge Referrals: [facility] [employer] Operator Primary Care Physician Additional Instructions: Call Dr. Murdock office today for an appointment tomorrow or Saturday. Increased carvedilol to 25mg BID. If you develop chest pain or shortness of breath, return to the emergency department. Follow up with your primary care office within 1 week for thyroid hormone level. Scripts Carvedilol (Carvedilol) 25 Mg Tab 25 MG PO BID for 30 Days, #60 TAB 0 Refills Prov: Fariba Dao 11/25/17 Disposition: 01 DISCHARGE HOME Condition: Stable Fariba Dao Nov 25, 2017 15:21
[2017-11-25 15:40] LABS: AUTOMATED NEUTROPHIL # 6.6 TH/MM3 (1.8-7.7); BASOPHIL % 0.5 % (0.0-2.0); EOSINOPHIL # 0.3 TH/MM3 (0-0.4); EOSINOPHIL % 3.4 % (0.0-4.0); HEMATOCRIT 41.5 % (39.0-51.0); HEMOGLOBIN 14.2 GM/DL (13.0-17.0); LYMPH % 19.9 % (9.0-44.0); LYMPHOCYTE # 1.9 TH/MM3 (1.0-4.8); MEAN CELL VOLUME 92.8 FL (80.0-100.0); MEAN CORPUSCULAR HEMOGLOBIN 31.7 PG (27.0-34.0); MEAN CORPUSCULAR HGB CONC 34.2 % (32.0-36.0); MEAN PLATELET VOLUME 10.2 FL (7.0-11.0); MONO % 5.5 % (0.0-8.0); MONOCYTE # 0.5 TH/MM3 (0-0.9); NEUT % 70.7 % (16.0-70.0); PLATELET COUNT 194 TH/MM3 (150-450); RED BLOOD COUNT 4.47 MIL/MM3 (4.50-5.90); RED CELL DISTRIBUTION WIDTH 14.5 % (11.6-17.2); WHITE BLOOD COUNT 9.3 TH/MM3 (4.0-11.0)
[2017-11-25 15:52] LABS: PROTHROMBIN TIME - PATIENT 10.5 SEC (9.8-11.6)
[2017-11-25 16:14] LABS: ALBUMIN 3.2 GM/DL (3.4-5.0); ALT (GPT) 16 U/L (12-78); AST (GOT) 31 U/L (15-37); BICARBONATE 27.5 MEQ/L (21.0-32.0); BLOOD UREA NITROGEN 18 MG/DL (7-18); CALCIUM 8.6 MG/DL (8.5-10.1); CHLORIDE 110 MEQ/L (98-107); CREATININE 1.43 MG/DL (0.60-1.30); GLOMERULAR FILTRATION RATE 48 ML/MIN (>89); GLUCOSE,RANDOM 190 MG/DL (74-106); SODIUM (NA) 143 MEQ/L (136-145)
[2017-11-25 16:15] LABS: ALKALINE PHOSPHATASE 84 U/L (45-117); TOTAL BILIRUBIN ADULT 0.8 MG/DL (0.2-1.0); TOTAL PROTEIN 6.6 GM/DL (6.4-8.2); TROPONIN I LESS THAN 0.02 NG/ML (0.02-0.05)
[2017-11-25] MEDS ORDERED: CARV25TA PO (16:39)
--- NOTE | 2017-11-26 17:44 | EKG ---
Date Performed: 11/25/2017 Time Performed: 14:49:22 PTAGE: 77 years EKG: Sinus rhythm RIGHT BUNDLE BRANCH BLOCK ABNORMAL ECG PREVIOUS TRACING : 04/25/2017 12.56 DOCTOR: Alice Gilmore Interpretating Date/Time 11/26/2017 17:37:19
== END 2017-11-25 17:23 | disposition home or self-care (01) ==
LOC: NEPC 13:45
DX: T82.897A Other specified complication of cardiac prosthetic devices, implants and grafts, initial encounter (principal); E78.00 Pure hypercholesterolemia, unspecified; I11.0 Hypertensive heart disease with heart failure; I50.9 Heart failure, unspecified; I25.2 Old myocardial infarction; I45.10 Unspecified right bundle-branch block; R94.31 Abnormal electrocardiogram [ECG] [EKG]; Z87.891 Personal history of nicotine dependence; Z95.810 Presence of automatic (implantable) cardiac defibrillator
CPT/HCPCS: 80053; 84443; 84484; 85025; 85610; 85730; 93005; 99284

== ENCOUNTER 2018-03-01 09:27 | Inpatient (IN) | payer MEDICARE, BC ==
[~2018-03-01] VITALS: Ht 193 cm; Wt 106.1 kg
[2018-03-01] VITALS (11 sets, daily range): BP systolic 134–212; BP diastolic 63–95; PULSE 55–95; RESP 17–20; TEMP 97.3–98.5; O2SAT 93–97
[~2018-03-01 09:27] MED LIST changes: -BENZ100 PO; +CARV25TA PO; -Cefuroxime PO; -PROM25TA10 PO
[2018-03-01] MEDS ORDERED: XARE15TA PO (09:49)
[2018-03-01] MEDS ORDERED: MIRTA15 PO (09:51)
[2018-03-01] MEDS ORDERED: SOTA80TA PO ×2 (09:51)
[2018-03-01] MEDS ORDERED: MAGN500T5 PO (09:51)
--- NOTE | 2018-03-01 10:09 | RADRPT ---
EXAM DATE/TIME: 03/01/2018 09:55 [facility] COMPARISON: Chest single AP April 28 2017 INDICATIONS : Chest pain and shortness of breath. MEDICAL HISTORY : Hypertension. Congestive heart failure. Myocardial infarction. Diabetes. SURGICAL HISTORY : CABG. Pacemaker. ENCOUNTER: Initial ACUITY: 1 day PAIN SCORE: 7/10 LOCATION: Bilateral chest FINDINGS: Cardiomegaly, sternotomy wires and a dual-lead pacer/ICD device again noted. EKG leads overlie the ch est. The lungs are clear. Shunt catheter tubing overlies the right neck, chest and abdomen. CONCLUSION: Clear lungs. Howard Contreras MD on March 01, 2018 at 10:06 Board Certified Radiologist. This report was verified electronically.
[2018-03-01 10:22] LABS: AUTOMATED NEUTROPHIL # 4.5 TH/MM3 (1.8-7.7); BASOPHIL # 0.1 TH/MM3 (0-0.2); BASOPHIL % 0.7 % (0.0-2.0); EOSINOPHIL # 0.4 TH/MM3 (0-0.4); EOSINOPHIL % 4.8 % (0.0-4.0); HEMATOCRIT 40.3 % (39.0-51.0); LYMPH % 29.3 % (9.0-44.0); LYMPHOCYTE # 2.3 TH/MM3 (1.0-4.8); MEAN CELL VOLUME 91.9 FL (80.0-100.0); MEAN CORPUSCULAR HEMOGLOBIN 31.8 PG (27.0-34.0); MEAN CORPUSCULAR HGB CONC 34.6 % (32.0-36.0); MONO % 7.7 % (0.0-8.0); MONOCYTE # 0.6 TH/MM3 (0-0.9); NEUT % 57.5 % (16.0-70.0); PLATELET COUNT 122 TH/MM3 (150-450); RED BLOOD COUNT 4.38 MIL/MM3 (4.50-5.90); RED CELL DISTRIBUTION WIDTH 13.9 % (11.6-17.2); WHITE BLOOD COUNT 7.7 TH/MM3 (4.0-11.0)
[2018-03-01 10:38] LABS: INTERNATIONAL NORMALIZED RATIO 1.2 RATIO; PROTHROMBIN TIME - PATIENT 12.6 SEC (9.8-11.6)
[2018-03-01 10:39] LABS: BICARBONATE 24.5 MEQ/L (21.0-32.0); BLOOD UREA NITROGEN 15 MG/DL (7-18); CALCIUM 8.8 MG/DL (8.5-10.1); CHLORIDE 109 MEQ/L (98-107); CREATININE 1.32 MG/DL (0.60-1.30); GLOMERULAR FILTRATION RATE 52 ML/MIN (>89); GLUCOSE,RANDOM 175 MG/DL (74-106); SODIUM (NA) 142 MEQ/L (136-145); TROPONIN I LESS THAN 0.02 NG/ML (0.02-0.05)
[2018-03-01] MEDS ORDERED: FUROSEMIDE 40 MG/4 ML VIAL IV PUSH ONE (11:00)
--- NOTE | 2018-03-01 11:03 | PD ---
HPI Chief Complaint: Chest Pain Time Seen by Provider: 09:42 Travel History International Travel<30 days: No Contact w/Intl Traveler<30days: No History of Present Illness HPI The patient is 77 years old and arrives by EMS. He had chest pain this morning between 7:00 and 7:30 AM shortly after he woke up. Pain was dull retrosternal and 3-4/10. No radiation. Patient also has some shortness of breath upon waking up. He denies cough. No fever reported. Patient had diarrhea this morning. In the ER there is no chest pain. Patient reports taking multiple baby aspirin this morning. PFSH Past Medical History Hx Anticoagulant Therapy: Yes Arthritis: No Asthma: No Atrial Fibrillation: Yes Autoimmune Disease: No Anxiety: No Depression: No Heart Rhythm Problems: Yes (a fib) Cancer: No Cardiovascular Problems: Yes High Cholesterol: Yes Chemotherapy: No Chest Pain: Yes Congestive Heart Failure: Yes COPD: No Cerebrovascular Accident: No Diabetes: Yes Patient Takes Glucophage: No Diminished Hearing: No Endocrine: No Gastrointestinal Disorders: Yes GERD: No Genitourinary: No Headaches: Yes Hiatal Hernia: No Hypertension: Yes Immune Disorder: No Implanted Vascular Access Dvce: Yes (L CHEST WALL) Kidney Stones: No Musculoskeletal: No Neurologic: Yes Psychiatric: No Reproductive: No Respiratory: Yes Migraines: No Myocardial Infarction: Yes Radiation Therapy: No Renal Failure: No Seizures: No Sickle Cell Disease: No Sleep Apnea: No Thyroid Disease: No Ulcer: No Past Surgical History Abdominal Surgery: Yes (gallbladder removal, appendix removal) AICD: Yes Appendectomy: Yes Arteriovenous Shunt: No Cardiac Surgery: Yes (pacer, bypassX4, stent) Cholecystectomy: Yes Coronary Artery Bypass Graft: Yes Coronary Stent: Yes Ear Surgery: No Endocrine Surgery: No Eye Surgery: Yes Genitourinary Surgery: No Gynecologic Surgery: No Insulin Pump: No Joint Replacement: No Neurologic Surgery: Yes (SUPERVISOR SMOKE CONTROL shunt) Oral Surgery: Yes Pacemaker: Yes ([employer]) Thoracic Surgery: Yes Other Surgery: Yes Social History Alcohol Use: No Tobacco Use: Yes (35 yrs ago) Substance Use: No Allergies-Medications (Allergen,Severity, Reaction): Coded Allergies: *MDRO Multi-Drug Resistant Organism (Verified Adverse Reaction, Unknown, ) ESBL K. 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) Reported Meds & Prescriptions Reported Meds & Active Scripts Active Vitamin B-12 (Cyanocobalamin) 1,000 Mcg Tab 1,000 Mcg PO DAILY Levothyroxine (Levothyroxine Sodium) 112 Mcg Tab 112 Mcg PO DAILY Furosemide 40 Mg Tab 40 Mg PO DAILY Carvedilol 12.5 Mg Tab 12.5 Mg PO BID Reported Magnesium Gluconate 27 Mg (500 Mg) Tab 500 Mg PO DAILY Mirtazapine 15 Mg Tab 15 Mg PO HS Sotalol (Sotalol HCl) 80 Mg Tab 80 Mg PO BID PRN Sotalol (Sotalol HCl) 80 Mg Tab 80 Mg PO BID PRN Xarelto (Rivaroxaban) 15 Mg Tab 15 Mg PO DAILY Lisinopril 5 Mg Tab 5 Mg PO HS Mirtazapine 15 Mg Tab 15 Mg PO HS Atorvastatin (Atorvastatin Calcium) 80 Mg Tab 80 Mg PO HS Aspirin 81 Mg Chew 81 Mg CHEW HS Potassium Chloride ER (Potassium Chloride) 20 Meq Tab 20 Meq PO BID Review of Systems Except as stated in HPI: all other systems reviewed are Neg General / Constitutional: No: Fever Physical Exam Narrative GENERAL: 77-year-old male well-nourished well-developed Vital Signs Date Time Temp Pulse Resp B/P (MAP) Pulse Ox O2 Delivery O2 Flow Rate FiO2 03/01/18 09:41 58 193/93 (126) Room Air 03/01/18 09:41 100 Room Air 2.00 03/01/18 09:34 95 212/95 (134) 97 Nasal Cannula 2.00 03/01/18 09:34 97 Nasal Cannula 2.00 03/01/18 09:31 98.5 60 18 97 SKIN: Warm and dry. HEAD: Atraumatic. Normocephalic. EYES: Pupils equal and round. No scleral icterus. No injection or drainage. ENT: No nasal bleeding or discharge. Mucous membranes pink and moist. NECK: Trachea midline. No JVD. CARDIOVASCULAR: Regular rate and rhythm. RESPIRATORY: Lungs are clear my exam. Minimal tachypnea. GASTROINTESTINAL: Abdomen soft, non-tender, nondistended. Hepatic and splenic margins not palpable. MUSCULOSKELETAL: 2+ pitting edema of the bilateral lower extremities. Moving all extremities normal without major deformity. NEUROLOGICAL: Awake and alert. No obvious cranial nerve deficits. Motor grossly within normal limits. Five out of 5 muscle strength in the arms and legs. Normal speech. PSYCHIATRIC: Appropriate mood and affect; insight and judgment normal. Data Data Last Documented VS Vital Signs Date Time Temp Pulse Resp B/P (MAP) Pulse Ox O2 Delivery O2 Flow Rate FiO2 03/01/18 09:41 58 193/93 (126) Room Air 03/01/18 09:41 100 2.00 03/01/18 09:31 98.5 18 Orders Orders Electrocardiogram (03/01/18 09:39) Complete Blood Count With Diff (03/01/18 09:39) Basic Metabolic Panel (Bmp) (03/01/18 09:39) Ckmb (Isoenzyme) Profile (03/01/18 09:39) Troponin I (03/01/18 09:39) Chest, Single Ap (03/01/18 09:39) Iv Access Insert/Monitor (03/01/18 09:39) Ecg Monitoring (03/01/18 09:39) Oxygen Administration (03/01/18 09:39) Oximetry (03/01/18 09:39) Act Partial Throm Time (Ptt) (03/01/18 09:53) B-Type Natriuretic Peptide (03/01/18 09:53) Prothrombin Time / Inr (Pt) (03/01/18 09:53) Furosemide Inj (Lasix Inj) (03/01/18 11:00) Admit Order (Ed Use Only) (03/01/18 ) Vital Signs (Adult) Q4H (03/01/18 11:22) Diet Heart Healthy (03/01/18 Lunch) Activity Oob With Assistance (03/01/18 11:22) Labs Laboratory Tests Test 03/01/18 09:40 White Blood Count 7.7 TH/MM3 Red Blood Count 4.38 MIL/MM3 Hemoglobin 14.0 GM/DL Hematocrit 40.3 % Mean Corpuscular Volume 91.9 FL Mean Corpuscular Hemoglobin 31.8 PG Mean Corpuscular Hemoglobin Concent 34.6 % Red Cell Distribution Width 13.9 % Platelet Count 122 TH/MM3 Mean Platelet Volume 11.0 FL Neutrophils (%) (Auto) 57.5 % Lymphocytes (%) (Auto) 29.3 % Monocytes (%) (Auto) 7.7 % Eosinophils (%) (Auto) 4.8 % Basophils (%) (Auto) 0.7 % Neutrophils # (Auto) 4.5 TH/MM3 Lymphocytes # (Auto) 2.3 TH/MM3 Monocytes # (Auto) 0.6 TH/MM3 Eosinophils # (Auto) 0.4 TH/MM3 Basophils # (Auto) 0.1 TH/MM3 CBC Comment DIFF FINAL Differential Comment Prothrombin Time 12.6 SEC Prothromb Time International Ratio 1.2 RATIO Activated Partial Thromboplast Time 29.9 SEC Blood Urea Nitrogen 15 MG/DL Creatinine 1.32 MG/DL Random Glucose 175 MG/DL Calcium Level 8.8 MG/DL Sodium Level 142 MEQ/L Potassium Level 4.8 MEQ/L Chloride Level 109 MEQ/L Carbon Dioxide Level 24.5 MEQ/L Anion Gap 9 MEQ/L Estimat Glomerular Filtration Rate 52 ML/MIN Total Creatine Kinase 95 U/L Troponin I LESS THAN 0.02 NG/ML B-Type Natriuretic Peptide 450 PG/ML MDM Medical Decision Making Medical Screen Exam Complete: Yes Emergency Medical Condition: Yes Medical Record Reviewed: Yes Differential Diagnosis NSTEMI, unstable angina, coronary vasospasm, PE, PTX, aortic dissection, pericarditis, myocarditis, endocarditis, PNA, esophageal disease, aneurysm, musculoskeletal etiologies, anxiety, cocaine/sympathomimetic abuse Narrative Course CBC & BMP Diagram 03/01/18 09:40 Calcium Level 8.8 Troponin is less than 0.02 EKG shows sinus rhythm at a rate of 57 w Q waves in inferior leads The BNP is 450 The patient has a CHF exacerbation with chest pain. An echo from approximately 2 years prior reveals an EF of 20-25%. I see no more recent echo on record. The patient will be admitted under the [facility] protocol for CHF. Nitropaste ordered for mild HTN at 202 systolic. Diagnosis Primary Impression: CHF (congestive heart failure) Qualified Codes: I50.9 - Heart failure, unspecified Additional Impression: Chest pain Qualified Codes: R07.9 - Chest pain, unspecified Admitting Information Admitting Physician Requests: Observation Christopher Aguilar MD Mar 01, 2018 11:03
[2018-03-01] MEDS ORDERED: NITROGLYCERIN 2% OINT 1 GM PACKET TOP ONE (12:00)
[2018-03-01 12:14] LABS: BILIRUBIN, URINE NEG (NEG); BLOOD, URINE SMALL (NEG); GLUCOSE,URINE NEG (NEG); KETONE, URINE NEG (NEG); MUCUS URINE FEW /lpf (OCC); NITRITE,URINE NEG (NEG); SQUAMOUS EPITHELIAL CELL URINE <1 /hpf (0-5); URINE COLOR YELLOW (YELLW/STRAW); URINE LEUKOCYTE ESTERASE NEG (NEG)
[2018-03-01] MEDS ORDERED: ACETAMINOPHEN 325 MG TAB PO PRN ×2 (12:30)
[2018-03-01] MEDS ORDERED: SODIUM CHLORIDE 0.9% FLUSH 10 ML FLUSH IV FLUSH PRN (12:30)
[2018-03-01] MEDS ORDERED: NALOXONE HCL 0.4 MG/ML AMP IV PUSH PRN (12:30)
[2018-03-01] MEDS ORDERED: cloNIDine HCL 0.1 MG TAB PO PRN (12:30)
[2018-03-01] MEDS: CARVEDILOL 12.5 MG TAB PO SCH ×2 (13:42→21:12)
[2018-03-01] MEDS: RIVAROXABAN 15 MG TAB PO SCH (13:42)
--- NOTE | 2018-03-01 14:19 | EKG ---
Date Performed: 03/01/2018 Time Performed: 09:34:18 PTAGE: 77 years EKG: SINUS BRADYCARDIA WITH OCCASIONAL VENTRICULAR PREMATURE COMPLEXES POSSIBLE LEFT ATRIAL ENLA RGEMENT POSSIBLE INFERIOR MYOCARDIAL INFARCTION ABNORMAL ECG INTERPRETATION BASED ON A DEFAULT AGE OF 40 YEARS NO PREVIOUS TRACING Since the previous tracing, no significant change noted DOCTOR: Morgan Aguilar Interpretating Date/Time 03/01/2018 14:17:17
--- NOTE | 2018-03-01 15:01 | HHI.HP ---
[facility] [place] Primary [place] Physician Odette Marques M.D. Admission Diagnosis CHF Exacerbation; Chest Pain Diagnoses: Chief Complaint: Chest pain, shortness of breath Travel History International Travel<30 Days: No Contact w/Intl Traveler <30 Da: No History of Present Illness The patient is a 77-year-old male with a past medical history of CAD status post CABG and stents who is presenting to the hospital with chest pain and shortness of breath. He states that at 7 AM he woke up with some shortness of breath. 15 minutes later he started to experience chest pain. He describes the chest pain as located at the sternum and he rated the severity as a 3 out of 10. He said that he took 2 baby aspirins. The chest pain lasted about half an hour. He said the shortness of breath lasted about an hour. He says he does not tend to have chest pain. He says that he does not remember the last time he had a stress test. He does follow with a automatic clipper. He said he was admitted to the hospital in November because his defibrillator fired. The patient states that he has a couple episodes a month where he feels short of breath, especially when he lays down. He notes that he has had increased swelling in his lower extremities. He has noticed increased weight gain the past couple of weeks. He tries to avoid salt in his diet. Review of Systems Except as stated in HPI: all other systems reviewed are Neg Past Family Social History Past Medical History CAD s/p CABG x 4 and stents Cardiac arrest Cardiomyopathy PUD History of diabetes PNA HTN Hyperlipidemia Chronic renal failure Hypothyroid C. 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 Ordered Medications Current Medications Medications (Trade) Dose Ordered Sig/Saad Route Start Time Stop Time Status Last Admin (Aspirin Chew) 81 mg HS CHEW 03/01/18 21:00 (Lipitor) 80 mg HS PO 03/01/18 21:00 (Vitamin B12) 1,000 mcg DAILY PO 03/02/18 09:00 (Lasix) 40 mg DAILY PO 03/02/18 09:00 (Synthroid) 112 mcg DAILY@0600 PO 03/02/18 06:00 (Prinivil) 5 mg HS PO 03/01/18 21:00 (Remeron) 15 mg HS PO 03/01/18 21:00 (KCl) 20 meq BID PO 03/01/18 21:00 (Xarelto) 15 mg DAILY PO 03/01/18 12:30 03/01/18 13:42 (Coreg) 12.5 mg BID PO 03/01/18 12:30 03/01/18 13:42 (NS Flush) 2 ml UNSCH PRN IV FLUSH 03/01/18 12:30 (NS Flush) 2 ml BID IV FLUSH 03/01/18 21:00 (Tylenol) 650 mg Q4H PRN PO 03/01/18 12:30 (Tylenol) 650 mg Q6H PRN PO 03/01/18 12:30 (Narcan Inj) 0.4 mg UNSCH PRN IV PUSH 03/01/18 12:30 (Coretta-Colace) 1 tab BID PO 03/01/18 21:00 (Catapres) 0.1 mg Q6H PRN PO 03/01/18 12:30 (Flu (Quadrivalent) Vaccine Inj) 0.5 ml ONCE ONCE IM 03/02/18 10:00 03/02/18 10:01 Family History CAD DM Social History The pt quit smoking 30 years ago. He does not drink alcohol. Physical Exam Vital Signs Vital Signs Date Time Temp Pulse Resp B/P (MAP) Pulse Ox O2 Delivery O2 Flow Rate FiO2 03/01/18 14:15 98.2 59 18 134/73 (93) 93 03/01/18 13:23 178/88 (118) 03/01/18 12:04 178/80 (112) 03/01/18 09:41 58 193/93 (126) Room Air 03/01/18 09:41 100 Room Air 2.00 03/01/18 09:34 95 212/95 (134) 97 Nasal Cannula 2.00 03/01/18 09:34 97 Nasal Cannula 2.00 03/01/18 09:31 98.5 60 18 97 Physical Exam GENERAL: This is a well-nourished, well-developed patient, in no apparent distress. SKIN: No rashes, ecchymoses or lesions. Cool and dry. HEAD: Atraumatic. Normocephalic. No temporal or scalp tenderness. EYES: Pupils equal round and reactive. Extraocular motions intact. No scleral icterus. No injection or drainage. ENT: Nose without bleeding, purulent drainage or septal hematoma. Throat without erythema, tonsillar hypertrophy or exudate. Uvula midline. Airway patent. NECK: Trachea midline. No JVD or lymphadenopathy. Supple, nontender, no meningeal signs. CARDIOVASCULAR: Grade 1 murmur appreciated. RESPIRATORY: Clear to auscultation. Breath sounds equal bilaterally. No wheezes , rales, or rhonchi. GASTROINTESTINAL: Abdomen soft, non-tender, nondistended. No hepato-splenomegaly , or palpable masses. No guarding. MUSCULOSKELETAL: Extremities with 1+ edema on the LLE, TR edema on the right. NEUROLOGICAL: Awake and alert. Cranial nerves II through XII intact. Motor and sensory grossly within normal limits. Five out of 5 muscle strength in all muscle groups. Normal speech. Laboratory Laboratory Tests Test 03/01/18 09:40 03/01/18 11:50 White Blood Count 7.7 Red Blood Count 4.38 Hemoglobin 14.0 Hematocrit 40.3 Mean Corpuscular Volume 91.9 Mean Corpuscular Hemoglobin 31.8 Mean Corpuscular Hemoglobin Concent 34.6 Red Cell Distribution Width 13.9 Platelet Count 122 Mean Platelet Volume 11.0 Neutrophils (%) (Auto) 57.5 Lymphocytes (%) (Auto) 29.3 Monocytes (%) (Auto) 7.7 Eosinophils (%) (Auto) 4.8 Basophils (%) (Auto) 0.7 Neutrophils # (Auto) 4.5 Lymphocytes # (Auto) 2.3 Monocytes # (Auto) 0.6 Eosinophils # (Auto) 0.4 Basophils # (Auto) 0.1 CBC Comment DIFF FINAL Differential Comment Prothrombin Time 12.6 Prothromb Time International Ratio 1.2 Activated Partial Thromboplast Time 29.9 Blood Urea Nitrogen 15 Creatinine 1.32 Random Glucose 175 Calcium Level 8.8 Sodium Level 142 Potassium Level 4.8 Chloride Level 109 Carbon Dioxide Level 24.5 Anion Gap 9 Estimat Glomerular Filtration Rate 52 Total Creatine Kinase 95 Troponin I LESS THAN 0.02 B-Type Natriuretic Peptide 450 Urine Color YELLOW Urine Turbidity CLEAR Urine pH 6.0 Urine Specific [place] 1.012 Urine Protein TRACE Urine Glucose (UA) NEG Urine Ketones NEG Urine Occult Blood SMALL Urine Nitrite NEG Urine Bilirubin NEG Urine Urobilinogen LESS THAN 2.0 Urine Leukocyte Esterase NEG Urine RBC 6 Urine Squamous Epithelial Cells <1 Urine Mucus FEW Microscopic Urinalysis Comment CULT NOT INDICATED Result Diagram: 03/01/1893903/01/18939 Imaging Last Impressions Chest X-Ray 03/01/18938 Signed Impressions: Service Date/Time: Thursday, March 01, 2018 09:55 - CONCLUSION: Clear lungs. MD Elda Burt VTE Risk Assessment Elda VTE Risk Assessment: Mod/High Risk (score >= 2) Caprini Risk Assessment Model Point Value = 1 Point Value = 2 Point Value = 3 Point Value = 5 Age 41-60 Minor surgery BMI > 25 kg/m2 Swollen legs Varicose veins or History of unexplained or recurrent spontaneous Oral contraceptives or hormone replacement Sepsis (< 1 month) Serious lung disease, including pneumonia (< 1 month) Abnormal pulmonary function Acute myocardial infarction Congestive heart failure (< 1 month) History of inflammatory bowel disease Medical patient at bed rest Age 61-74 Arthroscopic surgery Major open surgery (> 45 min) Laparoscopic surgery (> 45 min) Malignancy Confined to bed (> 72 hours) Immobilizing plaster cast Central venous access Age >= 75 History of VTE Family history of VTE Factor V Leiden Prothrombin [id number] Lupus anticoagulant Anticardiolipin antibodies Elevated serum homocysteine Heparin-induced thrombocytopenia Other congenital or acquired thrombophilia Stroke (< 1 month) Elective arthroplasty Hip, pelvis, or leg fracture Acute spinal cord injury (< 1 month) Prophylaxis Regimen Total Risk Factor Score Risk Level Prophylaxis Regimen 0-1 Low Early ambulation 2 Moderate Order ONE of the following: *Sequential Compression Device (SCD) *Heparin 5000 units SQ BID 3-4 Higher Order ONE of the following medications: *Heparin 5000 units SQ TID *Enoxaparin/Lovenox 40 mg SQ daily (WT < 150 kg, CrCl > 30 mL/min) *Enoxaparin/Lovenox 30 mg SQ daily (WT < 150 kg, CrCl > 10-29 mL/min) *Enoxaparin/Lovenox 30 mg SQ BID (WT < 150 kg, CrCl > 30 mL/min) AND/OR *Sequential Compression Device (SCD) 5 or more Highest Order ONE of the following medications: *Heparin 5000 units SQ TID (Preferred with Epidurals) *Enoxaparin/Lovenox 40 mg SQ daily (WT < 150 kg, CrCl > 30 mL/min) *Enoxaparin/Lovenox 30 mg SQ daily (WT < 150 kg, CrCl > 10-29 mL/min) *Enoxaparin/Lovenox 30 mg SQ BID (WT < 150 kg, CrCl > 30 mL/min) AND *Sequential Compression Device (SCD) Assessment and Plan Assessment and Plan CAD/ Acute on chronic systolic CHF exacerbation The pt had a 30 minute episode of chest pain and shortness of breath. His symptoms have resolved. He has a history of CABG and stents. He appears to be volume overloaded. BNP is elevated. CXR is stable. Does not recall his last stress test. EKG without acute ischemia. - continue to trend trops and EKGs. - monitor on telemetry. - cardiology consult requested. - Lasix 40 mg IV BID. - follow Is and Os. - oxygen as needed. - incentive spirometry. - PT eval. Atrial tachycardia Has a defibrillator in place. - continue Coreg and Sotalol. - telemetry. Renal insufficiency Creatinine appears to be at baseline. - monitor renal function while diuresing. Hyperglycemia The pt says he has a history of DM but is no longer diabetic s/t weight loss. Glucose elevated on admission. - check an A1c. - insulin sliding scale. PPx: Xarelto Code Status Full Discussed Condition With Pt, Pt's family, nurse, Dr. Aguilar Physician Certification 2 Midnight Certification Type: Admission for Inpatient Services Order for Inpatient Services The services are ordered in accordance with Medicare regulations or non- Medicare payer requirements, as applicable. In the case of services not specified as inpatient-only, they are appropriately provided as inpatient services in accordance with the 2-midnight benchmark. Estimated LOS (days): 2 days is the estimated time the patient will need to remain in the hospital, assuming treatment plan goals are met and no additional complications. Post-Hospital Plan: Home Waldemar Fitzpatrick DO Mar 01, 2018 15:01
--- NOTE | 2018-03-01 17:03 | EKG ---
Date Performed: 03/01/2018 Time Performed: 16:31:24 PTAGE: 77 years EKG: ELECTRONIC ATRIAL PACEMAKER POSSIBLE RIGHT VENTRICULAR CONDUCTION DELAY NONSPECIFIC ST & T- WAVE ABNORMALITY PREMATURE VENTRICULAR CONTRACTIONS PROLONGED QT INTERVAL ABNORMAL ECG PREVIOUS TRACING : 03/01/2018 09.34 Compared to previous tracing, now felt to be atrial paced DOCTOR: Morgan Aguilar Interpretating Date/Time 03/01/2018 17:01:38
[2018-03-01] MEDS: FUROSEMIDE 40 MG/4 ML VIAL IV PUSH SCH (17:44)
[2018-03-01] MEDS: INSULIN ASPART SUPPLEMENTAL SCALE SQ SCH ×2 (17:49→21:07)
[2018-03-01] MEDS: MIRTAZAPINE 15 MG TAB PO SCH (21:00)
[2018-03-01] MEDS: DOCUSATE SODIUM 50 MG/SENNA 8.6 MG TAB PO SCH (21:00)
[2018-03-01] MEDS ORDERED: SOTALOL HCL 80 MG TAB PO SCH (21:00)
[2018-03-01] MEDS ORDERED: CARVEDILOL 12.5 MG TAB PO SCH (21:00)
[2018-03-01] MEDS: POTASSIUM CHLORIDE 20 MEQ CONTROLLED RELEASE TAB PO SCH (21:08)
[2018-03-01] MEDS: LISINOPRIL 5 MG TAB PO SCH (21:09)
[2018-03-01] MEDS: ATORVASTATIN 80 MG TAB PO SCH (21:10)
[2018-03-01] MEDS: SOTALOL HCL 80 MG TAB PO SCH (21:10)
[2018-03-01] MEDS: SODIUM CHLORIDE 0.9% FLUSH 10 ML FLUSH IV FLUSH SCH (21:12)
[2018-03-01] MEDS: ASPIRIN 81 MG CHEW TAB CHEW SCH (21:12)
[2018-03-01 23:42] LABS: TROPONIN I LESS THAN 0.02 NG/ML (0.02-0.05)
--- NOTE | 2018-03-01 23:55 | EKG ---
Date Performed: 03/01/2018 Time Performed: 22:37:35 PTAGE: 77 years EKG: ELECTRONIC ATRIAL PACEMAKER POSSIBLE RIGHT VENTRICULAR CONDUCTION DELAY NONSPECIFIC ST & T- WAVE ABNORMALITY PROLONGED QT INTERVAL ABNORMAL ECG PREVIOUS TRACING : 03/01/2018 16.31 Since the previous tracing, no significant change noted DOCTOR: Morgan Aguilar Interpretating Date/Time 03/01/2018 23:53:42
[2018-03-02] VITALS (12 sets, daily range): BP systolic 104–163; BP diastolic 55–85; PULSE 49–63; RESP 16–20; TEMP 97.5–97.8; O2SAT 93–98
[2018-03-02] MEDS: LEVOTHYROXINE SODIUM 112 MCG TAB PO SCH (05:26)
[2018-03-02 06:14] LABS: AUTOMATED NEUTROPHIL # 3.6 TH/MM3 (1.8-7.7); BASOPHIL % 0.6 % (0.0-2.0); EOSINOPHIL # 0.4 TH/MM3 (0-0.4); EOSINOPHIL % 5.5 % (0.0-4.0); HEMATOCRIT 43.7 % (39.0-51.0); HEMOGLOBIN 15.1 GM/DL (13.0-17.0); LYMPH % 34.5 % (9.0-44.0); LYMPHOCYTE # 2.5 TH/MM3 (1.0-4.8); MEAN CELL VOLUME 91.1 FL (80.0-100.0); MEAN CORPUSCULAR HEMOGLOBIN 31.4 PG (27.0-34.0); MEAN CORPUSCULAR HGB CONC 34.5 % (32.0-36.0); MEAN PLATELET VOLUME 10.9 FL (7.0-11.0); MONO % 9.8 % (0.0-8.0); MONOCYTE # 0.7 TH/MM3 (0-0.9); NEUT % 49.6 % (16.0-70.0); PLATELET COUNT 139 TH/MM3 (150-450); RED CELL DISTRIBUTION WIDTH 13.9 % (11.6-17.2); WHITE BLOOD COUNT 7.3 TH/MM3 (4.0-11.0)
[2018-03-02 06:58] LABS: ALBUMIN 3.7 GM/DL (3.4-5.0); ALKALINE PHOSPHATASE 77 U/L (45-117); ALT (GPT) 18 U/L (12-78); AST (GOT) 18 U/L (15-37); BICARBONATE 28.6 MEQ/L (21.0-32.0); BLOOD UREA NITROGEN 18 MG/DL (7-18); CALCIUM 9.1 MG/DL (8.5-10.1); CHLORIDE 105 MEQ/L (98-107); CREATININE 1.33 MG/DL (0.60-1.30); GLOMERULAR FILTRATION RATE 52 ML/MIN (>89); GLUCOSE,RANDOM 132 MG/DL (74-106); SODIUM (NA) 143 MEQ/L (136-145); TOTAL BILIRUBIN ADULT 1.1 MG/DL (0.2-1.0); TOTAL PROTEIN 6.6 GM/DL (6.4-8.2)
[2018-03-02] MEDS: INSULIN ASPART SUPPLEMENTAL SCALE SQ SCH ×4 (08:00→20:42)
[2018-03-02] MEDS: SODIUM CHLORIDE 0.9% FLUSH 10 ML FLUSH IV FLUSH SCH ×2 (08:55→20:42)
[2018-03-02] MEDS: POTASSIUM CHLORIDE 20 MEQ CONTROLLED RELEASE TAB PO SCH ×2 (08:57→20:44)
[2018-03-02] MEDS: SOTALOL HCL 80 MG TAB PO SCH ×2 (08:59→20:45)
[2018-03-02] MEDS: DOCUSATE SODIUM 50 MG/SENNA 8.6 MG TAB PO SCH ×2 (08:59→20:45)
[2018-03-02] MEDS: CARVEDILOL 12.5 MG TAB PO SCH ×2 (08:59→20:45)
[2018-03-02] MEDS ORDERED: NON-FORMULARY DRUG (Magnesium Gluconate 500 MG) PO SCH (09:00)
[2018-03-02] MEDS ORDERED: FUROSEMIDE 40 MG TAB PO SCH (09:00)
[2018-03-02] MEDS: CYANOCOBALAMIN 1,000 MCG TAB PO SCH (09:00)
[2018-03-02] MEDS: RIVAROXABAN 15 MG TAB PO SCH (09:03)
[2018-03-02] MEDS: FUROSEMIDE 40 MG/4 ML VIAL IV PUSH SCH ×2 (09:56→17:58)
[2018-03-02] MEDS ORDERED: INFLUENZA VIRUS VACCINE (QUADRIVALENT) 0.5 ML SYR IM ONE (10:00)
[2018-03-02 13:04] LABS: HEMOGLOBIN A1C 7.8 % (4.3-6.0)
--- NOTE | 2018-03-02 14:13 | HHI.PR ---
Subjective Remarks feels better no chest discomfort or shortness of breath on further questioning- d/w on the phone- supposed to be on Furosemide 40 mg po bid- not taking it "makes him pee " Objective Vitals Vital Signs Date Time Temp Pulse Resp B/P (MAP) Pulse Ox O2 Delivery O2 Flow Rate FiO2 03/02/18 08:52 57 20 163/85 (111) 93 03/02/18 08:02 97.7 49 20 152/79 (103) 94 03/02/18 04:00 97.6 49 16 118/61 (80) 93 03/02/18 03:56 54 03/02/18 00:11 56 03/02/18 00:00 97.7 50 18 115/58 (77) 93 03/01/18 20:24 95 21 03/01/18 20:10 59 03/01/18 20:00 97.9 58 20 134/73 (93) 96 03/01/18 16:00 97.3 55 17 141/63 (89) 95 03/01/18 15:00 55 03/01/18 14:15 98.2 59 18 134/73 (93) 93 I/O 03/01/18 03/01/18 03/01/18 03/02/18 03/02/18 03/02/18 07:00 15:00 23:00 07:00 15:00 23:00 Intake Total 240 ml Output Total 700 ml 900 ml Balance -700 ml -660 ml Intake Oral 240 ml Output Urine Total 700 ml 900 ml # Bowel Movements 0 Result Diagram: 03/02/18 0527 03/02/18 0527 Imaging Last Impressions Chest X-Ray 03/01/18 0939 Signed Impressions: Service Date/Time: Thursday, March 01, 2018 09:55 - CONCLUSION: Clear lungs. Hwoard Contreras MD Objective Remarks awake and alert, no acute distress anicteric lungs- no rales irregular rhythm abdomen soft, nontender extremities tr pretibial edema, good peripheral pulses, no calf swelling A/P Assessment and Plan 77 years old emale Acute CHf with known ischemic cardiomyopathy- Non compliance with Furosemide medications- d/w on phone - still has a bottle from 01/2018- full troponins negative . BNP is elevated. CXR is stable. - monitor on telemetry. - cardiology consulted- known to Dr. Jimenez - Lasix 40 mg -bid- change to po in am - advise compliance and DC - follow Is and Os. - oxygen as needed. - incentive spirometry. - PT eval. Atrial Fibrillation- rate controlled Has a defibrillator in place. - continue Coreg and Sotalol. - telemetry. Renal insufficiency- improved Creatinine appears to be at baseline. - monitor renal function while diuresing. Hyperglycemia The pt says he has a history of DM but is no longer diabetic s/t weight loss. Glucose elevated on admission. - check an A1c. - insulin sliding scale. PPx: Xarelto Possible DC tomorrow am d/w Increase activity- out of bed and ambulate around room Colt Phoenix MD Mar 02, 2018 14:13
--- NOTE | 2018-03-02 17:07 | MB ---
cc: Urban Perry DO DATE: 03/02/2018 PRIMARY ACCOUNTANT CERTIFIED PUBLIC: Josesito Jimenez MD IMPRESSIONS: 1. Chest discomfort. The patient is ruled out for acute myocardial infarction, cannot exclude recurrent angina. 2. History of atherosclerotic heart disease, history of coronary artery bypass grafting surgery x 4. He also has a history of percutaneous coronary intervention since that time with at least 1 stent in his right coronary artery. 3. Hypertension. 4. Dilated cardiomyopathy with complex ventricular arrhythmias. The patient has a [employer] implantable cardioverter-defibrillator. 5. History of congestive heart failure. 6. History of diabetes with weight loss. The patient is not requiring therapy at this point. 7. Peptic ulcer disease. 8. History of pneumonia. 9. Hypertension. 10. Dyslipidemia. 11. History of supraventricular tachycardia with apparent inappropriate shock in the past. 12. Hypothyroidism, on replacement therapy. 13. History of Clostridium difficile infection. 14. Normal pressure hydrocephalus. RECOMMENDATIONS: The patient is ruled out for acute myocardial infarction, had no real EKG changes, so he did have a prolonged episode of chest pain lasting 30 minutes. Would recommend reviewing office records. The patient tells me he cannot remember when he had a stress test done last doctor. Dr. Jimenez will follow up with the patient. At this point in time, I would continue his same medications without interruption. He appears to be hemodynamically stable. HISTORY OF PRESENT ILLNESS: The patient is a 77-year-old male admitted to the hospital with chest pain. This was described as left midsternal with some mild shortness of breath, but no diaphoresis, water brash or pyrosis. It occurred when he was not really doing anything physical. Lasted approximately 1/2 hour. In the emergency room, EKG was apparently unremarkable. He has a history of coronary artery disease noted in the opening remarks, history of coronary artery bypass grafting surgery and a history of a cath and PCI since that time. He cannot recall when he last had a catheterization or a stress test. Records indicate that he may have had a stent placed in the RCA in 2016. He has multiple risk factors. He does not currently smoke. PAST SURGICAL HISTORY: Includes cataract surgery, coronary artery bypass grafting surgery, cholecystectomy, appendectomy and placement of LOADING INSPECTOR shunt for hydrocephalus. He has been diagnosed with heart failure. He does not know his ejection fraction. He has not been admitted with heart failure in the past several years. MEDICATIONS: At the time of admission include aspirin 81 daily, Lipitor 80 daily, vitamins, Lasix 40 daily, levothyroxine 112 daily, Prinivil (lisinopril) 5 daily, Remeron 15 daily, potassium 20 daily, Xarelto 15 daily, carvedilol 12.5 b.i.d. ALLERGIES: HE HAS NO DEFINITE ALLERGIES TO MEDICATIONS. REVIEW OF SYSTEMS: He denies a history of seizure or stroke. No history of asthma, bronchitis, or emphysema. He has a history of peptic ulcer disease. No recent GI bleeding on Xarelto. There is no history of liver disease. He appears to have mild renal insufficiency with a clearance of about 55. He has had no syncope. No recent ICD shocks. He has had no dizzy spells. No lower extremity edema, PND or orthopnea. He is somewhat sedentary, but has had no change in his functional capacity. PHYSICAL EXAMINATION: GENERAL: At this time demonstrates an alert, oriented male, sitting up in a chair, breathing room air. He is not dyspneic, nor tachypneic. VITAL SIGNS: Blood pressure 118/60, and he appears to be in a sinus rhythm with a heart rate of 55-60. HEENT: Anicteric sclerae. NECK: Jugular venous pressures are normal. No definite bruits. LUNGS: Clear lung chambers anteriorly and laterally. CARDIAC: He has a regular rate and rhythm. No definite gallops are noted. There is a II/ systolic ejection murmur. No rubs. ABDOMEN: Soft, nontender. EXTREMITIES: Free of cyanosis, clubbing, edema. DIAGNOSTIC DATA: A chest x-ray demonstrates postoperative mediastinal changes, presence of a right-sided LOADING INSPECTOR shunt with an ICD. There is cardiomegaly. Lung chambers are clear with no infiltrates or effusions noted. PERTINENT LABORATORY STUDIES: Cardiac enzymes are normal x 3. BNP was 450. Most recent electrolytes 142, 4.8, 109, 24 with a BUN of 15, creatinine of 1.32, GFR of about 52. Random glucose 175. Hemoglobin A1c not performed. Most recent labs: White cell count 7300, hematocrit 44, platelet count 139. Most recent 12-lead electrocardiogram demonstrates an atrially paced rhythm, PVCs, intraventricular conduction delay, nonspecific ST-T changes. During spontaneous rhythm, there appears to be left axis deviation. DISCUSSION: This is a 77-year-old male with an ischemic cardiomyopathy, history of atherosclerotic heart disease, admitted to the hospital with prolonged episode of chest pain. He is ruled out for acute myocardial infarction with negative biomarkers and EKG not demonstrating any significant changes. Recommendations are as noted above. DO MARVA Qiu/ZACH , 03:55 PM , 05:06 PM
[2018-03-02] MEDS: LISINOPRIL 5 MG TAB PO SCH (20:42)
[2018-03-02] MEDS: ATORVASTATIN 80 MG TAB PO SCH (20:43)
[2018-03-02] MEDS: ASPIRIN 81 MG CHEW TAB CHEW SCH (20:44)
[2018-03-02] MEDS: MIRTAZAPINE 15 MG TAB PO SCH (20:45)
[2018-03-03] VITALS (9 sets, daily range): BP systolic 101–154; BP diastolic 55–75; PULSE 51–62; RESP 17–18; TEMP 97.2–98; O2SAT 95–98
[2018-03-03] MEDS: LEVOTHYROXINE SODIUM 112 MCG TAB PO SCH (05:32)
[2018-03-03] MEDS: SOTALOL HCL 80 MG TAB PO SCH (07:52)
[2018-03-03] MEDS: CARVEDILOL 12.5 MG TAB PO SCH (07:52)
[2018-03-03] MEDS: FUROSEMIDE 40 MG/4 ML VIAL IV PUSH SCH (07:52)
[2018-03-03] MEDS: DOCUSATE SODIUM 50 MG/SENNA 8.6 MG TAB PO SCH (07:53)
[2018-03-03] MEDS: POTASSIUM CHLORIDE 20 MEQ CONTROLLED RELEASE TAB PO SCH (07:53)
[2018-03-03] MEDS: CYANOCOBALAMIN 1,000 MCG TAB PO SCH (07:53)
[2018-03-03] MEDS: RIVAROXABAN 15 MG TAB PO SCH (07:53)
[2018-03-03] MEDS: SODIUM CHLORIDE 0.9% FLUSH 10 ML FLUSH IV FLUSH SCH (07:54)
[2018-03-03] MEDS: INSULIN ASPART SUPPLEMENTAL SCALE SQ SCH ×3 (08:00→17:00)
--- NOTE | 2018-03-03 08:15 | HHI.PR ---
Subjective Remarks now diuresing well no chest pain ro discomfort- but took two of us to get her to a chair Objective Vitals Vital Signs Date Time Temp Pulse Resp B/P (MAP) Pulse Ox O2 Delivery O2 Flow Rate FiO2 03/03/18 04:00 54 03/03/18 03:54 97.9 53 17 139/66 (90) 95 03/03/18 00:58 98.0 55 17 140/67 (91) 95 03/03/18 00:01 55 03/02/18 21:32 97.8 63 17 104/55 (71) 98 03/02/18 20:33 21 03/02/18 20:00 60 03/02/18 16:02 97.8 52 20 154/74 (100) 96 03/02/18 12:02 97.5 49 20 159/70 (99) 95 03/02/18 12:00 56 03/02/18 08:52 57 20 163/85 (111) 93 I/O 03/02/18 03/02/18 03/02/18 03/03/18 03/03/18 03/03/18 07:00 15:00 23:00 07:00 15:00 23:00 Intake Total 240 ml 380 ml Output Total 900 ml 800 ml 625 ml Balance -660 ml -420 ml -625 ml Intake Oral 240 ml 380 ml Output Urine Total 900 ml 800 ml 625 ml # Voids 6 2 # Bowel Movements 0 1 0 Result Diagram: 03/02/18 0527 03/02/18 0527 Imaging Last Impressions Chest X-Ray 03/01/18 0939 Signed Impressions: Service Date/Time: Thursday, March 01, 2018 09:55 - CONCLUSION: Clear lungs. Howard Contreras MD Objective Remarks awake and alert, no acute distress anicteric lungs- no rales, decrease breath sounds, no wheezes irregular rhythm abdomen soft, nontender extremities- no edema, good peripheral pulses, no calf swelling A/P Assessment and Plan 77 years old emale Acute CHf with known ischemic cardiomyopathy- Non compliance with Furosemide medications- d/w on phone - still has a bottle from 01/2018- full- "pee all day and night" - states not taking this because he pees all night- d/w with him - decrease and change to once a day a am and monitor troponins negative . BNP is elevated. CXR is stable. - monitor on telemetry. - cardiology consulted- known to Dr. Jimenez - Lasix 40 mg IV -bid- change to po once daily 40 mg .po dialy - follow Is and Os. - oxygen as needed. - incentive spirometry. - PT eval. daily- generalized weakness Atrial Fibrillation- rate controlled Has a defibrillator in place. - continue Coreg and Sotalol. - telemetry.--cardiology ff- known to Dr. Jimenez Renal insufficiency- improved Creatinine appears to be at baseline. - monitor renal function while diuresing. DM- a1C - 7.8 The pt says he has a history of DM but is no longer diabetic s/t weight loss. Glucose elevated on admission. - insulin sliding scale. change to ADA diet - dietitian consult PPx: Tram [facility] planning- needs SNF vs home with home PT Increase activity- out of bed and ambulate around room- - PT at home- in the process of transitioning him to a cane but looks deconditioned- will need SNF Colt Phoenix MD Mar 03, 2018 08:15
[2018-03-03] MEDS ORDERED: FUROSEMIDE 40 MG TAB PO SCH (09:00)
[2018-03-03 10:41] LABS: BICARBONATE 25.6 MEQ/L (21.0-32.0); CALCIUM 9.2 MG/DL (8.5-10.1); CREATININE 1.67 MG/DL (0.60-1.30)
--- NOTE | 2018-03-03 11:08 | HHI.FF ---
Face to Face Verification Diagnosis: (1) CAD (coronary artery disease) (2) Ischemic cardiomyopathy Physical Therapy Order: Evaluate and Treat Occupational Therapy Order: Improve ADL, Gross motor coordination Home Health Nursing Order: Medical education Signs/symptoms of disease process CHF education Nursing assessment with vital signs I have seen patient Mac Reilly on 03/03/18. My clinical findings support the need for the requested home health care services because: Patient has SOB Deconditioned w/ increased weakness Need for psychosocial assistance I certify that my clinical findings support that this patient is homebound because: Poor cardiac reserve Colt Phoenix MD Mar 03, 2018 11:08
[2018-03-03 11:09] LABS: FREE T3 2.85 PG/ML (2.18-3.98); FREE T4 1.3 NG/DL (0.76-1.46)
[2018-03-03] MEDS ORDERED: WALKER WHEELS/F1 MIS (15:13)
--- NOTE | 2018-03-03 17:35 | PD.CARD.PN ---
Subjective Subjective Remarks No CP or SOB, feels better, getting out of bed Objective Medications Current Medications Medications (Trade) Dose Ordered Sig/Saad Route Start Time Stop Time Status Last Admin (Aspirin Chew) 81 mg HS CHEW 03/01/18 21:00 03/02/18 20:44 (Lipitor) 80 mg HS PO 03/01/18 21:00 03/01/18 21:10 (Vitamin B12) 1,000 mcg DAILY PO 03/02/18 09:00 03/03/18 07:53 (Synthroid) 112 mcg DAILY@0600 PO 03/02/18 06:00 03/03/18 05:32 (Prinivil) 5 mg HS PO 03/01/18 21:00 03/02/18 20:42 (Remeron) 15 mg HS PO 03/01/18 21:00 (KCl) 20 meq BID PO 03/01/18 21:00 03/03/18 07:53 (Xarelto) 15 mg DAILY PO 03/01/18 12:30 03/03/18 07:53 (Coreg) 12.5 mg BID PO 03/01/18 12:30 03/03/18 07:52 (NS Flush) 2 ml UNSCH PRN IV FLUSH 03/01/18 12:30 (NS Flush) 2 ml BID IV FLUSH 03/01/18 21:00 03/03/18 07:54 (Tylenol) 650 mg Q4H PRN PO 03/01/18 12:30 (Tylenol) 650 mg Q6H PRN PO 03/01/18 12:30 (Narcan Inj) 0.4 mg UNSCH PRN IV PUSH 03/01/18 12:30 (Coretta-Colace) 1 tab BID PO 03/01/18 21:00 (Catapres) 0.1 mg Q6H PRN PO 03/01/18 12:30 (Betapace) 40 mg BID PO 03/01/18 21:00 03/03/18 07:52 (NovoLOG SUPPLEMENTAL SCALE) 1 ACHS SLIDING SCALE SQ 03/01/18 17:00 03/03/18 17:00 (Lasix) 40 mg DAILY PO 03/03/18 09:00 Vital Signs / I&O Vital Signs Date Time Temp Pulse Resp B/P (MAP) Pulse Ox O2 Delivery O2 Flow Rate FiO2 03/03/18 16:38 98 Room Air 03/03/18 16:37 56 03/03/18 12:05 97.2 62 18 117/67 (84) 98 03/03/18 12:00 62 03/03/18 12:00 98 Room Air 03/03/18 08:10 97.7 56 18 154/75 (101) 97 03/03/18 04:00 54 03/03/18 03:54 97.9 53 17 139/66 (90) 95 03/03/18 00:58 98.0 55 17 140/67 (91) 95 03/03/18 00:01 55 03/02/18 21:32 97.8 63 17 104/55 (71) 98 03/02/18 20:33 21 03/02/18 20:00 60 I/O 03/02/18 03/02/18 03/02/18 03/03/18 03/03/18 03/03/18 06:59 14:59 22:59 06:59 14:59 22:59 Intake Total 240 ml 380 ml Output Total 900 ml 800 ml 625 ml Balance -660 ml -420 ml -625 ml Intake Oral 240 ml 380 ml Output Urine Total 900 ml 800 ml 625 ml # Voids 6 2 # Bowel Movements 0 1 0 Physical Exam GENERAL: In NAD SKIN: Warm and dry. HEAD: Normocephalic. EYES: No scleral icterus. No injection or drainage. NECK: Supple, trachea midline. No JVD or lymphadenopathy. CARDIOVASCULAR: Regular rate and rhythm without murmurs, gallops, or rubs. RESPIRATORY: Breath sounds equal bilaterally. No accessory muscle use. GASTROINTESTINAL: Abdomen soft, non-tender, nondistended. MUSCULOSKELETAL: No cyanosis, trace edema. Laboratory Laboratory Tests Test 03/03/18 10:00 Blood Urea Nitrogen 23 MG/DL Creatinine 1.67 MG/DL Random Glucose 223 MG/DL Calcium Level 9.2 MG/DL Sodium Level 137 MEQ/L Potassium Level 4.4 MEQ/L Chloride Level 104 MEQ/L Carbon Dioxide Level 25.6 MEQ/L Anion Gap 7 MEQ/L Estimat Glomerular Filtration Rate 40 ML/MIN Free Thyroxine 1.30 NG/DL Free Triiodothyronine (T3) pg/dL 2.85 PG/ML Assessment and Plan Problem List: (1) Chest pain ICD Codes: R07.9 - Chest pain, unspecified Status: Acute (2) CAD (coronary artery disease) ICD Codes: I25.10 - Atherosclerotic heart disease of three affiliated coronary artery without angina pectoris Status: Chronic (3) Ischemic cardiomyopathy ICD Codes: I25.5 - Ischemic cardiomyopathy Status: Acute (4) CHF (congestive heart failure) ICD Codes: I50.9 - Heart failure, unspecified Status: Chronic (5) Renal insufficiency ICD Codes: N28.9 - Disorder of kidney and ureter, unspecified Status: Acute (6) Diabetes ICD Codes: E11.9 - Type 2 diabetes mellitus without complications Status: Chronic (7) NPH (normal pressure hydrocephalus) ICD Codes: G91.2 - (Idiopathic) normal pressure hydrocephalus Status: Acute (8) S/P implantation of automatic cardioverter/defibrillator (AICD) ICD Codes: Z95.810 - Presence of automatic (implantable) cardiac defibrillator Status: Chronic (9) S/P BIOMEDICAL TECHNICIAN shunt ICD Codes: Z98.2 - Presence of cerebrospinal fluid drainage device Status: Acute Assessment and Plan No recurrent CP. No arrhythmias. Cardiac enzymes negative. Continue current program with the tx for CAD and aggressive cardiac risk factor modification. Continue tx for CHF. OK to discharge home from cardiac standpoint. Will schedule f/u in our office shortly after discharge. Problem Qualifiers (1) Chest pain: Qualified Codes: R07.9 - Chest pain, unspecified (2) CHF (congestive heart failure): Qualified Codes: I50.9 - Heart failure, unspecified Josesito Jimenez MD Mar 03, 2018 17:35
--- NOTE | 2018-03-03 18:25 | HHI.DS ---
Discharge Summary Admission Date Mar 01, 2018 at 12:26 Discharge Date: Mar 03, 2018 Admitting Diagnosis CHF Exacerbation; Chest Pain (1) Ischemic cardiomyopathy ICD Code: I25.5 - Ischemic cardiomyopathy Diagnosis: Principal Status: Acute (2) Atrial fibrillation with RVR ICD Code: I48.91 - Unspecified atrial fibrillation Diagnosis: Principal Status: Acute Procedures none Brief History - From Admission The patient is a 77-year-old male with a past medical history of CAD status post CABG and stents who is presenting to the hospital with chest pain and shortness of breath. He states that at 7 AM he woke up with some shortness of breath. 15 minutes later he started to experience chest pain. He describes the chest pain as located at the sternum and he rated the severity as a 3 out of 10. He said that he took 2 baby aspirins. The chest pain lasted about half an hour. He said the shortness of breath lasted about an hour. He says he does not tend to have chest pain. He says that he does not remember the last time he had a stress test. He does follow with a slasher tender. He said he was admitted to the hospital in November because his defibrillator fired. The patient states that he has a couple episodes a month where he feels short of breath, especially when he lays down. He notes that he has had increased swelling in his lower extremities. He has noticed increased weight gain the past couple of weeks. He tries to avoid salt in his diet. CBC/BMP: 03/02/18 0527 03/03/18 1000 Significant Findings Laboratory Tests Test 03/01/18 09:40 03/01/18 11:50 03/01/18 17:06 03/01/18 22:18 Red Blood Count 4.38 MIL/MM3 (4.50-5.90) Platelet Count 122 TH/MM3 (150-450) Eosinophils (%) (Auto) 4.8 % (0.0-4.0) Prothrombin Time 12.6 SEC (9.8-11.6) Creatinine 1.32 MG/DL (0.60-1.30) Random Glucose 175 MG/DL (74-106) Chloride Level 109 MEQ/L (98-107) Estimat Glomerular Filtration Rate 52 ML/MIN (>89) Troponin I LESS THAN 0.02 NG/ML LESS THAN 0.02 NG/ML LESS THAN 0.02 NG/ML B-Type Natriuretic Peptide 450 PG/ML (0-100) Urine Occult Blood SMALL (NEG) Urine RBC 6 /hpf (0-3) Urine Mucus FEW /lpf (OCC) Hemoglobin A1c 7.8 % (4.3-6.0) Test 03/02/18 05:27 03/03/18 10:00 Platelet Count 139 TH/MM3 (150-450) Monocytes (%) (Auto) 9.8 % (0.0-8.0) Eosinophils (%) (Auto) 5.5 % (0.0-4.0) Creatinine 1.33 MG/DL (0.60-1.30) 1.67 MG/DL (0.60-1.30) Random Glucose 132 MG/DL (74-106) 223 MG/DL (74-106) Total Bilirubin 1.1 MG/DL (0.2-1.0) Estimat Glomerular Filtration Rate 52 ML/MIN (>89) 40 ML/MIN (>89) Thyroid Stimulating Hormone 3rd Gen 7.690 uIU/ML (0.358-3.740) Blood Urea Nitrogen 23 MG/DL (7-18) Imaging Last Impressions Chest X-Ray 03/01/18 0956 Signed Impressions: Service Date/Time: Thursday, March 01, 2018 09:55 - CONCLUSION: Clear lungs. Howard Contreras MD PE at Discharge awake and alert, no acute distress anicteric lungs- no rales, decrease breath sounds, no wheezes irregular rhythm abdomen soft, nontender extremities- no edema, good peripheral pulses, no calf swelling Pt update on day of discharge afebrile laying flat, no leg swelling counselled extensively with at [facility] Hospital Course 77 years old emale Acute CHf with known ischemic cardiomyopathy- Non compliance with Furosemide medications- d/w on phone - still has a bottle from 01/2018- full- "pee all day and night" - states not taking this because he pees all night- d/w with him - decrease and change to once a day a am and monitor troponins negative . BNP is elevated. CXR is stable. - monitor on telemetry. - cardiology consulted- known to Dr. Jimenez - Lasix 40 mg IV -bid- change to po once daily 40 mg .po dialy - follow Is and Os. - oxygen as needed. - incentive spirometry. - PT eval. daily- generalized weakness Atrial Fibrillation- rate controlled Has a defibrillator in place. - continue Coreg and Sotalol. - telemetry.--cardiology ff- known to Dr. Jimenez Renal insufficiency- improved Creatinine appears to be at baseline. - monitor renal function while diuresing. DM- a1C - 7.8 The pt says he has a history of DM but is no longer diabetic s/t weight loss. Glucose elevated on admission. - insulin sliding scale. change to ADA diet - dietitian consult PPx: Tram [facility] planning- SNF vs home with home PT Increase activity- out of bed and ambulate around room- - PT at home- in the process of transitioning him to a cane but looks deconditioned- will need SNF Pt Condition on Discharge: Stable Discharge Disposition: Disch w/ Home Health Serv Discharge Time: > 30 minutes Discharge Instructions DIET: Follow Instructions for: Heart Healthy Diet Activities you can perform: Weight Bearing as Sherwin Activities to Avoid: Strenuous Activity Follow up Referrals: Cardiology - 3-5 Days with Josesito Jimenez MD New Orders: BASIC METABOLIC PROF - 03/06/18 TSH 3RD GEN - 4 Weeks New Medications: Walker with Front Wheels (Walker with Front Wheels) 1 Mis Mis EA .XX DIRECTED, #1 0 Refills Continued Medications: Aspirin (Aspirin) 81 Mg Chew 81 MG CHEW HS, TAB 0 Refills Atorvastatin (Atorvastatin) 80 Mg Tab 80 MG PO HS for Cholesterol Management, #30 TAB 0 Refills Carvedilol (Carvedilol) 12.5 Mg Tab 12.5 MG PO BID, #60 TAB 0 Refills Cyanocobalamin (Vitamin B-12) 1,000 Mcg Tab 1000 MCG PO DAILY, #30 TAB Furosemide (Furosemide) 40 Mg Tab 40 MG PO DAILY, #30 TAB 0 Refills Levothyroxine (Levothyroxine) 112 Mcg Tab 112 MCG PO DAILY for Thyroid, #30 TAB 0 Refills Lisinopril (Lisinopril) 5 Mg Tab 5 MG PO HS for Blood Pressure Management, #30 TAB 0 Refills Magnesium Gluconate (Magnesium Gluconate) 27 Mg (500 Mg) Tab 500 MG PO DAILY for Nutritional Supplement, TAB 0 Refills Mirtazapine (Mirtazapine) 15 Mg Tab 15 MG PO HS for Depression Control, #30 TAB 0 Refills Potassium Chloride ER (Potassium Chloride ER) 20 Meq Tab 20 MEQ PO BID for Electrolyte Replacement, #60 TAB 0 Refills Rivaroxaban (Xarelto) 15 Mg Tab 15 MG PO DAILY for Blood Clot Prevention, TAB 0 Refills Sotalol (Sotalol) 80 Mg Tab 80 MG PO BID PRN for 1/2 TAB, #60 TAB 0 Refills Colt Phoenix MD Mar 03, 2018 18:25
== END 2018-03-03 18:53 | disposition home or self-care (01) | DRG 291 ==
LOC: NEPE 09:27 → NEDA 11:24 → OBSVTOIN 12:26 → N04B 13:29
PROVIDERS: ADMIT Family Medicine; ATTEND Family Medicine
DX: I13.0 Hypertensive heart and chronic kidney disease with heart failure and stage 1 through stage 4 chronic kidney disease, or unspecified chronic kidney disease (principal); I50.23 Acute on chronic systolic (congestive) heart failure; G91.2 (Idiopathic) normal pressure hydrocephalus; Z86.74 Personal history of sudden cardiac arrest; I47.1 Supraventricular tachycardia; I48.91 Unspecified atrial fibrillation; R19.7 Diarrhea, unspecified; E78.5 Hyperlipidemia, unspecified; N18.9 Chronic kidney disease, unspecified; I25.2 Old myocardial infarction; I25.10 Atherosclerotic heart disease of native coronary artery without angina pectoris; I25.5 Ischemic cardiomyopathy; Z23 Encounter for immunization; E03.9 Hypothyroidism, unspecified; Z79.01 Long term (current) use of anticoagulants; Z87.891 Personal history of nicotine dependence; Z91.19 Patient's noncompliance with other medical treatment and regimen; Z95.1 Presence of aortocoronary bypass graft; Z95.5 Presence of coronary angioplasty implant and graft; Z95.810 Presence of automatic (implantable) cardiac defibrillator; Z98.2 Presence of cerebrospinal fluid drainage device
CPT/HCPCS: 71045; 80048; 80053; 81001; 82550; 82948; 83036; 83880; 84439; 84443; 84481; 84484; 85025; 85610; 85730; 90686; 93005; 96374; G8987-GP; G8988-GP; J1815; J1940; Q2038

== ENCOUNTER 2018-05-29 14:25 | Observation (INO) ==
[2018-05-29] MEDS ORDERED: Sod Chloride 0.9% Inj 1,000 ML IV.CONT SCH (14:45)
--- NOTE | 2018-05-29 14:54 | ED ---
HPI General Chief Complaint: Medical Clearance Stated Complaint: Weakness Time Seen by Provider: 05/29/18 14:33 Source: patient Mode of arrival: EMS Limitations: no limitations History of Present Illness HPI Narrative: 78-year-old male with PMH of hydrocephalus, status post stent placement, DM, CAD status post CABG, on Xarelto, presents the ED via EMS for evaluation of an episode of difficulties with word finding and slurred speech. Onset approximately 1 hour ago. Lasted approximately 30 minutes before resolving spontaneously. Currently asymptomatic. Patient denies any accompanying symptoms including headache, dizziness, vision changes, chest pain , palpitations, shortness of breath, abdominal pain, nausea, vomiting, unilateral weakness, facial droop or limitations to range of motion of the extremities. He states he has otherwise been feeling well. He was at the [facility] to establish care. He is followed by Dr. Rachel, neurology. He is followed by Dr. Jimenez, cardiology. Primary care is Dr. Marques. Related Data Home Medications Medication Instructions Recorded Confirmed escitalopram oxalate [Lexapro] 20 mg PO DAILY 05/29/18 05/29/18 levetiracetam [Keppra] 1,000 mg PO TID 05/29/18 05/29/18 levothyroxine [Synthroid] 112 mcg PO DAILY 05/29/18 05/29/18 potassium chloride [Klor-Con 10] 10 meq PO BID 05/29/18 05/29/18 propranolol 10 mg PO DAILY 05/29/18 05/29/18 simvastatin [Zocor] 20 mg PO QPM 05/29/18 05/29/18 sitagliptin [Januvia] 100 mg PO DAILY 05/29/18 05/29/18 terazosin 5 mg PO BID 05/29/18 05/29/18 trazodone 50 mg PO DAILY 05/29/18 05/29/18 triamcinolone acetonide 1 applic TOPICAL TID PRN 05/29/18 05/29/18 umeclidinium-vilanterol [Anoro 1 inh INHALATION DAILY 05/29/18 05/29/18 Ellipta] Allergies Allergy/AdvReac Type Severity Reaction Status Date / Time *MDRO Multi-Drug Resistant AdvReac Unknown Burning Uncoded 05/29/18 14:43 Organism Review of Systems Except as stated in HPI: all other systems reviewed are negative PMF Medical History Medical History A-fib (Acute) CAD (coronary artery disease) (Acute) CHF (congestive heart failure) (Acute) Dementia (Acute) HTN (hypertension) (Acute) Hypothyroid (Acute) Surgical History Surgical History Hx of CABG (Acute) Social History Social History Substance History: No History of Abuse Second Hand Smoke Exposure: No Smoking Status: Never smoker How Often Do You Have a Drink Containing Alcohol: Never Recent Travel in [facility] within the Last 8 Weeks: No Recent Out of Country Travel within the Last 8 Weeks: No Immunization History Tetanus Immunization: Unsure Exam Narrative Exam Narrative: GENERAL: Well nourished, well-developed white male in no acute distress. SKIN: Focused skin assessment warm/dry. Keloid sternotomy scar anterior chest- well healed and without signs of infection. HEAD: Atraumatic. Normocephalic. EYES: Left pupil misshapen, chronic per patient report. No scleral icterus. No injection or drainage. EOMI. ENT: No nasal bleeding or discharge. Mucous membranes pink and moist. NECK: Trachea midline. No JVD. CARDIOVASCULAR: Regular rate and rhythm. No murmur appreciated. RESPIRATORY: No accessory muscle use. Clear to auscultation. Breath sounds equal bilaterally. GASTROINTESTINAL: Abdomen soft, non-tender, nondistended. Hepatic and splenic margins not palpable. MUSCULOSKELETAL: No obvious deformities. No clubbing. No cyanosis. No edema. NEUROLOGICAL: Awake and alert. CN II through XII grossly intact. No pronator drift. 5/5 strength in all muscle groups. Normal speech. PSYCHIATRIC: Appropriate mood and affect; insight and judgment normal. Course Initial Documented Vital Signs Temperature 97.4 F L 05/29/18 14:36 Pulse Rate 65 05/29/18 14:36 Respiratory Rate 20 05/29/18 14:36 Blood Pressure 183/79 H 05/29/18 14:36 Pulse Oximetry 99 05/29/18 14:36 Last Documented Vital Signs Temperature 97.4 F L 05/29/18 14:36 Pulse Rate 56 L 05/29/18 16:31 Respiratory Rate 16 05/29/18 16:31 Blood Pressure 176/81 H 05/29/18 16:31 Pulse Oximetry 96 05/29/18 16:31 Medical Decision Making CARMEN Attestation CARMEN supervised visit: Yes Attestation: I, Dr. Pickens, have reviewed the advance practice practitioner's documentation and am in agreement, met with the patient face to face, made the diagnosis, and the medical decision making was done by me. *My assessment and Findings: This patient presented following a brief episode of aphasia. He is now back to normal. He is being admitted for further evaluation of TIA. Please see Carly Chavez PA-C's note for a more detailed H&P, final diagnosis and disposition MDM Narrative Medical decision making narrative: 78-year-old male with PMH of DM, hydrocephalus status post shunt insertion, CAD status post CABG presents to the ED for evaluation of dysphagia and slurred speech. Onset 1 hour before arrival , lasting 30 minutes before resolving spontaneously. Patient states he is otherwise asymptomatic and feeling well. Vitals reviewed. Physical exam is reassuring. No focal neuro deficits noted. IV was established. Patient was administered a liter of normal. EKG rate 56, sinus bradycardia with occasional PVC. DE interval 126, QRS 134, QTc 435 ms. Normal axis. No acute ST changes. Reviewed by Dr. Pickens. CT brain: Shunt in place without acute changes. CXR: No acute cardiopulmonary disease. No concerning abnormalities of CBC, CMP, cardiac enzymes. I believe the patient had a TIA and will observe for further workup. The patient and his are agreeable to this plan. I spoke with Dr. Macias who agrees to accept the patient the medicine service. Please see medicine notes for disposition. Differential Diagnosis Differential Diagnosis: TIA versus CVA versus GA versus ACS versus UTI versus metabolic derangement versus other Lab Data Result diagrams: 05/29/18 14:40 05/29/18 14:40 Lab Results 05/29/18 05/29/18 05/29/18 Range/Units 14:40 14:40 14:40 WBC 7.8 (4.0-11.0) th/mm3 RBC 4.47 L (4.50-5.90) mil/mm3 Hgb 14.1 (13.0-17.0) gm/dL Hct 41.6 (39.0-51.0) % MCV 93.2 (80.0-100.0) fL MCH 31.6 (27.0-34.0) pg MCHC 33.9 (32.0-36.0) % RDW 14.3 (11.6-17.2) % Plt Count 131 L (150-450) th/mm3 MPV 10.2 (7.0-11.0) fL Neut % (Auto) 60.3 (16.0-70.0) % Lymph % (Auto) 25.3 (9.0-44.0) % [place] % (Auto) 8.4 H (0.0-8.0) % Eos % (Auto) 5.6 H (0.0-4.0) % Baso % (Auto) 0.4 (0.0-2.0) % Neut # (Auto) 4.7 (1.8-7.7) th/mm3 Lymph # (Auto) 2.0 (1.0-4.8) th/mm3 [place] # (Auto) 0.7 (0.0-0.9) th/mm3 Eos # (Auto) 0.4 (0.0-0.4) th/mm3 Baso # (Auto) 0.0 (0.0-0.2) th/mm3 WBC Differential . Differential Comment Auto diff final PT 11.6 (9.8-11.6) sec INR 1.1 Ratio APTT 28.2 (24.3-30.1) sec Sodium 142 (136-145) meq/L Potassium 4.4 (3.5-5.1) meq/L Chloride 108 H (98-107) meq/L Carbon Dioxide 29.2 (21.0-32.0) meq/L Anion Gap 5 (5-15) meq/L BUN 19 H (7-18) mg/dL Creatinine 1.54 H (0.60-1.30) mg/dL Estimated GFR 44 L (>89) mL/min Random Glucose 185 H (74-106) mg/dL Calcium 9.1 (8.5-10.1) mg/dL Total Bilirubin 0.9 (0.2-1.0) mg/dL AST 14 L (15-37) U/L ALT 20 (12-78) U/L Alkaline Phosphatase 77 (45-117) U/L Total Creatine Kinase 53 (39-308) U/L Troponin I Less than 0.02 L (0.02-0.05) ng/mL Total Protein 6.5 (6.4-8.2) g/dL Albumin 3.7 (3.4-5.0) g/dL Urine Color (Yellw/Straw) Urine Clarity (Clear) Urine pH (5.0-8.5) Ur Specific [place] (1.002-1.035) Urine Protein (Neg-Trace) mg/dL Urine Glucose (UA) (Negative) mg/dL Urine Ketones (Negative) mg/dL Urine Occult Blood (Negative) Urine Nitrate (Negative) Urine Bilirubin (Negative) Urine Urobilinogen (Less than 2) mg/dL Ur Leukocyte Esterase (Negative) Urine RBC (0-3) /hpf Urine WBC (0-5) /hpf Ur Squamous Epith Cells (0-5) /hpf Urine Bacteria (None) /hpf Hyaline Casts (0-3) /lpf Micro UA Comment Urine Culture Comments 05/29/18 Range/Units 16:00 WBC (4.0-11.0) th/mm3 RBC (4.50-5.90) mil/mm3 Hgb (13.0-17.0) gm/dL Hct (39.0-51.0) % MCV (80.0-100.0) fL MCH (27.0-34.0) pg MCHC (32.0-36.0) % RDW (11.6-17.2) % Plt Count (150-450) th/mm3 MPV (7.0-11.0) fL Neut % (Auto) (16.0-70.0) % Lymph % (Auto) (9.0-44.0) % [place] % (Auto) (0.0-8.0) % Eos % (Auto) (0.0-4.0) % Baso % (Auto) (0.0-2.0) % Neut # (Auto) (1.8-7.7) th/mm3 Lymph # (Auto) (1.0-4.8) th/mm3 [place] # (Auto) (0.0-0.9) th/mm3 Eos # (Auto) (0.0-0.4) th/mm3 Baso # (Auto) (0.0-0.2) th/mm3 WBC Differential Differential Comment PT (9.8-11.6) sec INR Ratio APTT (24.3-30.1) sec Sodium (136-145) meq/L Potassium (3.5-5.1) meq/L Chloride (98-107) meq/L Carbon Dioxide (21.0-32.0) meq/L Anion Gap (5-15) meq/L BUN (7-18) mg/dL Creatinine (0.60-1.30) mg/dL Estimated GFR (>89) mL/min Random Glucose (74-106) mg/dL Calcium (8.5-10.1) mg/dL Total Bilirubin (0.2-1.0) mg/dL AST (15-37) U/L ALT (12-78) U/L Alkaline Phosphatase (45-117) U/L Total Creatine Kinase (39-308) U/L Troponin I (0.02-0.05) ng/mL Total Protein (6.4-8.2) g/dL Albumin (3.4-5.0) g/dL Urine Color Yellow (Yellw/Straw) Urine Clarity Hazy H (Clear) Urine pH 5.0 (5.0-8.5) Ur Specific [place] 1.024 (1.002-1.035) Urine Protein 30 H (Neg-Trace) mg/dL Urine Glucose (UA) 150 H (Negative) mg/dL Urine Ketones Negative (Negative) mg/dL Urine Occult Blood Small H (Negative) Urine Nitrate Negative (Negative) Urine Bilirubin Negative (Negative) Urine Urobilinogen 2.0 H (Less than 2) mg/dL Ur Leukocyte Esterase Negative (Negative) Urine RBC 7 H (0-3) /hpf Urine WBC 1 (0-5) /hpf Ur Squamous Epith Cells 1 (0-5) /hpf Urine Bacteria Rare H (None) /hpf Hyaline Casts 1 (0-3) /lpf Micro UA Comment Culture not ind Urine Culture Comments Culture not ind Imaging Data Radiologist's impression: Chest X-Ray 05/29/18 14:40 CONCLUSION: Head CT 05/29/18 14:40 CONCLUSION: Discharge Plan Discharge Disposition Patient Disposition: 30 Still Patient Discharge Details Diagnosis: Aphasia, Slurred speech Physicians Team ED Provider: Mayuri Pickens ED Midlevel Provider: Carly Chavez Primary Care Provider: Odette Marques Attending Provider: Terrance Macias Status ED Status: Admitted Observation Patient
[2018-05-29 15:08] LABS: Baso % (Auto) 0.4 % (0.0-2.0); Eos # (Auto) 0.4 th/mm3 (0.0-0.4); Eos % (Auto) 5.6 % (0.0-4.0); Hematocrit 41.6 % (39.0-51.0); Hemoglobin 14.1 gm/dL (13.0-17.0); Lymph % (Auto) 25.3 % (9.0-44.0); Mean Corpuscular HGB Conc 33.9 % (32.0-36.0); Mean Corpuscular Hemoglobin 31.6 pg (27.0-34.0); Mean Corpuscular Volume 93.2 fL (80.0-100.0); Mean Platelet Volume 10.2 fL (7.0-11.0); Mono # (Auto) 0.7 th/mm3 (0.0-0.9); Mono % (Auto) 8.4 % (0.0-8.0); Neut # (Auto) 4.7 th/mm3 (1.8-7.7); Neut % (Auto) 60.3 % (16.0-70.0); Platelet Count 131 th/mm3 (150-450); Red Blood Count 4.47 mil/mm3 (4.50-5.90); Red Cell Distribution Width 14.3 % (11.6-17.2); White Blood Count 7.8 th/mm3 (4.0-11.0)
--- NOTE | 2018-05-29 15:21 | XR ---
EXAM DATE: 05/29/2018 3:12 PM EDT AGE/SEX: 78 years / Male INDICATIONS: Weakness and slurred speech today. CLINICAL DATA: This is the patient's initial encounter. Patient reports that signs and symptoms have been present for 1 day and indicates a pain score of 0/10. MEDICAL/SURGICAL HISTORY: . Parkinson's. Myocardial infarction. Congestive heart failure. Malika l pressure hydrocephalus. CAD. Hypercholesterolemia. Afib. Dyspnea. Hematuria. Diabetes. CABG. Sun ry artery stent. Pacemaker. 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 Appendectomy. Cholecystectomy. Blood transfusions. . COMPARISON: [facility] [place] AP, [place]. . FINDINGS: 2 AP portable erect views of the chest were obtained and demonstrate the patient is status post media n sternotomy. There is a left subclavian A-V sequential transvenous pacer in place. Shunt catheter tu darline is projected over the right side of the chest. There are no confluent infiltrates or effusions. There is no perihilar edema. The heart size remains at the upper limits of normal. CONCLUSION: 1. Stable appearance with no acute cardiac pulmonary disease. Electronically signed by: Waldemar Alicia MD 05/29/2018 3:19 PM EDT
[2018-05-29 15:30] LABS: Albumin 3.7 g/dL (3.4-5.0); Anion Gap 5 meq/L (5-15); Aspartate Aminotransferase 14 U/L (15-37); Blood Urea Nitrogen 19 mg/dL (7-18); Calcium 9.1 mg/dL (8.5-10.1); Carbon Dioxide 29.2 meq/L (21.0-32.0); Chloride 108 meq/L (98-107); Glomerular Filtration Rate 44 mL/min (>89); Glucose,Random 185 mg/dL (74-106); Potassium 4.4 meq/L (3.5-5.1); Sodium 142 meq/L (136-145)
--- NOTE | 2018-05-29 15:33 | CT ---
EXAM DATE: 05/29/2018 3:28 PM EDT AGE/SEX: 78 years / Male INDICATIONS: Slurred speech. History of normal pressure hydrocephalus shunt placement. CLINICAL DATA: This is the patient's initial encounter. Patient reports that signs and symptoms have been present for 1 day and indicates a pain score of 0/10. MEDICAL/SURGICAL HISTORY: Dementia. Cardiovascular disease. Hypertension. CABG. RADIATION DOSE: 56.35 CTDI (mGy) COMPARISON: [facility], CT BRAIN W/O CONTRAST, 01/07/2018. . TECHNIQUE: CT of the head without contrast. Using automated exposure control and adjustment of the mA and/or kV according to patient size, radiation dose was kept as low as reasonably achievable to ob tain optimal diagnostic quality images. DICOM format image data is available electronically for revi ew and comparison. FINDINGS: Cerebrum: Moderate atrophic changes are again noted with sulcal prominence. The ventricular system r emains diffusely prominent especially the lateral ventricles. This is not significantly changed. Ther e is a ventricular shunt catheter again noted via a right frontal approach with the tip third ventric le. This is unchanged in appearance. No evidence of midline shift, mass lesion, hemorrhage or acute i nfarction. No extraaxial fluid collections are seen. Posterior Fossa: The cerebellum and brainstem are intact. The 4th ventricle is midline. The cerebe llopontine angle is unremarkable. Extracranial: The visualized portion of the orbits is intact. Skull: The calvaria is intact. No evidence of skull fracture. 1. Stable appearance of the ventricular system with diffuse ventricular prominence. Ventricular shun t catheter remains in place. 2. Diffuse moderate atrophic change. 3. No acute hemorrhage or mass effect. Electronically signed by: Waldemar Alicia MD 05/29/2018 3:31 PM EDT
[2018-05-29 15:34] LABS: Activated Partial Thrombo Time 28.2 sec (24.3-30.1); INR 1.1 Ratio; Prothrombin Time 11.6 sec (9.8-11.6)
[2018-05-29 15:35] LABS: Alanine Aminotransferase 20 U/L (12-78); Alkaline Phosphatase 77 U/L (45-117); Total Protein 6.5 g/dL (6.4-8.2)
[2018-05-29 15:44] LABS: Creatine Kinase 53 U/L (39-308)
[2018-05-29 16:25] LABS: Bacteria,Urine Rare /hpf; Bilirubin,Urine Negative (Negative); Clarity,Urine Hazy (Clear); Color,Urine Yellow (Yellw/Straw); Glucose,Urine (UA) 150 mg/dL (Negative); Hyaline Casts,Urine 1 /lpf (0-3); Leukocyte Esterase,Urine Negative (Negative); Nitrite,Urine Negative (Negative); Specific Gravity,Urine 1.024 (1.002-1.035); Squamous Epithelial Cell,Urine 1 /hpf (0-5)
--- NOTE | 2018-05-29 17:52 | P.HP ---
History of Present Illness Primary Care Physician: Odette Marques History of Present Illness: 78-year-old white male being admitted for strokelike symptoms. Patient was in his usual state of health until sometime earlier today when [facility] when he started developing slurred speech. He denies experiencing any facial droop or anyone notifying him of any facial droop. Main symptom was slurred speech. Denies having any confusion headache or any acute unilateral vision changes. Denies having any focal motor weakness in his upper and lower extremities. Denies having any focal numbness or tingling. Denies having any chest pain or palpitations or any lightheadedness. Patient states he ambulates occasionally with a walker at home and says that he has not noticed any significant changes in his ambulatory function either. Patient said symptoms resolved within 30 minutes prior to him arriving to the emergency department. In the ER he had a head CT done which did not show any acute findings. EKG was ordered but that is still pending at this time. Patient endorses significant difficulty remembering his medications. Nursing contacted pharmacy home affirmed he only recently filled lisinopril and sotalol , says he has not filled Xarelto nor Coreg since 4 months ago. Pt does report having history of coronary artery disease and congestive heart failure, chart review indicates that he is also an A. fib patient. Review of Systems All other systems reviewed negative except as stated in HPI PMFSH - History History Provided By: Patient - Medical History Medical History: Medical History (Last Updated 05/29/18 @ 17:40 by Denice Brown RN) A-fib CAD (coronary artery disease) CHF (congestive heart failure) Dementia Diabetes mellitus HTN (hypertension) Hypothyroid Ventricular shunt in place - Surgical History Surgical History: Surgical History (Last Updated 05/29/18 @ 17:40 by Denice Brown RN) History of appendectomy History of cholecystectomy Hx of CABG - Tobacco History Second Hand Smoke Exposure: No Tobacco Use In Past 30 Days: No Smoking Status: Never smoker - Alcohol History How Often Do You Have a Drink Containing Alcohol: Never - Substance Use History Substance History: No History of Abuse - Travel History Recent Travel in the [place] Within the Last 8 Weeks: No Recent Travel Out of the Country Within the Last 8 Weeks: No - Immunization History Tetanus Immunization: Unsure Medications and Allergies Active Medications: Active Medications Aspirin (Aspirin) 325 mg PO DAILY [facility] Atorvastatin Calcium (Lipitor) 40 mg PO HS ONE Stop: 05/30/18 17:28 Escitalopram Oxalate (Lexapro) 20 mg PO DAILY [facility] Sodium Chloride (Ns Inj) 1,000 mls @ 70 mls/hr IV.CONT .[id number] [facility] Stop: 05/30/18 05:02 Last Admin: 05/29/18 14:58 Dose: 70 mls/hr Levetiracetam (Keppra) 1,000 mg PO TID [facility] Levothyroxine Sodium (Synthroid) 112 mcg PO DAILY@0600 [facility] Potassium Chloride (Klor-Con 10) 10 meq PO BID [facility] Sodium Chloride (Ns Flush) 2 ml IV.FLUSH PRN PRN PRN Reason: FLUSH AFTER USING IV ACCESS Sodium Chloride (Ns Flush) 2 ml IV.FLUSH BID [facility] Sodium Chloride (Ns Flush) 2 ml IV.FLUSH PRN PRN PRN Reason: FLUSH AFTER USING IV ACCESS Trazodone HCl (Desyrel) 50 mg PO DAILY [facility] Triamcinolone Acetonide (Aristocort 0.1% Cream) 1 applicatio TOPICAL TID PRN PRN Reason: SKIN IRRITATION/RASH Umeclidinium/Vilanterol (Anoro-Ellipta 62.5/25 Mcg Inh) 1 puff INH DAILY [facility] Allergies Allergy/AdvReac Type Severity Reaction Status Date / Time *MDRO Multi-Drug Resistant AdvReac Unknown Burning Uncoded 05/29/18 14:43 Organism Home Medications Medication Instructions Recorded Confirmed Type escitalopram oxalate [Lexapro] 20 mg PO DAILY 05/29/18 05/29/18 History levetiracetam [Keppra] 1,000 mg PO TID 05/29/18 05/29/18 History levothyroxine [Synthroid] 112 mcg PO DAILY 05/29/18 05/29/18 History potassium chloride [Klor-Con 10] 10 meq PO BID 05/29/18 05/29/18 History propranolol 10 mg PO DAILY 05/29/18 05/29/18 History simvastatin [Zocor] 20 mg PO QPM 05/29/18 05/29/18 History sitagliptin [Januvia] 100 mg PO DAILY 05/29/18 05/29/18 History terazosin 5 mg PO BID 05/29/18 05/29/18 History trazodone 50 mg PO DAILY 05/29/18 05/29/18 History triamcinolone acetonide 1 applic TOPICAL TID PRN 05/29/18 05/29/18 History umeclidinium-vilanterol [Anoro 1 inh INHALATION DAILY 05/29/18 05/29/18 History Ellipta] Exam Vital signs: Vital Signs 05/29/18 14:36 05/29/18 14:53 05/29/18 16:31 Temperature 97.4 F L Pulse Rate 65 56 L Respiratory Rate 20 16 Blood Pressure 183/79 H 176/81 H Pulse Oximetry 99 98 96 Intake & Output 05/28/18 05/29/18 05/29/18 18:59 06:59 18:59 Weight 106.594 kg Narrative: VS: afebrile GENERAL: lying in bed, NAD SKIN: Warm and dry. EYES: elongated left pupil which the pt says is chronic and 2/2 to a traumatic injury; right pupil is round and reactive. No scleral icterus. No injection or drainage. ENT: No nasal bleeding or discharge. Mucous membranes pink and moist. CARDIOVASCULAR: Regular rate and rhythm. no murmurs RESPIRATORY: No accessory muscle use. Clear to auscultation. Breath sounds equal bilaterally. GASTROINTESTINAL: Abdomen soft, non-tender, nondistended. Hepatic and splenic margins not palpable. Extremities: No clubbing, cyanosis. Has moderate edema bilateral lower extremities. MUSCULOSKELETAL: adequate muscle bulk and tone for age and habitus; 5/5 left leg strength upon straight leg raise, unable to assess strength on right leg raise due to limited range of motion secondary to hip pain which the patient says is a chronic problem for him. 5 out of 5 dorsi and plantar flexion strength bilaterally. NEUROLOGICAL: Awake and alert. No obvious cranial nerve deficits. No facial droop nor slurred speech noted. Has 0 patellar reflexes bilaterally. Intact finger to nose movement bilaterally. PSYCHIATRIC: Appropriate mood and affect; insight and judgment normal. Results - Labs CBC & Chem 7: 05/29/18 14:40 05/29/18 14:40 Labs: Laboratory Results - last 24 hr 05/29/18 05/29/18 05/29/18 14:40 14:40 14:40 WBC 7.8 RBC 4.47 L Hgb 14.1 Hct 41.6 MCV 93.2 MCH 31.6 MCHC 33.9 RDW 14.3 Plt Count 131 L MPV 10.2 Neut % (Auto) 60.3 Lymph % (Auto) 25.3 [place] % (Auto) 8.4 H Eos % (Auto) 5.6 H Baso % (Auto) 0.4 Neut # (Auto) 4.7 Lymph # (Auto) 2.0 [place] # (Auto) 0.7 Eos # (Auto) 0.4 Baso # (Auto) 0.0 WBC Differential . Differential Comment Auto diff final PT 11.6 INR 1.1 APTT 28.2 Sodium 142 Potassium 4.4 Chloride 108 H Carbon Dioxide 29.2 Anion Gap 5 BUN 19 H Creatinine 1.54 H Estimated GFR 44 L Random Glucose 185 H Calcium 9.1 Total Bilirubin 0.9 AST 14 L ALT 20 Alkaline Phosphatase 77 Total Creatine Kinase 53 Troponin I Less than 0.02 L Total Protein 6.5 Albumin 3.7 Urine Color Urine Clarity Urine pH Ur Specific [place] Urine Protein Urine Glucose (UA) Urine Ketones Urine Occult Blood Urine Nitrate Urine Bilirubin Urine Urobilinogen Ur Leukocyte Esterase Urine RBC Urine WBC Ur Squamous Epith Cells Urine Bacteria Hyaline Casts Micro UA Comment Urine Culture Comments 05/29/18 16:00 WBC RBC Hgb Hct MCV MCH MCHC RDW Plt Count MPV Neut % (Auto) Lymph % (Auto) [place] % (Auto) Eos % (Auto) Baso % (Auto) Neut # (Auto) Lymph # (Auto) [place] # (Auto) Eos # (Auto) Baso # (Auto) WBC Differential Differential Comment PT INR APTT Sodium Potassium Chloride Carbon Dioxide Anion Gap BUN Creatinine Estimated GFR Random Glucose Calcium Total Bilirubin AST ALT Alkaline Phosphatase Total Creatine Kinase Troponin I Total Protein Albumin Urine Color Yellow Urine Clarity Hazy H Urine pH 5.0 Ur Specific [place] 1.024 Urine Protein 30 H Urine Glucose (UA) 150 H Urine Ketones Negative Urine Occult Blood Small H Urine Nitrate Negative Urine Bilirubin Negative Urine Urobilinogen 2.0 H Ur Leukocyte Esterase Negative Urine RBC 7 H Urine WBC 1 Ur Squamous Epith Cells 1 Urine Bacteria Rare H Hyaline Casts 1 Micro UA Comment Culture not ind Urine Culture Comments Culture not ind - Imaging Impressions Chest X-Ray 05/29/18 14:40 CONCLUSION: Head CT 05/29/18 14:40 CONCLUSION: Caprini VTE Risk Assessment Caprini VTE Risk Assessment: Moderate/High Risk (score >= 2) Caprini Risk Assessment Model: Point Value = 1 Point Value = 2 Point Value = 3 Point Value = 5 Age 41-60 Minor surgery BMI > 25 kg/m2 Swollen legs Varicose veins or History of unexplained or recurrent spontaneous Oral contraceptives or hormone replacement Sepsis (< 1 month) Serious lung disease, including pneumonia (< 1 month) Abnormal pulmonary function Acute myocardial infarction Congestive heart failure (< 1 month) History of inflammatory bowel disease Medical patient at bed rest Age 61-74 Arthroscopic surgery Major open surgery (> 45 min) Laparoscopic surgery (> 45 min) Malignancy Confined to bed (> 72 hours) Immobilizing plaster cast Central venous access Age >= 75 History of VTE Family history of VTE Factor V Leiden Prothrombin [id number] Lupus anticoagulant Anticardiolipin antibodies Elevated serum homocysteine Heparin-induced thrombocytopenia Other congenital or acquired thrombophilia Stroke (< 1 month) Elective arthroplasty Hip, pelvis, or leg fracture Acute spinal cord injury (< 1 month) Prophylaxis Regimen: Total Risk Factor Score Risk Level Prophylaxis Regimen 0-1 Low Early ambulation 2 Moderate Order ONE of the following: *Sequential Compression Device (SCD) *Heparin 5000 units SQ BID 3-4 Higher Order ONE of the following medications: *Heparin 5000 units SQ TID *Enoxaparin/Lovenox 40 mg SQ daily (WT < 150 kg, CrCl > 30 mL/min) *Enoxaparin/Lovenox 30 mg SQ daily (WT < 150 kg, CrCl > 10-29 mL/min) *Enoxaparin/Lovenox 30 mg SQ BID (WT < 150 kg, CrCl > 30 mL/min) AND/OR *Sequential Compression Device (SCD) 5 or more Highest Order ONE of the following medications: *Heparin 5000 units SQ TID (Preferred with Epidurals) *Enoxaparin/Lovenox 40 mg SQ daily (WT < 150 kg, CrCl > 30 mL/min) *Enoxaparin/Lovenox 30 mg SQ daily (WT < 150 kg, CrCl > 10-29 mL/min) *Enoxaparin/Lovenox 30 mg SQ BID (WT < 150 kg, CrCl > 30 mL/min) AND *Sequential Compression Device (SCD) Assessment and Plan - Plan 78-year-old white male being admitted for strokelike symptoms. Strokelike symptoms -With clinical resolution of symptoms patient possibly had a TIA. Will follow EKG which most likely will show A. fib for which he is already supposed to be taking eliquis but we are not sure. - Ordering carotid ultrasounds - Unable to obtain MRI due to defibrillator and MOLD UNLOADER shunt non-compatibility per MRI department. - Cardiac echo. aspirin daily. stop home simvastatin and start hi dose lipitor. - pt/ot/st - RN bedside swallow - telemetry - neurochecks - permissive HTN acute on chronic systolic Congestive heart failure -I suspect that the med rec is not fully updated as the patient has a documented EF of 20-25% 2 years ago which would warrant this patient to be on a regimen of an INDIRA inhibitor, spironolactone, and beta-blockers. I will add either those medications on if there is no evidence that he takes those meds at home already or resume them once has verified home regimen. -low dose IV lasix x1 today, re-evaluate in AM -with intake and output -ICD in place A. fib -lovenox while inpatient -await for to give updated meds, possibly sotalol vs coreg DM - LDSS w/ accuchecks CKD -likely 2/2 CHF, bmp in AM NPH/MOLD UNLOADER shunt/Dementia - awaiting for to notify us of home meds pt's pharmacy regimen seems to be inadequate lovenox Discharge Planning: permissive HTN for 24 hrs then discharge patient after studies return pending normal findings, most likely with need home HC
[2018-05-29] MEDS ORDERED: Dextrose 50% in Water 50 ML Vial IV.PUSH PRN (18:08)
[2018-05-29] MEDS: levETIRAcetam 500 MG Tablet PO SCH (18:10)
[2018-05-29] MEDS ORDERED: Enoxaparin Inj 30 MG/0.3 ML Syringe SQ SCH (21:00)
--- NOTE | 2018-05-29 22:12 | US ---
EXAM DATE: 05/29/2018 10:02 PM EDT AGE/SEX: 78 years / Male INDICATIONS: Syncope. CLINICAL DATA: This is the patient's initial encounter. Patient reports that signs and symptoms have been present for 1 day and indicates a pain score of 0/10. MEDICAL/SURGICAL HISTORY: Congestive heart failure. Diabetes. Hypertension. Coronary artery disease. Dementia. Hypothyroidism. Appendectomy. Cholecystectomy. CABG. Ventricular shunt placeme nt. COMPARISON: No prior exams available for comparison. VELOCITY PARAMETERS: ICA/CCA Ratio: Right 1.3 , Left 1.4 ICA: Right 66 cm/sec, Left 59 cm/sec CCA: Right 50 cm/sec, Left 42 cm/sec ECA: Right 72 cm/sec, Left 81 cm/sec Vertebral: Right 65 cm/sec antegrade, Left 100 cm/sec antegrade FINDINGS: Right Carotid: There is mild plaque at the common carotid on the carotid bulb, and proximal internal carotid artery without a significant stenosis identified on the grayscale images. .The waveforms are within normal limits. Left Carotid: There is mild plaque at the common carotid on the carotid bulb, and proximal internal carotid artery without a significant stenosis identified on the grayscale images. The waveforms are w ithin normal limits. Other: None. Electronically signed by: Andry Oquendo MD 05/29/2018 10:11 PM EDT
[2018-05-29] MEDS: Lisinopril 5 MG Tablet PO SCH (22:15)
[2018-05-29] MEDS: Mirtazapine 15 MG Tablet PO SCH (22:16)
[2018-05-29] MEDS: Rivaroxaban 15 MG Tablet PO SCH (22:16)
[2018-05-29] MEDS: Carvedilol 12.5 MG Tablet PO SCH (22:16)
[2018-05-29] MEDS: Insulin NovoLIN Regular Correctional Sugar Inj SQ SCH (22:21)
[2018-05-30] MEDS: Insulin NovoLIN Regular Correctional Sugar Inj SQ SCH ×5 (06:33→21:12)
[2018-05-30] MEDS: Levothyroxine 112 MCG Tablet PO SCH (07:52)
[2018-05-30 08:41] LABS: Calcium 8.8 mg/dL (8.5-10.1); Carbon Dioxide 28.3 meq/L (21.0-32.0); Potassium 3.5 meq/L (3.5-5.1)
--- NOTE | 2018-05-30 08:43 | P.PN ---
Subjective Interval history: F/U neuro deficits. Today he has no complaints no slurred speech. Admits to noncompliance with medications. Physical Exam Vital signs: Vital Signs 05/29/18 14:36 05/29/18 14:53 05/29/18 16:31 Temperature 97.4 F L Pulse Rate 65 56 L Respiratory Rate 20 16 Blood Pressure 183/79 H 176/81 H Pulse Oximetry 99 98 96 05/29/18 19:49 05/29/18 21:00 05/30/18 00:00 Temperature 98.2 F Pulse Rate 60 58 L Respiratory Rate 18 18 Blood Pressure 158/81 H 156/77 H Pulse Oximetry 95 95 95 05/30/18 03:16 05/30/18 08:00 05/30/18 08:11 Temperature 97.5 F L 97.3 F L Pulse Rate 52 L 50 L Respiratory Rate 16 16 Blood Pressure 162/79 H 154/77 H Pulse Oximetry 97 97 97 Intake & Output 05/29/18 05/30/18 05/30/18 18:59 06:59 18:59 Intake Total 1000 / 1000 Output Total 300 / 300 3450 / 3450 Balance -300 / -300 -2450 / -2450 Weight 106.594 kg Intake: IV 1000 / 1000 NS Inj 1,000 ML @ 70 mls/hr IV. 1000 / 1000 CONT .[id number] [facility] Rx#:[id number] Output: Urine 300 / 300 3450 / 3450 Other: Date of Last Bowel Movement 05/29/18 05/29/18 Narrative: GENERAL: lying in bed, NAD SKIN: Warm and dry. CARDIOVASCULAR: Regular rate and rhythm. no murmurs RESPIRATORY: No accessory muscle use. Clear to auscultation. Breath sounds equal bilaterally. GASTROINTESTINAL: Abdomen soft, non-tender, nondistended. Extremities: No clubbing, cyanosis. Has improved edema bilateral lower extremities. MUSCULOSKELETAL: adequate muscle bulk and tone for age and habitus; 5/5 left leg strength upon straight leg raise, unable to assess strength on right leg raise due to limited range of motion secondary to hip pain which the patient says is a chronic problem for him. 5 out of 5 dorsi and plantar flexion strength bilaterally. NEUROLOGICAL: Awake and alert. No obvious cranial nerve deficits. No facial droop nor slurred speech noted. Intact finger to nose movement bilaterally. Results - Labs CBC & Chem 7: 07/26/18 14:40 05/30/18 06:19 Laboratory Results - last 24 hr 05/29/18 05/29/18 05/29/18 14:40 14:40 14:40 WBC 7.8 RBC 4.47 L Hgb 14.1 Hct 41.6 MCV 93.2 MCH 31.6 MCHC 33.9 RDW 14.3 Plt Count 131 L MPV 10.2 Neut % (Auto) 60.3 Lymph % (Auto) 25.3 [place] % (Auto) 8.4 H Eos % (Auto) 5.6 H Baso % (Auto) 0.4 Neut # (Auto) 4.7 Lymph # (Auto) 2.0 [place] # (Auto) 0.7 Eos # (Auto) 0.4 Baso # (Auto) 0.0 WBC Differential . Differential Comment Auto diff final PT 11.6 INR 1.1 APTT 28.2 Sodium 142 Potassium 4.4 Chloride 108 H Carbon Dioxide 29.2 Anion Gap 5 BUN 19 H Creatinine 1.54 H Estimated GFR 44 L POC Glucose Random Glucose 185 H Calcium 9.1 Total Bilirubin 0.9 AST 14 L ALT 20 Alkaline Phosphatase 77 Total Creatine Kinase 53 Troponin I Less than 0.02 L Total Protein 6.5 Albumin 3.7 Urine Color Urine Clarity Urine pH Ur Specific [place] Urine Protein Urine Glucose (UA) Urine Ketones Urine Occult Blood Urine Nitrate Urine Bilirubin Urine Urobilinogen Ur Leukocyte Esterase Urine RBC Urine WBC Ur Squamous Epith Cells Urine Bacteria Hyaline Casts Micro UA Comment Urine Culture Comments 05/29/18 05/29/18 05/30/18 16:00 22:21 06:19 WBC RBC Hgb Hct MCV MCH MCHC RDW Plt Count MPV Neut % (Auto) Lymph % (Auto) [place] % (Auto) Eos % (Auto) Baso % (Auto) Neut # (Auto) Lymph # (Auto) [place] # (Auto) Eos # (Auto) Baso # (Auto) WBC Differential Differential Comment PT INR APTT Sodium 142 Potassium 3.5 D Chloride 105 Carbon Dioxide 28.3 Anion Gap 9 BUN 21 H Creatinine 1.39 H Estimated GFR 49 L POC Glucose 234 H Random Glucose 147 H Calcium 8.8 Total Bilirubin AST ALT Alkaline Phosphatase Total Creatine Kinase Troponin I Total Protein Albumin Urine Color Yellow Urine Clarity Hazy H Urine pH 5.0 Ur Specific [place] 1.024 Urine Protein 30 H Urine Glucose (UA) 150 H Urine Ketones Negative Urine Occult Blood Small H Urine Nitrate Negative Urine Bilirubin Negative Urine Urobilinogen 2.0 H Ur Leukocyte Esterase Negative Urine RBC 7 H Urine WBC 1 Ur Squamous Epith Cells 1 Urine Bacteria Rare H Hyaline Casts 1 Micro UA Comment Culture not ind Urine Culture Comments Culture not ind 05/30/18 08:07 WBC RBC Hgb Hct MCV MCH MCHC RDW Plt Count MPV Neut % (Auto) Lymph % (Auto) [place] % (Auto) Eos % (Auto) Baso % (Auto) Neut # (Auto) Lymph # (Auto) [place] # (Auto) Eos # (Auto) Baso # (Auto) WBC Differential Differential Comment PT INR APTT Sodium Potassium Chloride Carbon Dioxide Anion Gap BUN Creatinine Estimated GFR POC Glucose 146 H Random Glucose Calcium Total Bilirubin AST ALT Alkaline Phosphatase Total Creatine Kinase Troponin I Total Protein Albumin Urine Color Urine Clarity Urine pH Ur Specific [place] Urine Protein Urine Glucose (UA) Urine Ketones Urine Occult Blood Urine Nitrate Urine Bilirubin Urine Urobilinogen Ur Leukocyte Esterase Urine RBC Urine WBC Ur Squamous Epith Cells Urine Bacteria Hyaline Casts Micro UA Comment Urine Culture Comments - Imaging Impressions Carotid Doppler Study 05/29/18 00:00 CONCLUSION: Mild plaque seen bilaterally without a definite significant stenosis. Chest X-Ray 05/29/18 14:40 CONCLUSION: Head CT 05/29/18 14:40 CONCLUSION: - Procedures none Assessment and Plan - Assessment (1) Aphasia Code(s): R47.01 - Aphasia Status: Acute (2) Slurred speech Code(s): R47.81 - Slurred speech Status: Acute - Plan 78-year-old white male being admitted for strokelike symptoms. Strokelike symptoms -With clinical resolution of symptoms patient possibly had a TIA. EKG tracing interpreted by me with sinus rhythm - Unremarkable carotid ultrasounds - Unable to obtain MRI due to defibrillator and IRRIGATION WORKER shunt non-compatibility per MRI department. - Cardiac echo pending. Discontinue aspirin patient already on Xarelto. Continue statin - pt/ot/st - telemetry - neurochecks - Consult Dr Abebe pt's neurologist - Also consulted neurosurgery Dr. Oh for shunt adjustment acute on chronic systolic Congestive heart failure. Patient denies shortness of breath -ct INDIRA inhibitor and beta-blockers. -low dose IV lasix x1. Lasix as needed. CHF education, monitor weight -with intake and output -ICD in place A. fib -dc lovenox pt on xarelto -ct BB DM - LDSS w/ accuchecks CKD stage 3 -monitor NPH/IRRIGATION WORKER shunt/Dementia. As above Discharge Planning: HHC when ready
[2018-05-30] MEDS: Carvedilol 12.5 MG Tablet PO SCH ×2 (08:54→21:09)
[2018-05-30] MEDS: Magnesium Oxide 400 MG Tablet PO SCH (08:54)
[2018-05-30] MEDS: levETIRAcetam 500 MG Tablet PO SCH (08:54)
[2018-05-30] MEDS: Umeclindinium 62.5 MCG/Vilanterol 25 MCG Inhaler INH SCH (08:55)
[2018-05-30] MEDS ORDERED: Aspirin 325 MG Tablet PO SCH (09:00)
[2018-05-30] MEDS ORDERED: Furosemide 40 MG Tablet PO PRN (09:00)
--- NOTE | 2018-05-30 11:38 | MB ---
cc: Roddy Rachel MD DATE: 05/30/2018 HISTORY OF PRESENT ILLNESS: This 78-year-old man with a history of normal pressure hydrocephalus, cardiac stent, diabetes, CABG, AFib on Xarelto, who has been seeing Dr. Oh fairly regularly, has not had his shunt adjusted in about 3 months according to his and it was decided not to adjust it about 2 weeks ago. He does not take his Xarelto everyday apparently, according to his , he last missed a dose about 3 days ago and then yesterday for 30 minutes, he had garbled speech, which sounds like possibly an expressive aphasia. No asymmetrical weakness or numbness. No chest pain or palpitations. He does have some dementia, hypothyroidism and hypertension. SOCIAL HISTORY: Not a smoker or drinker, lives with his . FAMILY HISTORY: Negative for cancer, seizure, stroke. REVIEW OF SYSTEMS: No history of renal, hepatic or pulmonary disease; lupus, ulcer, cancer, seizure. MEDICATIONS AT HOME: 1. Lasix. 2. Mirtazapine. 3. Atorvastatin. 4. Januvia. 5. Carvedilol. 6. Sotalol. 7. Xarelto 15 mg a day. 8. Lisinopril. 9. Potassium. 10. Thyroid medicine. CURRENT MEDICATIONS: 1. He is on a 325 aspirin. 2. Lipitor. 3. Coreg. 4. Lexapro 20 a day. 5. Lasix. 6. He has been started on Keppra 1000 t.i.d. 7. Synthroid. 8. Xarelto. PHYSICAL EXAMINATION: VITAL SIGNS: Afebrile, 50, 16, 154/77, sinus rhythm, initially 183/79. NECK: There were no carotid bruits. HEART: Regular rhythm. I did not detect a murmur. NEUROLOGIC: Pupils are equal. Visual chambers are full. Extraocular movements intact without nystagmus. Face is symmetric with normal sensation. Tongue was midline. There is no drift. He had normal strength in upper and lower extremities bilaterally. DTRs are trace throughout. Toes are downgoing bilaterally. Pinprick is intact throughout. He is not ataxic on [id number]. Very slow to move, somewhat bradykinetic, but normal tone throughout. He can stand with 2-person minimal assist, but he cannot really take a very good step. He tells me he has had some sciatica. LABORATORY DATA: CAT scan of the brain shows large ventricles, no change since 2016 film. Other labs, CBC is essentially normal. UA: Glucose 150, otherwise essentially normal, Basic metabolic profile: Creatinine 1.39, BUN 21, sodium normal, glucose elevated. LFTs normal. Troponin negative. Albumin normal. Coags normal. EKG shows sinus rhythm. Tele overnight, no atrial fibrillation. He had an echocardiogram in 2016 that showed his ejection fraction is only 20-25%. In the past, his B12 was low in 2016. His thyroid has been essentially normal in the past. He had a normal SPEP in the past. MIKAL has been negative. RPR has been negative. Methylmalonic acid has been high. IMPRESSION AND RECOMMENDATIONS: History of atrial fibrillation. It sounds like he probably had a transient ischemic attack. We will check an MRI of the brain, have Dr. Oh see him to see if we could adjust his shunt down. I noted his carotid ultrasound here was negative. Probably a transient ischemic attack. He does not take his Xarelto everyday. The options would be Coumadin or continue on Xarelto and make sure he takes it daily or switching to Eliquis. I would defer to the med team on this. His last missed Xarelto dose evidently was 3 days ago. I have asked his to make sure when he does take his anticoagulation, she sits there and waits and makes sure he takes in front of her. We will check an EEG and an MRI here, but overall, I thought he looked well neurologically. We will recheck his methylmalonic acid and B12 also. Consideration for also increasing the Xarelto to 20 mg should be considered by med team. MD MELISSA Patel/NGHIA , 11:09 AM , 11:18 AM
--- NOTE | 2018-05-30 15:54 | ECHRPT ---
Indication: cva/tia CONCLUSIONS Moderately dilated left ventricle. Wall thickness is normal. The left ventricular systolic function is [id number] reduced with an estimated ejection fra ction in the range of 35-40%. The left atrial size is mildly dilated. Mitral annular calcification is present. Moderate mitral valve regurgitation. Aortic valve sclerosis is present. The estimated pulmonary arterial pressure is 37 mmHg. The pulmonary valve is not well visualized. BP: / HR: Rhythm: Technical Quality: FINDINGS LEFT VENTRICLE Moderately dilated left ventricle. Wall thickness is normal. The left ventricular systolic function is cpxathhr-[id number] reduced with an estimated ejection fra ction in the range of 35-40%. RIGHT VENTRICLE Normal right ventricular size and systolic function. LEFT ATRIUM The left atrial size is mildly dilated. RIGHT ATRIUM The right atrial size is normal. ATRIAL SEPTUM Normal atrial septal thickness without atrial level shunting by limited color doppler interrogation. AORTA The aortic root and proximal ascending aorta are normal in size on limited imaging. MITRAL VALVE Mitral annular calcification is present. Moderate mitral valve regurgitation. AORTIC VALVE Aortic valve sclerosis is present. TRICUSPID VALVE The estimated pulmonary arterial pressure is 37 mmHg. PULMONARY VALVE The pulmonary valve is not well visualized. VESSELS The inferior vena cava is normal in size. PERICARDIUM No pericardial effusion. Peter Sparks MD, FACC (Electronically Signed) Final Date:30 May 2018 15:53
--- NOTE | 2018-05-30 16:07 | P.PNNS ---
Subjective Interval history: Mr. Reilly is a 78 year old male who has a history of NPH with a GOLF TOURNAMENT CONSULTANT shunt. He presented for speech difficulties. It was noted he had missed dose of Xarelto for Atrial Fibrillation. He has been evaluated by Neurologist Dr. Rachel who recommends lowering his shunt pressure. He is unable to undergo an MRI due to a defibrillator. A CT Brain is completed without acute intracranial pathology. His speech is better, he moves both extremities symmetrically. <Denia Nolen - Last Filed: 05/30/18 16:04> Physical Exam Vital signs: Vital Signs 05/29/18 16:31 05/29/18 19:49 05/29/18 21:00 Temperature 98.2 F Pulse Rate 56 L 60 Respiratory Rate 16 18 Blood Pressure 176/81 H 158/81 H Pulse Oximetry 96 95 95 05/30/18 00:00 05/30/18 03:16 05/30/18 08:00 Temperature 97.5 F L Pulse Rate 58 L 52 L Respiratory Rate 18 16 Blood Pressure 156/77 H 162/79 H Pulse Oximetry 95 97 97 05/30/18 08:11 05/30/18 09:00 05/30/18 11:06 Temperature 97.3 F L Pulse Rate 50 L 50 L 56 L Respiratory Rate 16 16 Blood Pressure 154/77 H 156/81 H Pulse Oximetry 97 98 05/30/18 11:09 Temperature Pulse Rate 62 Respiratory Rate Blood Pressure 126/86 Pulse Oximetry 94 L Intake & Output 05/29/18 05/30/18 05/30/18 18:59 06:59 18:59 Intake Total 1000 / 1000 Output Total 300 / 300 3450 / 3450 Balance -300 / -300 -2450 / -2450 Weight 106.594 kg Intake: IV 1000 / 1000 NS Inj 1,000 ML @ 70 mls/hr IV. 1000 / 1000 CONT .[id number] [facility] Rx#:[id number] Output: Urine 300 / 300 3450 / 3450 Other: Date of Last Bowel Movement 05/29/18 05/29/18 Narrative: GENERAL: lying in bed, NAD SKIN: Warm and dry. CARDIOVASCULAR: Irregularly irregular RESPIRATORY: No accessory muscle use. Clear. GASTROINTESTINAL: Abdomen soft, non-tender, nondistended. Extremities: No clubbing, cyanosis. MUSCULOSKELETAL: adequate muscle bulk and tone for age and habitus;Moves both upper and lower extremities well 5/5 NEUROLOGICAL: Awake and alert. No obvious cranial nerve deficits. No facial droop nor slurred speech noted. Head: Right GOLF TOURNAMENT CONSULTANT shunt palpated with good bubble rebound. <Denia Nolen - Last Filed: 05/30/18 16:04> Vital signs: Vital Signs 05/29/18 19:49 05/29/18 21:00 05/30/18 00:00 Temperature 98.2 F Pulse Rate 60 58 L Respiratory Rate 18 18 Blood Pressure 158/81 H 156/77 H Pulse Oximetry 95 95 95 05/30/18 03:16 05/30/18 08:00 05/30/18 08:11 Temperature 97.5 F L 97.3 F L Pulse Rate 52 L 50 L Respiratory Rate 16 16 Blood Pressure 162/79 H 154/77 H Pulse Oximetry 97 97 97 05/30/18 09:00 05/30/18 11:06 05/30/18 11:09 Temperature Pulse Rate 50 L 56 L 62 Respiratory Rate 16 Blood Pressure 156/81 H 126/86 Pulse Oximetry 98 94 L Intake & Output 05/29/18 05/30/18 05/30/18 18:59 06:59 18:59 Intake Total 1000 / 1000 Output Total 300 / 300 3450 / 3450 400 / 400 Balance -300 / -300 -2450 / -2450 -400 / -400 Weight 106.594 kg Intake: IV 1000 / 1000 NS Inj 1,000 ML @ 70 mls/hr IV. 1000 / 1000 CONT .[id number] [facility] Rx#:[id number] Output: Urine 300 / 300 3450 / 3450 400 / 400 Other: # Voids 2 Date of Last Bowel Movement 05/29/18 05/29/18 # Bowel Movements 2 <Antony Oh - Last Filed: 05/30/18 18:23> Assessment and Plan - Plan Impression: TIA NPH, energy administrator shunt placement Plan: will decrease his shunt pressure from 160 to 150 mm H20, cont neurology management he can follow up in the office as needed <Denia Nolen - Last Filed: 05/30/18 16:04> - Attending Attestation The exam, history, and the medical decision-making described in the above note were completed with the assistance of the mid-level provider. I reviewed and agree with the findings presented. I attest that I had a [id number] encounter with the patient on the same day, and personally performed and documented my assessment and findings in the medical record. <Antony Oh - Last Filed: 05/30/18 18:23>
--- NOTE | 2018-05-30 17:54 | MG ---
cc: Roddy Rachel MD, David J MD EEG NUMBER [id number] A 78 year-old man word-finding problems, slurred speech. Aspirin, Lipitor. Lexapro, Keppra, Xarelto A diffuse 6-7 Hz rhythm is seen. The recording overall is synchronous and symmetric. I do not see any hemisphere asymmetries. No epileptiform or seizure activity is noted. He falls asleep, but does not quite reach stage II sleep. Photic stimulation is performed without significant posterior driving. Hyperventilation is not performed. IMPRESSION: Minimal diffuse theta slowing consistent with a minimal diffuse encephalopathy. A lot of snorting and snoring was noted. Otherwise, a normal electroencephalogram. No seizure activity was seen. MD MELISSA Patel/ , 05:40 PM , 05:44 PM
--- NOTE | 2018-05-30 18:23 | P.CONNS ---
History of Present Illness Service: neurosurgery Consult date: 05/30/18 Requesting Physician: Roddy Rachel Reason for Consult: NPH Primary Care Provider: Odette Marques Chief Complaint: Inability top speak History of Present Illness: Mr. 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 He presented to [facility] emergency room for speech difficulties. It was noted he had missed dose of Xarelto for Atrial Fibrillation. No headaches nauseous or vomiting. No seizure activity reported. No tongue biting. No incontinence of stool or urine. He has been evaluated by Neurologist Dr. Rachel who recommends lowering his shunt pressure. He is unable to undergo an MRI due to a defibrillator. A CT Brain is completed without bleeding, or other acute intracranial pathology. His speech is better, he moves both extremities symmetrically. [facility] - History History Provided By: Patient - Medical History Medical History: Medical History (Last Reviewed 05/30/18 @ 18:22 by Antony Oh MD) A-fib CAD (coronary artery disease) CHF (congestive heart failure) Dementia Diabetes mellitus HTN (hypertension) Hypothyroid Ventricular shunt in place - Surgical History Surgical History: Surgical History (Last Reviewed 05/30/18 @ 18:22 by Antony Oh MD) History of appendectomy History of cholecystectomy Hx of CABG - Family History Family History: Family History (Last Updated 05/30/18 @ 18:22 by Antony Oh MD) Other Family history non-contributory - Tobacco History Second Hand Smoke Exposure: No Tobacco Use In Past 30 Days: No Smoking Status: Never smoker Tobacco Type: Cigarettes - Alcohol History How Often Do You Have a Drink Containing Alcohol: Never - Substance Use History Substance History: No History of Abuse - Travel History Recent Travel in the [place] Within the Last 8 Weeks: No Recent Travel Out of the Country Within the Last 8 Weeks: No - Immunization History Tetanus Immunization: Unsure Medications and Allergies Active Medications: Active Medications Atorvastatin Calcium (Lipitor) 80 mg PO HS [facility] Last Admin: 05/29/18 22:17 Dose: 80 mg Carvedilol (Coreg) 25 mg PO BID [facility] Last Admin: 05/30/18 08:54 Dose: Not Given Dextrose (D50w Vial) 50 ml IV.PUSH UNSCH PRN PRN Reason: PER HYPOGLYCEMIA PROTOCOL Escitalopram Oxalate (Lexapro) 20 mg PO DAILY [facility] Last Admin: 05/30/18 08:54 Dose: 20 mg Furosemide (Lasix) 40 mg PO DAILY PRN PRN Reason: LE edema Glucagon (Glucagon Inj) 1 mg OTHER PRN PRN PRN Reason: for Hypoglycemia Protocol Insulin Human Regular (Novolin R Correctional Sugar Inj) 0 units SQ ACHS AND 3AM LEROY; Protocol Last Admin: 05/30/18 17:55 Dose: Not Given Levothyroxine Sodium (Synthroid) 112 mcg PO DAILY@0600 [facility] Last Admin: 05/30/18 07:52 Dose: 112 mcg Lisinopril (Prinivil) 5 mg PO HS [facility] Last Admin: 05/29/18 22:15 Dose: 5 mg Magnesium Oxide (Mag-Ox) 400 mg PO DAILY [facility] Last Admin: 05/30/18 08:54 Dose: 400 mg Mirtazapine (Remeron) 15 mg PO HS [facility] Last Admin: 05/29/18 22:16 Dose: 15 mg Potassium Chloride (Klor-Con 10) 10 meq PO BID [facility] Last Admin: 05/30/18 08:54 Dose: 10 meq Rivaroxaban (Xarelto) 15 mg PO HS [facility] Last Admin: 05/29/18 22:16 Dose: 15 mg Sodium Chloride (Ns Flush) 2 ml IV.FLUSH PRN PRN PRN Reason: FLUSH AFTER USING IV ACCESS Sodium Chloride (Ns Flush) 2 ml IV.FLUSH BID [facility] Last Admin: 05/30/18 09:36 Dose: Not Given Sodium Chloride (Ns Flush) 2 ml IV.FLUSH PRN PRN PRN Reason: FLUSH AFTER USING IV ACCESS Sotalol HCl (Betapace) 40 mg PO BID [facility] Last Admin: 05/30/18 08:54 Dose: Not Given Trazodone HCl (Desyrel) 50 mg PO DAILY [facility] Triamcinolone Acetonide (Aristocort 0.1% Cream) 1 applicatio TOPICAL TID PRN PRN Reason: SKIN IRRITATION/RASH Umeclidinium/Vilanterol (Anoro-Ellipta 62.5/25 Mcg Inh) 1 puff INH DAILY [facility] Last Admin: 05/30/18 08:55 Dose: Not Given Allergies Allergy/AdvReac Type Severity Reaction Status Date / Time *MDRO Multi-Drug Resistant AdvReac Unknown Burning Uncoded 05/29/18 14:43 Organism Home Medications Medication Instructions Recorded Confirmed Type atorvastatin 80 mg PO HS 05/29/18 05/29/18 History carvedilol 25 mg PO BID 05/29/18 05/29/18 History furosemide 40 mg PO PRN PRN 05/29/18 05/29/18 History levothyroxine [Synthroid] 112 mcg PO DAILY 05/29/18 05/29/18 History lisinopril 5 mg PO HS 05/29/18 05/29/18 History magnesium 500 mg PO DAILY 05/29/18 05/29/18 History mirtazapine 15 mg PO HS 05/29/18 05/29/18 History potassium chloride [Klor-Con 10] 10 meq PO BID 05/29/18 05/29/18 History rivaroxaban [Xarelto] 15 mg PO QPM 05/29/18 05/29/18 History sitagliptin [Januvia] 100 mg PO DAILY 05/29/18 05/29/18 History sotalol 40 mg PO BID 05/29/18 05/29/18 History Exam Vital signs: Vital Signs 05/29/18 19:49 05/29/18 21:00 05/30/18 00:00 Temperature 98.2 F Pulse Rate 60 58 L Respiratory Rate 18 18 Blood Pressure 158/81 H 156/77 H Pulse Oximetry 95 95 95 05/30/18 03:16 05/30/18 08:00 05/30/18 08:11 Temperature 97.5 F L 97.3 F L Pulse Rate 52 L 50 L Respiratory Rate 16 16 Blood Pressure 162/79 H 154/77 H Pulse Oximetry 97 97 97 05/30/18 09:00 05/30/18 11:06 05/30/18 11:09 Temperature Pulse Rate 50 L 56 L 62 Respiratory Rate 16 Blood Pressure 156/81 H 126/86 Pulse Oximetry 98 94 L Intake & Output 05/29/18 05/30/18 05/30/18 18:59 06:59 18:59 Intake Total 1000 / 1000 Output Total 300 / 300 3450 / 3450 400 / 400 Balance -300 / -300 -2450 / -2450 -400 / -400 Weight 106.594 kg Intake: IV 1000 / 1000 NS Inj 1,000 ML @ 70 mls/hr IV. 1000 / 1000 CONT .[id number] [facility] Rx#:[id number] Output: Urine 300 / 300 3450 / 3450 400 / 400 Other: # Voids 2 Date of Last Bowel Movement 05/29/18 05/29/18 # Bowel Movements 2 Narrative: The patient is alert, awake. Comfortable, in no acute distress. Speech is fluent. Cranial nerve examination: pupils to be equal, round and reactive to light. Extra-ocular movements are intact. Facial motor and sensory function are normal and symmetrical. Gross hearing appears intact. Sternocleidomastoid and trapezius muscles are symmetrical. Other cranial nerves are intact. Neck is soft and supple with a good range of motion without pain. Muscle strength is normal in all muscle groups of both upper and lower extremities. Sensory examination is intact to light touch and pin prick in both the upper and lower extremities. Deep tendon reflexes are symmetrical in both upper and lower extremities. There is a bilateral plantar flexion response. Cerebellar examination is unremarkable, without deficits. Lungs are clear Heart regular rhythm is regular rate Skin warm and dry Results - Laboratory Findings CBC and BMP: 05/29/18 14:40 05/30/18 06:19 Abnormal lab findings: Abnormal Labs 05/29/18 05/29/18 05/29/18 14:40 14:40 16:00 RBC 4.47 L Plt Count 131 L [place] % (Auto) 8.4 H Eos % (Auto) 5.6 H Chloride 108 H BUN 19 H Creatinine 1.54 H Estimated GFR 44 L POC Glucose Random Glucose 185 H AST 14 L Troponin I Less than 0.02 L Urine Clarity Hazy H Urine Protein 30 H Urine Glucose (UA) 150 H Urine Occult Blood Small H Urine Urobilinogen 2.0 H Urine RBC 7 H Urine Bacteria Rare H 05/29/18 05/30/18 05/30/18 22:21 06:19 08:07 RBC Plt Count [place] % (Auto) Eos % (Auto) Chloride BUN 21 H Creatinine 1.39 H Estimated GFR 49 L POC Glucose 234 H 146 H Random Glucose 147 H AST Troponin I Urine Clarity Urine Protein Urine Glucose (UA) Urine Occult Blood Urine Urobilinogen Urine RBC Urine Bacteria 05/30/18 05/30/18 13:11 17:54 RBC Plt Count [place] % (Auto) Eos % (Auto) Chloride BUN Creatinine Estimated GFR POC Glucose 193 H 150 H Random Glucose AST Troponin I Urine Clarity Urine Protein Urine Glucose (UA) Urine Occult Blood Urine Urobilinogen Urine RBC Urine Bacteria Assessment and Plan - Plan Impression: TIA NPH, 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 Chest X-Ray 05/29/18 14:40 CONCLUSION: 1. Stable appearance with no acute cardiac pulmonary disease. Head CT 05/29/18 14:40 CONCLUSION: Plan: Neuro: neuro checks in a serial fashion will decrease his shunt pressure from 160 to 150 mm H20, neurology management Pulmonary: aggressive pulmonary toilette, nasotracheal suction, and breathing treatments with nebulizers. Daily PT and OT Renal: Continue to monitor closely urine output, BUN and creatinine Endocrine: Continue to Monitor serial Acu checks and SSI as needed in detail ID continue to monitor for signs of infection Continue Protonix for stress ulcer prophylaxis Continue Jatin hose and SCD's for DVT prophylaxis Further recommendations will be provided depending on the patient's clinical evaluation and follow up studies.
[2018-05-30 19:47] VITALS: RESP 18
[2018-05-30] MEDS: Mirtazapine 15 MG Tablet PO SCH (21:06)
[2018-05-30] MEDS: Lisinopril 5 MG Tablet PO SCH (21:07)
[2018-05-30] MEDS: Rivaroxaban 15 MG Tablet PO SCH (21:10)
[2018-05-30] MEDS: traZODone 50 MG Tablet PO SCH (21:12)
[2018-05-31] MEDS: Insulin NovoLIN Regular Correctional Sugar Inj SQ SCH ×2 (02:30→10:05)
[2018-05-31] MEDS: Levothyroxine 112 MCG Tablet PO SCH (05:42)
--- NOTE | 2018-05-31 09:32 | P.PN ---
Subjective Interval history: F/U TIA and HTN. Elevated BP RN to rpt orthostatics before med adjustment dw neuro check B12 and MMA, ok for dc if not orthostatic. Left message with need to communicate that lisinopril has been increased to 5 units twice a day and Xarelto 20 mg daily discussed with nursing Physical Exam Vital signs: Vital Signs 05/30/18 11:06 05/30/18 11:09 05/30/18 19:43 Temperature 98.4 F Pulse Rate 56 L 62 58 L Respiratory Rate 16 18 Blood Pressure 156/81 H 126/86 162/85 H Pulse Oximetry 98 94 L 97 05/30/18 20:00 05/30/18 23:36 05/31/18 03:59 Temperature 98.5 F 97.7 F Pulse Rate 52 L 55 L 53 L Respiratory Rate 18 18 Blood Pressure 153/71 H 169/93 H Pulse Oximetry 98 97 05/31/18 04:00 05/31/18 08:00 Temperature 97.7 F Pulse Rate 49 L 55 L Respiratory Rate 18 Blood Pressure 171/97 H Pulse Oximetry 97 Intake & Output 05/30/18 05/31/18 05/31/18 18:59 06:59 18:59 Intake Total 480 / 480 Output Total 400 / 400 Balance 80 / 80 Intake: Oral 480 / 480 Output: Urine 400 / 400 Other: # Voids 1 Date of Last Bowel Movement 05/29/18 05/30/18 # Bowel Movements 2 Narrative: GENERAL: No distress SKIN: Warm and dry. CARDIOVASCULAR: Regular rate and rhythm without murmurs, gallops, or rubs. RESPIRATORY: Breath sounds equal bilaterally. No accessory muscle use. MUSCULOSKELETAL: No cyanosis, or edema. neuro: alert, conversing. speech fluent. pupils equal. facial motor symmetric. Results - Labs CBC & Chem 7: 05/29/18 14:40 05/30/18 06:19 Laboratory Results - last 24 hr 05/30/18 05/30/18 05/30/18 13:11 17:54 21:05 POC Glucose 193 H 150 H 178 H 05/31/18 05/31/18 02:28 08:42 POC Glucose 152 H 156 H - Imaging Impressions Chest X-Ray 05/29/18 14:40 CONCLUSION: 1. Stable appearance with no acute cardiac pulmonary disease. - Procedures none Assessment and Plan - Assessment (1) Aphasia Code(s): R47.01 - Aphasia Status: Acute (2) Slurred speech Code(s): R47.81 - Slurred speech Status: Acute - Plan 78-year-old white male being admitted for strokelike symptoms. Strokelike symptoms -With clinical resolution of symptoms patient possibly had a TIA. EKG tracing interpreted by me with sinus rhythm - Unremarkable carotid ultrasounds - Unable to obtain MRI due to defibrillator and EVENT LIGHTING SPECIALIST shunt non-compatibility per MRI department. - Cardiac echo EF 35% improved from before. Discontinue aspirin patient already on Xarelto. Continue statin - pt/ot/st - telemetry - neurochecks - Consulted Dr Abebe pt's neurologist - Also consulted neurosurgery Dr. Oh , decreased shunt pressure. Outpatient follow-up acute on chronic systolic Congestive heart failure. Patient denies shortness of breath -ct INDIRA inhibitor and beta-blockers. -low dose IV lasix x1. Lasix as needed. CHF education, monitor weight -with intake and output -ICD in place A. fib -dc lovenox pt on xarelto. Will increase to full dose Cr clearance 50 -ct BB DM - LDSS w/ accuchecks CKD stage 3 -monitor NPH/EVENT LIGHTING SPECIALIST shunt/Dementia. As above Hypertension. Not well controlled increase lisinopril to 5 g twice a day Discharge Planning: HHC when BP less than 170/95
[2018-05-31] MEDS: traZODone 50 MG Tablet PO SCH (10:03)
[2018-05-31] MEDS: Carvedilol 12.5 MG Tablet PO SCH (10:03)
[2018-05-31] MEDS: Magnesium Oxide 400 MG Tablet PO SCH (10:03)
[2018-05-31] MEDS ORDERED: Rivaroxaban 20 MG Tablet PO SCH (11:45)
[2018-05-31] MEDS ORDERED: Lisinopril 5 MG Tablet PO SCH (12:00)
--- NOTE | 2018-05-31 12:13 | P.PNNS ---
Subjective Interval history: 05/31: awake, alert. denies headaches Physical Exam Vital signs: Vital Signs 05/30/18 19:43 05/30/18 20:00 05/30/18 23:36 Temperature 98.4 F 98.5 F Pulse Rate 58 L 52 L 55 L Respiratory Rate 18 18 Blood Pressure 162/85 H 153/71 H Pulse Oximetry 97 98 05/31/18 03:59 05/31/18 04:00 05/31/18 08:00 Temperature 97.7 F 97.7 F Pulse Rate 53 L 49 L 55 L Respiratory Rate 18 18 Blood Pressure 169/93 H 171/97 H Pulse Oximetry 97 97 05/31/18 10:57 05/31/18 11:00 Temperature 97.0 F L Pulse Rate 53 L 65 Respiratory Rate 18 Blood Pressure 165/87 H 172/109 H Pulse Oximetry 98 Intake & Output 05/30/18 05/31/18 05/31/18 18:59 06:59 18:59 Intake Total 480 / 480 Output Total 400 / 400 Balance 80 / 80 Intake: Oral 480 / 480 Output: Urine 400 / 400 Other: # Voids 1 Date of Last Bowel Movement 05/29/18 05/30/18 # Bowel Movements 2 Narrative: GENERAL: No distress SKIN: Warm and dry. HEAD: Normocephalic. right BLOOD BANK SPECIALIST shunt. EYES: No scleral icterus. No injection or drainage. NECK: Supple, trachea midline. No JVD or lymphadenopathy. CARDIOVASCULAR: Regular rate and rhythm without murmurs, gallops, or rubs. RESPIRATORY: Breath sounds equal bilaterally. No accessory muscle use. MUSCULOSKELETAL: No cyanosis, or edema. neuro: alert, conversing. speech fluent. pupils equal. facial motor symmetric. 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
--- NOTE | 2018-05-31 13:25 | P.DS ---
Date of admission: 05/29/18 16:26 Primary care physician: Odette Marques Brief History from admission: 78-year-old white male being admitted for strokelike symptoms. Patient was in his usual state of health until sometime earlier today when [facility] when he started developing slurred speech. He denies experiencing any facial droop or anyone notifying him of any facial droop. Main symptom was slurred speech. Denies having any confusion headache or any acute unilateral vision changes. Denies having any focal motor weakness in his upper and lower extremities. Denies having any focal numbness or tingling. Denies having any chest pain or palpitations or any lightheadedness. Patient states he ambulates occasionally with a walker at home and says that he has not noticed any significant changes in his ambulatory function either. Patient said symptoms resolved within 30 minutes prior to him arriving to the emergency department. In the ER he had a head CT done which did not show any acute findings. EKG was ordered but that is still pending at this time. Patient endorses significant difficulty remembering his medications. Nursing contacted pharmacy home affirmed he only recently filled lisinopril and sotalol , says he has not filled Xarelto nor Coreg since 4 months ago. Pt does report having history of coronary artery disease and congestive heart failure, chart review indicates that he is also an A. fib patient. DS: Diagnosis - Discharge Diagnosis (1) Aphasia Status: Acute (2) Slurred speech Status: Acute DS: Medications - Discharge Medications Prescriptions: lisinopril 5 mg PO BID #60 tab rivaroxaban [Xarelto] 20 mg PO HS #30 tab DS: Summary Hospital Course: 78-year-old white male being admitted for strokelike symptoms. Strokelike symptoms -With clinical resolution of symptoms patient possibly had a TIA. EKG tracing interpreted by me with sinus rhythm - Unremarkable carotid ultrasounds - Unable to obtain MRI due to defibrillator and ROCK ROOM WORKER shunt non-compatibility per MRI department. - Cardiac echo EF 35% improved from before. Discontinue aspirin patient already on Xarelto. Continue statin - pt/ot/st - telemetry - neurochecks - Consulted Dr Abebe pt's neurologist, follow-up results of B12 and MMA in the clinic - Also consulted neurosurgery Dr. Oh , decreased shunt pressure. Outpatient follow-up acute on chronic systolic Congestive heart failure. Patient denies shortness of breath -ct INDIRA inhibitor and beta-blockers. -low dose IV lasix x1. Lasix as needed. CHF education, monitor weight -with intake and output -ICD in place A. fib -dc lovenox pt on xarelto. Will increase to full dose Cr clearance 50 -ct BB DM - LDSS w/ accuchecks CKD stage 3 -monitor NPH/ROCK ROOM WORKER shunt/Dementia. As above Hypertension. Not well controlled increase lisinopril to 5 g twice a day - Time Spent with Patient Total time spent providing and/or coordinating discharge services: Greater than 30 minutes - Quality: VTE Deep Vein Thrombosis/Pulmonary Embolism Present on Admission: No Exam Vital signs: Vital Signs 05/30/18 19:43 05/30/18 20:00 05/30/18 23:36 Temperature 98.4 F 98.5 F Pulse Rate 58 L 52 L 55 L Respiratory Rate 18 18 Blood Pressure 162/85 H 153/71 H Pulse Oximetry 97 98 05/31/18 03:59 05/31/18 04:00 05/31/18 08:00 Temperature 97.7 F 97.7 F Pulse Rate 53 L 49 L 55 L Respiratory Rate 18 18 Blood Pressure 169/93 H 171/97 H Pulse Oximetry 97 97 05/31/18 10:57 05/31/18 11:00 Temperature 97.0 F L Pulse Rate 53 L 65 Respiratory Rate 18 Blood Pressure 165/87 H 172/109 H Pulse Oximetry 98 Intake & Output 05/30/18 05/31/18 05/31/18 18:59 06:59 18:59 Intake Total 480 / 480 Output Total 400 / 400 Balance 80 / 80 Intake: Oral 480 / 480 Output: Urine 400 / 400 Other: # Voids 1 Date of Last Bowel Movement 05/29/18 05/30/18 # Bowel Movements 2 Narrative: GENERAL: No distress SKIN: Warm and dry. CARDIOVASCULAR: Regular rate and rhythm without murmurs, gallops, or rubs. RESPIRATORY: Breath sounds equal bilaterally. No accessory muscle use. MUSCULOSKELETAL: No cyanosis, or edema. neuro: alert, conversing. speech fluent. pupils equal. facial motor symmetric. Results Procedures completed during hospitalization: none Labs on day of discharge: Labs from last 24 hours 05/31/18 05/31/18 05/31/18 13:20 10:26 10:26 POC Glucose 197 H Vitamin B12 623 Methylmalonic Acid Pending 05/31/18 05/31/18 05/30/18 08:42 02:28 21:05 POC Glucose 156 H 152 H 178 H Vitamin B12 Methylmalonic Acid 05/30/18 17:54 POC Glucose 150 H Vitamin B12 Methylmalonic Acid - Impressions ITS Impressions Carotid Doppler Study 05/29/18 00:00 CONCLUSION: Mild plaque seen bilaterally without a definite significant stenosis. Chest X-Ray 05/29/18 14:40 CONCLUSION: 1. Stable appearance with no acute cardiac pulmonary disease. Head CT 05/29/18 14:40 CONCLUSION: Discharge Plan - Discharge Disposition Patient Disposition: 01 Discharge Home - Discharge Condition Condition: Stable - Discharge Order Discharge Orders: Discharge Order (Routine); Ordered 05/31/18 Ordered By: Jorge Fry - Physicians Team Primary Care Provider: Odette Marques Attending Provider: Jorge Fry Other Providers: Sammy Bowman MD ; Antony Oh MD
[2018-05-31] MEDS: Umeclindinium 62.5 MCG/Vilanterol 25 MCG Inhaler INH SCH (13:30)
[2018-05-31 15:17] VITALS: BP 148/83; PULSE 56; TEMP 98; O2SAT 97
--- NOTE | 2018-05-31 17:21 | ECG ---
Date Performed: 05/29/2018 Time Performed: 14:42:41 PTAGE: 78 years EKG: SINUS BRADYCARDIA WITH OCCASIONAL SUPRAVENTRICULAR PREMATURE COMPLEXES INTRAVENTRICULAR CON DUCTION DELAY MINIMAL VOLTAGE CRITERIA FOR LVH, CONSIDER NORMAL VARIANT INFERIOR MYOCARDIAL INFARCTIO N, AGE INDERTERMINANT INTERMITTENT ATRIAL PACING IS PRESENT VERSUS ARTIFACT. ABNORMAL ECG NO PREVIOUS TRACING DOCTOR: Turner Hough Interpretating Date/Time 05/31/2018 17:19:25
--- NOTE | 2018-06-02 09:55 | MG ---
cc: Deandra Avendano MD DATE OF : AGE: [age] years old EEG NUMBER: [id number] REFERRING PHYSICIAN: MD Wilson ROOM: 1505 NOTE: STAT EEG. Awake with photic done. EEG on 05/30/[address] ventricular system prominence, shunt catheter, atrophy. History of word finding, slurred speech for 30 minutes, A-fib, heart disease, dementia, diabetes, REHAB SPEC shunt, CABG history. MEDICATIONS: Warfarin, Synthroid, Lipitor. DESCRIPTION OF RECORD: The patient has an overall background rhythm of 5-6 Hz theta frequency, various micro voltage. His EKG is abnormal as far as an arrhythmia, probable atrial fibrillation, but overall is symmetrical. Mild slowing of background is noted. No appreciable epileptiform features. Photic stimulation with a posterior driving response. IMPRESSION: Mild slowing of background consistent with what looks like a theta frequency. I do not see any epileptiform features. Clinical correlation. Deandra Avendano MD DF/ZACH , 09:44 AM , 09:48 AM
--- NOTE | 2018-06-04 19:06 | MG ---
cc: Deandra Avendano MD EEG NUMBER: [id number] REFERRING PHYSICIAN: Sammy Smith MD CLINICAL HISTORY: In room 1505, awake, drowsy with photic stimulation. EEG on 06/02/2018 of this year showed slowing most likely theta range without epileptiform features. CT, stable exam. This is a repeat study. History of atrial fibrillation, heart disease, dementia, on Lipitor, Coumadin, Levothyroxine. DESCRIPTION OF RECORD: Overall background shows 6-7 Hz background. Photic stimulation is done at the beginning of the recording with a driving response. Overall, symmetrical background, fairly well organized with some mild background slowing. Some left arm jerking at epoch 42. No correlation with any epileptiform features. Hyperventilation was not performed. The patient falls asleep. There is increase in attenuation of background. Photic stimulation was performed at the beginning with a driving response, as stated. IMPRESSION: Mild background slowing without any epileptiform features, may be mild encephalopathy versus due to patient's known history of dementia, but no epileptiform features were seen. Deandra Avendano MD DF/NGHIA , 06:48 PM , 06:54 PM
== END 2018-05-31 16:16 | disposition home or self-care (01) ==
LOC: NEPC 14:25 → NEDA 14:25 → NEPHCDU 14:25
PROVIDERS: ADMIT Internal Medicine; ATTEND Internal Medicine

== ENCOUNTER 2018-05-31 18:03 | Inpatient (IN) ==
--- NOTE | 2018-05-31 18:29 | ED ---
HPI General Chief Complaint: Neuro Symptoms/Deficit Stated Complaint: Diabetic Complaint Time Seen by Provider: 05/31/18 18:23 Source: patient and EMS Mode of arrival: EMS Limitations: language barrier History of Present Illness HPI Narrative: 78-year-old male patient recently admitted to the hospital for TIA, had a full workup, previous history of hypertension, currently on Xarelto, presents to the ER today because he apparently was at the restaurant with his when he started having difficulty talking and aphasia. He states his symptoms are similar to last time he was evaluated in the trouble walking, weakness, or other symptoms. He denies any chest pains or trouble breathing. Related Data Home Medications Medication Instructions Recorded Confirmed atorvastatin 80 mg PO HS 05/29/18 05/31/18 carvedilol 25 mg PO BID 05/29/18 05/31/18 furosemide 40 mg PO PRN PRN 05/29/18 05/31/18 levothyroxine [Synthroid] 112 mcg PO DAILY 05/29/18 05/31/18 lisinopril 5 mg PO HS 05/29/18 05/29/18 magnesium 500 mg PO DAILY 05/29/18 05/31/18 mirtazapine 15 mg PO HS 05/29/18 05/31/18 potassium chloride [Klor-Con 10] 10 meq PO BID 05/29/18 05/31/18 rivaroxaban [Xarelto] 15 mg PO QPM 05/29/18 05/31/18 sitagliptin [Januvia] 100 mg PO DAILY 05/29/18 05/31/18 sotalol 40 mg PO BID 05/29/18 05/31/18 lisinopril 5 mg PO QPM 05/31/18 05/31/18 Previous Rx's Medication Instructions Recorded rivaroxaban [Xarelto] 20 mg PO HS #30 tab 05/31/18 Allergies Allergy/AdvReac Type Severity Reaction Status Date / Time *MDRO Multi-Drug Resistant AdvReac Unknown Burning Uncoded 05/29/18 14:43 Organism Review of Systems Except as stated in HPI: all other systems reviewed are negative [facility] Medical History Medical History A-fib (Acute) CAD (coronary artery disease) (Acute) CHF (congestive heart failure) (Acute) Dementia (Acute) Diabetes mellitus (Acute) HTN (hypertension) (Acute) Hypothyroid (Acute) Ventricular shunt in place (Acute) Surgical History Surgical History History of appendectomy (Acute) History of cholecystectomy (Acute) Hx of CABG (Acute) Family History Family History Other Family history non-contributory Social History Social History Substance History: No History of Abuse Second Hand Smoke Exposure: No Smoking Status: Never smoker Tobacco Type: Cigarettes How Often Do You Have a Drink Containing Alcohol: Monthly or less Recent Travel in [facility] within the Last 8 Weeks: No Recent Out of Country Travel within the Last 8 Weeks: No Immunization History Tetanus Immunization: Unsure Hx Influenza Vaccine This Season: Yes Exam Narrative Exam Narrative: GENERAL: Well-developed elderly white male patient currently in mild distress. Awake and alert. SKIN: Focused skin assessment warm/dry. HEAD: Atraumatic. Normocephalic. EYES: Pupils equal and round. No scleral icterus. No injection or drainage. ENT: No nasal bleeding or discharge. Mucous membranes pink and moist. NECK: Trachea midline. No JVD. CARDIOVASCULAR: Regular rate and rhythm. No murmur appreciated. RESPIRATORY: No accessory muscle use. Clear to auscultation. Breath sounds equal bilaterally. GASTROINTESTINAL: Abdomen soft, non-tender, nondistended. Hepatic and splenic margins not palpable. MUSCULOSKELETAL: No obvious deformities. No clubbing. No cyanosis. No edema. NEUROLOGICAL: Awake and alert. No obvious cranial nerve deficits. Motor grossly within normal limits. Normal speech. PSYCHIATRIC: Appropriate mood and affect; insight and judgment normal. Course Hospital Course: Symptoms seems to be improving in the ER. Lab work, CAT scan and workup was initiated in the ER. Reevaluation(s) Reevaluation #1: Accepted in transfer of care from for follow- up of pending diagnostics; patient presents with period of expressive aphasia just prior to arrival to the emergency department which apparently had resolved upon his arrival; recent hospitalization for TIA with extensive workup. Patient was identified upon a an initial evaluation to have low blood pressure and was given bolus of normal saline. Patient is currently on aspirin and Xarelto daily. Disposition pending. Consultations Consultation #1: @ 22:[address] Rachel -- recommends starting patient on heparin and coumadin 10mg 1 hour after non-bolused heparin call placed to [place] MD Dr Newman Initial Documented Vital Signs Pulse Rate 67 05/31/18 18:11 Respiratory Rate 18 05/31/18 18:11 Blood Pressure 101/57 L 05/31/18 18:11 Pulse Oximetry 94 L 05/31/18 18:11 Last Documented Vital Signs Pulse Rate 89 05/31/18 21:00 Respiratory Rate 18 05/31/18 21:00 Blood Pressure 123/61 05/31/18 21:00 Pulse Oximetry 94 L 05/31/18 21:00 Sign Out Sign Out Data: Patient Sign Out occurred on 05/31/18 at 19:22. Patient's care was discussed, and care was transferred from Jewels Quintero MD to Elena Gomes MD. Sign Out Comment: Patient is signed out to Dr. Gomes at 7 PM pending lab work, CAT scan of the brain, and reevaluation. Last updated by Jewels Quintero MD at 05/31/18 18:48 Medical Decision Making MDM Narrative Medical decision making narrative: Accepted in transfer of care from Dr. Aquino Patient remains asymptomatic and comfortable at this time Patient is not aware when he took his last dose of Xarelto but believes it was administered to him the before he left the hospital. Patient's case discussed with neurologist and recommends admitting the patient and discontinuing Xarelto and started the patient on heparin without bolus and then adding warfarin 10 mg 1 hour after initiation of heparin infusion. Patient informed of plan for admission Differential Diagnosis Differential Diagnosis: TIA versus dysrhythmias versus electrolyte abnormalities Medical Records Medical records reviewed: Yes I reviewed the patient's medical records. Lab Data Lab results reviewed: Yes I reviewed the patient's lab results. Result diagrams: 05/31/18 19:40 05/31/18 19:40 Lab Results 05/31/18 05/31/18 05/31/18 Range/Units 19:40 19:40 19:40 WBC 9.6 (4.0-11.0) th/mm3 RBC 5.18 (4.50-5.90) mil/mm3 Hgb 16.4 (13.0-17.0) gm/dL Hct 47.7 (39.0-51.0) % MCV 92.2 (80.0-100.0) fL MCH 31.7 (27.0-34.0) pg MCHC 34.4 (32.0-36.0) % RDW 14.5 (11.6-17.2) % Plt Count 141 L (150-450) th/mm3 MPV 9.8 (7.0-11.0) fL Neut % (Auto) 69.5 (16.0-70.0) % Lymph % (Auto) 17.5 (9.0-44.0) % Hernando % (Auto) 8.7 H (0.0-8.0) % Eos % (Auto) 3.8 (0.0-4.0) % Baso % (Auto) 0.5 (0.0-2.0) % Neut # (Auto) 6.7 (1.8-7.7) th/mm3 Lymph # (Auto) 1.7 (1.0-4.8) th/mm3 Hernando # (Auto) 0.8 (0.0-0.9) th/mm3 Eos # (Auto) 0.4 (0.0-0.4) th/mm3 Baso # (Auto) 0.0 (0.0-0.2) th/mm3 WBC Differential . Differential Comment Auto diff final PT 11.5 (9.8-11.6) sec INR 1.1 Ratio APTT 27.4 (24.3-30.1) sec Sodium 138 (136-145) meq/L Potassium 4.5 D (3.5-5.1) meq/L Chloride 103 (98-107) meq/L Carbon Dioxide 28.3 (21.0-32.0) meq/L Anion Gap 7 (5-15) meq/L BUN 18 (7-18) mg/dL Creatinine 1.65 H (0.60-1.30) mg/dL Estimated GFR 40 L (>89) mL/min Random Glucose 236 H (74-106) mg/dL Calcium 9.0 (8.5-10.1) mg/dL Total Creatine Kinase 56 (39-308) U/L Troponin I Less than 0.02 L (0.02-0.05) ng/mL Imaging Data Radiologist's impression: Head CT 05/31/18 18:25 CONCLUSION: Atrophy, otherwise negative for an acute process. Ventricles have not changed from 05/29/2018 Cortez Ray MD FACR CONCLUSION: ECG Data Interpretation: EKG: Normal sinus rhythm rate [address] elevation injury pattern or ectopy noted; right bundle branch block noted no acute ST elevation Discharge Plan Discharge Disposition Patient Disposition: 30 Still Patient Discharge Condition Condition: Stable Discharge Details Diagnosis: Aphasia, TIA (transient ischemic attack) Physicians Team ED Provider: Elena Gomes Primary Care Provider: Odette Marques Attending Provider: Sue Newman ED Status: Admitted Observation Patient
[2018-05-31] MEDS ORDERED: Sod Chloride 0.9% Inj 1,000 ML IV.CONT SCH (18:30)
[2018-05-31] MEDS ORDERED: Sodium Chlor 0.9% Inj 500 ML IV.SIG ONE (18:36)
[2018-05-31 19:59] LABS: Baso % (Auto) 0.5 % (0.0-2.0); Eos # (Auto) 0.4 th/mm3 (0.0-0.4); Eos % (Auto) 3.8 % (0.0-4.0); Hematocrit 47.7 % (39.0-51.0); Hemoglobin 16.4 gm/dL (13.0-17.0); Lymph # (Auto) 1.7 th/mm3 (1.0-4.8); Lymph % (Auto) 17.5 % (9.0-44.0); Mean Corpuscular HGB Conc 34.4 % (32.0-36.0); Mean Corpuscular Hemoglobin 31.7 pg (27.0-34.0); Mean Corpuscular Volume 92.2 fL (80.0-100.0); Mean Platelet Volume 9.8 fL (7.0-11.0); Mono # (Auto) 0.8 th/mm3 (0.0-0.9); Mono % (Auto) 8.7 % (0.0-8.0); Neut # (Auto) 6.7 th/mm3 (1.8-7.7); Neut % (Auto) 69.5 % (16.0-70.0); Platelet Count 141 th/mm3 (150-450); Red Blood Count 5.18 mil/mm3 (4.50-5.90); Red Cell Distribution Width 14.5 % (11.6-17.2); White Blood Count 9.6 th/mm3 (4.0-11.0)
[2018-05-31 20:04] LABS: Activated Partial Thrombo Time 27.4 sec (24.3-30.1); INR 1.1 Ratio; Prothrombin Time 11.5 sec (9.8-11.6)
[2018-05-31 20:36] LABS: Anion Gap 7 meq/L (5-15); Blood Urea Nitrogen 18 mg/dL (7-18); Carbon Dioxide 28.3 meq/L (21.0-32.0); Chloride 103 meq/L (98-107); Glomerular Filtration Rate 40 mL/min (>89); Glucose,Random 236 mg/dL (74-106); Potassium 4.5 meq/L (3.5-5.1); Sodium 138 meq/L (136-145)
[2018-05-31 20:42] LABS: Creatine Kinase 56 U/L (39-308)
--- NOTE | 2018-05-31 21:45 | CT ---
EXAM DATE: 05/31/2018 9:19 PM EDT AGE/SEX: 78 years / Male INDICATIONS: Slurred speech. CLINICAL DATA: This is the patient's subsequent encounter. Patient reports that signs and symptoms h ave been present for 1 day and indicates a pain score of 0/10. MEDICAL/SURGICAL HISTORY: Cardiovascular disease. Hypertension. Dementia. . MENTAL HEALTH ORDERLY shunt RADIATION DOSE: 66.34 CTDI (mGy) COMPARISON: [facility] [place] W/O CONTRAST, 05/29/2018. . TECHNIQUE: CT of the head without contrast. Using automated exposure control and adjustment of the mA and/or kV according to patient size, radiation dose was kept as low as reasonably achievable to ob tain optimal diagnostic quality images. DICOM format image data is available electronically for revi ew and comparison. FINDINGS: There is central and cortical atrophy with dilatation of ventricular and sulcal spaces. Shunt is see n entering from the right frontal region with the tip in the region of the third ventricle. There is no parenchymal hemorrhage, acute infarction or mass lesion identified. There are no extra-axial flui d collections appreciated. Periventricular white matter changes are noted. The posterior fossa is un remarkable with midline fourth ventricle. The portion of the orbits and paranasal sinuses visualized are unremarkable. CONCLUSION: Atrophy, otherwise negative for an acute process. Ventricles have not changed from 05/29/2018 Cortez Ray MD FACR CONCLUSION: Electronically signed by: Cortez Ray MD 05/31/2018 9:43 PM EDT
[2018-05-31] MEDS ORDERED: Furosemide 40 MG Tablet PO PRN (22:29)
[2018-05-31] MEDS ORDERED: Bisacodyl 10 MG Supp RECTAL PRN (22:32)
[2018-05-31] MEDS ORDERED: Acetaminophen 325 MG Tablet PO PRN (22:32)
[2018-05-31] MEDS ORDERED: Temazepam 15 MG Capsule PO PRN (22:32)
--- NOTE | 2018-05-31 22:35 | P.HPIM ---
History of Present Illness Primary Care Physician: Odette Marques History of Present Illness: This is a 78-year-old male with a PMH of HTN, A. 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 Recent admit 05/29- for similar event, pt reported off Xarelto x4 mo, unable to obtain MRI due to SPINNING LATHE OPERATOR HYDRAULIC Shunt, however Carotid US w/ mild plaque, s/p eval by Dr. Oh w/ recommendation for outpatient follow up. S/p eval by Dr. Rachel w/ recommendation to continue Xarelto and follow up in clinic. Pt states he was discharged home this afternoon, went to dinner with his and had sudden onset of expressive aphasia. Pt states episode lasted approx 30min, now completely resolved. Reports mild lower extremity weakness at the time, but resolved as well. CT Head w/ no acute findings. Dr. Rachel consulted, recommended to stop Xarelto and start Heparin gtt w/ Coumadin 10mg. Orders placed. Pt without complaints. - Diagnosis (1) TIA (transient ischemic attack) (2) A-fib (3) SPINNING LATHE OPERATOR HYDRAULIC (ventriculoperitoneal) shunt status Review of Systems All other systems reviewed negative except as stated in HPI PMFSH - History History Provided By: Medical Record, Research Scholar / EMT - Medical History Medical History: Medical History (Last Reviewed 05/31/18 @ 18:27 by Jewels Quintero MD) A-fib CAD (coronary artery disease) CHF (congestive heart failure) Dementia Diabetes mellitus HTN (hypertension) Hypothyroid Ventricular shunt in place - Surgical History Surgical History: Surgical History (Last Reviewed 05/31/18 @ 18:27 by Jewels Quintero MD) History of appendectomy History of cholecystectomy Hx of CABG - Family History Family History: Family History (Last Reviewed 05/31/18 @ 18:27 by Jewels Quintero MD) Other Family history non-contributory - Tobacco History Second Hand Smoke Exposure: No Smoking Status: Never smoker Tobacco Type: Cigarettes - Alcohol History How Often Do You Have a Drink Containing Alcohol: Monthly or less - Substance Use History Substance History: No History of Abuse - Travel History Recent Travel in the [place] Within the Last 8 Weeks: No Recent Travel Out of the Country Within the Last 8 Weeks: No - Immunization History Tetanus Immunization: Unsure Hx Influenza Vaccine This Season: Yes Medications and Allergies Active Medications: Active Medications Sodium Chloride (Ns Inj) 1,000 mls @ 70 mls/hr IV.CONT .[id number] LEROY Stop: 06/01/18 08:47 Sodium Chloride (Ns Flush) 2 ml IV.FLUSH PRN PRN PRN Reason: FLUSH AFTER USING IV ACCESS Allergies Allergy/AdvReac Type Severity Reaction Status Date / Time *MDRO Multi-Drug Resistant AdvReac Unknown Burning Uncoded 05/29/18 14:43 Organism Home Medications Medication Instructions Recorded Confirmed Type atorvastatin 80 mg PO HS 05/29/18 05/31/18 History carvedilol 25 mg PO BID 05/29/18 05/31/18 History furosemide 40 mg PO PRN PRN 05/29/18 05/31/18 History levothyroxine [Synthroid] 112 mcg PO DAILY 05/29/18 05/31/18 History lisinopril 5 mg PO HS 05/29/18 05/29/18 History magnesium 500 mg PO DAILY 05/29/18 05/31/18 History mirtazapine 15 mg PO HS 05/29/18 05/31/18 History potassium chloride [Klor-Con 10] 10 meq PO BID 05/29/18 05/31/18 History rivaroxaban [Xarelto] 15 mg PO QPM 05/29/18 05/31/18 History sitagliptin [Januvia] 100 mg PO DAILY 05/29/18 05/31/18 History sotalol 40 mg PO BID 05/29/18 05/31/18 History lisinopril 5 mg PO QPM 05/31/18 05/31/18 History Exam Vital signs: Vital Signs 05/31/18 18:11 05/31/18 18:20 05/31/18 18:35 Pulse Rate 67 69 67 Respiratory Rate 18 18 Blood Pressure 101/57 L 101/57 L Pulse Oximetry 94 L 96 95 05/31/18 20:00 05/31/18 21:00 Pulse Rate 58 L 89 Respiratory Rate 18 18 Blood Pressure 98/56 L 123/61 Pulse Oximetry 93 L 94 L Intake & Output 07/05/31/18 06/01/18 06:59 18:59 06:59 Weight 106.594 kg Narrative: PE: GENERAL: Very pleasant elderly white male in no acute distress. HEENT: PERRLA, EOMI. No scleral icterus or conjunctival pallor. No lid lag or facial droop. CARDIOVASCULAR: Regular rate and rhythm. No obvious murmurs to auscultation. No chest tenderness to palpation. RESPIRATORY: No obvious rhonchi or wheezing. Clear to auscultation. Breath sounds equal bilaterally. GASTROINTESTINAL: Abdomen soft, non-tender, nondistended. BS normal. MUSCULOSKELETAL: Extremities without clubbing, cyanosis, or edema. No obvious deformities. NEUROLOGICAL: Awake, alert and oriented x4. No focal neurologic deficits. Moving both upper and lower extremities spontaneously. Results - Labs CBC & Chem 7: 05/31/18 19:40 05/31/18 19:40 Labs: Short CBC 05/31/18 Range/Units 19:40 WBC 9.6 (4.0-11.0) th/mm3 Hgb 16.4 (13.0-17.0) gm/dL Hct 47.7 (39.0-51.0) % Plt Count 141 L (150-450) th/mm3 BMP 05/31/18 19:40 Sodium 138 Potassium 4.5 D Chloride 103 Carbon Dioxide 28.3 BUN 18 Creatinine 1.65 H Calcium 9.0 Cardiac Enzymes 05/31/18 Range/Units 19:40 Total Creatine Kinase 56 (39-308) U/L Troponin I Less than 0.02 L (0.02-0.05) ng/mL - Imaging Impressions Head CT 05/31/18 18:25 CONCLUSION: Atrophy, otherwise negative for an acute process. Ventricles have not changed from 05/29/2018 Cortez Ray MD FACR CONCLUSION: Caprini VTE Risk Assessment Caprini VTE Risk Assessment: No/Low Risk (score <= 1) Caprini Risk Assessment Model: Point Value = 1 Point Value = 2 Point Value = 3 Point Value = 5 Age 41-60 Minor surgery BMI > 25 kg/m2 Swollen legs Varicose veins or History of unexplained or recurrent spontaneous Oral contraceptives or hormone replacement Sepsis (< 1 month) Serious lung disease, including pneumonia (< 1 month) Abnormal pulmonary function Acute myocardial infarction Congestive heart failure (< 1 month) History of inflammatory bowel disease Medical patient at bed rest Age 61-74 Arthroscopic surgery Major open surgery (> 45 min) Laparoscopic surgery (> 45 min) Malignancy Confined to bed (> 72 hours) Immobilizing plaster cast Central venous access Age >= 75 History of VTE Family history of VTE Factor V Leiden Prothrombin [id number] Lupus anticoagulant Anticardiolipin antibodies Elevated serum homocysteine Heparin-induced thrombocytopenia Other congenital or acquired thrombophilia Stroke (< 1 month) Elective arthroplasty Hip, pelvis, or leg fracture Acute spinal cord injury (< 1 month) Prophylaxis Regimen: Total Risk Factor Score Risk Level Prophylaxis Regimen 0-1 Low Early ambulation 2 Moderate Order ONE of the following: *Sequential Compression Device (SCD) *Heparin 5000 units SQ BID 3-4 Higher Order ONE of the following medications: *Heparin 5000 units SQ TID *Enoxaparin/Lovenox 40 mg SQ daily (WT < 150 kg, CrCl > 30 mL/min) *Enoxaparin/Lovenox 30 mg SQ daily (WT < 150 kg, CrCl > 10-29 mL/min) *Enoxaparin/Lovenox 30 mg SQ BID (WT < 150 kg, CrCl > 30 mL/min) AND/OR *Sequential Compression Device (SCD) 5 or more Highest Order ONE of the following medications: *Heparin 5000 units SQ TID (Preferred with Epidurals) *Enoxaparin/Lovenox 40 mg SQ daily (WT < 150 kg, CrCl > 30 mL/min) *Enoxaparin/Lovenox 30 mg SQ daily (WT < 150 kg, CrCl > 10-29 mL/min) *Enoxaparin/Lovenox 30 mg SQ BID (WT < 150 kg, CrCl > 30 mL/min) AND *Sequential Compression Device (SCD) Assessment and Plan - Assessment (1) TIA (transient ischemic attack) Code(s): G45.9 - Transient cerebral ischemic attack, unspecified Status: Acute (2) A-fib Code(s): I48.91 - Unspecified atrial fibrillation Status: Acute (3) SPINNING LATHE OPERATOR HYDRAULIC (ventriculoperitoneal) shunt status Code(s): Z98.2 - Presence of cerebrospinal fluid drainage device Status: Acute - Plan A/P: 1. TIA: Recurrent. Recent admit 05/29-05/31/18 for slurred speech, CT Head w/ no acute change from previous imaging 05/29/18. Unable to do MRI due to SPINNING LATHE OPERATOR HYDRAULIC Shunt. Carotid US 05/29/18 w/ mild plaque. Currently on Xarelto, Dr. Rachel consulted, recommended Heparin gtt and Coumadin 10mg po, orders placed. Neuro Checks. PT/Speech for eval/tx as needed. 2. A-fib: Chronic, h/o A-fib, previously off Xarelto for approx 4mo, restarted on last admit, will hold for now as above. Echo 05/30/18 w/ EF 35-40% . Telemetry. 3. H/o SPINNING LATHE OPERATOR HYDRAULIC Shunt: h/o NPH w/ SPINNING LATHE OPERATOR HYDRAULIC Shunt Placement, seen by Dr. Oh on last admit after recommendation from Neurology to decrease shunt pressure, decreased from 160 to [id number] 4. DVT Prophylaxis: On Heparin gtt/Coumadin 5. Social work for d/c planning as needed 6. Case discussed w/ ER physician at length, labs/records/imaging reviewed by me.
[2018-05-31] MEDS ORDERED: Dextrose 50% in Water 50 ML Vial IV.PUSH PRN (23:55)
[2018-06-01 05:45] LABS: Baso # (Auto) 0.1 th/mm3 (0.0-0.2); Baso % (Auto) 0.7 % (0.0-2.0); Eos # (Auto) 0.4 th/mm3 (0.0-0.4); Eos % (Auto) 5.5 % (0.0-4.0); Hematocrit 43.7 % (39.0-51.0); Hemoglobin 15.5 gm/dL (13.0-17.0); Lymph # (Auto) 2.5 th/mm3 (1.0-4.8); Lymph % (Auto) 30.2 % (9.0-44.0); Mean Corpuscular HGB Conc 35.5 % (32.0-36.0); Mean Corpuscular Hemoglobin 32.6 pg (27.0-34.0); Mean Corpuscular Volume 91.9 fL (80.0-100.0); Mean Platelet Volume 10.2 fL (7.0-11.0); Mono # (Auto) 0.8 th/mm3 (0.0-0.9); Mono % (Auto) 10.3 % (0.0-8.0); Neut # (Auto) 4.4 th/mm3 (1.8-7.7); Neut % (Auto) 53.3 % (16.0-70.0); Platelet Count 110 th/mm3 (150-450); Red Blood Count 4.75 mil/mm3 (4.50-5.90); Red Cell Distribution Width 14.5 % (11.6-17.2); White Blood Count 8.2 th/mm3 (4.0-11.0)
[2018-06-01 06:38] LABS: Alanine Aminotransferase 20 U/L (12-78); Albumin 3.4 g/dL (3.4-5.0); Alkaline Phosphatase 94 U/L (45-117); Anion Gap 5 meq/L (5-15); Aspartate Aminotransferase 42 U/L (15-37); Blood Urea Nitrogen 18 mg/dL (7-18); Calcium 8.9 mg/dL (8.5-10.1); Chloride 105 meq/L (98-107); Glomerular Filtration Rate 52 mL/min (>89); Glucose,Random 147 mg/dL (74-106); Sodium 139 meq/L (136-145)
[2018-06-01 06:44] LABS: Potassium 5.6 meq/L (3.5-5.1)
[2018-06-01] MEDS: Levothyroxine 112 MCG Tablet PO SCH (07:17)
[2018-06-01] MEDS: Senna/Docusate Sodium 8.6/50 MG Tablet PO SCH ×2 (08:18→21:50)
[2018-06-01] MEDS: Insulin NovoLOG Aspart Correctional Sugar Inj SQ SCH ×4 (08:18→21:50)
[2018-06-01] MEDS: Heparin Drip 25,000 UNIT/250 ML BAG IV.CONT PRN (11:11)
--- NOTE | 2018-06-01 11:19 | P.PN ---
Subjective Interval history: 69 years old right handed male tlelemtry in SR now awke and alert, state speeech is more spontaenousl- clear strength stronger baseline gets around with a cane for safety history of DM type2- states good hypoglycemic awareness Physical Exam Vital signs: Vital Signs 05/31/18 18:11 05/31/18 18:20 05/31/18 18:35 Temperature Pulse Rate 67 69 67 Respiratory Rate 18 18 Blood Pressure 101/57 L 101/57 L Pulse Oximetry 94 L 96 95 05/31/18 20:00 05/31/18 21:00 06/01/18 00:00 Temperature Pulse Rate 58 L 89 Respiratory Rate 18 18 Blood Pressure 98/56 L 123/61 Pulse Oximetry 93 L 94 L 94 L 06/01/18 00:30 06/01/18 04:00 06/01/18 08:00 Temperature 98 F 98.2 F 97.5 F L Pulse Rate 51 L 58 L 53 L Respiratory Rate 16 16 15 Blood Pressure 140/73 169/80 H 169/81 H Pulse Oximetry 94 L 99 97 Intake & Output 05/31/18 06/01/18 06/01/18 18:59 06:59 18:59 Intake Total 400 / 400 Output Total 800 / 800 Balance -400 / -400 Weight 106.594 kg 106.5 kg Intake: Oral 400 / 400 Output: Urine 800 / 800 Other: Date of Last Bowel Movement 05/31/18 # Bowel Movements 0 Weight On Admission 106.5 kg Narrative: awake and alert, oriented x 3, speech clear and spontaenousl anciteric puils equally reactive no facial asymmetry tongue midlne, good gag no nuchal rigidity lungs- no rales regular rhythm, bradycared HR 48 chest wall- defibrillator in place abdomen soft, nontender extremities no edema, grossly no sensory deficits Results - Labs CBC & Chem 7: 06/01/18 05:28 06/01/18 05:28 Laboratory Results - last 24 hr 05/31/18 05/31/18 05/31/18 19:40 19:40 19:40 WBC 9.6 RBC 5.18 Hgb 16.4 Hct 47.7 MCV 92.2 MCH 31.7 MCHC 34.4 RDW 14.5 Plt Count 141 L MPV 9.8 Neut % (Auto) 69.5 Lymph % (Auto) 17.5 Milam % (Auto) 8.7 H Eos % (Auto) 3.8 Baso % (Auto) 0.5 Neut # (Auto) 6.7 Lymph # (Auto) 1.7 Milam # (Auto) 0.8 Eos # (Auto) 0.4 Baso # (Auto) 0.0 WBC Differential . Differential Comment Auto diff final PT 11.5 INR 1.1 APTT 27.4 Sodium 138 Potassium 4.5 D Chloride 103 Carbon Dioxide 28.3 Anion Gap 7 BUN 18 Creatinine 1.65 H Estimated GFR 40 L POC Glucose Random Glucose 236 H Calcium 9.0 Total Bilirubin AST ALT Alkaline Phosphatase Total Creatine Kinase 56 Troponin I Less than 0.02 L Total Protein Albumin Blood Type Antibody Screen 05/31/18 06/01/18 06/01/18 22:49 05:28 05:28 WBC 8.2 RBC 4.75 Hgb 15.5 Hct 43.7 MCV 91.9 MCH 32.6 MCHC 35.5 RDW 14.5 Plt Count 110 L MPV 10.2 Neut % (Auto) 53.3 Lymph % (Auto) 30.2 Milam % (Auto) 10.3 H Eos % (Auto) 5.5 H Baso % (Auto) 0.7 Neut # (Auto) 4.4 Lymph # (Auto) 2.5 Milam # (Auto) 0.8 Eos # (Auto) 0.4 Baso # (Auto) 0.1 WBC Differential . Differential Comment Auto diff final PT INR APTT 25.7 Sodium Potassium Chloride Carbon Dioxide Anion Gap BUN Creatinine Estimated GFR POC Glucose Random Glucose Calcium Total Bilirubin AST ALT Alkaline Phosphatase Total Creatine Kinase Troponin I Total Protein Albumin Blood Type A Positive Antibody Screen Negative 06/01/18 06/01/18 05:28 07:48 WBC RBC Hgb Hct MCV MCH MCHC RDW Plt Count MPV Neut % (Auto) Lymph % (Auto) Milam % (Auto) Eos % (Auto) Baso % (Auto) Neut # (Auto) Lymph # (Auto) Milam # (Auto) Eos # (Auto) Baso # (Auto) WBC Differential Differential Comment PT INR APTT Sodium 139 Potassium 5.6 H D Chloride 105 Carbon Dioxide 29.0 Anion Gap 5 BUN 18 Creatinine 1.32 H Estimated GFR 52 L POC Glucose 148 H Random Glucose 147 H Calcium 8.9 Total Bilirubin 0.9 AST 42 H ALT 20 Alkaline Phosphatase 94 Total Creatine Kinase Troponin I Total Protein 7.0 Albumin 3.4 Blood Type Antibody Screen - Imaging Impressions Head CT 05/31/18 18:25 CONCLUSION: Atrophy, otherwise negative for an acute process. Ventricles have not changed from 05/29/2018 Cortez Ray MD FACR CONCLUSION: Assessment and Plan - Assessment (1) TIA (transient ischemic attack) Code(s): G45.9 - Transient cerebral ischemic attack, unspecified Status: Acute (2) A-fib Code(s): I48.91 - Unspecified atrial fibrillation Status: Acute (3) WATCH AND CLOCK MAKER AND REPAIRER (ventriculoperitoneal) shunt status Code(s): Z98.2 - Presence of cerebrospinal fluid drainage device Status: Acute - Plan 78 years old right handed male TIA: Recurrent. Recent admit 05/29-05/31/18 for slurred speech, CT Head w/ no acute change from previous imaging 05/29/18. Unable to do MRI due to WATCH AND CLOCK MAKER AND REPAIRER Shunt. Carotid US 05/29/18 w/ mild plaque. - d/w Neurology- start him on Heparin drip with coumadin overlap INR goal 2-3 - PT.OT, speech tehrapy -statins History of A-fib with AICD in place - telemetry HR 48 - regular rhtyhm Cardiomyopathy- EF 35-40% on echo 05/30/2018- clinically no sings of failure HYpertension - continue to monitor. 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 Oh on last admit after recommendation from Neurology to decrease shunt pressure, - decreased from 160 to [id number] DVT Prophylaxis: On Heparin gtt/Coumadin Social work for d/c planning as needed
--- NOTE | 2018-06-01 11:29 | MB ---
cc: Roddy Rachel MD DATE: 06/01/2018 HISTORY OF PRESENT ILLNESS: This is a 78-year-old male with history of normal pressure hydrocephalus, cardiac stent, diabetes, CABG, AFib, who has been on Xarelto. He had missed his Xarelto dose about 3 days prior to coming in. Then for about 30 minutes on 05/29/2018 he had garbled speech and expressive aphasia. This did not reoccur. He was put back on his Xarelto. Evidently missed a dose on his day of discharge yesterday and then had another episode last night of 30 minutes of garbled speech and came back in the hospital. PAST MEDICAL HISTORY: The patient has a pacemaker. REVIEW OF SYSTEMS: No history of renal, hepatic, pulmonary disease, lupus, ulcer, cancer, seizure. FAMILY HISTORY: Negative for cancer, seizure, stroke. SOCIAL HISTORY: Not a smoker or drinker, lives with his . HOME MEDICINES: 1. Lisinopril. 2. Synthroid. 3. Lasix. 4. Carvedilol. 5. Atorvastatin. 6. Mirtazapine. 7. Magnesium. 8. Januvia. 9. Xarelto 15 mg. 10. He is on Synthroid here. 11. Got a dose of Coumadin last night. PHYSICAL EXAMINATION: GENERAL: On exam, EKG shows sinus rhythm. VITAL SIGNS: Afebrile, 53, 15, 169/81-98/56. NECK: There were no carotid bruits. HEART: Regular rate and rhythm. I did not detect a murmur. NEUROLOGIC: Pupils are equal. Visual chambers are full. Extraocular movements are intact without nystagmus. Face symmetric. Tongue was midline. Moves all his extremities well. Speech is fluent now, he can name and repeat, back to normal. LABORATORY DATA: CBC is normal. Basic metabolic profile: Creatinine 1.32, otherwise normal. Sugar has been normal, slightly elevated at 148-236. LFTs are essentially normal. Troponins negative. Albumin normal. Coags were normal. CBC normal. He had a carotid ultrasound done on 05/29/2018, that was normal. He had a CAT scan of his brain done last evening, showed the ventricles enlarged. Chest x-ray, nothing acute. He had a head CT on 05/31/2018 . EEG was normal, just a few days ago. IMPRESSION/PLAN: Another episode of speech problems. I recommended last night to put him on IV heparin and Coumadin and no bolus ever on the heparin. Get him Coumadinized, that way if he misses one dose of his anticoagulant, he will still be somewhat anticoagulated. There are some issues that need to be figured out with his about whether she can make sure that he takes a proper dose of Coumadin and does not eat greens at home. The bottom line on this case is that the patient should be started on IV heparin, no bolus ever at the lowest rate of 12 units and I would recommend switching his Coumadin as he got 10 mg last night, to 5 mg a day. Get his INR 2-2.5 and then he could be discharged. I do not think he is taking his Xarelto every day and this way, if he misses a day of Coumadin, he will probably still be anticoagulated more than he would be on the Xarelto. Also, the Eliquis at twice a day is probably not going to work with him because he is unlikely to take a twice a day medication when he has had trouble taking once a day Xarelto. MD MELISSA Patel/DAVIAN , 10:59 AM , 11:08 AM
--- NOTE | 2018-06-01 14:37 | ECG ---
Date Performed: 05/31/2018 Time Performed: 18:36:09 PTAGE: 78 years EKG: Sinus rhythm WITH SINUS ARRHYTHMIA POSSIBLE LEFT ATRIAL ENLARGEMENT RIGHT BUNDLE BRANCH BLOCK POSSIBLE LEFT VENTR ICULAR HYPERTROPHY Since previous tracing, no significant change noted ABNORMAL ECG PREVIOUS TRACING : 05/29/2018 14.42 DOCTOR: Turner Hough Interpretating Date/Time 06/01/2018 14:35:13
[2018-06-01 15:31] LABS: INR 1.2 Ratio; Prothrombin Time 11.8 sec (9.8-11.6)
[2018-06-01] MEDS: Carvedilol 12.5 MG Tablet PO SCH (21:49)
[2018-06-02] MEDS: Levothyroxine 112 MCG Tablet PO SCH (06:21)
[2018-06-02] MEDS: Heparin Drip 25,000 UNIT/250 ML BAG IV.CONT PRN (08:36)
[2018-06-02] MEDS: Senna/Docusate Sodium 8.6/50 MG Tablet PO SCH ×2 (08:38→22:53)
[2018-06-02] MEDS: Insulin NovoLOG Aspart Correctional Sugar Inj SQ SCH ×4 (08:39→22:54)
[2018-06-02] MEDS: Carvedilol 12.5 MG Tablet PO SCH (08:40)
--- NOTE | 2018-06-02 08:47 | P.PNNEU ---
Subjective Subjective Comments: another feeling this am speech not good Active Medications: Active Medications Acetaminophen (Tylenol) 650 mg PO Q4H PRN PRN Reason: Temp > 100.4 Al Hydroxide/Mg Hydroxide (Milk Of Magnesia Liq) 30 ml PO Q12H PRN PRN Reason: Mild Constipation Atorvastatin Calcium (Lipitor) 80 mg PO HS [facility] Last Admin: 06/01/18 21:49 Dose: 80 mg Bisacodyl (Dulcolax Supp) 10 mg RECTAL DAILY PRN PRN Reason: SEVERE CONSITIPATION Carvedilol (Coreg) 12.5 mg PO BID [facility] Last Admin: 06/02/18 08:40 Dose: Not Given Dextrose (D50w Vial) 50 ml IV.PUSH UNSCH PRN PRN Reason: PER HYPOGLYCEMIA PROTOCOL Furosemide (Lasix) 40 mg PO DAILY PRN PRN Reason: LEG EDEMA Glucagon (Glucagon Inj) 1 mg OTHER PRN PRN PRN Reason: for Hypoglycemia Protocol Heparin Sodium/Dextrose (Heparin/D5w 25,000 U/250 Ml) 25,000 unit in 250 mls @ 12 mls/hr IV.CONT TITRATE PRN; Protocol PRN Reason: Per Protocol Last Admin: 06/02/18 08:36 Dose: 1,200 units/hr, 12 mls/hr Insulin Aspart (Novolog Insulin Correctional Sugar Inj) 0 unit SQ [facility]; Protocol Last Admin: 06/02/18 08:39 Dose: 1 unit Lactulose (Lactulose Liq) 30 ml PO DAILY PRN PRN Reason: SEVERE CONSITIPATION Levothyroxine Sodium (Synthroid) 112 mcg PO DAILY@0600 [facility] Last Admin: 06/02/18 06:21 Dose: 112 mcg Ondansetron HCl (Zofran Odt) 4 mg PO Q6H PRN PRN Reason: NAUSEA OR VOMITING Senna/Docusate Sodium (Coretta-Colace) 1 tab PO BID [facility] Last Admin: 06/02/18 08:38 Dose: 1 tab Sennosides (Senokot) 17.2 mg PO Q12H PRN PRN Reason: Moderate Constipation Sodium Chloride (Ns Flush) 2 ml IV.FLUSH PRN PRN PRN Reason: FLUSH AFTER USING IV ACCESS Temazepam (Restoril) 15 mg PO HS PRN PRN Reason: INSOMNIA Warfarin Sodium (Coumadin) 10 mg PO DAILY@1600 [facility] Last Admin: 06/01/18 17:35 Dose: 10 mg Allergies/Adverse Reactions: Allergies Allergy/AdvReac Type Severity Reaction Status Date / Time *MDRO Multi-Drug Resistant AdvReac Unknown Burning Uncoded 05/29/18 14:43 Organism Physical Exam Vital signs: Vital Signs 06/01/18 08:55 06/01/18 12:00 06/01/18 16:00 Temperature 97.2 F L 98.5 F Pulse Rate 49 L 52 L 53 L Respiratory Rate 16 14 Blood Pressure 152/72 H 176/84 H Pulse Oximetry 96 94 L 06/01/18 21:15 06/02/18 01:05 06/02/18 05:00 Temperature 98 F 97.6 F 98.2 F Pulse Rate 67 66 58 L Respiratory Rate 17 16 16 Blood Pressure 150/70 H 148/67 H 110/55 L Pulse Oximetry 95 96 93 L Intake & Output 06/01/18 06/02/18 06/02/18 18:59 06:59 18:59 Intake Total 850 / 850 250 / 250 Output Total 600 / 600 1100 / 1100 Balance -600 / -600 -250 / -250 250 / 250 Weight 106.5 kg Intake: IV 250 / 250 Heparin/D5W 25,000 U/250 mL 25, 250 / 250 000 unit In 250 ml @ 1,200 UNITS/HR 12 mls/hr IV.CONT TITRATE PRN Rx#:[id number] Oral 850 / 850 Output: Urine 600 / 600 1100 / 1100 Other: # Voids 2 # Bowel Movements 0 Narrative: he is a little slow to talk but not ahpahsic can repeat and follow commands and name Objective Laboratory Results - last 24 hr 06/01/18 06/01/18 06/01/18 12:31 14:11 16:15 PT 11.8 H INR 1.2 APTT POC Glucose 257 H 189 H 06/01/18 06/01/18 06/02/18 18:46 20:38 01:02 PT INR APTT 41.3 H D 64.3 H D POC Glucose 163 H 06/02/18 07:25 PT INR APTT POC Glucose 179 H Review/Management - Review/Management Plan: imp one of his speech spells now not aphasic a little slow to answer and i suspect more due to nph/ neurocondition than ischemic changing to coumadin check stat eeg
[2018-06-02 09:36] LABS: Hematocrit 43.5 % (39.0-51.0); Hemoglobin 14.9 gm/dL (13.0-17.0); Mean Corpuscular HGB Conc 34.3 % (32.0-36.0); Mean Corpuscular Hemoglobin 31.6 pg (27.0-34.0); Mean Corpuscular Volume 92.1 fL (80.0-100.0); Mean Platelet Volume 10.9 fL (7.0-11.0); Platelet Count 128 th/mm3 (150-450); Red Blood Count 4.73 mil/mm3 (4.50-5.90); Red Cell Distribution Width 14.6 % (11.6-17.2); White Blood Count 8.3 th/mm3 (4.0-11.0)
[2018-06-02 09:43] LABS: Activated Partial Thrombo Time 77.7 sec (24.3-30.1); INR 1.5 Ratio
[2018-06-02 10:05] LABS: Carbon Dioxide 26.4 meq/L (21.0-32.0); Potassium 4.4 meq/L (3.5-5.1)
--- NOTE | 2018-06-02 12:33 | P.PN ---
Subjective Interval history: at around 11 am- new onset; right sided weakness- strength definitiely weaker compared to yesterday speech slurred Physical Exam Vital signs: Vital Signs 06/01/18 16:00 06/01/18 21:15 06/02/18 01:05 Temperature 98.5 F 98 F 97.6 F Pulse Rate 53 L 67 66 Respiratory Rate 14 17 16 Blood Pressure 176/84 H 150/70 H 148/67 H Pulse Oximetry 94 L 95 96 06/02/18 05:00 06/02/18 08:00 06/02/18 08:35 Temperature 98.2 F 98.1 F Pulse Rate 58 L 55 L Respiratory Rate 16 18 Blood Pressure 110/55 L 131/60 Pulse Oximetry 93 L 95 95 06/02/18 09:00 Temperature Pulse Rate 55 L Respiratory Rate Blood Pressure Pulse Oximetry Intake & Output 06/01/18 06/02/18 06/02/18 18:59 06:59 18:59 Intake Total 850 / 850 1250 / 1250 Output Total 600 / 600 1100 / 1100 Balance -600 / -600 -250 / -250 1250 / 1250 Weight 106.5 kg Intake: IV 1250 / 1250 Heparin/D5W 25,000 U/250 mL 25, 250 / 250 000 unit In 250 ml @ 1,200 UNITS/HR 12 mls/hr IV.CONT TITRATE PRN Rx#:[id number] Oral 850 / 850 Output: Urine 600 / 600 1100 / 1100 Other: # Voids 2 Date of Last Bowel Movement 06/01/18 # Bowel Movements 0 Narrative: awake and alert, but speech dysarthric anicteric lungs- no rales regular rhythm abdomen soft, nontedner motor- right sided weakness- RUE 3/5, RLE 1/5 shallow right nasolabial fold Results - Labs CBC & Chem 7: 06/02/18 07:20 06/03/18 01:13 Laboratory Results - last 24 hr 06/01/18 06/01/18 06/01/18 12:31 14:11 16:15 WBC RBC Hgb Hct MCV MCH MCHC RDW Plt Count MPV PT 11.8 H INR 1.2 APTT Sodium Potassium Chloride Carbon Dioxide Anion Gap BUN Creatinine Estimated GFR POC Glucose 257 H 189 H Random Glucose Calcium 07/29/18 07/29/18 07/30/18 18:46 20:38 01:02 WBC RBC Hgb Hct MCV MCH MCHC RDW Plt Count MPV PT INR APTT 41.3 H D 64.3 H D Sodium Potassium Chloride Carbon Dioxide Anion Gap BUN Creatinine Estimated GFR POC Glucose 163 H Random Glucose Calcium 06/02/18 06/02/18 06/02/18 07:20 07:20 07:20 WBC 8.3 RBC 4.73 Hgb 14.9 Hct 43.5 MCV 92.1 MCH 31.6 MCHC 34.3 RDW 14.6 Plt Count 128 L MPV 10.9 PT 15.0 H INR 1.5 APTT 77.7 H D Sodium 139 Potassium 4.4 D Chloride 104 Carbon Dioxide 26.4 Anion Gap 9 BUN 19 H Creatinine 1.39 H Estimated GFR 49 L POC Glucose Random Glucose 145 H Calcium 9.0 06/02/18 07:25 WBC RBC Hgb Hct MCV MCH MCHC RDW Plt Count MPV PT INR APTT Sodium Potassium Chloride Carbon Dioxide Anion Gap BUN Creatinine Estimated GFR POC Glucose 179 H Random Glucose Calcium Assessment and Plan - Assessment (1) TIA (transient ischemic attack) Code(s): G45.9 - Transient cerebral ischemic attack, unspecified Status: Acute (2) A-fib Code(s): I48.91 - Unspecified atrial fibrillation Status: Acute (3) CHIEF DISPATCHER SERVICE (ventriculoperitoneal) shunt status Code(s): Z98.2 - Presence of cerebrospinal fluid drainage device Status: Acute - Plan 78 years old right handed male [place] right sided weakness. Recurrent TIA Recent admit 05/29-05/31/18 for slurred speech, CT Head w/ no acute change from previous imaging 05/29/18. Unable to do MRI due to CHIEF DISPATCHER SERVICE Shunt. Carotid US 05/29/18 w/ mild plaque. - stat head CT ordered continue on on Heparin drip with coumadin overlap INR goal 2-3 - PT.OT, speech therapy -statins History of A-fib with AICD in place - telemetry HR 48 - regular rhtyhm Cardiomyopathy- EF 35-40% on echo 05/30/2018- clinically no sings of failure HYpertension - continue to monitor. 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 Oh on last admit after recommendation from Neurology to decrease shunt pressure, - decreased from 160 to [id number] DVT Prophylaxis: On Heparin gtt/Coumadin Social work for d/c planning as needed
--- NOTE | 2018-06-02 13:31 | CT ---
EXAM DATE: 06/02/2018 1:18 PM EDT AGE/SEX: 78 years / Male INDICATIONS: Increased weakness to right side. CLINICAL DATA: This is the patient's initial encounter. Patient reports that signs and symptoms have been present for 1 day and indicates a pain score of 2/10. MEDICAL/SURGICAL HISTORY: Cardiovascular disease. Diabetes. Dementia. . 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 RADIATION DOSE: 43.83 CTDI (mGy) [place] [facility] [place]. . TECHNIQUE: CT of the head without contrast. Using automated exposure control and adjustment of the mA and/or kV according to patient size, radiation dose was kept as low as reasonably achievable to ob tain optimal diagnostic quality images. DICOM format image data is available electronically for revi ew and comparison. FINDINGS: There is ventriculomegaly identified with a right frontal approach STRATEGIC PLANNING DIRECTOR shunt catheter in place with ti p terminating midline third ventricle. There is mild hypodensity in the periventricular white matter. No signs of acute infarct, hemorrhage, or mass. No fractures. CONCLUSION: 1. Stable exam. . Electronically signed by: Howard Contreras MD 06/02/2018 1:30 PM EDT
--- NOTE | 2018-06-02 16:18 | P.PNNEU ---
Subjective Subjective Comments: got weak rle today Active Medications: Active Medications Acetaminophen (Tylenol) 650 mg PO Q4H PRN PRN Reason: Temp > 100.4 Al Hydroxide/Mg Hydroxide (Milk Of Magnesia Liq) 30 ml PO Q12H PRN PRN Reason: Mild Constipation Atorvastatin Calcium (Lipitor) 80 mg PO HS [facility] Last Admin: 06/01/18 21:49 Dose: 80 mg Bisacodyl (Dulcolax Supp) 10 mg RECTAL DAILY PRN PRN Reason: SEVERE CONSITIPATION Carvedilol (Coreg) 3.125 mg PO BID [facility] Last Admin: 06/02/18 13:53 Dose: 3.125 mg Dextrose (D50w Vial) 50 ml IV.PUSH UNSCH PRN PRN Reason: PER HYPOGLYCEMIA PROTOCOL Furosemide (Lasix) 40 mg PO DAILY PRN PRN Reason: LEG EDEMA Glucagon (Glucagon Inj) 1 mg OTHER PRN PRN PRN Reason: for Hypoglycemia Protocol Heparin Sodium/Dextrose (Heparin/D5w 25,000 U/250 Ml) 25,000 unit in 250 mls @ 12 mls/hr IV.CONT TITRATE PRN; Protocol PRN Reason: Per Protocol Last Titration: 06/02/18 12:28 Dose: 1,100 units/hr, 11 mls/hr Sodium Chloride (Ns Inj) 1,000 mls @ 100 mls/hr IV.CONT .Q10H [facility] Insulin Aspart (Novolog Insulin Correctional Sugar Inj) 0 unit SQ ACHS [facility]; Protocol Last Admin: 06/02/18 13:52 Dose: 5 unit Lactulose (Lactulose Liq) 30 ml PO DAILY PRN PRN Reason: SEVERE CONSITIPATION Levothyroxine Sodium (Synthroid) 112 mcg PO DAILY@0600 [facility] Last Admin: 06/02/18 06:21 Dose: 112 mcg Ondansetron HCl (Zofran Odt) 4 mg PO Q6H PRN PRN Reason: NAUSEA OR VOMITING Senna/Docusate Sodium (Coretta-Colace) 1 tab PO BID [facility] Last Admin: 06/02/18 08:38 Dose: 1 tab Sennosides (Senokot) 17.2 mg PO Q12H PRN PRN Reason: Moderate Constipation Sodium Chloride (Ns Flush) 2 ml IV.FLUSH PRN PRN PRN Reason: FLUSH AFTER USING IV ACCESS Temazepam (Restoril) 15 mg PO HS PRN PRN Reason: INSOMNIA Warfarin Sodium (Coumadin) 5 mg PO DAILY@1600 [facility] Allergies/Adverse Reactions: Allergies Allergy/AdvReac Type Severity Reaction Status Date / Time *MDRO Multi-Drug Resistant AdvReac Unknown Burning Uncoded 05/29/18 14:43 Organism Physical Exam Vital signs: Vital Signs 06/01/18 21:15 06/02/18 01:05 06/02/18 05:00 Temperature 98 F 97.6 F 98.2 F Pulse Rate 67 66 58 L Respiratory Rate 17 16 16 Blood Pressure 150/70 H 148/67 H 110/55 L Pulse Oximetry 95 96 93 L 06/02/18 08:00 06/02/18 08:35 06/02/18 09:00 Temperature 98.1 F Pulse Rate 55 L 55 L Respiratory Rate 18 Blood Pressure 131/60 Pulse Oximetry 95 95 06/02/18 12:00 Temperature 97.8 F Pulse Rate 59 L Respiratory Rate 20 Blood Pressure 123/55 L Pulse Oximetry 95 Intake & Output 06/01/18 06/02/18 06/02/18 18:59 06:59 18:59 Intake Total 850 / 850 1250 / 1250 Output Total 600 / 600 1100 / 1100 Balance -600 / -600 -250 / -250 1250 / 1250 Weight 106.5 kg Intake: IV 1250 / 1250 Heparin/D5W 25,000 U/250 mL 25, 250 / 250 000 unit In 250 ml @ 1,200 UNITS/HR 12 mls/hr IV.CONT TITRATE PRN Rx#:[id number] Oral 850 / 850 Output: Urine 600 / 600 1100 / 1100 Other: # Voids 2 Date of Last Bowel Movement 06/01/18 # Bowel Movements 0 Narrative: vff face sym speech minimally slow not aphasic rue 4+/5 rle 4/5 Objective Laboratory Results - last 24 hr 06/01/18 06/01/18 06/01/18 16:15 18:46 20:38 WBC RBC Hgb Hct MCV MCH MCHC RDW Plt Count MPV PT INR APTT 41.3 H D Sodium Potassium Chloride Carbon Dioxide Anion Gap BUN Creatinine Estimated GFR POC Glucose 189 H 163 H Random Glucose Calcium 06/02/18 06/02/18 06/02/18 01:02 07:20 07:20 WBC 8.3 RBC 4.73 Hgb 14.9 Hct 43.5 MCV 92.1 MCH 31.6 MCHC 34.3 RDW 14.6 Plt Count 128 L MPV 10.9 PT INR APTT 64.3 H D Sodium 139 Potassium 4.4 D Chloride 104 Carbon Dioxide 26.4 Anion Gap 9 BUN 19 H Creatinine 1.39 H Estimated GFR 49 L POC Glucose Random Glucose 145 H Calcium 9.0 06/02/18 06/02/18 06/02/18 07:20 07:25 12:34 WBC RBC Hgb Hct MCV MCH MCHC RDW Plt Count MPV PT 15.0 H INR 1.5 APTT 77.7 H D Sodium Potassium Chloride Carbon Dioxide Anion Gap BUN Creatinine Estimated GFR POC Glucose 179 H 256 H Random Glucose Calcium Review/Management - Review/Management Plan: imp one of his speech spells now not aphasic a little slow to answer and i suspect more due to nph/ neurocondition than ischemic changing to coumadin check stat eeg 06/02/[address] neg check ctax2 us caroltid neg few days ago shunt in has defib so no mri inr 1.5 on ivf and iv hep hob flat hold bp meds<200/100
[2018-06-02] MEDS: Sod Chloride 0.9% Inj 1,000 ML IV.CONT SCH (16:19)
--- NOTE | 2018-06-02 19:24 | CT ---
EXAM DATE: 06/02/2018 7:14 PM EDT AGE/SEX: 78 years / Male INDICATIONS: Stroke like symptoms. Evaluate for stenosis. CLINICAL DATA: This is the patient's initial encounter. Patient reports that signs and symptoms have been present for 2 days and indicates a pain score of 0/10. MEDICAL/SURGICAL HISTORY: Cardiovascular disease. Hypertension. Diabetes mellitus type II. Demen tia CABG. Appendectomy. Cholecystectomy. RADIATION DOSE: 28.87 CTDI (mGy) ; Combined studies COMPARISON: No prior exams available for comparison. TECHNIQUE: Volumetric scanning was performed using a multirow detector CT scanner during bolus infus ion of 70 ml Omnipaque 350 (iohexol) nonionic water-soluble contrast as a cumulative dose for multip le exams. The data was postprocessed with a variety of visualization algorithms including full-volu me maximum intensity projection, multiplanar sliding thin-slab reformation, curved-planar reformation , and surface-rendering techniques. Using automated exposure control and adjustment of the mA and/or kV according to patient size, radiation dose was kept as low as reasonably achievable to obtain opti mal diagnostic quality images. DICOM format image data is available electronically for review and co mparison. Percent stenosis is calculated using the diameter of the stenotic region over the diameter of the nor mal distal internal carotid artery. FINDINGS: Grade vessel origins are patent. There is mild to moderate calcific atherosclerotic plaque around bot h carotid bifurcations but without hemodynamically significant stenosis. The common carotid and inter nal carotid arteries are otherwise patent. No vertebral artery stenosis identified. Both are patent within the neck and relatively symmetric in size. There is a 3.1 cm left-sided thyroid nodule. Pacer leads are present. CONCLUSION: 1. Negative for carotid stenosis. Mild to moderate calcific atherosclerotic plaque at the bifurcatio ns. Both vertebral arteries are patent. 2. 3.1 cm left-sided thyroid nodule. 3. Previous sternotomy with pacer leads present. Previous ventriculostomy placement. Electronically signed by: Baljinder Camarena MD 06/02/2018 7:22 PM EDT
--- NOTE | 2018-06-02 19:26 | CT ---
EXAM DATE: 06/02/2018 7:13 PM EDT AGE/SEX: 78 years / Male INDICATIONS: Stroke like symptoms. Evaluate for occlusion. CLINICAL DATA: This is the patient's initial encounter. Patient reports that signs and symptoms have been present for 2 days and indicates a pain score of 0/10. MEDICAL/SURGICAL HISTORY: Cardiovascular disease. Hypertension. Diabetes mellitus type II. Demen tia CABG. Appendectomy. Cholecystectomy. TAX ATTORNEY shunt RADIATION DOSE: 28.87 CTDI (mGy) ; Combined studies COMPARISON: No prior exams available for comparison. TECHNIQUE: Volumetric scanning was performed using a multi-row detector CT scanner during bolus infu jeni of 70 ml Omnipaque 350 (iohexol) nonionic water-soluble contrast as a cumulative dose for multi ple exams. The data was post processed with a variety of visualization algorithms including full vo lume maximum intensity projection, multi-planar sliding thin slab reformation, curved planar reformat ion, and surface rendering techniques. Using automated exposure control and adjustment of the mA and /or kV according to patient size, radiation dose was kept as low as reasonably achievable to obtain o ptimal diagnostic quality images. DICOM format image data is available electronically for review and comparison. FINDINGS: The distal vertebral arteries are patent. There is a mild stenosis of the mid basilar artery. The dis laurie internal carotid arteries are patent. No stenosis identified in the anterior middle and posterior cerebral arteries. Ventriculostomy is present with mild hydrocephalus. CONCLUSION: 1. Mild stenosis mid basilar artery. Otherwise no intracranial arterial vascular stenosis. No aneury sm or dissection. Electronically signed by: Baljinder Camarena MD 06/02/2018 7:25 PM EDT
--- NOTE | 2018-06-02 21:38 | CT ---
EXAM DATE: 06/02/2018 9:22 PM EDT AGE/SEX: 78 years / Male INDICATIONS: Cervical myelopathy. CLINICAL DATA: This is the patient's initial encounter. Patient reports that signs and symptoms have been present for 1 day and indicates a pain score of 5/10. MEDICAL/SURGICAL HISTORY: Cardiovascular disease. Hypertension. Diabetes mellitus type II. D ementia CABG. Appendectomy. Cholecystectomy. RADIATION DOSE: 28.87 CTDI (mGy) ; Reconstructed from previous dataset, no dose COMPARISON: No prior exams available for comparison. TECHNIQUE: Contiguous axial images were obtained using helical multi-row detector technique. Data s ets were acquired after intravenous administration of 90 ml Omnipaque 350 (iohexol) nonionic water-s oluble contrast as a cumulative dose for multiple exams.. The volumetric data was post-processed wit h multiplanar reconstruction in oblique axial, sagittal and coronal planes. Using automated exposure control and adjustment of the mA and/or kV according to patient size, radiation dose was kept as low as reasonably achievable to obtain optimal diagnostic quality images. DICOM format image data is georgi ilable electronically for review and comparison. FINDINGS: There is moderate degenerative disc disease. No prevertebral soft tissue swelling. No significant bon y canal stenosis. No acute fracture or spondylolisthesis. CONCLUSION: 1. No acute findings. No significant bony canal or bony foraminal stenosis. Normal alignment. Modera te degenerative change in the lower cervical spine. Electronically signed by: Baljinder Camarena MD 06/02/2018 9:37 PM EDT
[2018-06-03 01:40] LABS: Calcium 8.9 mg/dL (8.5-10.1); Carbon Dioxide 28.9 meq/L (21.0-32.0); Potassium 4.5 meq/L (3.5-5.1)
[2018-06-03] MEDS: Heparin Drip 25,000 UNIT/250 ML BAG IV.CONT PRN (06:48)
--- NOTE | 2018-06-03 07:46 | P.PNNEU ---
Subjective Subjective Comments: No acute events reported No headache No chest pain No dyspnea Active Medications: Active Medications Acetaminophen (Tylenol) 650 mg PO Q4H PRN PRN Reason: Temp > 100.4 Al Hydroxide/Mg Hydroxide (Milk Of Magnesia Liq) 30 ml PO Q12H PRN PRN Reason: Mild Constipation Atorvastatin Calcium (Lipitor) 80 mg PO HS [facility] Last Admin: 06/02/18 22:53 Dose: 80 mg Bisacodyl (Dulcolax Supp) 10 mg RECTAL DAILY PRN PRN Reason: SEVERE CONSITIPATION Carvedilol (Coreg) 3.125 mg PO BID [facility] Last Admin: 06/02/18 22:53 Dose: 3.125 mg Dextrose (D50w Vial) 50 ml IV.PUSH UNSCH PRN PRN Reason: PER HYPOGLYCEMIA PROTOCOL Furosemide (Lasix) 40 mg PO DAILY PRN PRN Reason: LEG EDEMA Glucagon (Glucagon Inj) 1 mg OTHER PRN PRN PRN Reason: for Hypoglycemia Protocol Heparin Sodium/Dextrose (Heparin/D5w 25,000 U/250 Ml) 25,000 unit in 250 mls @ 12 mls/hr IV.CONT TITRATE PRN; Protocol PRN Reason: Per Protocol Last Admin: 06/03/18 06:48 Dose: 1,100 units/hr, 11 mls/hr Sodium Chloride (Ns Inj) 1,000 mls @ 100 mls/hr IV.CONT .Q10H [facility] Last Admin: 06/02/18 16:19 Dose: 100 mls/hr Insulin Aspart (Novolog Insulin Correctional Sugar Inj) 0 unit SQ ACHS [facility]; Protocol Last Admin: 06/02/18 22:54 Dose: Not Given Lactulose (Lactulose Liq) 30 ml PO DAILY PRN PRN Reason: SEVERE CONSITIPATION Levothyroxine Sodium (Synthroid) 112 mcg PO DAILY@0600 [facility] Last Admin: 06/02/18 06:21 Dose: 112 mcg Ondansetron HCl (Zofran Odt) 4 mg PO Q6H PRN PRN Reason: NAUSEA OR VOMITING Senna/Docusate Sodium (Coretta-Colace) 1 tab PO BID [facility] Last Admin: 06/02/18 22:53 Dose: Not Given Sennosides (Senokot) 17.2 mg PO Q12H PRN PRN Reason: Moderate Constipation Sodium Chloride (Ns Flush) 2 ml IV.FLUSH PRN PRN PRN Reason: FLUSH AFTER USING IV ACCESS Temazepam (Restoril) 15 mg PO HS PRN PRN Reason: INSOMNIA Warfarin Sodium (Coumadin) 5 mg PO DAILY@1600 [facility] Last Admin: 06/02/18 17:41 Dose: 5 mg Allergies/Adverse Reactions: Allergies Allergy/AdvReac Type Severity Reaction Status Date / Time *MDRO Multi-Drug Resistant AdvReac Unknown Burning Uncoded 05/29/18 14:43 Organism Physical Exam Vital signs: Vital Signs 06/02/18 08:00 06/02/18 08:35 06/02/18 09:00 Temperature 98.1 F Pulse Rate 55 L 55 L Respiratory Rate 18 Blood Pressure 131/60 Pulse Oximetry 95 95 06/02/18 12:00 06/02/18 16:00 06/02/18 17:17 Temperature 97.8 F 98.1 F Pulse Rate 59 L 55 L Respiratory Rate 20 20 Blood Pressure 123/55 L 143/77 H Pulse Oximetry 95 96 96 06/02/18 20:00 06/03/18 00:00 06/03/18 04:00 Temperature 99.1 F 98.9 F 98.5 F Pulse Rate 57 L 57 L 88 Respiratory Rate 18 18 18 Blood Pressure 162/69 H 172/79 H 130/60 Pulse Oximetry 95 95 99 Intake & Output 06/02/18 06/03/18 06/03/18 18:59 06:59 18:59 Intake Total 1730 / 1730 250 / 250 Output Total 250 / 250 Balance 1730 / 1730 0 / 0 Weight 106.6 kg Intake: IV 1250 / 1250 250 / 250 Heparin/D5W 25,000 U/250 mL 25, 250 / 250 250 / 250 000 unit In 250 ml @ 1,200 UNITS/HR 12 mls/hr IV.CONT TITRATE PRN Rx#:[id number] Oral 480 / 480 Output: Urine 250 / 250 Other: Date of Last Bowel Movement 06/02/18 # Bowel Movements 1 Narrative: speech nl face sym now 5/5 lue and lle Objective Laboratory Results - last 24 hr 06/02/18 06/02/18 06/02/18 07:20 07:20 07:20 WBC 8.3 RBC 4.73 Hgb 14.9 Hct 43.5 MCV 92.1 MCH 31.6 MCHC 34.3 RDW 14.6 Plt Count 128 L MPV 10.9 PT 15.0 H INR 1.5 APTT 77.7 H D Sodium 139 Potassium 4.4 D Chloride 104 Carbon Dioxide 26.4 Anion Gap 9 BUN 19 H Creatinine 1.39 H Estimated GFR 49 L POC Glucose Random Glucose 145 H Calcium 9.0 06/02/18 06/02/18 06/02/18 12:34 17:38 19:27 WBC RBC Hgb Hct MCV MCH MCHC RDW Plt Count MPV PT INR APTT 30.8 H D Sodium Potassium Chloride Carbon Dioxide Anion Gap BUN Creatinine Estimated GFR POC Glucose 256 H 129 H Random Glucose Calcium 06/02/18 06/03/18 06/03/18 21:16 01:13 01:13 WBC RBC Hgb Hct MCV MCH MCHC RDW Plt Count MPV PT INR APTT 66.2 H D Sodium 139 Potassium 4.5 Chloride 105 Carbon Dioxide 28.9 Anion Gap 5 BUN 16 Creatinine 1.35 H Estimated GFR 51 L POC Glucose 123 H Random Glucose 130 H Calcium 8.9 06/03/18 07:27 WBC RBC Hgb Hct MCV MCH MCHC RDW Plt Count MPV PT INR APTT Sodium Potassium Chloride Carbon Dioxide Anion Gap BUN Creatinine Estimated GFR POC Glucose 145 H Random Glucose Calcium Review/Management - Review/Management Plan: imp one of his speech spells now not aphasic a little slow to answer and i suspect more due to nph/ neurocondition than ischemic changing to coumadin check stat eeg 06/02/[address] neg check ctax2 us caroltid neg few days ago shunt in has defib so no mri inr 1.5 on ivf and iv hep hob flat hold bp meds<200/100 06/03/18 he has normalized fu inr pend dc hep if >1.9 keep flat today ivf on and bp up and will get oob in am ctax2 nl and c spine ct neg
[2018-06-03] MEDS: Levothyroxine 112 MCG Tablet PO SCH (07:48)
[2018-06-03] MEDS: Insulin NovoLOG Aspart Correctional Sugar Inj SQ SCH ×4 (08:17→21:30)
[2018-06-03] MEDS: Senna/Docusate Sodium 8.6/50 MG Tablet PO SCH ×2 (08:20→21:49)
[2018-06-03] MEDS: Sod Chloride 0.9% Inj 1,000 ML IV.CONT SCH ×3 (09:16→22:33)
--- NOTE | 2018-06-03 09:17 | P.PN ---
Physical Exam Vital signs: Vital Signs 06/02/18 12:00 06/02/18 16:00 06/02/18 17:17 Temperature 97.8 F 98.1 F Pulse Rate 59 L 55 L Respiratory Rate 20 20 Blood Pressure 123/55 L 143/77 H Pulse Oximetry 95 96 96 06/02/18 20:00 06/03/18 00:00 06/03/18 04:00 Temperature 99.1 F 98.9 F 98.5 F Pulse Rate 57 L 57 L 88 Respiratory Rate 18 18 18 Blood Pressure 162/69 H 172/79 H 130/60 Pulse Oximetry 95 95 99 06/03/18 08:00 Temperature 97.6 F Pulse Rate 56 L Respiratory Rate 12 Blood Pressure 143/73 H Pulse Oximetry 93 L Intake & Output 06/02/18 06/03/18 06/03/18 18:59 06:59 18:59 Intake Total 1730 / 1730 250 / 250 400 / 400 Output Total 550 / 550 Balance 1730 / 1730 -300 / -300 400 / 400 Weight 106.6 kg Intake: IV 1250 / 1250 250 / 250 400 / 400 Heparin/D5W 25,000 U/250 mL 25, 250 / 250 250 / 250 000 unit In 250 ml @ 1,200 UNITS/HR 12 mls/hr IV.CONT TITRATE PRN Rx#:[id number] NS Inj 1,000 ML @ 100 mls/hr IV 400 / 400 .CONT .Q10H [facility] Rx#:[id number] Oral 480 / 480 Output: Urine 550 / 550 Other: Date of Last Bowel Movement 06/02/18 # Bowel Movements 1 Narrative: Subjective Interval history: at around 11 am- new onset; right sided weakness- strength definitiely weaker compared to yesterday speech slurred Physical Exam GENERAL: Dysarthric speech awake and alert appears in not acute distress. CARDIOVASCULAR: Regular rate and rhythm without murmurs, gallops, or rubs. RESPIRATORY: Breath sounds equal bilaterally. No accessory muscle use. GASTROINTESTINAL: Abdomen soft, non-tender, nondistended. MUSCULOSKELETAL and neurological exam: right-sided weakness right upper extremity 3 out of 5, right lower extremity 1 out of 5 no much improvement. Shallow right nasolabial fold. No cyanosis, or edema. Assessment and Plan 78 years old right handed male New onset right sided weakness. Recurrent TIA. Recent admit 05/29-05/31/18 for slurred speech, CT Head w/ no acute change from previous imaging 05/29/18. Unable to do MRI due to SR. 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 Carotid US 05/29/18 w/ mild plaque. - Repeat head CT normal. CT C - spine is negative continue on on Heparin drip with coumadin overlap INR goal 2-3, dc hep if >1.9 keep head flat today, continue IVF andcontiue to allow permisive HTN, oob in am -PT.OT, speech therapy -statins History of A-fib with AICD in place - monitor on telemetry Cardiomyopathy- EF 35-40% on echo 05/30/2018- clinically no sings of failure Hypertension - continue to monitor. 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 Oh on last admit after recommendation from Neurology to decrease shunt pressure, - decreased from 160 to [id number] DVT Prophylaxis: On Heparin gtt/ bridged Coumadin. DC heparin when INR> 1.9 CM consulted for d/c planning as needed Results - Labs CBC & Chem 7: 06/02/18 07:20 06/03/18 01:13 Laboratory Results - last 24 hr 06/02/18 06/02/18 06/02/18 07:20 07:20 07:20 WBC 8.3 RBC 4.73 Hgb 14.9 Hct 43.5 MCV 92.1 MCH 31.6 MCHC 34.3 RDW 14.6 Plt Count 128 L MPV 10.9 PT 15.0 H INR 1.5 APTT 77.7 H D Sodium 139 Potassium 4.4 D Chloride 104 Carbon Dioxide 26.4 Anion Gap 9 BUN 19 H Creatinine 1.39 H Estimated GFR 49 L POC Glucose Random Glucose 145 H Calcium 9.0 06/02/18 06/02/18 06/02/18 12:34 17:38 19:27 WBC RBC Hgb Hct MCV MCH MCHC RDW Plt Count MPV PT INR APTT 30.8 H D Sodium Potassium Chloride Carbon Dioxide Anion Gap BUN Creatinine Estimated GFR POC Glucose 256 H 129 H Random Glucose Calcium 06/02/18 06/03/18 06/03/18 21:16 01:13 01:13 WBC RBC Hgb Hct MCV MCH MCHC RDW Plt Count MPV PT INR APTT 66.2 H D Sodium 139 Potassium 4.5 Chloride 105 Carbon Dioxide 28.9 Anion Gap 5 BUN 16 Creatinine 1.35 H Estimated GFR 51 L POC Glucose 123 H Random Glucose 130 H Calcium 8.9 06/03/18 07:27 WBC RBC Hgb Hct MCV MCH MCHC RDW Plt Count MPV PT INR APTT Sodium Potassium Chloride Carbon Dioxide Anion Gap BUN Creatinine Estimated GFR POC Glucose 145 H Random Glucose Calcium - Imaging Impressions Cervical Spine CT 06/02/18 00:00 CONCLUSION: 1. No acute findings. No significant bony canal or bony foraminal stenosis. Normal alignment. Moderate degenerative change in the lower cervical spine. Head CTA 06/02/18 00:00 CONCLUSION: 1. Mild stenosis mid basilar artery. Otherwise no intracranial arterial vascular stenosis. No aneurysm or dissection. Neck CTA 06/02/18 00:00 CONCLUSION: 1. Negative for carotid stenosis. Mild to moderate calcific atherosclerotic plaque at the bifurcations. Both vertebral arteries are patent. 2. 3.1 cm left-sided thyroid nodule. 3. Previous sternotomy with pacer leads present. Previous ventriculostomy placement. Head CT 06/02/18 12:12 CONCLUSION: 1. Stable exam. . Assessment and Plan - Assessment (1) TIA (transient ischemic attack) Code(s): G45.9 - Transient cerebral ischemic attack, unspecified Status: Acute (2) A-fib Code(s): I48.91 - Unspecified atrial fibrillation Status: Acute (3) SR. [employer] MOBILE MANAGER (ventriculoperitoneal) shunt status Code(s): Z98.2 - Presence of cerebrospinal fluid drainage device Status: Acute
[2018-06-03 18:29] LABS: INR 2.2 Ratio; Prothrombin Time 21.9 sec (9.8-11.6)
[2018-06-04] MEDS: Levothyroxine 112 MCG Tablet PO SCH (06:02)
--- NOTE | 2018-06-04 08:13 | P.PNNEU ---
Subjective Subjective Comments: No acute events reported No headache No chest pain No dyspnea Active Medications: Active Medications Acetaminophen (Tylenol) 650 mg PO Q4H PRN PRN Reason: Temp > 100.4 Al Hydroxide/Mg Hydroxide (Milk Of Magnesia Liq) 30 ml PO Q12H PRN PRN Reason: Mild Constipation Atorvastatin Calcium (Lipitor) 80 mg PO HS [facility] Last Admin: 06/03/18 21:49 Dose: 80 mg Bisacodyl (Dulcolax Supp) 10 mg RECTAL DAILY PRN PRN Reason: SEVERE CONSITIPATION Carvedilol (Coreg) 3.125 mg PO BID [facility] Last Admin: 06/03/18 21:48 Dose: Not Given Dextrose (D50w Vial) 50 ml IV.PUSH UNSCH PRN PRN Reason: PER HYPOGLYCEMIA PROTOCOL Furosemide (Lasix) 40 mg PO DAILY PRN PRN Reason: LEG EDEMA Glucagon (Glucagon Inj) 1 mg OTHER PRN PRN PRN Reason: for Hypoglycemia Protocol Sodium Chloride (Ns Inj) 1,000 mls @ 100 mls/hr IV.CONT .Q10H [facility] Last Admin: 06/03/18 22:33 Dose: 50 mls/hr Insulin Aspart (Novolog Insulin Correctional Sugar Inj) 0 unit SQ ACHS [facility]; Protocol Last Admin: 06/03/18 21:30 Dose: 1 unit Lactulose (Lactulose Liq) 30 ml PO DAILY PRN PRN Reason: SEVERE CONSITIPATION Levothyroxine Sodium (Synthroid) 112 mcg PO DAILY@0600 [facility] Last Admin: 06/04/18 06:02 Dose: 112 mcg Ondansetron HCl (Zofran Odt) 4 mg PO Q6H PRN PRN Reason: NAUSEA OR VOMITING Senna/Docusate Sodium (Coretta-Colace) 1 tab PO BID [facility] Last Admin: 06/03/18 21:49 Dose: Not Given Sennosides (Senokot) 17.2 mg PO Q12H PRN PRN Reason: Moderate Constipation Sodium Chloride (Ns Flush) 2 ml IV.FLUSH PRN PRN PRN Reason: FLUSH AFTER USING IV ACCESS Temazepam (Restoril) 15 mg PO HS PRN PRN Reason: INSOMNIA Warfarin Sodium (Coumadin) 5 mg PO DAILY@1600 [facility] Last Admin: 06/03/18 17:08 Dose: 5 mg Allergies/Adverse Reactions: Allergies Allergy/AdvReac Type Severity Reaction Status Date / Time *MDRO Multi-Drug Resistant AdvReac Unknown Burning Uncoded 05/29/18 14:43 Organism Physical Exam Vital signs: Vital Signs 06/03/18 09:00 06/03/18 12:00 06/03/18 16:00 Temperature 98.0 F 97.7 F Pulse Rate 54 L 104 H 56 L Respiratory Rate 18 18 Blood Pressure 117/69 151/72 H Pulse Oximetry 97 95 06/03/18 20:00 06/04/18 00:00 06/04/18 04:00 Temperature 98.7 F 98.9 F 98.5 F Pulse Rate 69 70 70 Respiratory Rate 18 18 18 Blood Pressure 141/67 H 138/70 140/70 Pulse Oximetry 94 L 95 96 06/04/18 07:29 Temperature 97.4 F L Pulse Rate 58 L Respiratory Rate 12 Blood Pressure 168/77 H Pulse Oximetry 96 Intake & Output 06/03/18 06/04/18 06/04/18 18:59 06:59 18:59 Intake Total 1240 / 1240 150 / 150 Balance 1240 / 1240 150 / 150 Weight 106.6 kg Intake: IV 1000 / 1000 150 / 150 Heparin/D5W 25,000 U/250 mL 25, 150 / 150 000 unit In 250 ml @ 1,200 UNITS/HR 12 mls/hr IV.CONT TITRATE PRN Rx#:[id number] NS Inj 1,000 ML @ 100 mls/hr IV 850 / 850 150 / 150 .CONT .Q10H [facility] Rx#:[id number] Oral 240 / 240 Other: # Incontinent Voids 4 2 Date of Last Bowel Movement 06/03/18 06/03/18 06/03/18 # Bowel Movements 0 Narrative: vff face sym speech clear 5/5 Objective Laboratory Results - last 24 hr 06/03/18 06/03/18 06/03/18 09:49 11:33 17:57 PT INR APTT 62.2 H 93.1 H* D POC Glucose 358 H 06/03/18 06/03/18 06/03/18 17:57 18:08 20:02 PT 21.9 H INR 2.2 APTT POC Glucose 110 158 H 06/04/18 06/04/18 06:19 07:37 PT INR APTT 34.5 H D POC Glucose 120 H Review/Management - Review/Management Plan: imp one of his speech spells now not aphasic a little slow to answer and i suspect more due to nph/ neurocondition than ischemic changing to coumadin check stat eeg 06/02/[address] neg check ctax2 us caroltid neg few days ago shunt in has defib so no mri inr 1.5 on ivf and iv hep hob flat hold bp meds<200/100 06/03/18 he has normalized fu inr pend dc hep if >1.9 keep flat today ivf on and bp up and will get oob in am ctax2 nl and c spine ct neg 06/04/18 up in chair nl exam now inr 2.2 yest ok to rehab make sure inr checked daily for a few days
[2018-06-04] MEDS: Senna/Docusate Sodium 8.6/50 MG Tablet PO SCH (09:43)
[2018-06-04] MEDS: Sod Chloride 0.9% Inj 1,000 ML IV.CONT SCH ×2 (09:43→17:45)
[2018-06-04] MEDS: Insulin NovoLOG Aspart Correctional Sugar Inj SQ SCH ×3 (09:44→16:45)
--- NOTE | 2018-06-04 10:18 | P.DS ---
Date of admission: 05/31/18 22:32 Primary care physician: Odette Marques Brief History from admission: This is a 78-year-old male with a PMH of HTN, A. 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 Recent admit 05/29- for similar event, pt reported off Xarelto x4 mo, unable to obtain MRI due to PHOTO OPTICS TECHNICIAN Shunt, however Carotid US w/ mild plaque, s/p eval by Dr. Oh w/ recommendation for outpatient follow up. S/p eval by Dr. Rachel w/ recommendation to continue Xarelto and follow up in clinic. Pt states he was discharged home this afternoon, went to dinner with his and had sudden onset of expressive aphasia. Pt states episode lasted approx 30min, now completely resolved. Reports mild lower extremity weakness at the time, but resolved as well. CT Head w/ no acute findings. Dr. Rachel consulted, recommended to stop Xarelto and start Heparin gtt w/ Coumadin 10mg. Orders placed. Pt without complaints. DS: Diagnosis - Discharge Diagnosis (1) TIA (transient ischemic attack) Status: Acute (2) A-fib Status: Acute (3) PHOTO OPTICS TECHNICIAN (ventriculoperitoneal) shunt status Status: Acute DS: Medications - Discharge Medications Prescriptions: sennosides [Senna Lax] 17.2 mg PO Q12H PRN #60 tab PRN Reason: Moderate Constipation warfarin [Coumadin] 5 mg PO DAILY@1600 #30 tab DS: Summary Hospital Course: Physical Exam GENERAL: Dysarthric speech awake and alert appears in not acute distress. CARDIOVASCULAR: Regular rate and rhythm without murmurs, gallops, or rubs. RESPIRATORY: Breath sounds equal bilaterally. No accessory muscle use. GASTROINTESTINAL: Abdomen soft, non-tender, nondistended. MUSCULOSKELETAL and neurological exam: right-sided weakness right upper extremity 3 out of 5, right lower extremity 1 out of 5 no much improvement. Shallow right nasolabial fold. No cyanosis, or edema. Assessment and Plan 78 years old right handed male New onset right sided weakness. Recurrent TIA. Recent admit 05/29-05/31/18 for slurred speech, CT Head w/ no acute change from previous imaging 05/29/18. Unable to do MRI due to PHOTO OPTICS TECHNICIAN Shunt. Carotid US 05/29/18 w/ mild plaque. - Repeat head CT normal. CT C - spine is negative continue on on Heparin drip with coumadin overlap INR goal 2-3, dc heparin as INR is >1.9 - keep normotensive, noroglycemic -PT.OT, speech therapy -statins History of A-fib with AICD in place - monitor on telemetry Cardiomyopathy- EF 35-40% on echo 05/30/2018- clinically no sings of failure Hypertension - continue to monitor. 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 Oh on last admit after recommendation from Neurology to decrease shunt pressure, - decreased from 160 to [id number] DVT Prophylaxis: On Heparin gtt/ bridged Coumadin. DC heparin when INR> 1.9 . DC heparin today CM consulted for d/c planning as needed DCto SNF , is loking for [facility] EEG done today - Time Spent with Patient Total time spent providing and/or coordinating discharge services: Greater than 30 minutes - Quality: VTE Deep Vein Thrombosis/Pulmonary Embolism Present on Admission: No Exam Vital signs: Vital Signs 06/03/18 12:00 06/03/18 16:00 06/03/18 20:00 Temperature 98.0 F 97.7 F 98.7 F Pulse Rate 104 H 56 L 69 Respiratory Rate 18 18 18 Blood Pressure 117/69 151/72 H 141/67 H Pulse Oximetry 97 95 94 L 06/04/18 00:00 06/04/18 04:00 06/04/18 07:29 Temperature 98.9 F 98.5 F 97.4 F L Pulse Rate 70 70 58 L Respiratory Rate 18 18 12 Blood Pressure 138/70 140/70 168/77 H Pulse Oximetry 95 96 96 08/01/18 09:00 Temperature Pulse Rate 55 L Respiratory Rate Blood Pressure Pulse Oximetry Intake & Output 06/03/18 06/04/18 06/04/18 18:59 06:59 18:59 Intake Total 1240 / 1240 150 / 150 1000 / 1000 Balance 1240 / 1240 150 / 150 1000 / 1000 Weight 106.6 kg Intake: IV 1000 / 1000 150 / 150 1000 / 1000 Heparin/D5W 25,000 U/250 mL 25, 150 / 150 000 unit In 250 ml @ 1,200 UNITS/HR 12 mls/hr IV.CONT TITRATE PRN Rx#:[id number] NS Inj 1,000 ML @ 100 mls/hr IV 850 / 850 150 / 150 1000 / 1000 .CONT .Q10H LEROY Rx#:[id number] Oral 240 / 240 Other: # Incontinent Voids 4 2 Date of Last Bowel Movement 06/03/18 06/03/18 06/03/18 # Bowel Movements 0 Results Procedures completed during hospitalization: none Labs on day of discharge: Labs from last 24 hours 06/04/18 06/04/18 06/03/18 07:37 06:19 20:02 PT INR APTT 34.5 H D POC Glucose 120 H 158 H 06/03/18 06/03/18 06/03/18 18:08 17:57 17:57 PT 21.9 H INR 2.2 APTT 93.1 H* D POC Glucose 110 06/03/18 06/03/18 11:33 09:49 PT INR APTT 62.2 H POC Glucose 358 H - Impressions ITS Impressions Cervical Spine CT 06/02/18 00:00 CONCLUSION: 1. No acute findings. No significant bony canal or bony foraminal stenosis. Normal alignment. Moderate degenerative change in the lower cervical spine. Head CTA 06/02/18 00:00 CONCLUSION: 1. Mild stenosis mid basilar artery. Otherwise no intracranial arterial vascular stenosis. No aneurysm or dissection. Neck CTA 06/02/18 00:00 CONCLUSION: 1. Negative for carotid stenosis. Mild to moderate calcific atherosclerotic plaque at the bifurcations. Both vertebral arteries are patent. 2. 3.1 cm left-sided thyroid nodule. 3. Previous sternotomy with pacer leads present. Previous ventriculostomy placement. Head CT 06/02/18 12:12 CONCLUSION: 1. Stable exam. . Discharge Plan - Discharge Disposition Patient Disposition: 03 Discharge to SNF - Discharge Condition Condition: Stable - Discharge Order Discharge Orders: Discharge Order (Routine); Ordered 06/04/18 Ordered By: Joyce Hodges - Discharge Details Anticipated Discharge Date: 06/04/18 - Physicians Team Primary Care Provider: Odette Marques Attending Provider: Joyce Hodges Other Providers: Roddy Rachel MD ; [facility],Agency
--- NOTE | 2018-06-04 18:37 | P.PN ---
Physical Exam Vital signs: Vital Signs 06/03/18 20:00 06/04/18 00:00 06/04/18 04:00 Temperature 98.7 F 98.9 F 98.5 F Pulse Rate 69 70 70 Respiratory Rate 18 18 18 Blood Pressure 141/67 H 138/70 140/70 Pulse Oximetry 94 L 95 96 06/04/18 07:29 06/04/18 09:00 06/04/18 12:00 Temperature 97.4 F L 97.7 F Pulse Rate 58 L 55 L 63 Respiratory Rate 12 17 Blood Pressure 168/77 H 146/65 H Pulse Oximetry 96 95 06/04/18 16:00 Temperature 98.3 F Pulse Rate 62 Respiratory Rate 17 Blood Pressure 173/79 H Pulse Oximetry 97 Intake & Output 06/03/18 06/04/18 06/04/18 18:59 06:59 18:59 Intake Total 1240 / 1240 150 / 150 1999 / 1999 Output Total 300 / 300 Balance 1240 / 1240 150 / 150 1700 / 1700 Weight 106.6 kg Intake: IV 1000 / 1000 150 / 150 1999 / 1999 Heparin/D5W 25,000 U/250 mL 25, 150 / 150 000 unit In 250 ml @ 1,200 UNITS/HR 12 mls/hr IV.CONT TITRATE PRN Rx#:[id number] NS Inj 1,000 ML @ 100 mls/hr IV 850 / 850 150 / 150 1999 / 1999 .CONT .Q10H LEROY Rx#:[id number] Oral 240 / 240 Output: Urine 300 / 300 Other: # Incontinent Voids 4 2 2 Date of Last Bowel Movement 06/03/18 06/03/18 06/03/18 # Bowel Movements 0 Narrative: Subjective Interval history: at around 11 am- new onset; right sided weakness- strength definitiely weaker compared to yesterday speech slurred Physical Exam GENERAL: Dysarthric speech awake and alert appears in not acute distress. CARDIOVASCULAR: Regular rate and rhythm without murmurs, gallops, or rubs. RESPIRATORY: Breath sounds equal bilaterally. No accessory muscle use. GASTROINTESTINAL: Abdomen soft, non-tender, nondistended. MUSCULOSKELETAL and neurological exam: right-sided weakness right upper extremity 3 out of 5, right lower extremity 1 out of 5 no much improvement. Shallow right nasolabial fold. No cyanosis, or edema. Assessment and Plan 78 years old right handed male New onset right sided weakness. Recurrent TIA. Recent admit 05/29-05/31/18 for slurred speech, CT Head w/ no acute change from previous imaging 05/29/18. Unable to do MRI due to APPRENTICE EMBALMER Shunt. Carotid US 05/29/18 w/ mild plaque. - Repeat head CT normal. CT C - spine is negative continue on on Heparin drip with coumadin overlap INR goal 2-3, dc heparin as INR is >1.9 - keep normotensive, noroglycemic -PT.OT, speech therapy -statins History of A-fib with AICD in place - monitor on telemetry Cardiomyopathy- EF 35-40% on echo 05/30/2018- clinically no sings of failure Hypertension - continue to monitor. 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 Oh on last admit after recommendation from Neurology to decrease shunt pressure, - decreased from 160 to [id number] DVT Prophylaxis: On Heparin gtt/ bridged Coumadin. DC heparin when INR> 1.9 . DC heparin today CM consulted for d/c planning as needed DCto SNF , is loking for [facility] EEG done today Results - Labs CBC & Chem 7: 06/02/18 07:20 06/03/18 01:13 Laboratory Results - last 24 hr 06/03/18 06/03/18 06/04/18 17:57 20:02 06:19 APTT 93.1 H* D 34.5 H D POC Glucose 158 H 06/04/18 06/04/18 06/04/18 07:37 11:49 16:27 APTT POC Glucose 120 H 322 H 137 H Assessment and Plan - Assessment (1) TIA (transient ischemic attack) Code(s): G45.9 - Transient cerebral ischemic attack, unspecified Status: Acute (2) A-fib Code(s): I48.91 - Unspecified atrial fibrillation Status: Acute (3) APPRENTICE EMBALMER (ventriculoperitoneal) shunt status Code(s): Z98.2 - Presence of cerebrospinal fluid drainage device Status: Acute
== END 2018-06-04 19:29 ==
LOC: NEDA 18:03 → NEPC 18:03 → N05 23:40
PROVIDERS: ADMIT Hospitalist; ATTEND Hospitalist
DX: Z79.899 Other long term (current) drug therapy; I42.9 Cardiomyopathy, unspecified; R47.01 Aphasia; I13.0 Hypertensive heart and chronic kidney disease with heart failure and stage 1 through stage 4 chronic kidney disease, or unspecified chronic kidney disease; N18.3 Chronic kidney disease, stage 3 (moderate); Z95.810 Presence of automatic (implantable) cardiac defibrillator; R29.818 Other symptoms and signs involving the nervous system; I48.2 Chronic atrial fibrillation; E04.1 Nontoxic single thyroid nodule; I25.10 Atherosclerotic heart disease of native coronary artery without angina pectoris; R09.89 Other specified symptoms and signs involving the circulatory and respiratory systems; E11.22 Type 2 diabetes mellitus with diabetic chronic kidney disease; I65.1 Occlusion and stenosis of basilar artery; Z79.84 Long term (current) use of oral hypoglycemic drugs; R47.81 Slurred speech; R47.1 Dysarthria and anarthria; Z95.1 Presence of aortocoronary bypass graft; G45.9 Transient cerebral ischemic attack, unspecified; F03.90 Unspecified dementia, unspecified severity, without behavioral disturbance, psychotic disturbance, mood disturbance, and anxiety; I50.23 Acute on chronic systolic (congestive) heart failure; Z95.5 Presence of coronary angioplasty implant and graft; Z79.01 Long term (current) use of anticoagulants; R53.1 Weakness; E03.9 Hypothyroidism, unspecified; G91.2 (Idiopathic) normal pressure hydrocephalus; Z98.2 Presence of cerebrospinal fluid drainage device